=== PATIENT | male | born 1955 | race Caucasian/White ===

== ENCOUNTER 2017-01-12 15:26 | Emergency (ER) | payer OTHER ==
[2017-01-12 16:03] VITALS: BP 122/66
[2017-01-12] MEDS ORDERED: Lidocaine 1% MPF* 2 ML VIAL INJ ONE (16:32)
--- NOTE | 2017-01-12 17:09 | UC ---
Laceration HPI - HPI Summary HPI Summary: WAS CLEANING OVEN TODAY AROUND 2:30PM. LACERATED LEFT HAND JUST PROXIMAL TO 5TH FINGER ON A SHARP PART OF THE DOOR. THINKS HIS LAST TETANUS WAS 5-7 YEARS AGO. - History Of Current Complaint Chief Complaint: UCLaceration Stated Complaint: LFT HAND LAC Time Seen by Provider: 01/12/17 16:16 Hx Obtained From: Patient, Family/Windows Infrastructure Engineer - Laceration Location: Hand - LEFT Mechanism Of Injury: Sharp Trauma Onset/Duration: Sudden Onset, Lasting Hours, Still Present Severity: Moderate Pain Intensity: 4 Pain Scale Used: 0-10 Numeric Related History: Dominant Hand Right - Allergies/Home Medications Allergies/Adverse Reactions: Allergies Allergy/AdvReac Type Severity Reaction Status Date / Time No Known Allergies Allergy Verified 01/12/17 15:55 PMH/Surg Hx/FS Hx/Imm Hx Cardiovascular History: Hypertension Respiratory History: COPD - Surgical History Surgical History: Yes Surgery Procedure, Year, and Place: Right Rotator Cuff, 2015, [place]; Right Shoulder, 2006, [place] - Family History Known Family History: Positive: Hypertension - Social History Alcohol Use: Daily Substance Use Type: None Smoking Status (MU): Former Smoker Type: Cigarettes Amount Used/How Often: ~1-2 PPD Length of Time of Smoking/Using Tobacco: 43 Years Have You Smoked in the Last Year: No - Immunization History Most Recent Influenza Vaccination: Not the Season Review of Systems Constitutional: Negative Skin: Other - LACERATION Respiratory: Negative Cardiovascular: Negative Gastrointestinal: Negative All Other Systems Reviewed And Are Negative: Yes Physical Exam Triage Information Reviewed: Yes Appearance: Well-Appearing, No Pain Distress, Well-Nourished Vital Signs: Initial Vital Signs Temp 98.5 F 01/12/17 15:56 Pulse 73 01/12/17 15:56 Resp 16 01/12/17 15:56 BP 122/66 01/12/17 15:56 Pulse Ox 96 01/12/17 15:56 Vital Signs Reviewed: Yes Eyes: Positive: Conjunctiva Clear ENT: Positive: Hearing grossly normal Neck: Positive: Supple Respiratory: Positive: No respiratory distress, No accessory muscle use Cardiovascular: Positive: Pulses Normal Abdomen Description: Positive: Soft Neurological: Positive: Alert Psychological: Positive: Age Appropriate Behavior Skin: Positive: Other - 3CM LINEAR LACERATION LEFT HAND JUST PROXIMAL TO 5TH FINGER Laceration Repair - Laceration Repair 1 Description: Linear Laceration Size After Repair: Length (cm) - 3CM, Width (mm) - 0MM, Depth (mm) - 2MM Modified For Repair: No Anesthesia Used: 1.0% Lido Irrigation With Pressure Irrigation Device: Yes Closure Material: Sutures - 8 SIMPLE INTERRUPTED Closure Method: Single Layer Suture Of: Skin Suture Type: Other - 5-0 SURGIPRO Laceration Course/Dx - Course/Dx Course Of Treatment: ADVISED TDAP BOOSTER. PT DECLINED. WILL FOLLOW-UP WITH PCP. - Differential Dx - Laceration/Wound Provider Diagnoses: LACERATION REPAIR LEFT HAND Discharge - Discharge Plan Condition: Stable Disposition: HOME Patient Education Materials: Laceration (ED) Referrals: Cielo Hodge MD [Primary Care Provider] - If Needed Additional Instructions: APPLY THIN LAYER ANTIBIOTIC OINTMENT UNDER BANDAGE FOR FIRST 3-4 DAYS ONLY. CHANGE BANDAGE DAILY AND NEEDED IF IT BECOMES SOILED OR WET. SEEK FOLLOW-UP IF YOU DEVELOP SPREADING REDNESS OF THE SKIN, PURULENT DRAINAGE, FEVER, INCREASED PAIN OR ANY OTHER CONCERNING SYMPTOMS. RETURN FOR SUTURE REMOVAL IN 10 DAYS
== END 2017-01-12 17:30 | disposition home or self-care (01) ==
LOC: UCCORT 15:26
DX: S61.412A Laceration without foreign body of left hand, initial encounter (principal); W26.8XXA Contact with other sharp object(s), not elsewhere classified, initial encounter; Y93.G9 Activity, other involving cooking and grilling
CPT/HCPCS: 12002; 99211; G0463

== ENCOUNTER 2018-08-01 07:38 | Emergency (ER) | payer BC, OTHER ==
[2018-08-01 07:57] VITALS: BP 146/70
--- NOTE | 2018-08-01 09:09 | UC ---
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 Onset/Duration: Sudden Onset, Lasting Days - 1, Still Present Timing: Constant Onset Severity: Moderate Current Severity: Moderate Pain Intensity: 0 Pain Scale Used: 0-10 Numeric Location: Discrete - right hand Character: Pain, Painful Aggravating Factor(s): Nothing Alleviating Factor(s): Nothing Associated Signs & Symptoms: Negative: Nausea, Vomiting, Numbness, Weakness, Fever, Tenderness Related History: Other: - stuck by old / used needle - Allergy/Home Medications Allergies/Adverse Reactions: Allergies Allergy/AdvReac Type Severity Reaction Status Date / Time No Known Allergies Allergy Verified 08/01/18 07:48 PMH/Surg Hx/FS Hx/Imm Hx Cardiovascular History: Hypertension Respiratory History: COPD - Surgical History Surgical History: Yes Surgery Procedure, Year, and Place: Right Rotator Cuff, 2015, [place]; Right Shoulder, 2006, [place] - Family History Known Family History: Positive: Hypertension - Social History Alcohol Use: Daily Alcohol Amount: 3 BEERS A RICHAR Substance Use Type: None Smoking Status (MU): Former Smoker Type: Cigarettes Amount Used/How Often: ~1-2 PPD Length of Time of Smoking/Using Tobacco: 43 Years Have You Smoked in the Last Year: No - Immunization History Most Recent Influenza Vaccination: Not the Season Review of Systems All Other Systems Reviewed And Are Negative: Yes Constitutional: Positive: Negative Skin: Positive: Negative Eyes: Positive: Negative ENT: Positive: Negative Respiratory: Positive: Negative Is Patient Immunocompromised?: No Physical Exam Triage Information Reviewed: Yes Appearance: Well-Appearing, No Pain Distress, Well-Nourished Vital Signs: Initial Vital Signs Temp 98.6 F 08/01/18 07:49 Pulse 75 08/01/18 07:49 Resp 16 08/01/18 07:49 BP 146/70 08/01/18 07:49 Pulse Ox 98 08/01/18 07:49 Vital Signs Reviewed: Yes Eye Exam: Normal Eyes: Positive: Conjunctiva Clear ENT: Positive: Normal ENT inspection, Hearing grossly normal, Pharynx normal Neck: Positive: Supple, Nontender, No Lymphadenopathy Respiratory: Positive: Chest non-tender, Lungs clear, Normal breath sounds Cardiovascular: Positive: RRR, No Murmur, Pulses Normal Abdominal Exam: Normal Skin Exam: Normal Course/Dx - Diagnoses Provider Diagnosis: Needle exposure Discharge - Sign-Out/Discharge Documenting (check all that apply): Patient Departure All imaging exams completed and their final reports reviewed: No Studies - Discharge Plan Condition: Stable Disposition: HOME Prescriptions: Raltegravir* [Isentress*] 400 mg PO BID #60 tab Patient Education Materials: Needle Stick Injuries (ED) Referrals: Cielo Hodge MD [Primary Care Provider] - 7 Days Additional Instructions: will check for Hep B and Hep C and HIV will start Post exposure prophylaxis medication for HIV for 30 days please follow up with your pcp in one week - Billing Disposition and Condition Condition: STABLE Disposition: Home
[2018-08-01 13:36] LABS: ABS Basophils 0.1 10^3/ul (0-0.2); ABS Eosinophils 0.2 10^3/ul (0-0.6); ABS Lymphocytes 1.6 10^3/ul (1.0-4.8); ABS Monocytes 0.6 10^3/ul (0-0.8); ABS Neutrophils 4.8 10^3/ul (1.5-7.7); ABS Nucleated RBC 0 10^3/ul; Eosinophil % 2.6 %; Hematocrit 40 % (42-52); Hemoglobin 13.4 g/dl (14.0-18.0); Lymphocyte % 21.5 %; Mean Corpuscular HGB Conc 33 g/dl (31-36); Mean Corpuscular Hemoglobin 30 pg (27-31); Mean Corpuscular Volume 89 fL (80-94); Mean Platelet Volume 8.3 fL (7.4-10.4); Nucleated Red Blood Cells % 0.1; Platelet Count 363 10^3/ul (150-450); Red Blood Count 4.53 10^6/ul (4.00-5.40); Red Cell Distribution Width 13 % (10.5-15); White Blood Count 7.3 10^3/ul (3.5-10.8)
[2018-08-01 13:52] LABS: Albumin 3.8 g/dL (3.2-5.2); Albumin/Globulin Ratio 1.1 (1-3); BUN/Creatinine Ratio 20.9 (8-20); Calcium 9.5 mg/dL (8.6-10.3); EGFR Non-African American 89.5 (>60); Globulin 3.5 g/dL (2-4); Potassium 4.4 mmol/L (3.5-5.0); Total Bilirubin 0.5 mg/dL (0.2-1.0); Total Protein 7.3 g/dL (6.4-8.9)
[2018-08-01 14:13] LABS: Hepatitis B Surface Antigen Nonreactive (Nonreactive)
[2018-08-01 14:39] LABS: Hepatitis C Antibody Nonreactive (Nonreactive)
[2018-08-01 15:04] LABS: Hepatitis B Surface AB Not Immune (Immune)
--- NOTE | 2018-08-02 07:16 | UC ---
- Progress Note Progress Note: cbc,. cmp wnl HIV, Hep C, Hep B neg refer to Dr. Soler please 08/02/18 Course/Dx - Diagnoses Provider Diagnoses: Needle exposure Discharge - Sign-Out/Discharge Documenting (check all that apply): Post-Discharge Follow Up All imaging exams completed and their final reports reviewed: No Studies - Discharge Plan Condition: Stable Disposition: HOME Prescriptions: Raltegravir* [Isentress*] 400 mg PO BID #60 tab Patient Education Materials: Needle Stick Injuries (ED) Referrals: Cielo Hodge MD [Primary Care Provider] - 7 Days Additional Instructions: will check for Hep B and Hep C and HIV will start Post exposure prophylaxis medication for HIV for 30 days please follow up with your pcp in one week - Billing Disposition and Condition Condition: STABLE Disposition: Home
== END 2018-08-01 08:46 | disposition home or self-care (01) ==
LOC: UCCORT 07:38
DX: Z77.21 Contact with and (suspected) exposure to potentially hazardous body fluids (principal); X58.XXXA Exposure to other specified factors, initial encounter; Y93.89 Activity, other specified; Y92.9 Unspecified place or not applicable
CPT/HCPCS: 36415; 80053; 85025; 86703; 86706; 86803; 87340; 99212; G0463

== ENCOUNTER 2018-10-21 14:41 | Inpatient (IN) | payer BC, MEDICARE ==
--- OUTSIDE RECORDS SUMMARY | 2018-10-21 17:43 | XMS REPORT | Continuity of Care Document ---
:1955 External Reference #:[id number] Author Name Anisha Da Silva PA Address [address] [facility] [place] [address] Care Team Providers Name Role Phone Cielo Hodge MD Care Team Information Director Of Rehabilitation And Wellness Unavailable Cielo Hodge MD Primary Care Physician Unavailable Payers Date Identification Numbers Payment Provider Subscriber Effective: 2017 Policy Number: [id number] [employer] Darci Randolph PayID: [id number] [address] [address] [place] [address] Expires: 2017 Policy Number: [id number] [employer] Darci A Randolph PayID: [id number] [address] [place] [address] Expires: 2016 Policy Number: [id number] Medicaid Darci A Randolph PayID: [id number] [address] [place] [address] Advance Directives Description No Information Available Problems Date Description Provider Status Onset: 05/20/2015 Benign essential hypertension Active Onset: 05/20/2015 Chronic obstructive lung disease Cielo Hodge MD Active Onset: 05/20/2015 Essential hypertension Cielo Hodge MD Active Onset: 05/20/2015 Gastroesophageal reflux disease Cielo Hodge MD Active Onset: 05/20/2015 Shoulder joint pain Cielo Hodge MD Active Onset: 05/20/2015 Hyperlipidemia screening Cielo Hodge MD Active Onset: 05/20/2015 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 Active the shoulder region Onset: 08/19/2015 Umbilical hernia Cielo Hodge MD Active Onset: 08/19/2015 Epidermoid cyst Cielo Hodge MD Active Onset: 08/19/2015 Tinea pedis Cielo Hodge MD Active Onset: 08/19/2015 Onychomycosis Cielo Hodge MD Active Onset: 12/24/2015 Prosthetic arthroplasty of shoulder Suraj Moe M.D. 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,FACS Active soft tissues Onset: 10/15/2017 Encounter for other preprocedural Anisha Da Silva PA Active examination Onset: 10/15/2017 Chronic obstructive pulmonary Anisha Da Silva PA Active disease with (acute) exacerbation Onset: 10/15/2017 Chest pain Anisha Da Silva PA Active Family History Date Family Member(s) Observation Comments General Non Contributory Father Unknown Mother 82 Mother Unknown Children 6 Siblings 1 First Brother due to Unknown Causes () Social History Type Date Description Comments Sex Unknown Marital Status Lives With Diet Patient follows no dietary restrictions Occupation 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, didn't pass breathing test Hand Dominance Right-handed ADL's/IADL's Independent with all ADL's Tobacco Use Start: Unknown End: Quit Unknown Cigarette Use Pack Years - 49 Smoking Status Reviewed: 10/02/18 Quit ETOH Use Currently consumes alcohol 2+ drinks 4d/week C+A+G+E- 5-17-16: 6 pk/week & 1 bottle of wine/week Tobacco Use Start: Unknown End: Patient is a former smoker 1 1/2 ppd x 45 yrs, Unknown quit at age 56 Tobacco Use Start: Unknown quit 3 years ago CHANTIX Allergies, Adverse Reactions, Alerts Description No Known Drug Allergies Medications Medication Date Status Form Strength Qnty SIG Indications Ordering Provider Azithromycin 10/03/19 Active Tablets 250mg 6tabs 2 tab by J18.9 Naveen , 19 mouth day MD Cielo 1 1 tab by mouth day 2-5 Methylprednisolo 10/03/19 Active TBPK 4mg 21uni take J18.9 Naveen ne 19 ts tablets MD Cielo as directed- dose pack Nebulizer Air 06/24/20 Active Misc 1unit diagnosis Kheti, Tube/Plugs 18 s : copd MD Dilan Spiriva Respimat 11/09/19 Active Aerosol 2.5mcg/Ac 4unit Inhale 2 Kheti, 17 t s Puffs By MD Dilan Mouth Once Daily Nebulizer 05/20/20 Active Kit Nebulizer J44.9 Naveen Kit/Tubing/Mouth 15 machine; MD Cielo piece use as directed with albuterol q4h prn wheezing, cough or sob dx: j44.9 Albuterol 05/20/20 Active Nebulizer (2.5mg/3M 75ml use one J44.9 Naveen, Sulfate 15 L) 0.083% vial in MD Cielo nebulizer every 4 hours as needed Ventolin HFA Active Aerosol 108(90Bas 24gm 2 puffs , 00 e) every 4 MD Cielo mcg/Act hours as needed for sob, wheezing or persistan t cough Ibuprofen Active Tablets 800mg 180ta Take One Naveen 00 bs Tablet By MD Cielo Mouth Twice Daily With Food Or Snack as Needed For Pain. Max/Daily -2 Tablets Lisinopril Active Tablets 10mg 90tab take one Naveen 00 s tablet by MD Cielo mouth once daily Omeprazole Active Capsules 40mg [address] mouth every day Tramadol HCL 07/26/19 Hx Tablets 50mg 42tab 1-2 tab M54.41 Naveen 18 - s by mouth MD Cielo 08/22/19 every 4 19 hrs if needed for severe painRefer ence #: [id number] Incruse Ellipta 10/06/19 Hx Aerosol 62.5mcg/I 1mont take 1 Jeanmarieeti, 17 - nh h puff once MD Dilan 11/09/19 daily. 17 Omeprazole 05/29/20 Hx Capsules 40mg 60cap take 1 Sudhir Fernandez - DR s capsule MD Edgardo 08/22/19 by mouth 19 twice daily Guaifenesin ac 04/24/20 Hx Syrup 100-10mg/ 473ml 1-2 tsp Naveen, 16 - 5ML by mouth MD Cielo 07/26/19 every 4 18 hours as needed Reference #: [id number] Testosterone 03/31/20 Hx Solution 100mg/ml 6ml 1 Naveen, Cypionate 16 - millilite MD Cielo 03/31/20 rs 16 intramusc ular every 4 weeks code f reference #: [id number] Testosterone 03/31/20 Hx Solution 200mg/ml 3ml inject Naveen, Cypionate 16 - 1/2 MD Cielo 07/29/19 millilite 17 rs intramusc ular every 4 weeks code f Reference #: [id number] Azithromycin 03/28/20 Hx Tablets 250mg 6tabs take 2 J44.1 Art 16 - tablets MD Dilan 04/24/20 on day 1 16 then 1 tablet daily for 4 days. Prednisone 03/28/20 Hx Tablets 10mg 20tab take 40 J44.1 Art 16 - s mg once MD Dilan 04/24/20 daily for 16 5 days. Oxycodone HCL 11/30/19 Hx Tablets 10mg 60tab 1 by Abhi, 16 - s mouth Suraj, 01/03/20 every 4-6 M.D. 16 hour as needed postop pain Advair Diskus 11/22/19 Hx Aerosol 100-50mcg QS inhale Art, 16 - /Dose one puff MD Dilan 03/29/20 by mouth 16 twice a day Testosterone 10/20/19 Hx Gel 10mg/Act 4 pumps Sudhir Hodge - (2%) topically MD Cielo 10/20/19 every 16 morning Testosterone 10/13/19 Hx Solution 200mg/ml 10ml inject 1 Naveen Cypalma 16 - millilite MD Cielo 03/31/20 rs 16 intramusc ular every 4 weeks code f reference #: [id number] Spiriva Respimat 10/11/19 Hx Aerosol 2.5mcg/Ac 4gm Inhale Art 16 - t Two MD Dilan 10/06/19 Topanga(S) 17 By Mouth Once Daily Stiolto Respimat 09/24/19 Hx Aerosol 2.5-2.5mc 1unit take 2 J43.2 Kheti , 16 - g/Act s puffs MD Dilan 10/11/19 once 16 daily. Omeprazole 06/14/20 Hx Capsules 40mg 60cap 1 by Rei Fernandez - DR jamie Reynoso MD Unknown twice daily Advair Diskus 05/20/20 Hx Aerosol 250-50mcg 60uni 2npuff J44.9 Naveen 15 - /Dose ts twice a MD Cielo 11/22/19 day 16 Viagra 05/20/20 Hx Tablets 100mg 10tab take 1 F52.21 Naveen 15 - s tablet by MD Cielo 04/24/20 mouth at 16 least 1 hour before intercour se samples x 4, [id number] expir 07/03 Omeprazole Hx Capsules 20mg 90cap 1 po qd Naveen 00 - DR jamie Buck MD 06/14/20 15 Advair Diskus Hx Aerosol 250-50mcg use 1 Unknown 00 - /Dose breath 05/20/20 twice a 15 day Omeprazole Hx Tablets DR 20mg 1 by Unknown 00 - mouth 07/12/20 every day 15 Ibuprofen Hx Tablets 200mg 1 by Unknown 00 - mouth as 07/12/20 needed 15 for pain Cephalexin Hx Capsules 500mg 1 tab po Unknown 00 - bid x10 07/26/19 days 18 Guaifenesin-Code Hx Solution 100-10mg/ as needed Unknown ine 00 - 5ML for cough 04/24/20 16 Immunizations CPT Code Status Date Vaccine Lot # [id number] Given 07/26/2017 Pneumovax Injection [id number] Given 08/19/2015 Pneumococcal Conjugate Vaccine 13 Valent For [id number] Intramuscular Use [id number] Refused 03/31/2016 Influenza Vaccine (Fluzone) Age 3 And Older Vital Signs Date Vital Result Comment 10/02/2018 4:13pm BP Systolic 126 mmHg BP Diastolic 72 mmHg Body Temperature 99.8 F Heart Rate 92 /min Respiratory Rate 18 /min Height 66 inches 5'6" Weight 181.00 lb BMI (Body Mass Index) 29.2 kg/m2 BSA (Body Surface Area) 1.92 m2 [place] body weight in kilograms 64 kg O2 % BldC Oximetry 93 % Ra 08/22/2018 8:53am BP Systolic 113 mmHg BP Diastolic 75 mmHg Body Temperature 98.2 F Heart Rate 89 /min Height 66 inches 5'6" Weight 181.00 lb BMI (Body Mass Index) 29.2 kg/m2 BSA (Body Surface Area) 1.92 m2 [place] body weight in kilograms 64 kg O2 % BldC Oximetry 96 % room air Pain Level 3 04/29/2018 1:13pm BP Systolic Sitting Left Arm 126 mmHg BP Diastolic Sitting Left Arm 58 mmHg Heart Rate 82 /min Respiratory Rate 16 /min Height 66.6 inches 5'6.60" Weight 183.00 lb BMI (Body Mass Index) 29.0 kg/m2 BSA (Body Surface Area) 1.94 m2 [place] body weight in kilograms 66 kg O2 % BldC Oximetry 94 % 10/31/2017 9:56am BP Systolic 153 mmHg BP Diastolic 81 mmHg Heart Rate 80 /min Height 66.6 inches 5'6.60" Weight 185.00 lb BMI (Body Mass Index) 29.3 kg/m2 BSA (Body Surface Area) 1.95 m2 [place] body weight in kilograms 66 kg 10/15/2017 1:25pm BP Systolic Sitting Left Arm 128 mmHg BP Diastolic Sitting Left Arm 78 mmHg Body Temperature 97.9 F Heart Rate 88 /min Height 66.6 inches 5'6.60" Weight 183.00 lb BMI (Body Mass Index) 29.0 kg/m2 BSA (Body Surface Area) 1.94 m2 [place] body weight in kilograms 66 kg O2 % BldC Oximetry 98 % 10/02/2017 8:58am BP Systolic 122 mmHg BP Diastolic 88 mmHg Height 66.6 inches 5'6.60" Weight 182.00 lb BMI (Body Mass Index) 28.8 kg/m2 BSA (Body Surface Area) 1.93 m2 [place] body weight in kilograms 66 kg 09/11/2017 9:11am BP Systolic 128 mmHg BP Diastolic 78 mmHg Height 66.6 inches 5'6.60" Weight 181.00 lb BMI (Body Mass Index) 28.7 kg/m2 BSA (Body Surface Area) 1.93 m2 [place] body weight in kilograms 66 kg 07/26/2017 8:37am BP Systolic Sitting Left Arm 122 mmHg BP Diastolic Sitting Left Arm 72 mmHg Heart Rate 84 /min Respiratory Rate 18 /min Height 66.6 inches 5'6.60" Weight 185.00 lb BMI (Body Mass Index) 29.3 kg/m2 BSA (Body Surface Area) 1.95 m2 [place] body weight in kilograms 66 kg 05/12/2016 3:00pm BP Systolic Sitting Right Arm 102 mmHg BP Diastolic Sitting Right Arm 58 mmHg 04/24/2016 5:37pm BP Systolic Sitting Left Arm 128 mmHg BP Diastolic Sitting Left Arm 70 mmHg Height 68 inches 5'8" Weight 182.00 lb BMI (Body Mass Index) 27.7 kg/m2 BSA (Body Surface Area) 1.96 m2 [place] body weight in kilograms 70 kg 04/20/2016 3:47pm BP Systolic Sitting Left Arm 137 mmHg BP Diastolic Sitting Left Arm 69 mmHg Body Temperature 97.8 F Heart Rate 70 /min Respiratory Rate 20 /min Height 66.5 inches 5'6.50" Weight 178.00 lb BMI (Body Mass Index) 28.3 kg/m2 BSA (Body Surface Area) 1.91 m2 04/07/2016 8:54am BP Systolic Sitting Right Arm 110 mmHg BP Diastolic Sitting Right Arm 68 mmHg Body Temperature 97.9 F Heart Rate 72 /min Respiratory Rate 18 /min Height 66.5 inches 5'6.50" Weight 178.50 lb BMI (Body Mass Index) 28.4 kg/m2 BSA (Body Surface Area) 1.92 m2 03/31/2016 11:41am BP Systolic Sitting Left Arm 117 mmHg BP Diastolic Sitting Left Arm 75 mmHg Body Temperature 97.7 F Heart Rate 76 /min Respiratory Rate 20 /min Height 66.5 inches 5'6.50" Weight 180.12 lb BMI (Body Mass Index) 28.6 kg/m2 BSA (Body Surface Area) 1.92 m2 03/28/2016 4:10pm BP Systolic Sitting Right Arm 130 mmHg BP Diastolic Sitting Right Arm 69 mmHg Heart Rate 68 /min Height 66.5 inches 5'6.50" Weight 180.00 lb BMI (Body Mass Index) 28.6 kg/m2 BSA (Body Surface Area) 1.92 m2 O2 % BldC Oximetry 97 % 02/28/2016 3:11pm BP Systolic 124 mmHg BP Diastolic 68 mmHg Height 66.5 inches 5'6.50" Weight 185.00 lb BMI (Body Mass Index) 29.4 kg/m2 BSA (Body Surface Area) 1.95 m2 11/30/2015 1:41pm BP Systolic Sitting Left Arm 118 mmHg BP Diastolic Sitting Left Arm 70 mmHg Height 66.5 inches 5'6.50" Weight 185.00 lb BMI (Body Mass Index) 29.4 kg/m2 BSA (Body Surface Area) 1.95 m2 09/24/2015 4:10pm BP Systolic Sitting Left Arm 134 mmHg BP Diastolic Sitting Left Arm 68 mmHg Heart Rate 64 /min Height 68 inches 5'8" Weight 186.00 lb BMI (Body Mass Index) 28.3 kg/m2 BSA (Body Surface Area) 1.98 m2 O2 % BldC Oximetry 97 % 08/19/2015 3:17pm BP Systolic 125 mmHg BP Diastolic 78 mmHg Body Temperature 96.2 F Heart Rate 62 /min Respiratory Rate 18 /min Height 67.75 inches 5'7.75" Weight 183.12 lb BMI (Body Mass Index) 28.0 kg/m2 BSA (Body Surface Area) 1.96 m2 07/12/2015 3:22pm BP Systolic Sitting Left Arm 125 mmHg BP Diastolic Sitting Left Arm 81 mmHg Heart Rate 81 /min Height 66.5 inches 5'6.50" Weight 176.00 lb BMI (Body Mass Index) 28.0 kg/m2 BSA (Body Surface Area) 1.90 m2 06/15/2015 3:52pm BP Systolic Sitting Left Arm 98 mmHg BP Diastolic Sitting Left Arm 54 mmHg Heart Rate 43 /min Respiratory Rate 18 /min Height 68 inches 5'8" Weight 184.00 lb BMI (Body Mass Index) 28.0 kg/m2 BSA (Body Surface Area) 1.97 m2 O2 % BldC Oximetry 94 % 06/14/2015 3:03pm BP Systolic Sitting Right Arm 130 mmHg BP Diastolic Sitting Right Arm 88 mmHg Heart Rate 69 /min Respiratory Rate 16 /min Height 67.5 inches 5'7.50" Weight 182.00 lb BMI (Body Mass Index) 28.1 kg/m2 BSA (Body Surface Area) 1.95 m2 05/20/2015 1:07pm BP Systolic 134 mmHg BP Diastolic 70 mmHg Body Temperature 98.7 F Heart Rate 75 /min Respiratory Rate 19 /min Height 67.5 inches 5'7.50" Weight 183.25 lb BMI (Body Mass Index) 28.3 kg/m2 BSA (Body Surface Area) 1.96 m2 Results Test Date Facility Test Result H/L Range Note CBC Auto Diff 08/01/2018 [facility] White Blood 7.3 10^3/uL N 3.5-10.8 5 [phone] Count Red Blood Count 4.53 10^6/uL N 4.00-5.40 Hemoglobin 13.4 g/dL Low 14.0-18.0 Hematocrit 40 % Low 42-52 Mean Corpuscular Volume 89 fL N 80-94 Mean Corpuscular Hemoglobin 30 pg N 27-31 Mean Corpuscular HGB Conc 33 g/dL N 31-36 Red Cell Distribution Width 13 % N 10.5-15 Platelet Count 363 10^3/uL N 150-450 Mean Platelet Volume 8.3 fL N 7.4-10.4 Abs Neutrophils 4.8 10^3/uL N 1.5-7.7 Abs Lymphocytes 1.6 10^3/uL N 1.0-4.8 Abs Monocytes 0.6 10^3/uL N 0-0.8 Abs Eosinophils 0.2 10^3/uL N 0-0.6 Abs Basophils 0.1 10^3/uL N 0-0.2 Abs Nucleated RBC 0 10^3/uL Granulocyte % 66.4 % Lymphocyte % 21.5 % Monocyte % 8.8 % Eosinophil % 2.6 % Basophil % 0.7 % Nucleated Red Blood Cells % 0.1 Comp Metabolic Panel 08/01/2018 [facility] Sodium 137 mmol/L N 135-145 [phone] Potassium 4.4 mmol/L N 3.5-5.0 Chloride 104 mmol/L N 101-111 Co2 Carbon Dioxide 25 mmol/L N 22-32 Anion Gap 8 mmol/L N 2-11 Glucose 108 mg/dL High 70-100 Blood Urea Nitrogen 18 mg/dL N 6-24 Creatinine 0.86 mg/dL N 0.67-1.17 BUN/Creatinine Ratio 20.9 High 8-20 Calcium 9.5 mg/dL N 8.6-10.3 Total Protein 7.3 g/dL N 6.4-8.9 Albumin 3.8 g/dL N 3.2-5.2 Globulin 3.5 g/dL N 2-4 Albumin/Globulin Ratio 1.1 N 1-3 Total Bilirubin 0.50 mg/dL N 0.2-1.0 Alkaline Phosphatase 86 U/L N 34-104 Alt 17 U/L N 7-52 Ast 17 U/L N 13-39 Egfr Non- 89.5 >60 Egfr 108.3 >60 2 Laboratory 08/01/2018 [facility] Hepatitis B Nonreactive Nonreactive 3 test finding [phone] Surface Antigen Hepatitis B 08/01/2018 [facility] Hepatitis B Not Immune Abnormal Immune Maximo AB Titer [phone] Surface AB Hep B Surf AB Level < 3.10 mIU/mL >12 Hepatitis C Antibody 08/01/2018 [facility] HCV Index 0.0 Index [phone] Hepatitis C Antibody Nonreactive Nonreactive HIV 1/2 AB 08/01/2018 [facility] HIV 1 2 Nonreactive Nonreactive 4 Evaluation [phone] Antibody Differential-WB 04/29/2018 [facility] Total Cells 100 #CELLS [address] Count[address] [place], [place] [id number] [phone] Band% 1 % N 0-8 Neutrophils% 59 % N 33-73 Lymph% 31 % N 20-42 Monocyte% 8 % N 0-10 Basophil% 1 % N 0-2 Platelet Estimate NORMAL RBC Morphology NORMAL CBC W/Automated Diff 04/29/2018 [facility] White Blood 7.4 K/uL N 3.4-10.[address] Count [place], [place] [id number] [phone] Red Blood Count 4.56 M/uL N 4.20-5.80 Hemoglobin 14.0 gm/dL N 12.8-17.0 Hematocrit 40.7 % N 38.0-48.0 Mean Cell Volume 89.3 fl N 80.0-96.0 Mean Corpuscular HGB 30.7 pg N 27.0-33.0 Mean Corpuscular HGB Conc 34.4 g/dL N 31.7-36.0 Platelet Count 276 K/uL N 155-360 Red Cell Distri Width SD 41.1 fl N 36-51 Red Cell Distri Width %CV 12.9 % N 11.6-15.8 Mean Platelet Volume 10.2 fL N 6.6-10.6 Neut% 62.4 % N 33.0-73.0 Lymph % 25.6 % N 20.0-42.0 [place] % 9.0 % N 0.0-10.0 Eo% 2.6 % N 0.0-6.6 Bas% 0.4 % N 0.0-1.1 Neut# 4.60 K/uL N 1.8-7.0 Lymph # 1.89 K/uL N 1.0-4.0 [place] # 0.66 K/uL N 0.0-0.8 Eos # 0.19 K/uL N 0.0-0.5 Baso # 0.03 K/uL N 0.0-0.1 Comprehensive Metabolic 04/29/2018 [facility] Glucose 106 mg/dL N 74-106 Panel [address] [place] [address] [phone] BUN 15 mg/dL N 7-18 Creatinine 0.8 mg/dL N 0.6-1.3 Glom Filtration Rate, Estimate >60 mL/min >60 If >60 mL/min >60 6 BUN/Creat 18.7 ratio Sodium 139 mmol/L N 136-145 Potassium 4.0 mmol/L N 3.5-5.1 Chloride 105 mmol/L N 98-107 Carbon Dioxide 26 mmol/L N 21-32 Anion Gap 8 mEq/L N 8-16 Calcium 8.7 mg/dL N 8.5-10.1 Total Protein 8.0 g/dL N 6.4-8.2 Albumin 3.8 g/dL N 3.4-5.0 Globulin 4.2 g/dL N 1.9-4.3 Alb/Glob 0.9 ratio Bilirubin,Total 0.4 mg/dL N 0.2-1.0 Sgot/Ast 18 U/L N 15-37 SGPT/Alt 28 U/L N 12-78 Alkaline Phosphatase 86 U/L N 45-117 LDL Cholesterol 04/29/2018 [facility] Cholesterol 210 mg/dL High <200 7 Profile [address] [place] [address] [phone] Triglycerides 191 mg/dL High <150 8 HDL Cholesterol 51 mg/dL >40 9 LDL-Cholesterol 121 mg/dL < 100 10 Laboratory test 04/29/2018 [facility] Magnesium 1.9 mg/dL N 1.8-2.4 finding [address] [place] [address] [phone] Laboratory test 04/29/2018 [facility] Slide Review DIFF finding [address] [place] [address] [phone] Glycohemoglobin 04/29/2018 [facility] Glycohemoglobin 5.7 % N 4.2-6.[address] (A1c) [place] [address] [phone] eAG 117 mg/dL Neutrophils # Bld 04/06/2018 N2N/CCD Import Neutrophils # Bld 3.55 1.8- 7.0 Auto Auto Neutrophils/leuk NFr 04/06/2018 N2N/CCD Import Neutrophils/leuk NFr 55.7 33.0-73.0 Bld Auto Bld Auto Potassium SerPl-sCnc 04/06/2018 N2N/CCD Import Potassium SerPl-sCnc 4.0 3.5-5.1 RDW RBC Auto 04/06/2018 N2N/CCD Import RDW RBC Auto 42.3 36-51 RDW RBC Auto-Rto 04/06/2018 N2N/CCD Import RDW RBC Auto-Rto 13.1 11.6- 15.8 Serum carbon dioxide 04/06/2018 N2N/CCD Import Serum carbon dioxide 26 21-32 measurement measurement Serum or plasma 04/06/2018 N2N/CCD Import Serum or plasma 3.9 3.4-5.0 albumin measurement albumin measurement (mass/volume) (mass/volume) Serum or plasma 04/06/2018 N2N/CCD Import Serum or plasma 87 45-117 alkaline phosphatase alkaline phosphatase measurement ( measurement (enzymatic activity/volume) Serum or plasma 04/06/2018 N2N/CCD Import Serum or plasma 17 15-37 aspartate aspartate aminotransferase aminotransferase measure measurement (enzymatic activity/volume) Serum or plasma 04/06/2018 N2N/CCD Import Serum or plasma 8.6 8.5-10.1 calcium measurement calcium measurement (mass/volume) (mass/volume) Serum or plasma 04/06/2018 N2N/CCD Import Serum or plasma 0.9 0.6-1.3 creatinine creatinine measurement measurement (mass/volum (mass/volume) Serum or plasma 04/06/2018 N2N/CCD Import Serum or plasma 99 74-106 glucose measurement glucose measurement (mass/volume) (mass/volume) Serum or plasma 04/06/2018 N2N/CCD Import Serum or plasma 8.1 6.4-8.2 protein measurement protein measurement (mass/volume) (mass/volume) Serum or plasma 04/06/2018 N2N/CCD Import Serum or plasma 0.5 0.2-1.0 total bilirubin total bilirubin measurement (mass/ measurement (mass/volume) Serum or plasma urea 04/06/2018 N2N/CCD Import Serum or plasma urea 18 7 -18 nitrogen measurement nitrogen measurement (mass/vo (mass/volume) Serum or plasma urea 04/06/2018 N2N/CCD Import Serum or plasma urea 20.0 nitrogen/creatinine nitrogen/creatinine mass rati mass ratio Serum sodium 04/06/2018 N2N/CCD Import Serum sodium 138 136-145 measurement measurement CBC W/Automated Diff 04/06/2018 [facility] White Blood Count 6.4 K/uL N 3.4- 10.5 12 [address] [place] [address] [phone] Red Blood Count 4.48 M/uL N 4.20-5.80 Hemoglobin 14.0 gm/dL N 12.8-17.0 Hematocrit 40.7 % N 38.0-48.0 Mean Cell Volume 90.8 fl N 80.0-96.0 Mean Corpuscular HGB 31.3 pg N 27.0-33.0 Mean Corpuscular HGB Conc 34.4 g/dL N 31.7-36.0 Platelet Count 253 K/uL N 155-360 Red Cell Distri Width SD 42.3 fl N 36-51 Red Cell Distri Width %CV 13.1 % N 11.6-15.8 Mean Platelet Volume 9.9 fL N 6.6-10.6 Neut% 55.7 % N 33.0-73.0 Lymph % 30.1 % N 20.0-42.0 [place] % 9.4 % N 0.0-10.0 Eo% 4.2 % N 0.0-6.6 Bas% 0.6 % N 0.0-1.1 Neut# 3.55 K/uL N 1.8-7.0 Lymph # 1.92 K/uL N 1.0-4.0 [place] # 0.60 K/uL N 0.0-0.8 Eos # 0.27 K/uL N 0.0-0.5 Baso # 0.04 K/uL N 0.0-0.1 Laboratory test 04/06/2018 [facility] Troponin-I < 0.015 13, [address] ng/mL [place], [place] [id number] [phone] Comprehensive 04/06/2018 [facility] Glucose 99 mg/dL N 74-10 15 Metabolic Panel [address] [place], [place] [id number] [phone] BUN 18 mg/dL N 7-18 Creatinine 0.9 mg/dL N 0.6-1.3 Glom Filtration Rate, Estimate >60 mL/min >60 If >60 mL/min >60 16 BUN/Creat 20.0 ratio Sodium 138 mmol/L N 136-145 Potassium 4.0 mmol/L N 3.5-5.1 Chloride 103 mmol/L N 98-107 Carbon Dioxide 26 mmol/L N 21-32 Anion Gap 9 mEq/L N 8-16 Calcium 8.6 mg/dL N 8.5-10.1 Total Protein 8.1 g/dL N 6.4-8.2 Albumin 3.9 g/dL N 3.4-5.0 Globulin 4.2 g/dL N 1.9-4.3 Alb/Glob 0.9 ratio Bilirubin,Total 0.5 mg/dL N 0.2-1.0 Sgot/Ast 17 U/L N 15-37 SGPT/Alt 25 U/L N 12-78 Alkaline Phosphatase 87 U/L N 45-117 Laboratory test 04/06/2018 [facility] Troponin-I < 0.015 [address] ng/mL [place], [place] [id number] [phone] Alt SerPl-cCnc 04/06/2018 N2N/CCD Import Alt SerPl-cCnc 25 12-78 Albumin/Glob 04/06/2018 N2N/CCD Import Albumin/Glob SerPl 0.9 SerPl Anion Gap 04/06/2018 N2N/CCD Import Anion Gap 9 8-16 SerPl-sCnc SerPl-sCnc Automated blood 04/06/2018 N2N/CCD Import Automated blood 0.04 0.0-0 basophil count basophil count .1 (count/volume) (count/volume) Automated blood 04/06/2018 N2N/CCD Import Automated blood 0.27 0.0-0 eosinophil count eosinophil count .5 Automated blood 04/06/2018 N2N/CCD Import Automated blood 40.7 38.0- hematocrit hematocrit (volume 48.0 (volume fraction) fraction) Automated blood 04/06/2018 N2N/CCD Import Automated blood 1.92 1.0-4 lymphocyte count lymphocyte count .0 (number/volume) (number/volume) Automated blood 04/06/2018 N2N/CCD Import Automated blood 253 155-3 platelet count platelet count 60 Automated blood 04/06/2018 N2N/CCD Import Automated blood 9.9 6.6-1 platelet mean platelet mean 0.6 volume volume measurement measurement Automated 04/06/2018 N2N/CCD Import Automated 31.3 27.0- erythrocyte mean erythrocyte mean 33.0 corpuscular corpuscular hemoglobin hemoglobin (mass per erythrocyte) Monocytes/leuk 04/06/2018 N2N/CCD Import Monocytes/leuk NFr 9.4 0.0-1 NFr Bld Auto Bld Auto 0.0 Lymphocytes/leuk 04/06/2018 N2N/CCD Import Lymphocytes/leuk 30.1 20.0- NFr Bld Auto NFr Bld Auto 42.0 Globulin Ser 04/06/2018 N2N/CCD Import Globulin Ser 4.2 1.9-4 Calc-mCnc Calc-mCnc .3 Eosinophil/leuk 04/06/2018 N2N/CCD Import Eosinophil/leuk 4.2 0.0-6 NFr Bld Auto NFr Bld Auto .6 Chloride 04/06/2018 N2N/CCD Import Chloride 103 98-10 SerPl-sCnc SerPl-sCnc 7 Blood monocytes 04/06/2018 N2N/CCD Import Blood monocytes 0.60 0.0-0 automated count automated count .8 (number/volume) (number/volume) Automated 04/06/2018 N2N/CCD Import Automated 34.4 31.7- erythrocyte mean erythrocyte mean 36.0 corpuscular corpuscular hemoglobin hemoglobin concentration measurement (mass/volume) Automated 04/06/2018 N2N/CCD Import Automated 90.8 80.0- erythrocyte mean erythrocyte mean 96.0 corpuscular corpuscular volume volume Basophils/leuk 04/06/2018 N2N/CCD Import Basophils/leuk NFr 0.6 0.0-1 NFr Bld Auto Bld Auto .1 Blood 04/06/2018 N2N/CCD Import Blood erythrocytes 4.48 4.20- erythrocytes automated count 5.80 automated count (number/volume) (number/volume) Blood hemoglobin 04/06/2018 N2N/CCD Import Blood hemoglobin 14.0 12.8- measurement measurement 17.0 (mass/volume) (mass/volume) Blood leukocytes 04/06/2018 N2N/CCD Import Blood leukocytes 6.4 3.4-1 automated count automated count 0.5 (number/volume) (number/volume) CBC 10/18/2017 [facility] White Blood Count 6.2 K/uL N 3.4-[address] [place] [address] [phone] Red Blood Count 4.57 M/uL N 4.20-5.80 Hemoglobin 14.4 gm/dL N 12.8-17.0 Hematocrit 40.5 % N 38.0-48.0 Mean Cell Volume 88.6 fl N 80.0-96.0 Mean Corpuscular HGB 31.5 pg N 27.0-33.0 Mean Corpuscular HGB Conc 35.6 g/dL N 31.7-36.0 Platelet Count 243 K/uL N 155-360 Red Cell Distri Width %CV 12.8 % N 11.6-15.8 Mean Platelet Volume 10.5 fL N 6.6-10.6 Basic Metabolic Panel 10/18/2017 [facility] Glucose 113 mg/dL High 74-[address] [place] [address] [phone] BUN 26 mg/dL High 7-18 Creatinine 0.7 mg/dL N 0.6-1.3 Glom Filtration Rate, Estimate >60 mL/min >60 If >60 mL/min >60 19 BUN/Creat 37.1 ratio Sodium 142 mmol/L N 136-145 Potassium 4.3 mmol/L N 3.5-5.1 Chloride 110 mmol/L High 98-107 Carbon Dioxide 22 mmol/L N 21-32 Anion Gap 10 mEq/L N 8-16 Calcium 8.8 mg/dL N 8.5-10.1 Laboratory test 07/19/2016 [facility] Troponin-I < 0.015 N 20, [address] ng/[place] [address] [phone] CBS W/Automated 07/19/2016 [facility] White Blood 5.6 K/uL N 3.4-[address] Count 0.5 [place] [address] [phone] Red Blood Count 4.72 M/uL N 4.20-5.80 Hemoglobin 14.5 gm/dL N 12.8-17.0 Hematocrit 41.6 % N 38.0-48.0 Mean Cell Volume 88.1 fl N 80.0-96.0 Mean Corpuscular HGB 30.7 pg N 27.0-33.0 Mean Corpuscular HGB Conc 34.9 g/dL N 31.7-36.0 Platelet Count 222 K/uL N 150-400 Red Cell Distri Width SD 39.4 fl N 36-51 Red Cell Distri Width %CV 12.6 % N 11.6-15.8 Mean Platelet Volume 10.3 fL N 6.6-10.6 Neut% 49.7 % N 33.0-73.0 Lymph % 33.3 % N 17.0-56.0 [place] % 9.9 % N 0.0-10.0 Eo% 6.6 % High 0.0-5.0 Bas% 0.5 % N 0.1-1.0 Neut# 2.80 K/uL N 1.8-7.0 Lymph # 1.88 K/uL N 1.8-7.0 [place] # 0.56 K/uL N 0.0-0.8 Eos # 0.37 K/uL N 0.0-0.5 Baso # 0.03 K/uL Low 0.1-0.2 Laboratory test 07/19/2016 [facility] D-Dimer, < 0.22 N [address] Quantitative ug/[place] [address] [phone] Comprehensive 07/19/2016 [facility] Glucose 98 mg/dL N 74-10 Metabolic Panel [address] [place] [address] [phone] BUN 16 mg/dL N 7-18 Creatinine 0.9 mg/dL N 0.6-1.3 Glom Filtration Rate, Estimate >60 mL/min N >60 If >60 mL/min N >60 23 BUN/Creat 17.7 ratio N Sodium 141 mmol/L N 136-145 Potassium 4.2 mmol/L N 3.5-5.1 Chloride 109 mmol/L High 98-107 Carbon Dioxide 25 mmol/L N 21-32 Anion Gap 7 mEq/L Low 8-16 Calcium 8.2 mg/dL Low 8.5-10.1 Total Protein 7.2 g/dL N 6.4-8.2 Albumin 3.6 g/dL N 3.4-5.0 Globulin 3.6 g/dL N 1.9-4.3 Alb/Glob 1.0 ratio N Bilirubin,Total 0.4 mg/dL N 0.2-1.0 Sgot/Ast 23 U/L N 15-37 SGPT/Alt 30 U/L N 12-78 Alkaline Phosphatase 72 U/L N 45-117 Laboratory test finding 07/19/2016 [facility] Lipase 181 U/L N 73-393 [address] [place] [address] [phone] CK 96 U/L N 39-308 Troponin-I < 0.015 ng/mL N 24 Laboratory test 07/19/2016 N2N/CCD Import Alanine Aminotransferase 30 12 -78 finding (Alt/SGPT) Albumin/Globulin Ratio 1.0 BUN/Creatinine Ratio 17.7 Basophils # (Auto) 0.03 Low 0.1-0.2 Basophils (%) (Auto) 0.5 0.1-1.0 Blood Urea Nitrogen 16 7-18 Calcium Level 8.2 Low 8.5-10.1 Carbon Dioxide Level 25 21-32 Chloride Level 109 High 98-107 Eosinophils # (Auto) 0.37 0.0-0.5 Eosinophils (%) (Auto) 6.6 High 0.0-5.0 Glucose Screen 98 74-106 Lymphocytes (%) (Auto) 33.3 17.0-56.0 Mean Corpuscular Hemoglobin 30.7 27.0-33.0 Mean Corpuscular Hemoglobin Concent 34.9 31.7-36.0 Mean Corpuscular Volume 88.1 80.0-96.0 Monocytes # (Auto) 0.56 0.0-0.8 Monocytes (%) (Auto) 9.9 0.0-10.0 Neutrophils (%) (Auto) 49.7 33.0-73.0 Potassium Level 4.2 3.5-5.1 RDW Coefficient of Variation 12.6 11.6-15.8 Red Cell Distribution Width 39.4 36-51 Sodium Level 141 136-145 Total Bilirubin 0.4 0.2-1.0 Aspartate Amino 07/19/2016 N2N/CCD Import Aspartate Amino 23 15-37 Transf (Ast/Sgot) Transf (Ast/Sgot) Lymphocytes # 07/19/2016 N2N/CCD Import Lymphocytes # 1.88 1.8-7.0 (Auto) (Auto) Neutrophils # 07/19/2016 N2N/CCD Import Neutrophils # 2.80 1.8-7.0 (Auto) (Auto) Order 06/01/2016 [facility] - Respiratory Therapy PFT With <pendin [address] Bronchodilator g> [place], [place] [id number] [phone] Comprehensive 03/28/2016 [facility] Glucose 90 N 74-106 25 Metabolic Panel [address] mg/[place] [address] [phone] BUN 14 mg/dL N 7-18 Creatinine 0.9 mg/dL N 0.6-1.3 Glom Filtration Rate, Estimate >60 mL/min N >60 If >60 mL/min N >60 26 BUN/Creat 15.5 ratio N Sodium 138 mmol/L N 136-145 Potassium 3.8 mmol/L N 3.5-5.1 Chloride 103 mmol/L N 98-107 Carbon Dioxide 27 mmol/L N 21-32 Anion Gap 8 mEq/L N 8-16 Calcium 8.8 mg/dL N 8.5-10.1 Total Protein 8.1 g/dL N 6.4-8.2 Albumin 4.2 g/dL N 3.4-5.0 Globulin 3.9 g/dL N 1.9-4.3 Alb/Glob 1.1 ratio N Bilirubin,Total 0.4 mg/dL N 0.2-1.0 Sgot/Ast 19 U/L N 15-37 SGPT/Alt 26 U/L N 12-78 Alkaline Phosphatase 97 U/L N 45-117 @[facility] Pat Id: [id number] @EMR Req #: [id number] Reflex add FT3? Y Reflex add FT4? Y Is Patient Fasting? Unknown CBS W/Automated Diff 03/28/2016 [facility] White Blood 7.4 K/uL N 3.4-10.[address] Count [place], [place] [id number] [phone] Red Blood Count 4.83 M/uL N 4.20-5.80 Hemoglobin 14.5 gm/dL N 12.8-17.0 Hematocrit 41.7 % N 38.0-48.0 Mean Cell Volume 86.3 fl N 80.0-96.0 Mean Corpuscular HGB 30.0 pg N 27.0-33.0 Mean Corpuscular HGB Conc 34.8 g/dL N 31.7-36.0 Platelet Count 236 K/uL N 150-400 Red Cell Distri Width SD 40.2 fl N 36-51 Red Cell Distri Width %CV 13.1 % N 11.6-15.8 Mean Platelet Volume 10.1 fL N 6.6-10.6 Neut% 60.0 % N 33.0-73.0 Lymph % 26.8 % N 17.0-56.0 Defiance % 9.0 % N 0.0-10.0 Eo% 3.7 % N 0.0-5.0 Bas% 0.5 % N 0.1-1.0 Neut# 4.42 K/uL N 1.8-7.0 Lymph # 1.97 K/uL N 1.8-7.0 [place] # 0.66 K/uL N 0.0-0.8 Eos # 0.27 K/uL N 0.0-0.5 Baso # 0.04 K/uL Low 0.1-0.2 @[facility] Pat Id: [id number] @EMR Req #: [id number] TSH Reflex FT4 03/28/2016 [facility] Thyroid Stim 2.86 uIU/mL N 0.30-4.20 And/Or FT3 [address] Hormone [place], [place] [address] [phone] @[facility] Pat Id: [id number] @[facility] Req #: [id number] Reflex add FT3? Y Reflex add FT4? Y Is Patient Fasting? Unknown Laboratory test 03/28/2016 N2N/CCD Import Thyroid 2.86 0.30-4.20 finding Stimulating Hormone (TSH) Laboratory test 12/14/2015 [facility] Bone See Note 27 finding [address] [place] [address] [phone] Basic Metabolic 12/08/2015 [facility] Glucose 104 mg/dL 74-106 Panel [address] [place] [address] [phone] BUN 18 mg/dL 7-18 Creatinine 0.8 mg/dL 0.6-1.3 Glom Filtration Rate, Estimate >60 mL/min >60 If >60 mL/min >60 28 BUN/Creat 22.5 ratio Sodium 138 mmol/L 136-145 Potassium 4.1 mmol/L 3.5-5.1 Chloride 106 mmol/L 98-107 Carbon Dioxide 26 mmol/L 21-32 Anion Gap 6 mEq/L Low 8-16 Calcium 8.7 mg/dL 8.5-10.1 CBC 12/08/2015 [facility] White Blood Count 5.4 K/uL 3.4-10.5 [address] [place], [place] [address] [phone] Red Blood Count 4.50 M/uL 4.20-5.80 Hemoglobin 14.0 gm/dL 12.8-17.0 Hematocrit 40.3 % 38.0-48.0 Mean Cell Volume 89.6 fl 80.0-96.0 Mean Corpuscular HGB 31.1 pg 27.0-33.0 Mean Corpuscular HGB Conc 34.7 g/dL 31.7-36.0 Platelet Count 248 K/uL 150-400 Red Cell Distri Width %CV 13.1 % 11.6-15.8 Mean Platelet Volume 10.3 fL 6.6-10.6 Laboratory test 09/20/2015 [facility] Prostate 1.06 ng/mL 29 finding [address] [place] [address] Antigen [phone] CBC W/Automated 09/20/2015 [facility] White Blood 6.3 K/uL 3.4-10. Diff [address] [place], [place] [id number] [phone] Red Blood Count 4.53 M/uL 4.20-5.80 Hemoglobin 13.9 gm/dL 12.8-17.0 Hematocrit 40.6 % 38.0-48.0 Mean Cell Volume 89.6 fl 80.0-96.0 Mean Corpuscular HGB 30.7 pg 27.0-33.0 Mean Corpuscular HGB Conc 34.2 g/dL 31.7-36.0 Platelet Count 260 K/uL 150-400 Red Cell Distri Width SD 42.0 fl 36-51 Red Cell Distri Width %CV 13.2 % 11.6-15.8 Mean Platelet Volume 11.1 fL High 6.6-10.6 Neut% 54.3 % 33.0-73.0 Lymph % 31.6 % 17.0-56.0 Defiance % 8.5 % 0.0-10.0 Eo% 5.0 % 0.0-5.0 Bas% 0.6 % 0.1-1.0 Neut# 3.40 K/uL 1.8-7.0 Lymph # 1.98 K/uL 1.8-7.0 [place] # 0.53 K/uL 0.0-0.8 Eos # 0.31 K/uL 0.0-0.5 Baso # 0.04 K/uL Low 0.1-0.2 Comprehensive Metabolic 09/20/2015 [facility] Glucose 117 mg/dL High 74-106 Panel [address] [place] [address] [phone] BUN 19 mg/dL High 7-18 Creatinine 0.8 mg/dL 0.6-1.3 Glom Filtration Rate, Estimate >60 mL/min >60 If >60 mL/min >60 30 BUN/Creat 23.7 ratio Sodium 138 mmol/L 136-145 Potassium 4.1 mmol/L 3.5-5.1 Chloride 107 mmol/L 98-107 Carbon Dioxide 24 mmol/L 21-32 Anion Gap 7 mEq/L Low 8-16 Calcium 7.7 mg/dL Low 8.5-10.1 Total Protein 7.0 g/dL 6.4-8.2 Albumin 3.6 g/dL 3.4-5.0 Globulin 3.4 g/dL 1.9-4.3 Alb/Glob 1.1 ratio Bilirubin,Total 0.2 mg/dL 0.2-1.0 Sgot/Ast 17 U/L 15-37 SGPT/Alt 32 U/L 12-78 Alkaline Phosphatase 73 U/L 45-117 Testosterone 08/20/2015 [facility] Testosterone,Serum 252 Low 348-[address] ng/dL [place], [place] [address] [phone] Comment See Note 31 Testosterone,%Free/Weakly BND 22.9 % 9.0-46.0 Testosterone,Free+Weakly Bound 57.7 ng/dL 40.0-250.0 32 LDL Cholesterol Profile 08/20/2015 [facility] Cholesterol 157 mg/dL <[address] [place] [address] [phone] Triglycerides 126 mg/dL <150 34 HDL Cholesterol 49 mg/dL >40 35 LDL-Cholesterol 83 mg/dL < 100 36 Ua RFX Micro + Culture 06/14/2015 [facility] Urine Color YELLOW Yellow II [address] [place] [address] [phone] Urine Clarity CLEAR Clear Urine Glucose - Dipstick NEGATIVE mg/dL Negative Urine Bilirubin - Dipstick NEGATIVE Negative Urine Ketone NEGATIVE mg/dL Negative Urine Specific [place] 1.020 1.010-1.030 Urine Blood NEGATIVE Negative Urine PH 5.5 Low 6.5-7.5 Urine Protein - Dipstick NEGATIVE mg/dL Negative Urine Urobilinogen - Dipstick 0.2 E.U./dL 0.2-1.0 Urine Nitrite - Dipstick NEGATIVE Negative Urine Leuk Esterase NEGATIVE Negative 1 [id number] 2 Because ethnic data is not always readily available, this report includes an eGFR for both -Americans and non- Americans. The National Kidney Disease Education Program (NKDEP) does not endorse the use of the MDRD equation for patients that are not between the ages of 18 and 70, are , have extremes of body size, muscle mass, or nutritional status, or are non- or non-. According to the National Kidney Foundation, irrespective of diagnosis, the stage of the disease is based on the level of kidney function: Stage Description GFR(mL/min/1.73 m(2)) 1 Kidney damage with normal or decreased GFR 90 2 Kidney damage with mild decrease in GFR 60-89 3 Moderate decrease in GFR 30-59 4 Severe decrease in GFR 15-29 5 Kidney failure <15 (or dialysis) 3 [id number] 4 It is recognized that currently available assays for the detection of antibodies to HIV-1 and/or HIV-2 may not detect all infected individuals. HIV antibodies may be undetectable in some stages of the infection and in some clinical conditions. The performance of this assay has not been established for populations of infants or children. Assayed by Chemiluminescence Microparticle Immunoassay on the Siemens Advia Centaur CP. Values obtained with different methods or kits cannot be used interchangeably.The diagnostic specificity of the ADVIA Centaur 1/O/2 Enhanced assay in the low risk population was 99.90% (6052/6058) with a 95% confidence interval of 99.78 to 99.96%. 5 R07.9 6 Note: Persistent reduction for 3 months or more in an eGFR <60 mL/min/1.73 m2 defines CKD. Patients with eGFR values >/=60 mL/min/1.73 m2 may also have CKD if evidence of persistent proteinuria is present. The original MDRD equation for estimated GFR is not valid for patients less than 18 years of age. Additional information may be found at www.kdoqi.org. 7 Reference Guidelines*: Desirable: ........... < 200 mg/dL Borderline High: ..... 200-239 mg/dL High: ................ >=240 mg/dL * The National Cholesterol Education Program (NCEP) 8 Reference Guidelines*: Normal: ............. < 150 mg/dL Borderline High: .... 150-199 mg/dL High: ............... 200-499 mg/dL Very High: .......... > 500 mg/dL * Source: National Cholesterol Education Program (NCEP) 9 Reference Guidelines*: Low HDL: ..... < 40 mg/dL Normal: ..... 40-60 mg/dL Desirable: ... > 60 mg/dL *The National Cholesterol Education Program(NCEP) 10 Reference Guidelines*: Optimal:........... <100 mg/dL Near Optimal....... 100-129 mg/dL Borderline High.... 130-159 mg/dL High............... 160-189 mg/dL Very High.......... >=190 mg/dL * Source: National Cholesterol Education Program (NCEP) 11 Elevated levels of HbA1c suggest the need for more aggressive treatment of glycemia. The [place] [employer] recommends that a primary goal of therapy should be a HbA1c of <7% and that physicians should re-evaluate the treatment regimen in patients with HbA1c values consistently >8%. 12 CHEST PAIN 13 CP 14 0.0 - 0.045 ng/mL: Normal 0.046 - 0.5 ng/mL: Suggestive 0.6 - 1.5 ng/mL: Consistent 15 CHEST PAIN 16 Note: Persistent reduction for 3 months or more in an eGFR <60 mL/min/1.73 m2 defines CKD. Patients with eGFR values >/=60 mL/min/1.73 m2 may also have CKD if evidence of persistent proteinuria is present. The original MDRD equation for estimated GFR is not valid for patients less than 18 years of age. Additional information may be found at www.kdoqi.org. 17 0.0 - 0.045 ng/mL: Normal 0.046 - 0.5 ng/mL: Suggestive 0.6 - 1.5 ng/mL: Consistent 18 CONSULT 10/16/17 11:30 33981 19 Note: Persistent reduction for 3 months or more in an eGFR <60 mL/min/1.73 m2 defines CKD. Patients with eGFR values >/=60 mL/min/1.73 m2 may also have CKD if evidence of persistent proteinuria is present. The original MDRD equation for estimated GFR is not valid for patients less than 18 years of age. Additional information may be found at www.kdoqi.org. 20 CHEST PAIN 21 0.0 - 0.045 ng/mL: Normal 0.046 - 0.5 ng/mL: Suggestive 0.6 - 1.5 ng/mL: Consistent 22 <=0.49 ug/mL - Low likelihood of DIC, DVT or Pulmonary Embolism >0.49 ug/mL - Additional testing should be done to rule out DIC, DVT, or Pulmonary embolism as clinically indicated. ([facility] has established a 97.89% negative predictive value for thrombotic disease when a cutoff value of 0.5 ug/mL is used.) 23 Note: Persistent reduction for 3 months or more in an eGFR <60 mL/min/1.73 m2 defines CKD. Patients with eGFR values >/=60 mL/min/1.73 m2 may also have CKD if evidence of persistent proteinuria is present. The original MDRD equation for estimated GFR is not valid for patients less than 18 years of age. Additional information may be found at www.kdoqi.org. 24 0.0 - 0.045 ng/mL: Normal 0.046 - 0.5 ng/mL: Suggestive 0.6 - 1.5 ng/mL: Consistent 25 R53.1 26 Note: Persistent reduction for 3 months or more in an eGFR <60 mL/min/1.73 m2 defines CKD. Patients with eGFR values >/=60 mL/min/1.73 m2 may also have CKD if evidence of persistent proteinuria is present. The original MDRD equation for estimated GFR is not valid for patients less than 18 years of age. Additional information may be found at www.kdoqi.org. 27 OPERATION/PROCEDURE Right (DJD), total shoulder. DIAGNOSIS: "RIGHT FEMORAL HEAD, EXCISION": - BENIGN BONE AND CARTILAGE WITH REACTIVE CHANGE. /clf 1105 GROSS Received in formalin in a properly labeled container with the patient's name and accession number designated, "RIGHT SHOULDER HUMERAL HEAD". The specimen consists of a single piece of sharp-white bony tissue measuring 5.3 x 5.3 x 1.4 cm. The specimen is unremarkable, submitted in one cassette following decalcification. CC/clf PRE OPERATIVE DIAGNOSIS Osteoarthritis right shoulder REVIEW CODE CODE: I Signed Electronically signed Chet EASLEY MD [id number] 28 Note: Persistent reduction for 3 months or more in an eGFR <60 mL/min/1.73 m2 defines CKD. Patients with eGFR values >/=60 mL/min/1.73 m2 may also have CKD if evidence of persistent proteinuria is present. The original MDRD equation for estimated GFR is not valid for patients less than 18 years of age. Additional information may be found at www.kdoqi.org. 29 THIS ASSAY IS NOT INTENDED A CANCER SCREENING TEST The concentration of PSA in a given specimen, determined with assays from different manufacturers, can vary due to differences in assay methods and reagent specificity. Values obtained from different assay methods cannot be used interchangeably. 30 Note: Persistent reduction for 3 months or more in an eGFR <60 mL/min/1.73 m2 defines CKD. Patients with eGFR values >/=60 mL/min/1.73 m2 may also have CKD if evidence of persistent proteinuria is present. The original MDRD equation for estimated GFR is not valid for patients less than 18 years of age. Additional information may be found at www.kdoqi.org. 31 Adult male reference interval is based on a population of lean males up to 40 years old. 32 Performed at: - [facility] [id number] Community Educator: Maria C Farooq MD, Phone: [phone] Performed at: - [facility] [id number] Community Educator: Leo Molina MD, Phone: [phone] 33 Reference Guidelines*: Desirable: ........... < 200 mg/dL Borderline High: ..... 200-239 mg/dL High: ................ >=240 mg/dL * The National Cholesterol Education Program (NCEP) 34 Reference Guidelines*: Normal: ............. < 150 mg/dL Borderline High: .... 150-199 mg/dL High: ............... 200-499 mg/dL Very High: .......... > 500 mg/dL * Source: National Cholesterol Education Program (NCEP) 35 Reference Guidelines*: Low HDL: ..... < 40 mg/dL Normal: ..... 40-60 mg/dL Desirable: ... > 60 mg/dL *The National Cholesterol Education Program(NCEP) 36 Reference Guidelines*: Optimal:........... <100 mg/dL Near Optimal....... 100-129 mg/dL Borderline High.... 130-159 mg/dL High............... 160-189 mg/dL Very High.......... >=190 mg/dL * Source: National Cholesterol Education Program (NCEP) Procedures Date Code Description Status 08/22/2018 12447 Radiology, Shoulder: Two Views (Sso) Completed 04/29/2018 69928 EKG-Tracing And Report Completed 10/18/2017 69176 Excision Tumor Soft Tissue Shoulder Area, Subcutaneous, 3 Completed CM Or > 10/15/2017 02116 EKG Interpretation And Report Only Completed 06/01/2016 10408 Bronchospasm Provocation Evaluation Multi Spirometric Completed Determinati 06/01/2016 43899 Bronchospasm Provocation Evaluation Multi Spirometric Completed Determinati 06/01/2016 57326 Spirometry Completed 06/01/2016 30984 Spirometry Completed 04/24/2016 69247 Excision Cyst Completed 04/07/2016 30387 Excision Cyst Completed 01/13/2016 96450 Eye Exam New Patient Comprehensive Completed 01/03/2016 44538 Radiology, Shoulder: Two Views (Sso) Completed 12/24/2015 31222 Radiology, Shoulder: Two Views (Sso) Completed 12/14/2015 17660 Arthroplasty Shoulder Total Completed 12/14/2015 24255 Arthroplasty Shoulder Total Completed 12/14/2015 22056 Arthroplasty Shoulder Total Completed 06/24/2015 44740 Bronchospasm Provocation Evaluation Multi Spirometric Completed Determinati 06/24/2015 11678 Spirometry Completed 06/14/2015 69641 EKG-Tracing And Report Completed 05/13/2015 54726 Stress Test Interpre And Report Only Completed 05/13/2015 66074 Stress Test Physician Super Only Completed 05/13/2015 50123 Stress Test Physician Super Only Completed 05/13/2015 26591 Myocardial Imaging Tomographic Multiple Study AT Rest Or Completed Stress 05/06/2015 35462 Echocardiogram Complete Completed Encounters Type Date Location Provider Dx Diagnosis Office Visit 08/22/2018 Orthopaedic Office Kelly Gasca, M25.511 Pain in right 8:45a PA shoulder Z96.611 Presence of right artificial shoulder joint Office Visit 04/29/2018 1:10p Cardiology Office Kallie R07.9 Chest pain, Get Pérez PA unspecified R06.02 Shortness of breath I10 Essential (primary) hypertension Office Visit 10/15/2017 1:30p Family Medicine Avinash, Z01.818 Encounter for other BOBBY [address] RD preprocedural examination 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 shoulder joint Office Visit 03/31/2016 11:30a Family Medicine Naveen D17.0 Bebo lipomatous Gomez Buck MD neoplm of skin, subcu of head, face and neck L72.3 Sebaceous cyst Office Visit 03/29/2016 8:30a Orthopaedic Abhi, Z96.611 Presence of Office Sandra Ruelas right artificial shoulder joint M19.011 Primary osteoarthritis, right shoulder Office Visit 03/28/2016 4:00p Pulmonology Dilan Cordova, J44.1 Chronic obstructive MD pulmonary disease w (acute) exacerbation R53.1 Weakness F17.211 Nicotine dependence, cigarettes, in remission Office Visit 10/25/2015 Orthopaedic Abhi M19.011 Primary 3:30p Office Sandra Ruelas osteoarthritis, right shoulder Office Visit 09/24/2015 Pulmonology Dilan Cordova, J43.2 Centrilobular 4:00p MD emphysema F17.211 Nicotine dependence, cigarettes, in remission K21.9 Gastro-esophageal reflux disease without esophagitis Office Visit 08/19/2015 3:00p Family Medicine Cielo Hodge, Z00.01 Encounter for Gomez MORALEZ MD general adult medical exam w abnormal findings I10 Essential (primary) hypertension J44.9 Chronic obstructive pulmonary disease, unspecified M19.011 Primary osteoarthritis, right shoulder K21.9 Gastro-esophageal reflux disease without esophagitis Z13.220 Encounter for screening for lipoid disorders K42.9 Umbilical hernia without obstruction or gangrene L72.3 Sebaceous cyst B35.1 Tinea unguium N52.9 Male erectile dysfunction, unspecified Z23 Encounter for immunization Office Visit 07/30/2015 11:00a Orthopaedic Office Suraj Moe M25.511 Pain in right M.D. shoulder M19.011 Primary osteoarthritis, right shoulder Office Visit 07/12/2015 Orthopaedic Abhi M25.511 Pain in right 3:00p Office Sandra Ruelas shoulder Office Visit 06/15/2015 Pulmonology Dilan Cordova, J44.9 Chronic 3:30p MD obstructive pulmonary disease, unspecified F17.211 Nicotine dependence, cigarettes, in remission F06.31 Mood disorder due to known physiol cond w depressv features Office Visit 06/14/2015 2:50p Cardiology Office Edgardo Fernandez, R07.2 Precordial pain K21.9 Gastro-esophageal reflux disease without esophagitis I10 Essential (primary) hypertension M54.5 Low back pain Office Visit 05/20/2015 1:00p Family Medicine Cielo Hodge J44.9 Chronic Gomez MORALEZ MD obstructive pulmonary disease, unspecified I10 Essential (primary) hypertension K21.9 Gastro-esophageal reflux disease without esophagitis M25.511 Pain in right shoulder Z13.220 Encounter for screening for lipoid disorders F52.21 Male erectile disorder Office Visit 05/07/2015 9:00a Cardiology Office Edgardo Fernandez, R07.9 Chest pain, unspecified Plan of Treatment Future Appointment(s):10/23/2018 4:15 pm - Anisha Da Silva PA at [facility]
--- OUTSIDE RECORDS SUMMARY | 2018-10-21 17:43 | XMS REPORT | Continuity of Care Document ---
:1955 External Reference #:[id number] Author Name Anisha Da Silva PA Address [address] [facility] [place] [address] Care Team Providers Name Role Phone Cielo Hodge MD Care Team Information Health Care Law Specialist Unavailable Cielo Hodge MD Primary Care Physician Unavailable Payers Date Identification Numbers Payment Provider Subscriber Effective: 2017 Policy Number: [id number] [employer] Darci Randolph PayID: [id number] [address] [address] [place] [address] Expires: 2017 Policy Number: [id number] [employer] Darci A Randolph PayID: [id number] [address] [place] [address] Expires: 2016 Policy Number: [id number] Medicaid Darci A Randolph PayID: [id number] [address] [place] [address] Advance Directives Description No Information Available Problems [...] dietary restrictions Occupation 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, didn't pass breathing test Hand Dominance Right-handed ADL's/IADL's Independent with all ADL's Tobacco Use Start: Unknown End: Quit Unknown Cigarette Use Pack Years - 50 Smoking Status Reviewed: 10/16/18 Quit ETOH Use Currently consumes alcohol 2+ [...] Form Strength Qnty SIG Indications Ordering Provider Doxycycline 10/17/19 Active Tablets 100mg 20tab take 1 J44.1 Naveen, Hyclate 19 s tablet by MD Cielo mouth every 12 hours for 10 days for infection Flovent HFA 10/17/19 Active Aerosol 110mcg/Ac 36gm 1 puffs John.Jenifer Hodge 19 t twice a MD Cielo day Benzonatate 10/17/19 Active Capsules 200mg 30cap 1 tab by Sacha Hodge 19 s mouth MD Cielo three times a day Nebulizer Air 06/24/20 Active Misc 1unit diagnosis Kheti, Tube/Plugs 18 s : copd MD Dilan Spiriva Respimat 11/09/19 Active Aerosol 2.5mcg/Ac 4unit Inhale 2 Kheti, 17 t s Puffs By MD Dilan Mouth Once Daily Nebulizer 05/20/20 Active Kit Nebulizer Butch Villatoro/Tubing/Mouth 15 machine; MD Cielo piece use as directed with albuterol q4h prn wheezing, cough or sob dx: kai Albuterol 05/20/20 Active Nebulizer (2.5mg/3M 75ml use one Kai Hodge Sulfate 15 L) 0.083% vial in MD Cielo nebulizer every 4 hours as needed Ventolin HFA Active Aerosol 108(90Bas 24gm 2 puffs Naveen 00 e) every 4 MD Cielo mcg/Act [...] by Unknown 00 DR mouth every day Azithromycin 10/03/19 Hx Tablets 250mg 6tabs 2 tab by Saul Hodge 19 - mouth day MD Cielo 10/08/19 1 1 tab 19 by mouth day 2-5 Methylprednisolo 10/03/19 Hx TBPK 4mg 21uni take Saul Hodge ne 19 - ts tablets MD Cielo 10/08/19 as 19 directed- dose pack Tramadol HCL 07/26/19 Hx Tablets 50mg 42tab 1-2 tab M54.41 Naveen 18 - s by mouth MD Cielo 08/22/19 every 4 19 hrs if needed for severe painRefer ence #: [id number] Incruse Ellipta 10/06/19 Hx Aerosol 62.5mcg/I 1mont take 1 Art 17 - nh h puff once MD Dilan 11/09/19 daily. 17 Omeprazole 05/29/20 Hx Capsules 40mg 60cap take 1 Sudhir Fernandez - DR s capsule MD Edgardo 08/22/19 by mouth 19 twice daily Guaifenesin ac 04/24/20 Hx Syrup 100-10mg/ 473ml 1-2 tsp Naveen 16 - 5ML by mouth MD Cielo 07/26/19 every 4 18 hours as needed Reference #: [id number] Testosterone 03/31/20 Hx Solution 100mg/ml 6ml 1 Naveen Cypionate 16 - millilite MD Cielo 03/31/20 rs 16 intramusc ular every 4 weeks code f reference #: [id number] Testosterone 03/31/20 Hx Solution 200mg/ml 3ml inject Naveen Cypionate 16 - 1/2 MD Cielo 07/29/19 millilite 17 rs intramusc ular every 4 weeks code f Reference #: [id number] Azithromycin 03/28/20 Hx Tablets 250mg 6tabs take [...] Diskus 11/22/19 Hx Aerosol 100-50mcg QS inhale Art 16 - /Dose one puff MD Dilan 03/29/20 by mouth 16 twice a day Testosterone 10/20/19 Hx Gel 10mg/Act 4 pumps Sudhir Hodge - (2%) topically MD Cielo 10/20/19 every 16 morning Testosterone 10/13/19 Hx Solution 200mg/ml 10ml inject 1 Naveen Cypionate 16 - millilite MD Cielo 03/31/20 rs 16 intramusc ular every 4 weeks code f reference #: [id number] Spiriva Respimat 10/11/19 Hx Aerosol 2.5mcg/Ac 4gm Inhale Art 16 - t Two MD Dilan 10/06/19 [place](S) 17 By Mouth Once Daily Stiolto Respimat 09/24/19 Hx Aerosol 2.5-2.5mc 1unit take 2 J43.2 Art , 16 - g/Act s puffs MD Dilan 10/11/19 once 16 daily. Omeprazole 06/14/20 Hx Capsules 40mg 60cap 1 by Rei Fernandez - DR jamie Reynoso MD Unknown twice daily Advair Diskus 05/20/20 Hx Aerosol 250-50mcg 60uni 2npuff J44.9 Rei Hodge - /Dose ts twice a MD Cielo 11/22/19 day 16 Viagra 05/20/20 Hx Tablets 100mg 10tab take 1 F52.21 Naveen 15 - s tablet by MD Cielo 04/24/20 mouth at 16 least 1 hour before intercour se samples x 4, [id number] expir 07/03 Omeprazole Hx Capsules 20mg 90cap 1 po qd Hannah Hodge - DR jamie Buck MD 06/14/20 15 [...] CPT Code Status Date Vaccine Lot # [id number] Given 07/26/2017 Pneumovax Injection [id number] Given 08/19/2015 Pneumococcal Conjugate Vaccine 13 Valent For [id number] Intramuscular Use [id number] Refused 03/31/2016 Influenza Vaccine (Fluzone) Age 3 And Older Vital Signs Date Vital Result Comment 10/16/2018 3:28pm BP Systolic Sitting Left Arm 126 mmHg BP Diastolic Sitting Left Arm 72 mmHg Body Temperature 98.7 F Heart Rate 84 /min Respiratory Rate 20 /min Height 66 inches 5'6" Weight 179.00 lb BMI (Body Mass Index) 28.9 kg/m2 BSA (Body Surface Area) 1.91 m2 Rough And Ready body weight in kilograms 64 kg O2 % BldC Oximetry 94 % 10/02/2018 4:13pm BP Systolic 126 mmHg BP Diastolic 72 mmHg Body Temperature 99.8 F Heart Rate 92 /min Respiratory Rate 18 /min Height 66 inches 5'6" Weight 181.00 lb BMI (Body Mass Index) 29.2 kg/m2 BSA (Body Surface Area) 1.92 m2 Rough And Ready body weight in kilograms 64 kg O2 % BldC Oximetry 93 % Ra 08/22/2018 8:53am BP Systolic 113 mmHg BP Diastolic 75 mmHg Body Temperature 98.2 F Heart Rate 89 /min Height 66 inches 5'6" Weight 181.00 lb BMI (Body Mass Index) 29.2 kg/m2 BSA (Body Surface Area) 1.92 m2 Rough And Ready body weight in kilograms 64 kg O2 % BldC Oximetry 96 % room air Pain Level 3 04/29/2018 1:13pm BP Systolic Sitting Left Arm 126 mmHg BP Diastolic Sitting Left Arm 58 mmHg Heart Rate 82 /min Respiratory Rate 16 /min Height 66.6 inches 5'6.60" Weight 183.00 lb BMI (Body Mass Index) 29.0 kg/m2 BSA (Body Surface Area) 1.94 m2 Rough And Ready body weight in kilograms 66 kg O2 % BldC Oximetry 94 % 10/31/2017 9:56am BP Systolic 153 mmHg BP Diastolic 81 mmHg Heart Rate 80 /min Height 66.6 inches 5'6.60" Weight 185.00 lb BMI (Body Mass Index) 29.3 kg/m2 BSA (Body Surface Area) 1.95 m2 Rough And Ready body weight in kilograms 66 kg 10/15/2017 1:25pm BP Systolic Sitting Left Arm 128 mmHg BP Diastolic Sitting Left Arm 78 mmHg Body Temperature 97.9 F Heart Rate 88 /min Height 66.6 inches 5'6.60" Weight 183.00 lb BMI (Body Mass Index) 29.0 kg/m2 BSA (Body Surface Area) 1.94 m2 Rough And Ready body weight in kilograms 66 kg O2 % BldC Oximetry 98 % 10/02/2017 8:58am BP Systolic 122 mmHg BP Diastolic 88 mmHg Height 66.6 inches 5'6.60" Weight 182.00 lb BMI (Body Mass Index) 28.8 kg/m2 BSA (Body Surface Area) 1.93 m2 Rough And Ready body weight in kilograms 66 kg 09/11/2017 9:11am BP Systolic 128 mmHg BP Diastolic 78 mmHg Height 66.6 inches 5'6.60" Weight 181.00 lb BMI (Body Mass Index) 28.7 kg/m2 BSA (Body Surface Area) 1.93 m2 Rough And Ready body weight in kilograms 66 kg 07/26/2017 8:37am BP Systolic Sitting Left Arm 122 mmHg BP Diastolic Sitting Left Arm 72 mmHg Heart Rate 84 /min Respiratory Rate 18 /min Height 66.6 inches 5'6.60" Weight 185.00 lb BMI (Body Mass Index) 29.3 kg/m2 BSA (Body Surface Area) 1.95 m2 Rough And Ready body weight in kilograms 66 kg 05/12/2016 3:00pm BP Systolic Sitting Right Arm 102 mmHg BP Diastolic Sitting Right Arm 58 mmHg 04/24/2016 5:37pm BP Systolic Sitting Left Arm 128 mmHg BP Diastolic Sitting Left Arm 70 mmHg Height 68 inches 5'8" Weight 182.00 lb BMI (Body Mass Index) 27.7 kg/m2 BSA (Body Surface Area) 1.96 m2 Rough And Ready body weight in kilograms 70 kg 04/20/2016 [...] H/L Range Note CBC Auto Diff 08/01/2018 [facility] White Blood 7.3 10^3/uL N 3.5-10.8 0 [phone] Count Red Blood Count 4.53 10^6/uL N [...] Cells % 0.1 Comp Metabolic Panel 08/01/2018 [facility] Sodium 137 mmol/L N 135-145 [phone] Potassium 4.4 mmol/L N 3.5-5.0 Chloride 104 [...] >60 Egfr 108.3 >60 2 Laboratory 08/01/2018 [facility] Hepatitis B Nonreactive Nonreactive 3 test finding [phone] Surface Antigen Hepatitis B 08/01/2018 [facility] Hepatitis B Not Immune Abnormal Immune Maximo AB Titer [phone] Surface AB Hep B Surf AB Level < 3.10 mIU/mL >12 Hepatitis C Antibody 08/01/2018 [facility] HCV Index 0.0 Index [phone] Hepatitis C Antibody Nonreactive Nonreactive HIV 1/2 AB 08/01/2018 [facility] HIV 1 2 Nonreactive Nonreactive 4 Evaluation [phone] Antibody Differential-WB 04/29/2018 [facility] Total Cells 100 #CELLS [address] Counted [place], [place] [id number] [phone] Band% 1 % N 0-8 Neutrophils% 59 % N 33-73 Lymph% 31 % N 20-42 Monocyte% 8 % N 0-10 Basophil% 1 % N 0-2 Platelet Estimate NORMAL RBC Morphology NORMAL CBC W/Automated Diff 04/29/2018 [facility] White Blood 7.4 K/uL N 3.4-10.[address] [place] [address] [phone] Red Blood Count 4.56 M/uL N 4.20-5.80 [...] 33.0-73.0 Lymph % 25.6 % N 20.0-42.0 Towns % 9.0 % N 0.0-10.0 Eo% 2.6 % N 0.0-6.6 Bas% 0.4 % N 0.0-1.1 Neut# 4.60 K/uL N 1.8-7.0 Lymph # 1.89 K/uL N 1.0-4.0 Towns # 0.66 K/uL N 0.0-0.8 Eos # 0.19 K/uL N 0.0-0.5 Baso # 0.03 K/uL N 0.0-0.1 Comprehensive Metabolic 04/29/2018 [facility] Glucose 106 mg/dL N 74-[address] [place] [address] [phone] BUN 15 mg/dL N 7-18 Creatinine 0.8 [...] 86 U/L N 45-117 LDL Cholesterol 04/29/2018 [facility] Cholesterol 210 mg/dL High <200 [address] [place], [place] [id number] [phone] Triglycerides 191 mg/dL High <150 8 HDL Cholesterol 51 mg/dL >40 9 LDL-Cholesterol 121 mg/dL < 100 10 Laboratory test 04/29/2018 [facility] Magnesium 1.9 N 1.8-2.[address] mg/[place] [address] [phone] Glycohemoglobin 04/29/2018 [facility] Glycohemoglobin 5.7 % N 4.2-6.[address] (A1c) [place], [place] [id number] [phone] eAG 117 mg/dL Laboratory test 04/29/2018 [facility] Slide Review DIFF finding [address] [place], [place] [id number] [phone] Neutrophils/leuk 04/06/2018 N2N/CCD Import Neutrophils/leuk 55.7 33. NFr Bld Auto NFr Bld Auto 0-7 3.0 Potassium 04/06/2018 N2N/CCD Import Potassium 4.0 3.5 SerPl-sCnc SerPl-sCnc -5. 1 RDW RBC Auto 04/06/2018 N2N/CCD Import RDW RBC Auto 42.3 36- 51 RDW RBC Auto-Rto 04/06/2018 N2N/CCD Import RDW RBC Auto-Rto 13.1 11. 6-1 5.8 Serum carbon 04/06/2018 N2N/CCD Import Serum carbon 26 21- dioxide measurement dioxide measurement 32 Serum or plasma 04/06/2018 N2N/CCD Import Serum or plasma 3.9 3.4 albumin measurement albumin measurement -5. (mass/volume) (mass/volume) 0 Serum or plasma 04/06/2018 N2N/CCD Import Serum or plasma 87 45- alkaline alkaline 117 phosphatase phosphatase measurement ( measurement (enzymatic activity/volume) Serum or plasma 04/06/2018 N2N/CCD Import Serum or plasma 17 15- aspartate aspartate 37 aminotransferase aminotransferase measure measurement (enzymatic activity/volume) Serum or plasma 04/06/2018 N2N/CCD Import Serum or plasma 8.6 8.5 calcium measurement calcium measurement -10 (mass/volume) (mass/volume) .1 Serum or plasma 04/06/2018 N2N/CCD Import Serum or plasma 0.9 0.6 creatinine creatinine -1. measurement measurement 3 (mass/volum (mass/volume) Serum or plasma 04/06/2018 N2N/CCD Import Serum or plasma 99 74- glucose measurement glucose measurement 106 (mass/volume) (mass/volume) Serum or plasma 04/06/2018 N2N/CCD Import Serum or plasma 8.1 6.4 protein measurement protein measurement -8. (mass/volume) (mass/volume) 2 Serum or plasma 04/06/2018 N2N/CCD Import Serum or plasma 0.5 0.2 total bilirubin total bilirubin -1. measurement (mass/ measurement 0 (mass/volume) Serum or plasma 04/06/2018 N2N/CCD Import Serum or plasma 18 7-1 urea nitrogen urea nitrogen 8 measurement measurement (mass/vo (mass/volume) Serum or plasma 04/06/2018 N2N/CCD Import Serum or plasma 20.0 urea urea nitrogen/creatinine nitrogen/creatinine mass rati mass ratio Serum sodium 04/06/2018 N2N/CCD Import Serum sodium 138 136 measurement measurement -14 5 Laboratory test 04/06/2018 [facility] Troponin-I < 0.015 12, finding [address] ng/mL 13 [place] [address] [phone] Comprehensive 04/06/2018 [facility] Glucose 99 mg/dL N 74- Metabolic Panel [address] [place] [address] [phone] BUN 18 mg/dL N 7-18 Creatinine 0.9 mg/dL N 0.6-1.3 Glom Filtration Rate, Estimate >60 mL/min >60 If >60 mL/min >60 14 BUN/Creat 20.0 ratio Sodium 138 mmol/L N [...] 12-78 Alkaline Phosphatase 87 U/L N 45-117 CBC W/Automated Diff 04/06/2018 [facility] White Blood 6.4 K/uL N 3.4-10.[address] Count [place], [place] [address] [phone] Red Blood Count 4.48 M/uL N 4.20-5.80 [...] 33.0-73.0 Lymph % 30.1 % N 20.0-42.0 Towns % 9.4 % N 0.0-10.0 Eo% 4.2 % N 0.0-6.6 Bas% 0.6 % N 0.0-1.1 Neut# 3.55 K/uL N 1.8-7.0 Lymph # 1.92 K/uL N 1.0-4.0 Towns # 0.60 K/uL N 0.0-0.8 Eos # 0.27 K/uL N 0.0-0.5 Baso # 0.04 K/uL N 0.0-0.1 Laboratory test 04/06/2018 [facility] Troponin-I < 0.015 15, [address] ng/[place] [address] [phone] Alt SerPl-cCnc 04/06/2018 N2N/CCD Import Alt SerPl-cCnc 25 12-7 8 Albumin/Glob 04/06/2018 N2N/CCD Import Albumin/Glob 0.9 SerPl SerPl Anion Gap 04/06/2018 N2N/CCD Import Anion Gap 9 8-16 SerPl-sCnc SerPl-sCnc Automated blood 04/06/2018 N2N/CCD Import Automated blood 0.04 0.0- basophil count basophil count 0.1 (count/volume) (count/volume) Automated blood 04/06/2018 N2N/CCD Import Automated blood 0.27 0.0- eosinophil count eosinophil count 0.5 Automated blood 04/06/2018 N2N/CCD Import Automated blood 40.7 38.0 hematocrit hematocrit -48. (volume fraction) (volume fraction) 0 Automated blood 04/06/2018 N2N/CCD Import Automated blood 1.92 1.0- lymphocyte count lymphocyte count 4.0 (number/volume) (number/volume) Automated blood 04/06/2018 N2N/CCD Import Automated blood 253 155- platelet count platelet count 360 Automated blood 04/06/2018 N2N/CCD Import Automated blood 9.9 6.6- platelet mean platelet mean 10.6 volume volume measurement measurement Automated 04/06/2018 N2N/CCD Import Automated 31.3 27.0 erythrocyte mean erythrocyte mean -33. corpuscular corpuscular 0 hemoglobin hemoglobin (mass per erythrocyte) Automated 04/06/2018 N2N/CCD Import Automated 34.4 31.7 erythrocyte mean erythrocyte mean -36. corpuscular corpuscular 0 hemoglobin hemoglobin concentration measurement (mass/volume) Neutrophils # Bld 04/06/2018 N2N/CCD Import Neutrophils # Bld 3.55 1.8- Auto Auto 7.0 Monocytes/leuk 04/06/2018 N2N/CCD Import Monocytes/leuk 9.4 0.0- NFr Bld Auto NFr Bld Auto 10.0 Lymphocytes/leuk 04/06/2018 N2N/CCD Import Lymphocytes/leuk 30.1 20.0 NFr Bld Auto NFr Bld Auto -42. 0 Globulin Ser 04/06/2018 N2N/CCD Import Globulin Ser 4.2 1.9- Calc-mCnc Calc-mCnc 4.3 Eosinophil/leuk 04/06/2018 N2N/CCD Import Eosinophil/leuk 4.2 0.0- NFr Bld Auto NFr Bld Auto 6.6 Chloride 04/06/2018 N2N/CCD Import Chloride 103 98-1 SerPl-sCnc SerPl-sCnc 07 Blood monocytes 04/06/2018 N2N/CCD Import Blood monocytes 0.60 0.0- automated count automated count 0.8 (number/volume) (number/volume) Automated 04/06/2018 N2N/CCD Import Automated 90.8 80.0 erythrocyte mean erythrocyte mean -96. corpuscular corpuscular 0 volume volume Basophils/leuk 04/06/2018 N2N/CCD Import Basophils/leuk 0.6 0.0- NFr Bld Auto NFr Bld Auto 1.1 Blood 04/06/2018 N2N/CCD Import Blood 4.48 4.20 erythrocytes erythrocytes -5.8 automated count automated count 0 (number/volume) (number/volume) Blood hemoglobin 04/06/2018 N2N/CCD Import Blood hemoglobin 14.0 12.8 measurement measurement -17. (mass/volume) (mass/volume) 0 Blood leukocytes 04/06/2018 N2N/CCD Import Blood leukocytes 6.4 3.4- automated count automated count 10.5 (number/volume) (number/volume) CBC 10/18/2017 [facility] White Blood Count 6.2 K/uL N 3.4- [address] [place] [address] [phone] Red Blood Count 4.57 M/uL N 4.20-5.80 [...] fL N 6.6-10.6 Basic Metabolic Panel 10/18/2017 [facility] Glucose 113 mg/dL High 74-[address] [place] [address] [phone] BUN 26 mg/dL High 7-18 Creatinine 0.7 mg/dL N 0.6-1.3 Glom Filtration Rate, Estimate >60 mL/min >60 If >60 mL/min >60 18 BUN/Creat 37.1 ratio Sodium 142 mmol/L N 136-145 Potassium 4.3 mmol/L N 3.5-5.1 Chloride 110 mmol/L High 98-107 Carbon Dioxide 22 mmol/L N 21-32 Anion Gap 10 mEq/L N 8-16 Calcium 8.8 mg/dL N 8.5-10.1 Laboratory test 07/19/2016 [facility] Troponin-I < 0.015 N 19, [address] ng/[place] [address] [phone] CBS W/Automated 07/19/2016 [facility] White Blood 5.6 K/uL N 3.4-[address] Count 0.5 [place] [address] [phone] Red Blood Count 4.72 M/uL N 4.20-5.80 [...] 33.0-73.0 Lymph % 33.3 % N 17.0-56.0 Towns % 9.9 % N 0.0-10.0 Eo% 6.6 % High 0.0-5.0 Bas% 0.5 % N 0.1-1.0 Neut# 2.80 K/uL N 1.8-7.0 Lymph # 1.88 K/uL N 1.8-7.0 Towns # 0.56 K/uL N 0.0-0.8 Eos # 0.37 K/uL N 0.0-0.5 Baso # 0.03 K/uL Low 0.1-0.2 Laboratory test 07/19/2016 [facility] D-Dimer, < 0.22 N [address] Quantitative ug/[place] [address] [phone] Comprehensive 07/19/2016 [facility] Glucose 98 mg/dL N 74-10 Metabolic Panel [address] [place] [address] [phone] BUN 16 mg/dL N 7-18 Creatinine 0.9 mg/dL N 0.6-1.3 Glom Filtration Rate, Estimate >60 mL/min N >60 If >60 mL/min N >60 22 BUN/Creat 17.7 ratio N Sodium 141 mmol/L [...] U/L N 45-117 Laboratory test finding 07/19/2016 [facility] Lipase 181 U/L N 73-[address] [place] [address] [phone] CK 96 U/L N 39-308 Troponin-I < 0.015 ng/mL N 23 Laboratory test 07/19/2016 N2N/CCD Import Alanine Aminotransferase [...] # 2.80 1.8-7.0 (Auto) (Auto) Order 06/01/2016 [facility] - Respiratory Therapy PFT With <pendin [address] Bronchodilator g> [place] [address] [phone] CBS W/Automated 03/28/2016 [facility] White Blood Count 7.4 N 3.4-10.5 [address] K/[place] [address] [phone] Red Blood Count 4.83 M/uL N 4.20-5.80 [...] 33.0-73.0 Lymph % 26.8 % N 17.0-56.0 Towns % 9.0 % N 0.0-10.0 Eo% 3.7 % N 0.0-5.0 Bas% 0.5 % N 0.1-1.0 Neut# 4.42 K/uL N 1.8-7.0 Lymph # 1.97 K/uL N 1.8-7.0 Towns # 0.66 K/uL N 0.0-0.8 Eos # 0.27 K/uL N 0.0-0.5 Baso # 0.04 K/uL Low 0.1-0.2 @[facility] Pat Id: [id number] @[facility] Req #: [id number] Comprehensive Metabolic 03/28/2016 [facility] Glucose 90 mg/dL N 74-106 Panel [address] [place] [address] [phone] BUN 14 mg/dL N 7-18 Creatinine 0.9 mg/dL N 0.6-1.3 Glom Filtration Rate, Estimate >60 mL/min N >60 If >60 mL/min N >60 25 BUN/Creat 15.5 ratio N Sodium 138 mmol/L [...] 12-78 Alkaline Phosphatase 97 U/L N 45-117 @[facility] Pat Id: [id number] @[facility] Req #: [id number] Reflex add FT3? Y Reflex add FT4? Y Is Patient Fasting? Unknown TSH Reflex FT4 03/28/2016 [facility] Thyroid Stim 2.86 uIU/mL N 0.30-4.20 And/Or FT3 [address] [place] [address] [phone] @[facility] Pat Id: [id number] @[facility] Req #: [id number] Reflex add FT3? Y Reflex add FT4? Y Is Patient Fasting? Unknown Laboratory test 03/28/2016 N2N/CCD Import Thyroid 2.86 0.30-4.20 finding Stimulating Hormone (TSH) Laboratory test 12/14/2015 [facility] Bone See Note 26 finding [address] [place] [place] [address] [phone] CBC 12/08/2015 [facility] White Blood Count 5.4 K/uL 3.4-10.5 [address] [place] [address] [phone] Red Blood Count 4.50 M/uL 4.20-5.80 Hemoglobin 14.0 gm/dL 12.8-17.0 Hematocrit 40.3 % 38.0-48.0 Mean Cell Volume 89.6 fl 80.0-96.0 Mean Corpuscular HGB 31.1 pg 27.0-33.0 Mean Corpuscular HGB Conc 34.7 g/dL 31.7-36.0 Platelet Count 248 K/uL 150-400 Red Cell Distri Width %CV 13.1 % 11.6-15.8 Mean Platelet Volume 10.3 fL 6.6-10.6 Basic Metabolic Panel 12/08/2015 [facility] Glucose 104 mg/dL 74-106 [address] [place] [address] [phone] BUN 18 mg/dL 7-18 Creatinine 0.8 mg/dL 0.6-1.3 Glom Filtration Rate, Estimate >60 mL/min >60 If >60 mL/min >60 27 BUN/Creat 22.5 ratio Sodium 138 mmol/L 136-145 Potassium 4.1 mmol/L 3.5-5.1 Chloride 106 mmol/L 98-107 Carbon Dioxide 26 mmol/L 21-32 Anion Gap 6 mEq/L Low 8-16 Calcium 8.7 mg/dL 8.5-10.1 Comprehensive Metabolic 09/20/2015 [facility] Glucose 117 mg/dL High 74-[address] [place], [place] [address] [phone] BUN 19 mg/dL High 7-18 Creatinine 0.8 mg/dL 0.6-1.3 Glom Filtration Rate, Estimate >60 mL/min >60 If >60 mL/min >60 28 BUN/Creat 23.7 ratio Sodium 138 mmol/L 136-145 [...] U/L 12-78 Alkaline Phosphatase 73 U/L 45-117 Laboratory test 09/20/2015 [facility] Prostate 1.06 ng/mL [address] [place] [address] Antigen [phone] CBC W/Automated 09/20/2015 [facility] White Blood 6.3 K/uL 3.4-10. Diff [address] Count [address] [place], [place] [address] [phone] Red Blood Count 4.53 M/uL 4.20-5.80 Hemoglobin [...] % 33.0-73.0 Lymph % 31.6 % 17.0-56.0 Towns % 8.5 % 0.0-10.0 Eo% 5.0 % 0.0-5.0 Bas% 0.6 % 0.1-1.0 Neut# 3.40 K/uL 1.8-7.0 Lymph # 1.98 K/uL 1.8-7.0 Towns # 0.53 K/uL 0.0-0.8 Eos # 0.31 K/uL 0.0-0.5 Baso # 0.04 K/uL Low 0.1-0.2 Testosterone 08/20/2015 [facility] Testosterone,Serum 252 Low [phone] Free [address] [facility] ng/[place] [address] [phone] Comment See Note 30 Testosterone,%Free/Weakly BND 22.9 % 9.0-46.0 Testosterone,Free+Weakly Bound 57.7 ng/dL 40.0-250.0 31 LDL Cholesterol Profile 08/20/2015 [facility] Cholesterol 157 mg/dL <200 32 [address] [place] [address] [phone] Triglycerides 126 mg/dL <150 33 HDL Cholesterol 49 mg/dL >40 34 LDL-Cholesterol 83 mg/dL < 100 35 Ua RFX Micro + Culture 06/14/2015 [facility] Urine Color YELLOW Yellow II [address] [place] [address] [phone] Urine Clarity CLEAR Clear Urine Glucose - Dipstick NEGATIVE mg/dL Negative Urine Bilirubin - Dipstick NEGATIVE Negative Urine Ketone NEGATIVE mg/dL Negative Urine Specific [place] 1.020 1.010-1.030 Urine Blood NEGATIVE Negative Urine PH 5.5 Low 6.5-7.5 Urine Protein - Dipstick NEGATIVE mg/dL Negative Urine Urobilinogen - Dipstick 0.2 E.U./dL 0.2-1.0 Urine Nitrite - Dipstick NEGATIVE Negative Urine Leuk Esterase NEGATIVE Negative 1 [id number] Because ethnic data is not always [...] 5 Kidney failure <15 (or dialysis) 3 [id number] It is recognized that currently available [...] for more aggressive treatment of glycemia. The [place] [employer] recommends that a primary goal of therapy should be a HbA1c of <7% and that physicians should re-evaluate the treatment regimen in patients with HbA1c values consistently >8%. 12 CHEST PAIN 13 0.0 - 0.045 ng/mL: Normal 0.046 - 0.5 ng/mL: Suggestive 0.6 - 1.5 ng/mL: Consistent 14 Note: Persistent reduction for 3 months or more in an eGFR <60 mL/min/1.73 m2 defines CKD. Patients with eGFR values >/=60 mL/min/1.73 m2 may also have CKD if evidence of persistent proteinuria is present. The original MDRD equation for estimated GFR is not valid for patients less than 18 years of age. Additional information may be found at [email or web address]. 15 CP 16 0.0 - 0.045 ng/mL: Normal 0.046 - 0.5 ng/mL: Suggestive 0.6 - 1.5 ng/mL: Consistent 17 CONSULT 10/16/17 11:30 [id number] 18 Note: Persistent reduction for 3 months or more in an eGFR <60 mL/min/1.73 m2 defines CKD. Patients with eGFR values >/=60 mL/min/1.73 m2 may also have CKD if evidence of persistent proteinuria is present. The original MDRD equation for estimated GFR is not valid for patients less than 18 years of age. Additional information may be found at [email or web address]. 19 CHEST PAIN 20 0.0 - 0.045 ng/mL: Normal 0.046 - 0.5 ng/mL: Suggestive 0.6 - 1.5 ng/mL: Consistent 21 <=0.49 ug/mL - Low likelihood of DIC, DVT or Pulmonary Embolism >0.49 ug/mL - Additional testing should be done to rule out DIC, DVT, or Pulmonary embolism as clinically indicated. ([facility] has established a 97.89% negative predictive value for thrombotic disease when a cutoff value of 0.5 ug/mL is used.) 22 Note: Persistent reduction for 3 months or more in an eGFR <60 mL/min/1.73 m2 defines CKD. Patients with eGFR values >/=60 mL/min/1.73 m2 may also have CKD if evidence of persistent proteinuria is present. The original MDRD equation for estimated GFR is not valid for patients less than 18 years of age. Additional information may be found at www.[email or web address]. 23 0.0 - 0.045 ng/mL: Normal 0.046 - 0.5 ng/mL: Suggestive 0.6 - 1.5 ng/mL: Consistent 24 R53.1 25 Note: Persistent reduction for 3 months or more in an eGFR <60 mL/min/1.73 m2 defines CKD. Patients with eGFR values >/=60 mL/min/1.73 m2 may also have CKD if evidence of persistent proteinuria is present. The original MDRD equation for estimated GFR is not valid for patients less than 18 years of age. Additional information may be found at www.kdoqi.org. 26 OPERATION/PROCEDURE Right (DJD), total shoulder. DIAGNOSIS: "RIGHT FEMORAL HEAD, EXCISION": - BENIGN BONE AND CARTILAGE WITH REACTIVE CHANGE. EP/clf 1105 GROSS Received in formalin in a properly labeled container with the patient's name and accession number designated, "RIGHT SHOULDER HUMERAL HEAD". The specimen consists of a single piece of sharp-white bony tissue measuring 5.3 x 5.3 x 1.4 cm. The specimen is unremarkable, submitted in one cassette following decalcification. /clf PRE OPERATIVE DIAGNOSIS Osteoarthritis right shoulder REVIEW CODE CODE: I Signed Electronically signed Chet EASLEY MD [id number] 27 Note: Persistent reduction for 3 months or more in an eGFR <60 mL/min/1.73 m2 defines CKD. Patients with eGFR values >/=60 mL/min/1.73 m2 may also have CKD if evidence of persistent proteinuria is present. The original MDRD equation for estimated GFR is not valid for patients less than 18 years of age. Additional information may be found at www.kdoqi.org. 28 Note: Persistent reduction for 3 months [...] assay methods cannot be used interchangeably. 30 Adult male reference interval is based on a population of lean males up to 40 years old. 31 Performed at: - [facility] [id number] Case Worker: Maria C Farooq MD, Phone: [phone] Performed at: - [facility] [id number] Case Worker: Leo Molina MD, Phone: [phone] 32 Reference Guidelines*: Desirable: ........... < 200 mg/dL Borderline High: ..... 200-239 mg/dL High: ................ >=240 mg/dL * The National Cholesterol Education Program (NCEP) 33 Reference Guidelines*: Normal: ............. < 150 mg/dL Borderline High: .... 150-199 mg/dL High: ............... 200-499 mg/dL Very High: .......... > 500 mg/dL * Source: National Cholesterol Education Program (NCEP) 34 Reference Guidelines*: Low HDL: ..... < 40 mg/dL Normal: ..... 40-60 mg/dL Desirable: ... > 60 mg/dL *The National Cholesterol Education Program(NCEP) 35 Reference Guidelines*: Optimal:........... <100 mg/dL Near Optimal....... 100-129 mg/dL Borderline High.... 130-159 mg/dL High............... 160-189 mg/dL Very High.......... >=190 mg/dL * Source: National Cholesterol Education Program (NCEP) Procedures Date Code Description Status 08/22/2018 99413 Radiology, Shoulder: Two Views (Sso) Completed 04/29/2018 35200 EKG-Tracing And Report Completed 10/18/2017 32610 Excision Tumor Soft Tissue Shoulder Area, Subcutaneous, 3 Completed CM Or > 10/15/2017 65136 EKG Interpretation And Report Only Completed 06/01/2016 76633 Bronchospasm Provocation Evaluation Multi Spirometric Completed Determinati 06/01/2016 33848 Bronchospasm Provocation Evaluation Multi Spirometric Completed Determinati 06/01/2016 72134 Spirometry Completed 06/01/2016 90507 Spirometry Completed 04/24/2016 94713 Excision Cyst Completed 04/07/2016 97107 Excision Cyst Completed 01/13/2016 98101 Eye Exam New Patient Comprehensive Completed 01/03/2016 28975 Radiology, Shoulder: Two Views (Sso) Completed 12/24/2015 87265 Radiology, Shoulder: Two Views (Sso) Completed 12/14/2015 19961 Arthroplasty Shoulder Total Completed 12/14/2015 74540 Arthroplasty Shoulder Total Completed 12/14/2015 87771 Arthroplasty Shoulder Total Completed 06/24/2015 61084 Bronchospasm Provocation Evaluation Multi Spirometric Completed Determinati 06/24/2015 73624 Spirometry Completed 06/14/2015 71692 EKG-Tracing And Report Completed 05/13/2015 42131 Stress Test Interpre And Report Only Completed 05/13/2015 30842 Stress Test Physician Super Only Completed 05/13/2015 89643 Stress Test Physician Super Only Completed 05/13/2015 62087 Myocardial Imaging Tomographic Multiple Study AT Rest Or Completed Stress 05/06/2015 64672 Echocardiogram Complete Completed Encounters Type Date Location Provider Dx Diagnosis Office Visit 10/02/2018 Family Medicine Anisha Da Silva PA J18.9 Pneumonia, 4:00p [place] unspecified organism R06.2 Wheezing Office Visit 08/22/2018 8:45a Orthopaedic Office Kelly Gasca, M25.511 Pain in right PA shoulder Z96.611 Presence of right artificial shoulder joint Office Visit 04/29/2018 1:10p Cardiology Office Vishnu Arreguin7.9 Chest pain, BOBBY sOhea unspecified R06.02 Shortness of breath I10 Essential (primary) hypertension Office Visit 10/15/2017 1:30p Family Marie Da Silva Z01.818 Encounter for other [place] preprocedural examination 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, subcu of head, face and neck J44.1 Chronic obstructive pulmonary disease w (acute) exacerbation I10 Essential (primary) hypertension R07.9 Chest pain, unspecified Office Visit 10/02/2017 8:45a Surgical Office Ricky Maya, D17.0 Bebo lipomatous ,FACS neoplm of skin, subcu of head, face and neck Office Visit 09/11/2017 9:00a Surgical Office Ricky Maya, D48.1 Neoplasm of MAN SOTO uncertain behavior of connctv/soft tiss K42.9 Umbilical hernia without obstruction or gangrene Office Visit 07/26/2017 8:30a [facility] Medicine Cielo Hodge, M54.41 Lumbago with Gomez MORALEZ MD sciatica, right side M25.551 Pain in right hip J44.9 Chronic obstructive pulmonary disease, unspecified Office Visit 07/19/2016 3:40p Cardiology Office Edgardo Fernandez, R07.9 Chest pain, unspecified Office Visit 06/28/2016 8:30a Orthopaedic Office Abhi, Z96.611 Presence of right cornell Ruelas M.D. shoulder joint Office Visit 03/31/2016 11:30a [facility] Marie Hodge D17.0 Bebo lipomatous Gomez Buck MD neoplm [...] Office Visit 07/30/2015 11:00a Orthopaedic Office Suraj Moe, M25.511 Pain in right M.D. 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 Office Visit 06/14/2015 2:50p Cardiology Office Edgardo Fernandez, R07.2 Precordial pain K21.9 Gastro-esophageal reflux disease without esophagitis I10 Essential (primary) hypertension M54.5 Low back pain Office Visit 05/20/2015 1:00p [facility] Cielo Hodge J44.9 Chronic [facility] obstructive pulmonary disease, unspecified I10 Essential (primary) hypertension K21.9 Gastro-esophageal reflux disease without esophagitis M25.511 Pain in right shoulder Z13.220 Encounter for screening for lipoid disorders F52.21 Male erectile disorder Office Visit 05/07/2015 9:00a Cardiology Office Edgardo Fernandez, R07.9 Chest pain, unspecified Plan of Treatment Future Appointment(s):10/28/2018 8:45 am - Anisha Da Silva PA at [facility] RD10/16/2018 - Anisha Da Silva PAJ44.1 Chronic obstructive pulmonary disease with (acute) exacerbatNew Medication:Doxycycline Hyclate 100 mg - take 1 tablet by mouth every 12 hours for 10 days for infectionFlovent HFA 110 mcg/Act - 1 puffs twice a dayBenzonatate 200 mg - 1 tab by mouth three times a dayNew Xrays:Chest, 2 Views, Ordered: 10/16/18Comments:Fluids, rest. Complete medications as prescribed.Provide plenty of clear fluids. Alternate Tylenol and Motrin as needed. Call office as needed if symptoms worsen or persist longer than expected.Follow up:7-10 days
[2018-10-21] MEDS ORDERED: Albuterol 2.5 MG/3 ML NEB.SOL* (0.083%) INH PRN (19:09)
[2018-10-21] MEDS ORDERED: oxyCODONE/Acetamin 5/325 MG* TAB PO PRN (19:16)
[2018-10-21] MEDS ORDERED: Acetaminophen TAB* 325 MG PO PRN (19:16)
[2018-10-21] MEDS ORDERED: Ondansetron INJ* 2 MG/ML VIAL IV PRN (19:16)
[2018-10-21] MEDS ORDERED: Zosyn per Pharmacy* NOTE FOLLOW UP SCH (20:00)
[2018-10-21] MEDS ORDERED: Piperacillin/Tazobac ADVAN(*) 3.375 GM in NS 0.9% 100 ML* 100 ML IVPB ONE (20:00)
[2018-10-21] MEDS: Pantoprazole TAB * 40 MG TAB PO SCH (20:45)
[2018-10-21] MEDS: Enoxaparin(*) 40 MG/0.4 ML SYR SUBCUT SCH (20:45)
[2018-10-21] MEDS: Zolpidem TAB* 5 MG PO SCH (20:45)
[2018-10-21] MEDS: Benzonatate CAP* 100 MG PO SCH (20:45)
[2018-10-21] MEDS: [UNRECOGNIZED DRUG - OTHER] INH SCH (20:52)
[2018-10-21] MEDS ORDERED: Fluticasone HFA 110 mcg(NF) MDI INH SCH (21:00)
--- NOTE | 2018-10-21 21:29 | HP ---
CC: Dr. Hodge * HISTORY AND PHYSICAL: DATE OF ADMISSION: 10/21/18 REASON FOR ADMISSION: Pneumonia and lung mass. HISTORY OF PRESENT ILLNESS: Three weeks ago, he started to develop cough, chills, and shortness of breath. It will keep him up at night, cough is occasionally productive. Shortness of breath was with any walking or exertion. For his sweats, he gets his hair wet, soaks his body and his shirt. He saw Dr. Hodge who initially gave him a course of azithromycin. It had no effect. He was seen again and started on doxycycline as well as an albuterol inhaler and a Flonase inhaler. Symptoms continued without effect. Today, he was day 5 of a 10-day course of doxycycline. This morning, he started spitting up blood. He talked to Dr. Hodge, who requested he go to the emergency room. He presented to the [facility] Emergency Room this morning at 9:30. He had a CT done and that showed a right perihilar mass, 6.8 x 5.6 cm with right hilar lymphadenopathy, no overt mediastinal lymphadenopathy, no other pulmonary lesions. It is a central mass essentially confluent with the right hilum, adjacent to at least 2 to 3 matted lymph nodes. There seems to be obstruction of the right lower bronchus. There is postobstructive consolidation of part of the right lower lobe. No clear bony lesions, upper cuts of the liver are negative and the adrenal glands are unremarkable. There is a renal cyst. There was no oncologist or corporate travel consultant at [place], so he was transferred to [place]. Up until 3 weeks ago, he had been feeling fine. He has lost a little bit of weight over the last 3 weeks and says his appetite has been down. He denies any other focal aches or pains, he has had a few headaches that he associates with sinus pain, but no other focal neurological symptoms. No swollen glands or lymph nodes. No skin lesions. PAST MEDICAL HISTORY: 1. COPD, over 90-pack year smoking history. 2. Hypertension. 3. GERD. 4. History of chest pain, cardiac evaluation negative. PAST SURGICAL HISTORY: Shoulder surgery on the right side. MEDICATIONS: 1. Lisinopril 10 mg daily. 2. Ventolin 2 puffs q.4 to 6 hours p.r.n. 3. Omeprazole 40 mg a day. 4. Spiriva 5 mcg daily. 5. Ibuprofen 800 p.r.n. pain. 6. Doxycycline 100 mg daily, day 5 of planned 10. 7. Benzonatate 200 mg t.i.d. orally. 8. Flovent HFA 110 mcg 1 puff b.i.d. 9. cough drops. FAMILY HISTORY: Without malignancy. SOCIAL HISTORY: He is on SSDI for shoulder pain and COPD. He is , 6 children, 14 grandchildren. along with his granddaughter is with him in clinic. He on normal circumstances drinks 5 beers per day, range 2 to 6, but has not been drinking much in the last 3 weeks. He smoked for 45 years, over 2 packs a day. He quit 6 years ago using Chantix. REVIEW OF SYSTEMS: General: Night sweats, fatigue as noted above. Several pounds weight loss. HEENT: Missing most of his dentition. History of sinus infections and headaches. Respiratory: Short of breath, cough, hemoptysis. GI : No nausea, vomiting. No abdominal pain. He is moving his bowels. : No difficulty with urination. Neurologic: Other than the headaches as mentioned above, negative. Eyes negative. Musculoskeletal: Chronic shoulder pain on the right status post surgery. Other joints are fine. Skin: No rashes or lesions. Psychiatric: No psychosis or anxiety. No significant history of depression. PHYSICAL EXAMINATION VITAL SIGNS: This morning were blood pressure 117/79, pulse 87, respirations 15 , O2 sat 93% on room air. HEENT: Oral mucosa moist, he has got only few teeth in the bottom and the top. No cervical or supraclavicular lymphadenopathy. LUNGS: Bilateral wheezing, right greater than left. Breathing seems tight. Some crackles on the right lower lobe. No E to A changes. CARDIAC: Regular rate and rhythm. S1, S2. No murmurs, rubs, or gallops. ABDOMEN: Mildly obese, nontender, nondistended. No hepatosplenomegaly. NODES: No peripheral lymphadenopathy. EXTREMITIES: Warm to the touch. No edema. +1 clubbing. Good circulation. NEUROLOGIC: Alert and oriented x3. Grossly nonfocal. Otherwise, deferred. SKIN: No rashes. DIAGNOSTIC STUDIES/LAB DATA: In my institution are pending. He had normal renal function and was not anemic in [place]. CT as reviewed above. ASSESSMENT AND PLAN: A 63-year-old male, +90 pack year smoker, presents with a central right- sided lung mass as well as 3 weeks of progressive shortness of breath and now hemoptysis. Highly suspicious for a lung cancer. Differential diagnosis is small cell lung cancer, squamous cell lung cancer, adenocarcinoma is possible. I am specifically worried about small cell, given the appearance of CT and the rate of progression of his symptoms. 1. Possible lung cancer. He had a CTA today. We will wait intill tomorrow and do a CT scan of the abdomen and pelvis with p.o. and IV contrast. We will then need RAISER HELPER imaging as well. 2. Consultation to Dr. Galan for bronchoscopy and biopsy assuming CT w/o additional disease. 3. Chronic obstructive pulmonary disease. We will continue his inhalers including Flovent, albuterol, and Spiriva. Start prednisone 40 mg p.o. daily given wheezing on exam. We will continue antibiotics with Zosyn 3.375 IV x1, then per pharmacy. 4. Continue lisinopril, follow blood pressure. 5. DVT prophylaxis with Lovenox. 6. Full code at this time. 7. He will be managed on the oncology service since we are the accepting physicians for the transfer. [id number]/[facility] #: [id number] MARINA
[2018-10-22] MEDS: ZOSYN 3.375 GM Q8H per EXTENDED INFUSION IVPB SCH ×6 (00:55→18:03)
[2018-10-22] MEDS ORDERED: Iohexol 300* (CONTRAST) 10 ML SDV IV ONE (06:34)
[2018-10-22] MEDS: Benzonatate CAP* 100 MG PO SCH ×3 (08:50→19:27)
[2018-10-22] MEDS: predniSONE TAB* 20 MG PO SCH (08:50)
[2018-10-22] MEDS: Pantoprazole TAB * 40 MG TAB PO SCH ×2 (08:50→19:28)
[2018-10-22] MEDS: Lisinopril TAB* 10 MG PO SCH (08:50)
--- NOTE | 2018-10-22 11:18 | PN ---
Progress Note - Progress Note Date of Service: 10/22/18 SOAP: Subjective: [Patient reports he is feeling fine this am. Cough improving. No further hemoptysis since admission. No dyspnea at rest or with minimal activity.] Objective: [ Vital Signs: Temp Pulse Resp BP Pulse Ox 98.1 F 80 18 127/62 93 10/22/18 07:34 10/22/18 07:34 10/22/18 07:34 10/22/18 07:34 10/22/18 07:34 Acetaminophen (Tylenol Tab*) 650 mg PO Q4H PRN PRN Reason: FEVER/PAIN Albuterol (Ventolin 2.5 Mg/3 Ml Neb.Lottie*) 2.5 mg INH Q3H PRN PRN Reason: SHORTNESS OF BREATH Benzonatate (Tessalon Cap*) 200 mg PO TID [facility] Last Admin: 10/22/18 08:50 Dose: 200 mg Enoxaparin Sodium (Lovenox(*)) 40 mg SUBCUT Q24H [facility] Last Admin: 10/21/18 20:45 Dose: 40 mg Piperacillin Sod/Tazobactam (Sod 3.375 gm/ Sodium Chloride) 100 mls @ 25 mls/ hr IVPB Q8H [facility] Last Admin: 10/22/18 08:50 Dose: 25 mls/hr Lisinopril (Prinivil Tab*) 10 mg PO DAILY [facility] Last Admin: 10/22/18 08:50 Dose: 10 mg Mometasone Furoate (Asmanex 220 Mcg Mdi *) 2 puff INH QPM [facility] Nfm:(Tiotropium [place] [Spiriva Respimat] 2 Puff) 2 puff INH DAILY [facility] Last Admin: 10/21/18 20:52 Dose: Not Given Ondansetron HCl (Zofran Inj*) 4 mg IV Q4H PRN PRN Reason: NAUSEA/VOMITING Oxycodone/Acetaminophen (Percocet 5/325 Tab*) 1 tab PO Q4H PRN PRN Reason: Pain Pantoprazole Sodium (Protonix Tab*) 40 mg PO BID [facility] Last Admin: 10/22/18 08:50 Dose: 40 mg Pharmacy Consult (Zosyn Per Pharmacy*) 1 note FOLLOW UP .ZOSYN PER PHARMACY [facility] Prednisone (Deltasone Tab*) 40 mg PO DAILY [facility] Last Admin: 10/22/18 08:50 Dose: 40 mg Zolpidem Tartrate (Ambien Tab*) 5 mg PO BEDTIME [facility] Last Admin: 10/21/18 20:45 Dose: 5 mg Exam: (limited, as patient excused himself to the restroom) Gen: Well appearing, no acute distress and accompanied by his HEENT: MMM, missing a few teeth Ext: no edema Skin: no rashes appreciated] CT A/P: Multiple small liver lesions which are too small to characterize on CT. Lucent lesion on L4 that may represent a cyst. Assessment: [63 yo male with COPD and HTN transferred from [facility] 10/21/18 with concerns over a possible new malignancy. There was a large R hilar mass noted on CT with c/o hemoptysis and some evidence of postobstructive PNA.] Plan: [1. Lung mass - CT A/P demonstrated possible metastatic disease to the liver with multiple small lesions that are too small to characterize on CT - will evaluate liver further with US - if US is benign then next step will include bronchoscopy with biopsy, if liver US is suggestive of metastatic disease will biospy the liver - MRI brain to complete staging - MRI Lspine to further evaluate L4 lesion, but likely benign 2. PNA - appears post obstructive in nature - cont Zosyn - remained afebrile overnight 3. COPD - mild exacerbation - started oral prednisone, cont inhaled medications - minimal symptoms today Dispo: liver US pending which will determine whether we pursue liver bx or bronchoscopy. Plan for dc home following biopsy.]
[2018-10-22] MEDS: [UNRECOGNIZED DRUG - OTHER] INH SCH (11:42)
[2018-10-22] MEDS ORDERED: Spiriva Inhaler DEVICE* 1 EACH DEVICE INH SCH (12:00)
[2018-10-22] MEDS: Tiotropium CAP.INH* CAP.INH/18 MCG (USE ORDER SET !) INH SCH (15:27)
[2018-10-22] MEDS ORDERED: Gadoteridol* (CONTRAST) 279.3 MG/ML 10 ML IV ONE (17:30)
[2018-10-22] MEDS: Zolpidem TAB* 5 MG PO SCH (19:27)
[2018-10-22] MEDS: Enoxaparin(*) 40 MG/0.4 ML SYR SUBCUT SCH (19:28)
[2018-10-22] MEDS: Mometasone 220 MCG MDI INH SCH (19:59)
[2018-10-23] MEDS: ZOSYN 3.375 GM Q8H per EXTENDED INFUSION IVPB SCH ×6 (00:57→17:20)
[2018-10-23 07:17] LABS: Albumin 3.6 g/dL (3.2-5.2); Albumin/Globulin Ratio 0.9 (1-3); BUN/Creatinine Ratio 16.7 (8-20); Calcium 9.9 mg/dL (8.6-10.3); EGFR African American 111.3 (>60); Globulin 3.8 g/dL (2-4); Total Bilirubin 0.3 mg/dL (0.2-1.0); Total Protein 7.4 g/dL (6.4-8.9)
[2018-10-23 07:25] LABS: ABS Basophils 0.1 10^3/ul (0-0.2); ABS Eosinophils 0.1 10^3/ul (0-0.6); ABS Lymphocytes 2.5 10^3/ul (1.0-4.8); ABS Monocytes 0.7 10^3/ul (0-0.8); ABS Neutrophils 9.9 10^3/ul (1.5-7.7); ABS Nucleated RBC 0 10^3/ul; Eosinophil % 0.9 %; Hematocrit 36 % (36-46); Lymphocyte % 18.6 %; Mean Corpuscular HGB Conc 33 g/dL (31-36); Mean Corpuscular Hemoglobin 28 pg (27-31); Mean Corpuscular Volume 84 fL (80-94); Mean Platelet Volume 8.3 fL (7.4-10.4); Nucleated Red Blood Cells % 0; Platelet Count 458 10^3/uL (150-450); Red Blood Count 4.31 10^6 /uL (4.18-5.48); Red Cell Distribution Width 14 % (10.5-15); White Blood Count 13.3 10^3/uL (3.5-10.8)
[2018-10-23] MEDS: Tiotropium CAP.INH* CAP.INH/18 MCG (USE ORDER SET !) INH SCH (08:34)
[2018-10-23] MEDS: Lisinopril TAB* 10 MG PO SCH (09:25)
[2018-10-23] MEDS: Pantoprazole TAB * 40 MG TAB PO SCH ×2 (09:25→20:03)
[2018-10-23] MEDS: predniSONE TAB* 20 MG PO SCH (09:25)
[2018-10-23] MEDS: Benzonatate CAP* 100 MG PO SCH ×3 (09:25→20:02)
--- NOTE | 2018-10-23 10:48 | CONS ---
PULMONARY CONSULTATION REPORT: DATE OF CONSULT: 10/23/17 CONSULTATION REQUESTED BY: Dr. Barger* REASON FOR CONSULTATION: Evaluation of abnormal CT chest. HISTORY OF PRESENT ILLNESS: The patient is a 63-year-old male, former smoker, quit 6 years ago, using Chantix with history of COPD, a total of [id number] smoking history; hypertension; GERD. The patient presented for evaluation of possible pneumonia and lung mass on CT. The patient was having shortness of breath, cough, night sweats, fevers, and chills at home. He was seen by Dr. Hodge and was given azithromycin with no improvement in symptoms. He was seen again, was started on doxycycline, albuterol, and Flonase. The patient continued to have worsening symptoms. The patient had an episode of hemoptysis prior to presentation to the emergency room in [place]. CT scan done at that time was personally reviewed by me. The patient with evidence of right perihilar mass with evidence of prominence in the right hilum and associated right hilar lymph nodes. There is confluence of the mass and the lymph nodes. There is evidence of endobronchial narrowing of the right intermediate bronchus with evidence of possible endobronchial extension of the mass. There is evidence of collapse of the right lower lobe medial segment. No mediastinal adenopathy that is significant was noted. The patient was subsequently transferred and admitted here to [facility]. The patient reports another episode of streaks of blood. Denies significant shortness of breath. The patient with no evidence of fevers, otherwise, here. The presents also with a few headaches and sinus pain. Denies body aches. Reports weight loss in the past 3 weeks and decreased appetite. No swollen lymph nodes or glands. Denies any skin lesions. PAST MEDICAL HISTORY: 1. COPD, [id number] smoking history. 2. Hypertension. 3. GERD. 4. History of chest pain in the past, cardiac evaluation negative. PAST SURGICAL HISTORY: Shoulder surgery on the right side. MEDICATIONS: 1. Lisinopril. 2. Ventolin. 3. Omeprazole. 4. Spiriva. 5. Ibuprofen. 6. Doxycycline. 7. Benzonatate. 8. Flovent. 9. Cough drops. FAMILY HISTORY: No history of malignancy in the family. SOCIAL HISTORY: Lives at home with . Drinks 5 beers per day, has not been drinking much prior to presentation. Smoked for 45 years, over 2 packs per day , quit 6 years ago. REVIEW OF SYSTEMS: All 14 systems reviewed as per HPI. PHYSICAL EXAM: The patient in bed, in no apparent distress. Vital Signs: Temperature 97.8, pulse 74 beats per minute, respiratory rate 18 per minute, O2 sat 93% on room air, blood pressure 117/61. HEENT: Pupils equal and reactive to light. Mucous membranes moist. Lymphatic System: No palpable cervical or supraclavicular adenopathy. Lungs: Slight wheezing present bilaterally, right greater than left, and crackles at right base. Cardiovascular: S1, S2 present , regular. Abdomen: Soft, nontender, nondistended. Bowel sounds present. Extremities: Normal range of motion. Neurological: Alert, oriented x3. No focal deficits. Skin: No rash. DIAGNOSTIC STUDIES/LABORATORY DATA: WBC count 13.3, hemoglobin 12, hematocrit 36, platelet count 458. Sodium 138, potassium 4, chloride 107, bicarb 21, BUN 14, creatinine 0.84, alk phos slightly elevated at 111. Hepatitis B negative. CTA of the chest as described above in the HPI. Brain MRI suggestive of 1.6 cm enhancing mass in the right parietal lobe and punctuate focus of enhancement of the left insula with vasogenic edema, suggestive of possible metastatic disease to the brain. There is no midline shift. IMPRESSION AND RECOMMENDATIONS: 63-year-old male with significant smoking history with recent cough, shortness of breath, fevers, night sweats, weight loss, found to have right-sided hilar mass with associated matted lymph nodes and possible metastatic [employer] SUPER[employer]OR lesion. Symptoms highly concerning for malignancy with likelihood of small cell or squamous. Will schedule the patient for bronchoscopy with endobronchial ultrasound-guided fine needle aspiration of lung mass and nodes. Procedure was discussed in detail with the patient. Associated risks and benefits were thoroughly explained. The patient agreeable to undergoing the procedure. Planning on scheduling it for 10/25/18. Further recommendations pending biopsy results. Discussed with Dr. Barger. [id number]/[facility] #: [id number] MARINA
--- NOTE | 2018-10-23 11:22 | PN ---
Progress Note - Progress Note Date of Service: 10/23/18 SOAP: Subjective: [Feels good this am. Some cough, blood tinged sputum. Little to no dyspnea. No fevers] Objective: [ Vital Signs: Temp Pulse Resp BP Pulse Ox 98.2 F 81 16 119/62 93 10/23/18 07:16 10/23/18 07:16 10/23/18 07:16 10/23/18 07:16 10/23/18 07:16 Laboratory Results - last 24 hr 10/23/18 10/23/18 06:38 06:38 WBC 13.3 H RBC 4.31 Hgb 12.0 L Hct 36 MCV 84 MCH 28 MCHC 33 RDW 14 Plt Count 458 H MPV 8.3 Neut % (Auto) 74.2 Lymph % (Auto) 18.6 [place] % (Auto) 5.4 Eos % (Auto) 0.9 Baso % (Auto) 0.9 Absolute Neuts (auto) 9.9 H Absolute Lymphs (auto) 2.5 Absolute Monos (auto) 0.7 Absolute Eos (auto) 0.1 Absolute Basos (auto) 0.1 Absolute Nucleated RBC 0 Nucleated RBC % 0 Sodium 138 Potassium 4.0 Chloride 107 Carbon Dioxide 21 L Anion Gap 10 BUN 14 Creatinine 0.84 Est GFR ( Amer) 111.3 Est GFR (Non-Af Amer) 92.0 BUN/Creatinine Ratio 16.7 Glucose 121 H Calcium 9.9 Total Bilirubin 0.30 AST 15 ALT 33 Alkaline Phosphatase 111 H Total Protein 7.4 Albumin 3.6 Globulin 3.8 Albumin/Globulin Ratio 0.9 L Acetaminophen (Tylenol Tab*) 650 mg PO Q4H PRN PRN Reason: FEVER/PAIN Albuterol (Ventolin 2.5 Mg/3 Ml Neb.Lottie*) 2.5 mg INH Q3H PRN PRN Reason: SHORTNESS OF BREATH Benzonatate (Tessalon Cap*) 200 mg PO TID [facility] Last Admin: 10/23/18 09:25 Dose: 200 mg Device (Tiotropium Inhaler Device*) 1 each INH .USE w/ SPIRIVA CAPS [facility] Enoxaparin Sodium (Lovenox(*)) 40 mg SUBCUT Q24H [facility] Last Admin: 10/22/18 19:28 Dose: 40 mg Piperacillin Sod/Tazobactam (Sod 3.375 gm/ Sodium Chloride) 100 mls @ 25 mls/ hr IVPB Q8H [facility] Last Admin: 10/23/18 09:26 Dose: 25 mls/hr Lisinopril (Prinivil Tab*) 10 mg PO DAILY [facility] Last Admin: 10/23/18 09:25 Dose: 10 mg Mometasone Furoate (Asmanex 220 Mcg Mdi *) 2 puff INH QPM [facility] Last Admin: 10/22/18 19:59 Dose: 2 puff Ondansetron HCl (Zofran Inj*) 4 mg IV Q4H PRN PRN Reason: NAUSEA/VOMITING Oxycodone/Acetaminophen (Percocet 5/325 Tab*) 1 tab PO Q4H PRN PRN Reason: Pain Pantoprazole Sodium (Protonix Tab*) 40 mg PO BID [facility] Last Admin: 10/23/18 09:25 Dose: 40 mg Pharmacy Consult (Zosyn Per Pharmacy*) 1 note FOLLOW UP .ZOSYN PER PHARMACY [facility] Prednisone (Deltasone Tab*) 40 mg PO DAILY [facility] Last Admin: 10/23/18 09:25 Dose: 40 mg Tiotropium [place] (Spiriva Cap.Inh*) 1 cap INH DAILY [facility] Last Admin: 10/23/18 08:34 Dose: 1 cap Zolpidem Tartrate (Ambien Tab*) 5 mg PO BEDTIME [facility] Last Admin: 10/22/18 19:27 Dose: 5 mg Exam: Gen: Relatively well appearing 63 yo male in NAD and accompanied by his HEENT: MMM, missing teeth CV: RRR, no m/r/g Resp: few wheezes in posterior lung hagen, overall diminished Abd: soft nonTTP Ext: no edema Imaging: CT A/P: Multiple small liver lesions which are too small to characterize on CT. Lucent lesion on L4 that may represent a cyst. US liver: no evidence for metastatic disease MRI Lspine: benign MRI brain: 1.6 cm enhancing mass in the R parietal lobe with mild associated vasogenic edema c/w metastatic disease Assessment: [63 yo male with COPD and HTN transferred from [facility] 10/21/18 with concerns over a possible new malignancy. There was a large R hilar mass noted on CT with c/o hemoptysis and some evidence of postobstructive PNA. Plan: [1. Lung mass - initial concern for possible metastatic disease to the liver based on CT finding, US liver was benign - MRI Lspine benign - MRI brain unfortunately demonstrates a 1.6 cm tumor c/w metastatic disease - he is asx from this - will request radiation consultation for [place], but pathology still required to move forward with treatment - Dr Galan evaluated the patient this am with bronchoscopy which is now scheduled for Sunday 2. PNA - appears post obstructive in nature - cont Zosyn - remained afebrile overnight 3. COPD with mild exacerbation, improving - mild exacerbation - started oral prednisone, cont inhaled medications - minimal symptoms today Dispo: pending bronchoscopy
[2018-10-23] MEDS: Mometasone 220 MCG MDI INH SCH (19:45)
[2018-10-23] MEDS: Enoxaparin(*) 40 MG/0.4 ML SYR SUBCUT SCH (20:03)
[2018-10-23] MEDS: Zolpidem TAB* 5 MG PO SCH (20:11)
[2018-10-24] MEDS: ZOSYN 3.375 GM Q8H per EXTENDED INFUSION IVPB SCH ×6 (01:28→17:13)
[2018-10-24 06:45] LABS: ABS Basophils 0.1 10^3/ul (0-0.2); ABS Eosinophils 0.1 10^3/ul (0-0.6); ABS Lymphocytes 2.2 10^3/ul (1.0-4.8); ABS Monocytes 0.8 10^3/ul (0-0.8); ABS Neutrophils 7.8 10^3/ul (1.5-7.7); ABS Nucleated RBC 0 10^3/ul; Hematocrit 33 % (36-46); Lymphocyte % 20.3 %; Mean Corpuscular HGB Conc 33 g/dL (31-36); Mean Corpuscular Hemoglobin 28 pg (27-31); Mean Corpuscular Volume 85 fL (80-94); Mean Platelet Volume 8.1 fL (7.4-10.4); Nucleated Red Blood Cells % 0; Platelet Count 393 10^3/uL (150-450); Red Blood Count 3.89 10^6 /uL (4.18-5.48); Red Cell Distribution Width 14 % (10.5-15); White Blood Count 10.9 10^3/uL (3.5-10.8)
[2018-10-24 07:00] LABS: Albumin 3.3 g/dL (3.2-5.2); Albumin/Globulin Ratio 0.9 (1-3); BUN/Creatinine Ratio 19.4 (8-20); Calcium 9.2 mg/dL (8.6-10.3); EGFR Non-African American 109.9 (>60); Globulin 3.5 g/dL (2-4); Potassium 3.8 mmol/L (3.5-5.0); Total Bilirubin 0.2 mg/dL (0.2-1.0); Total Protein 6.8 g/dL (6.4-8.9)
[2018-10-24] MEDS: Lisinopril TAB* 10 MG PO SCH (08:51)
[2018-10-24] MEDS: predniSONE TAB* 20 MG PO SCH (08:51)
[2018-10-24] MEDS: Pantoprazole TAB * 40 MG TAB PO SCH ×2 (08:51→21:10)
[2018-10-24] MEDS: Benzonatate CAP* 100 MG PO SCH ×3 (08:51→21:10)
[2018-10-24] MEDS: Tiotropium CAP.INH* CAP.INH/18 MCG (USE ORDER SET !) INH SCH (08:56)
--- NOTE | 2018-10-24 09:01 | PN ---
Progress Note - Progress Note Date of Service: 10/24/18 SOAP: Subjective: feels good today. still coughing but better. steroids increasing appetite. Objective: Vital Signs Temp Pulse Resp BP Pulse Ox 98.2 F 82 18 117/62 95 10/24/18 04:15 10/24/18 04:15 10/24/18 04:15 10/24/18 04:15 10/24/18 04:15 sitting up in nad perr eomi op-poor dentition bronchial breath sounds on right s1 s2 nl soft nt +bs no le edema A+O x 3, nonfocal neurological exam Laboratory Results - last 24 hr 10/24/18 10/24/18 06:09 06:11 WBC 10.9 H RBC 3.89 L Hgb 11.0 L Hct 33 L MCV 85 MCH 28 MCHC 33 RDW 14 Plt Count 393 MPV 8.1 Neut % (Auto) 71.2 Lymph % (Auto) 20.3 [place] % (Auto) 7.0 Eos % (Auto) 1.0 Baso % (Auto) 0.5 Absolute Neuts (auto) 7.8 H Absolute Lymphs (auto) 2.2 Absolute Monos (auto) 0.8 Absolute Eos (auto) 0.1 Absolute Basos (auto) 0.1 Absolute Nucleated RBC 0 Nucleated RBC % 0 Sodium 139 Potassium 3.8 Chloride 107 Carbon Dioxide 22 Anion Gap 10 BUN 14 Creatinine 0.72 Est GFR ( Amer) 133.0 Est GFR (Non-Af Amer) 109.9 BUN/Creatinine Ratio 19.4 Glucose 89 Calcium 9.2 Total Bilirubin 0.20 AST 22 ALT 39 Alkaline Phosphatase 93 Total Protein 6.8 Albumin 3.3 Globulin 3.5 Albumin/Globulin Ratio 0.9 L Acetaminophen (Tylenol Tab*) 650 mg PO Q4H PRN PRN Reason: FEVER/PAIN Albuterol (Ventolin 2.5 Mg/3 Ml Neb.Lottie*) 2.5 mg INH Q3H PRN PRN Reason: SHORTNESS OF BREATH Benzonatate (Tessalon Cap*) 200 mg PO TID [facility] Last Admin: 10/24/18 08:51 Dose: 200 mg Device (Tiotropium Inhaler Device*) 1 each INH .USE w/ SPIRIVA CAPS [facility] Enoxaparin Sodium (Lovenox(*)) 40 mg SUBCUT Q24H [facility] Last Admin: 10/23/18 20:03 Dose: 40 mg Piperacillin Sod/Tazobactam (Sod 3.375 gm/ Sodium Chloride) 100 mls @ 25 mls/ hr IVPB Q8H [facility] Last Admin: 10/24/18 08:52 Dose: 25 mls/hr Lisinopril (Prinivil Tab*) 10 mg PO DAILY [facility] Last Admin: 10/24/18 08:51 Dose: 10 mg Mometasone Furoate (Asmanex 220 Mcg Mdi *) 2 puff INH QPM [facility] Last Admin: 10/23/18 19:45 Dose: 2 puff Ondansetron HCl (Zofran Inj*) 4 mg IV Q4H PRN PRN Reason: NAUSEA/VOMITING Oxycodone/Acetaminophen (Percocet 5/325 Tab*) 1 tab PO Q4H PRN PRN Reason: Pain Pantoprazole Sodium (Protonix Tab*) 40 mg PO BID [facility] Last Admin: 10/24/18 08:51 Dose: 40 mg Pharmacy Consult (Zosyn Per Pharmacy*) 1 note FOLLOW UP .ZOSYN PER PHARMACY [facility] Prednisone (Deltasone Tab*) 40 mg PO DAILY [facility] Last Admin: 10/24/18 08:51 Dose: 40 mg Tiotropium [place] (Spiriva Cap.Inh*) 1 cap INH DAILY [facility] Last Admin: 10/23/18 08:34 Dose: 1 cap Zolpidem Tartrate (Ambien Tab*) 5 mg PO BEDTIME [facility] Last Admin: 10/23/18 20:11 Dose: 5 mg Assessment: 63 yo M w prior heavy tobacco use presenting with hemoptysis and found to have a perihilar mass on right, postobstructive PNA and metastatic brain lesion. I spent 30 minutes with Darci and his discussing his diagnosis and explaining that prognosis and treatment depend on pathology. He will continue this conversation with Dr. Barger next week. Plan: -cont IV zosyn -bronch with biopsy tomorrow, if stable after can DC on oral antibiotics -switch to PO dex BID for brain met -hold lovenox tonight for bronch tomorrow
--- NOTE | 2018-10-24 18:38 | PN ---
Progress Note - Progress Note Date of Service: 10/24/18 - Pulm f/u note Note: Pt seen and examined at bedside. Reported feeling better. No hemoptysis, cough is imrpoved. Active Medications Generic Name Dose Route Start Last Admin Trade Name Freq PRN Reason Stop Dose Admin Acetaminophen 650 mg 10/21/18 19:16 Tylenol Tab* PO Q4H PRN FEVER/PAIN Albuterol 2.5 mg 10/21/18 19:09 Ventolin 2.5 Mg/3 Ml Neb.Lottie* INH Q3H PRN SHORTNESS OF BREATH Benzonatate 200 mg 10/21/18 21:00 10/24/18 14:14 Tessalon Cap* PO 200 mg TID [facility] Administration Device 1 each 10/22/18 12:00 Tiotropium Inhaler Device* INH .USE w/ SPIRIVA CAPS [facility] Piperacillin Sod/Tazobactam 100 mls @ 25 mls/hr 10/22/18 01:00 10/24/18 17:13 Sod 3.375 gm/ Sodium Chloride IVPB 25 mls/hr Q8H [facility] Administration Lisinopril 10 mg 10/22/18 09:00 10/24/18 08:51 Prinivil Tab* PO 10 mg DAILY [facility] Administration Mometasone Furoate 2 puff 10/22/18 18:00 10/23/18 19:45 Asmanex 220 Mcg Mdi * INH 2 puff QPM [facility] Administration Ondansetron HCl 4 mg 10/21/18 19:16 Zofran Inj* IV Q4H PRN NAUSEA/VOMITING Oxycodone/Acetaminophen 1 tab 10/21/18 19:16 Percocet 5/325 Tab* PO Q4H PRN Pain Pantoprazole Sodium 40 mg 10/21/18 21:00 10/24/18 08:51 Protonix Tab* PO 40 mg BID [facility] Administration Pharmacy Consult 1 note 10/21/18 20:00 Zosyn Per Pharmacy* FOLLOW UP .ZOSYN PER PHARMACY [facility] Prednisone 40 mg 10/22/18 09:00 10/24/18 08:51 Deltasone Tab* PO 40 mg DAILY [facility] Administration Tiotropium [place] 1 cap 10/22/18 12:00 10/24/18 08:56 Spiriva Cap.Inh* INH 1 cap DAILY [facility] Administration Zolpidem Tartrate 5 mg 10/21/18 21:00 10/23/18 20:11 Ambien Tab* PO 5 mg BEDTIME [facility] Administration Vital Signs Temp Pulse Resp BP Pulse Ox 97.7 F 88 18 145/69 96 10/24/18 14:59 10/24/18 14:59 10/24/18 14:59 10/24/18 14:59 10/24/18 14:59 O/E: Pt in nad heent: perrla Lungs: Diminished air entry CVS: S1, S2+ Abd: Soft, BS+ Ext: Normal ROM Skin: NO rash Neuro: no focal deficits labs: Laboratory Results - last 24 hr 10/24/18 10/24/18 06:09 06:11 WBC 10.9 H RBC 3.89 L Hgb 11.0 L Hct 33 L MCV 85 MCH 28 MCHC 33 RDW 14 Plt Count 393 MPV 8.1 Neut % (Auto) 71.2 Lymph % (Auto) 20.3 [place] % (Auto) 7.0 Eos % (Auto) 1.0 Baso % (Auto) 0.5 Absolute Neuts (auto) 7.8 H Absolute Lymphs (auto) 2.2 Absolute Monos (auto) 0.8 Absolute Eos (auto) 0.1 Absolute Basos (auto) 0.1 Absolute Nucleated RBC 0 Nucleated RBC % 0 Sodium 139 Potassium 3.8 Chloride 107 Carbon Dioxide 22 Anion Gap 10 BUN 14 Creatinine 0.72 Est GFR ( Amer) 133.0 Est GFR (Non-Af Amer) 109.9 BUN/Creatinine Ratio 19.4 Glucose 89 Calcium 9.2 Total Bilirubin 0.20 AST 22 ALT 39 Alkaline Phosphatase 93 Total Protein 6.8 Albumin 3.3 Globulin 3.5 Albumin/Globulin Ratio 0.9 L I/R: 63 yo M with heavy tobacco use presented with SOB, cough, hemoptysis, found to have perihilar mass on right, possible postobstructive PNA and metastatic brain lesion. Findings concerning for malignancy Pt scheduled fo bronchoscopy/EBUS at 12 on 10/25 Procedure was discussed in detail Associated risks were discussed Pt agreeable to procedure He is otherwise stable for procedure -cont IV zosyn -steroids for brain met -hold lovenox tonight for bronch tomorrow -NPO after midnight
[2018-10-24] MEDS: Mometasone 220 MCG MDI INH SCH (20:01)
[2018-10-24] MEDS: Zolpidem TAB* 5 MG PO SCH (21:11)
[2018-10-25] MEDS: ZOSYN 3.375 GM Q8H per EXTENDED INFUSION IVPB SCH ×4 (01:04→09:23)
[2018-10-25] MEDS: Tiotropium CAP.INH* CAP.INH/18 MCG (USE ORDER SET !) INH SCH (07:15)
[2018-10-25] MEDS: Benzonatate CAP* 100 MG PO SCH (09:22)
[2018-10-25] MEDS: Lisinopril TAB* 10 MG PO SCH (09:22)
[2018-10-25] MEDS: predniSONE TAB* 20 MG PO SCH (09:22)
[2018-10-25] MEDS: Pantoprazole TAB * 40 MG TAB PO SCH (09:23)
[2018-10-25] MEDS ORDERED: Naloxone* 0.4 MG/ML 1 ML VIAL IV PRN (12:10)
[2018-10-25] MEDS ORDERED: Acetaminophen IV 1GM/100ML * 1,000 MG/100 ML VIAL IVPB ONE (12:10)
[2018-10-25] MEDS ORDERED: DiMENhydriNATE IV* 50 MG/ML VIAL IV PUSH PRN (12:10)
[2018-10-25] MEDS ORDERED: Levalbuterol 0.63MG/3ML NEB* UNIT OF USE INH PRN (12:10)
[2018-10-25] MEDS ORDERED: HYDROmorphone INJ1* 1 MG/ML SYRINGE IV PRN (12:10)
[2018-10-25] MEDS ORDERED: fentaNYL* 50 MCG/ML 2 ML VIAL (100 MCG VIAL) ONE (12:34)
[2018-10-25] MEDS ORDERED: Propofol* 10 MG/ML 20 ML BTL ONE (12:44)
[2018-10-25] MEDS ORDERED: Dexamethasone IV* 4 MG/ML 1 ML (4 MG) ONE (12:44)
[2018-10-25] MEDS ORDERED: Lidocaine 2% PF * 5 ML VIAL ONE (12:44)
[2018-10-25] MEDS ORDERED: Ondansetron INJ* 2 MG/ML VIAL ONE (12:44)
[2018-10-25] MEDS ORDERED: Succinylcholine* 20 MG/ML 10 ML VIAL ONE (12:45)
[2018-10-25] MEDS ORDERED: Lidocaine 1% INJ* 10 MG/ML 30 ML SDV ONE (13:14)
[2018-10-25] MEDS ORDERED: Levalbuterol 0.63MG/3ML NEB* UNIT OF USE INH ONE (13:52)
[2018-10-25 14:57] VITALS: BP 117/61
--- NOTE | 2018-10-25 15:14 | PN ---
Progress Note - Progress Note Date of Service: 10/25/18 - Pulm f/u Note: Pt seen and examined at bedside. Pt reports feeling better. No hemoptysis. Active Medications Generic Name Dose Route Start Last Admin Trade Name Freq PRN Reason Stop Dose Admin Acetaminophen 650 mg 10/21/18 19:16 Tylenol Tab* PO Q4H PRN FEVER/PAIN Albuterol 2.5 mg 10/21/18 19:09 Ventolin 2.5 Mg/3 Ml Neb.Lottie* INH Q3H PRN SHORTNESS OF BREATH Benzonatate 200 mg 10/21/18 21:00 10/25/18 09:22 Tessalon Cap* PO 200 mg TID [facility] Administration Device 1 each 10/22/18 12:00 Tiotropium Inhaler Device* INH .USE w/ SPIRIVA CAPS [facility] Dimenhydrinate 12.5 mg 10/25/18 12:10 Dramamine Iv* IV PUSH ONCE PRN NAUSEA/VOMITING Hydromorphone HCl 0.2 mg 10/25/18 12:10 Dilaudid Inj1s* IV Q5M PRN PAIN - SEVERE Piperacillin Sod/Tazobactam 100 mls @ 25 mls/hr 10/22/18 01:00 10/25/18 09:23 Sod 3.375 gm/ Sodium Chloride IVPB 25 mls/hr Q8H [facility] Administration Acetaminophen 1,000 mg in 100 mls @ 400 mls/hr 10/25/18 12:10 Ofirmev* IVPB 10/25/18 12:24 ONCE ONE Levalbuterol HCl 0.63 mg 10/25/18 12:10 10/25/18 13:55 Xopenex 0.63mg/3ml Neb* INH 0.63 mg ONCE PRN Administration SOB/WHEEZING Lisinopril 10 mg 10/22/18 09:00 10/25/18 09:22 Prinivil Tab* PO 10 mg DAILY [facility] Administration Mometasone Furoate 2 puff 10/22/18 18:00 10/24/18 20:01 Asmanex 220 Mcg Mdi * INH 2 puff QPM [facility] Administration Naloxone HCl 0.08 mg 10/25/18 12:10 Narcan* IV Q2M PRN severe induced resp depression Ondansetron HCl 4 mg 10/21/18 19:16 Zofran Inj* IV Q4H PRN NAUSEA/VOMITING Oxycodone/Acetaminophen 1 tab 10/21/18 19:16 Percocet 5/325 Tab* PO Q4H PRN Pain Pantoprazole Sodium 40 mg 10/21/18 21:00 10/25/18 09:23 Protonix Tab* PO 40 mg BID [facility] Administration Pharmacy Consult 1 note 10/21/18 20:00 Zosyn Per Pharmacy* FOLLOW UP .ZOSYN PER PHARMACY [facility] Prednisone 40 mg 10/22/18 09:00 10/25/18 09:22 Deltasone Tab* PO 40 mg DAILY [facility] Administration Tiotropium [place] 1 cap 10/22/18 12:00 10/25/18 07:15 Spiriva Cap.Inh* INH 1 cap DAILY [facility] Administration Zolpidem Tartrate 5 mg 10/21/18 21:00 10/24/18 21:11 Ambien Tab* PO 5 mg BEDTIME [facility] Administration Vital Signs Temp Pulse Resp BP Pulse Ox 97.6 F 87 20 117/61 93 10/25/18 14:54 10/25/18 14:54 10/25/18 14:54 10/25/18 14:54 10/25/18 14:54 O/E: Pt in NAD, sitting up in chair HEENT: PERRLA, no JVD Lungs: Diminished air entry b/l CVS: S1, S2+, regular Abd: Soft, BS+, NT Ext: Normal ROM Skin: NO rash Neuro: no focal deficits Labs: No new labs I/R: 63 yo M with heavy tobacco use presented with SOB, cough, hemoptysis, found to have perihilar mass on right, possible postobstructive PNA and metastatic brain lesion. Findings concerning for malignancy Pt underwent bronchoscopy/EBUS under [place] Tolerated procedure well Associated risks were discussed Pt with endobronchial lesion arising from lateral wall of rt intermedius bronchus with blood clot covering it Lesion is less than 2 cm from ramses Pt had FNA of L4 and station 7 nodes Station 7 was positive for NSCLC Pt doing well, discussed possibility of hemoptysis sec to biopsy For possible d/c today D/w Dr Barger
--- NOTE | 2018-10-26 00:29 | DS ---
CC: Dr. Cielo Hodge; Dr. Galan; Dr. Barger * DISCHARGE SUMMARY: DATE OF ADMISSION: 10/21/18 DATE OF DISCHARGE: 10/25/18 PRIMARY CARE PROVIDER: Dr. Cielo Hodge. CONSULTING SHOT BLASTER: Dr. Galan. PRIMARY ONCOLOGIST AND ATTENDING PHYSICIAN: Dr. Awais Barger.* (DICTATED BY BOBBY WILKERSON) DISCHARGING PROVIDER: BOBBY Wilkerson. PRIMARY DISCHARGE DIAGNOSES: 1. New lung mass, suspicious for malignancy. 2. New brain mass, suspicious for malignancy. 3. Postobstructive pneumonia. 4. Chronic obstructive pulmonary disease exacerbation. DISCHARGE MEDICATIONS: 1. Albuterol nebs, 1 neb inhaled q.4 hours p.r.n. shortness of breath. 2. Benzonatate 200 mg p.o. 3 times daily. 3. Fluticasone 2 puffs inhaled twice daily. 4. Ibuprofen 800 mg p.o. twice daily. 5. Lisinopril 10 mg p.o. daily. 6. Omeprazole 40 mg p.o. twice daily. 7. Spiriva 2 puffs inhaled daily. 8. Augmentin 875/125 one tablet p.o. twice daily x7 days. 9. Dexamethasone 4 mg p.o. twice daily. HOSPITAL IMAGIN. CT from [facility] demonstrated a right perihilar mass measuring 6.8 x 5.6 cm with associated right hilar lymphadenopathy, no overt mediastinal adenopathy or other pulmonary lesions. It is a central mass essentially confluent with the right hilum adjacent to at least 2 to 3 matted lymph nodes. There appears to be obstruction of the right lower bronchus with postobstructive consolidation of the right lower lobe. 2. CT abdomen and pelvis, right basilar infiltrates, there are several small hepatic lesions which are too small to characterize by CT, consider MRI imaging ; 1 cm lucent lesion at L4 favoring subchondral cyst and less likely to be a metastatic lesion, would recommend MRI imaging. 3. Abdomen ultrasound shows hepatomegaly with hepatic steatosis and a solitary 9- mm simple cyst visualized in the right hepatic lobe, no additional focal liver lesions evident. 4. MRI brain with a 1.6 cm enhancing mass of the right parietal lobe with a punctate focus of enhancement of the left insula associated with vasogenic edema , most consistent with metastatic disease to the brain. There is no associated shift. There is also moderate sinus mucosal inflammatory disease with an air fluid level in the right maxillary sinus and a right mastoid effusion. 5. MRI of the lumbar spine shows degenerative disk disease and osteoarthritis. There is neural foraminal narrowing most pronounced at L4-5 and L5-S1, no significant central canal stenosis. Lucency is noted on CT, most consistent with Schmorl node and hemangioma. When compared to the current MRI exam, there is no finding suggestive of metastatic disease. HOSPITAL COURSE: This is a 63-year-old gentleman with a [id number] smoking history, who presented to [facility] with complaints of hemoptysis. He had a productive cough with associated chills and increasing shortness of breath over the last couple of weeks. He reported drenching sweats. He was initially treated with oral antibiotics, but when he subsequently developed hemoptysis, he was referred to the emergency department for further evaluation. A CT done at the [place] [facility] demonstrated a right perihilar mass with concerns for a postobstructive pneumonia. Oncology and pulmonology support was not available at [facility] and transfer request was made to [facility] and Dr. Barger accepted the patient to transfer. The patient was subsequently treated with Zosyn and prednisone for postobstructive pneumonia and associated COPD exacerbation. Further staging for what is suspected to be a new lung malignancy included a CT of the abdomen and pelvis. CT of the abdomen and pelvis initially demonstrated multiple hepatic lesions, which were too small to characterize by CT and subsequent ultrasound was completed, which showed no concerning lesions for metastatic disease. Brain MRI unfortunately demonstrated a 1.6 right parietal mass with associated with vasogenic edema, but no associated shift. Upon further questioning, the patient did report some occasional headaches over the last couple of weeks but generally mild and no ongoing symptoms. The patient underwent bronchoscopy with biopsy of the right hilar mass and associated abnormal appearing lymph nodes and pathology is pending at the time of discharge. DISPOSITION AND FOLLOWUP PLAN: The patient is being discharged to home where he lives with his . Pathology is pending at the time of discharge. Continue an additional week of Augmentin for treatment of his pneumonia. He will be continued on dexamethasone for subsequent treatment of vasogenic edema associated with newly found brain lesion and will also benefit his COPD. Will continue his usual inhaled medications and will follow up in the oncology office on 10/30/18, to review pathology and further treatment planning. BOBBY WILKERSON [id number]/[facility] #: [id number] MTDGurvinder
--- NOTE | 2018-10-28 03:49 | PRO ---
BRONCHOSCOPY REPORT: DATE OF PROCEDURE: 10/25/18 - ROOM #416 PROCEDURE PERFORMED: Bronchoscopy with endobronchial ultrasound-guided fine needle aspiration from mediastinal nodes. PRE-PROCEDURAL DIAGNOSES: Lung mass and possible brain metastasis. POST-PROCEDURAL DIAGNOSES: [id number] lung cancer ANESTHESIA: General anesthesia. ANESTHESIOLOGIST: Dr. Mallory. DESCRIPTION OF PROCEDURE: Informed consent was obtained from the patient prior to the procedure after all the risks and benefits of the procedure including risks of pneumothorax and mediastinitis were thoroughly explained. The patient was intubated with size 8.5 endotracheal tube. A flexible Olympus bronchoscope was inserted through ET tube for airway inspection. ET tube positioning was confirmed to be 2 cm above the level of ramses. Bronchoscope was then advanced into left bronchial tree which was inspected. Evidence of tracheobronchomalacia was noted. No endobronchial lesions were noted. Bronchoscope was then withdrawn and was advanced into the right bronchial tree. The patient with evidence of endobronchial lesion emanating from the lateral wall of right intermediate bronchus below the takeoff of right upper lobe bronchus was seen. There was evidence of blood clot covering this endobronchial lesion. There was also evidence of bleeding at the site. Bronchoscope could be advanced beyond the endobronchial lesion and airways appeared to be patent there. Old blood was noted and blood clots were noted which were suctioned out. Pictures were taken off the mass lesion. Bronchoscope was then withdrawn and EBUS bronchoscope was inserted. Left-sided lymph nodes were mildly enlarged and 4L was sampled with 1 pass. No malignant cells were seen. Station 7 was significantly enlarged and was sampled with 5 passes total. Rapid onsite evaluation revealed malignant cells. Rest of the specimen was placed in formalin, also obtained air-dry slides. Bronchoscope was then withdrawn. No significant bleeding was noted. The patient tolerated the procedure well, was extubated and seen in recovery in optimal condition. [id number]/[facility] #: [id number] [facility]
== END 2018-10-25 17:00 | disposition home or self-care (01) | DRG 180 ==
LOC: MED 17:38
PROVIDERS: ADMIT Internal Medicine Hematology & Oncology; ATTEND Internal Medicine Hematology & Oncology
PROC: 07D78ZX Extraction of Thorax Lymphatic, Via Natural or Artificial Opening Endoscopic, Diagnostic (ICD-10-PCS; principal; 2018-10-25 12:00)
DX: C34.31 Malignant neoplasm of lower lobe, right bronchus or lung (principal); J18.1 Lobar pneumonia, unspecified organism; G93.6 Cerebral edema; C79.31 Secondary malignant neoplasm of brain; J44.1 Chronic obstructive pulmonary disease with (acute) exacerbation; J44.0 Chronic obstructive pulmonary disease with (acute) lower respiratory infection; R59.0 Localized enlarged lymph nodes; M47.816 Spondylosis without myelopathy or radiculopathy, lumbar region; I10 Essential (primary) hypertension; K21.9 Gastro-esophageal reflux disease without esophagitis; Z87.891 Personal history of nicotine dependence
CPT/HCPCS: 36415; 70030; 70553; 72158; 74177; 76705; 80053; 81445; 85025; 88172; 88173; 88305; 88341; 88342; 88360; 94640; 99223; 99232; 99239; A9270-GY; A9579; J0330; J1100; J1650; J2405; J2543; J2704; J3010; J7512; Q9967

== ENCOUNTER 2018-11-14 07:07 | Observation (INO) | payer MEDICARE, MEDICAID ==
--- NOTE | 2018-11-14 07:34 | ED ---
Shortness of Breath - HPI Summary HPI Summary: A 63 y/o M with PMHx: Lung CA mets brain presents to ED with c/o SOB onset upon waking this AM. Associated sx: CP described as pressure, cough, GUILLAUME, chills, diaphoresis nightly. Denies: fever, abd pain, n/v. He had chemo for the first time three days ago. He sees Dr. Barger, oncology. Former smoker. Additional PMHx : COPD. He uses home O2. Pt had the same sx when he was admitted to [facility] on 03/03. - History of Current Complaint Chief Complaint: EDShortnessOfBreath Time Seen by Provider: 11/14/18 07:16 Hx Obtained From: Patient, Family/Crystal Inspector - , Medical Records Onset/Duration: Still Present Timing: Constant Current Severity: Moderate Dyspnea At: Rest Associated Signs & Symptoms: Cough (Nonproductive), Chest Pain Unrelated to Cough, Chills, Diaphoresis - Allergy/Home Medications Allergies/Adverse Reactions: Allergies Allergy/AdvReac Type Severity Reaction Status Date / Time No Known Allergies Allergy Verified 11/14/18 11:01 Home Medications: Home Medications Albuterol 2.5MG/3ML (0.083%)* [Ventolin 2.5 MG/3 ML NEB.TERRELL*] 2.5 mg INH Q6H 09/03 [History Confirmed 11/14/18] Albuterol HFA INHALER* [Ventolin HFA Inhaler*] 1 puff INH Q6H PRN 11/14/18 [ History Confirmed 11/14/18] Benzonatate CAP* [Tessalon 100 MG CAP*] 200 mg PO TID PRN 11/14/18 [History Confirmed 11/14/18] Dexamethasone TAB* [Decadron TAB*] 4 mg PO BID 11/14/18 [History Confirmed 11/14] Ibuprofen TAB* [Motrin TAB* 800 MG] 800 mg PO Q6H PRN 11/14/18 [History Confirmed 11/14/18] Tiotropium CAP.INH* [Spiriva CAP.INH*] 2 cap.inh INH DAILY 11/14/18 [History Confirmed 11/14/18] PMH/Surg Hx/FS Hx/Imm Hx Previously Healthy: No Endocrine/Hematology History: Denies: Hx Diabetes Cardiovascular History: Reports: Hx Hypertension Denies: Hx Pacemaker/ICD Respiratory History: Reports: Hx Chronic Obstructive Pulmonary Disease (COPD) History: Denies: Hx Renal Disease Sensory History: Reports: Hx Contacts or Glasses Denies: Hx Hearing Aid Opthamlomology History: Reports: Hx Contacts or Glasses Psychiatric History: Denies: Hx Panic Disorder - Surgical History Surgery Procedure, Year, and Place: Right Rotator Cuff, 2016, [place]; Right Shoulder, 2006, [place] Infectious Disease History: No Infectious Disease History: Denies: Traveled Outside the US in Last 30 Days - Family History Known Family History: Positive: Hypertension - Social History Occupation: Retired Lives: With Family Alcohol Use: none recently, but pt reports heavy use up until 3 weeks ago Alcohol Amount: 3 BEERS A RICHAR Hx Substance Use: No Substance Use Type: Reports: None Hx Tobacco Use: Yes Smoking Status (MU): Former Smoker Type: Cigarettes Amount Used/How Often: ~1-2 PPD Length of Time of Smoking/Using Tobacco: 43 Years Have You Smoked in the Last Year: No Review of Systems Positive: Chills, Skin Diaphoresis. Negative: Fever Positive: Chest Pain Positive: Shortness Of Breath, Cough Negative: Abdominal Pain, Vomiting, Nausea Positive: Headache All Other Systems Reviewed And Are Negative: Yes Physical Exam - Summary Physical Exam Summary: VITAL SIGNS: Reviewed. GENERAL: Patient is a well-developed and nourished MALE who is lying comfortable in the stretcher. Patient is not in any acute respiratory distress. HEAD AND FACE: No signs of trauma. No ecchymosis, hematomas or skull depressions. No sinus tenderness. EYES: PERRLA, EOMI x 2, No injected conjunctiva, no nystagmus. EARS: Hearing grossly intact. Ear canals and tympanic membranes are within normal limits. MOUTH: Oropharynx within normal limits. NECK: Supple, trachea is midline, no adenopathy, no JVD, no carotid bruit, no c- spine tenderness, neck with full ROM. CHEST: Symmetric, no tenderness at palpation LUNGS: Diffuse wheezing, decreased breath sounds bilaterally. CVS: Regular rate and rhythm, S1 and S2 present, no murmurs or gallops appreciated. ABDOMEN: Soft, non-tender. No signs of distention. No rebound, no guarding, and no masses palpated. Bowel sounds are normal. EXTREMITIES: FROM in all major joints, no edema, no cyanosis or clubbing. NEURO: Alert and oriented x 3. No acute neurological deficits. Speech is normal and follows commands. SKIN: Dry and warm Triage Information Reviewed: Yes Vital Signs On Initial Exam: Initial Vitals Temp Pulse Resp BP Pulse Ox 99.0 F 100 20 143/74 92 11/14/18 07:10 11/14/18 07:10 11/14/18 07:10 11/14/18 07:10 11/14/18 07:10 Vital Signs Reviewed: Yes Diagnostics - Vital Signs Vital Signs Temp Pulse Resp BP Pulse Ox 11/14/18 07:26 90 14 140/69 95 11/14/18 07:10 99.0 F 100 20 143/74 92 - Laboratory Result Diagrams: 11/15/18 05:33 11/15/18 05:33 Lab Statement: Any lab studies that have been ordered have been reviewed, and results considered in the medical decision making process. - Radiology CXR Radiology Interpretation Completed By: Radiologist Summary of Radiographic Findings: IMPRESSION: Emphysema. No active cardiopulmonary dz. ED provider has reviewed this report. - EKG 0724 Cardiac Rate: NL - 86 bpm EKG Rhythm: Sinus Rhythm Summary of EKG Findings: nml axis, no ST elevation Course/Dx - Course Assessment/Plan: This patient is a 63-year-old male who presents to the emergency department with chief complaint of shortness of breath and chest pain. Patient has history of lung cancer with metastasis to brain, COPD, hypertension, GERD and history of chest pain with cardiac evaluation negative. CXR IMPRESSION: EMPHYSEMA. NO ACTIVE CARDIOPULMONARY DISEASE. Blood work shows WBCs of 21.5 which have decreased since 11/11/18 which was 34.5. Hemoglobin is 12.9, hematocrit 39, sodium is 131, BUN is 26, magnesium 1.6 for which the patient was given magnesium by mouth. Troponin 0.01. EKG shows a normal sinus rhythm without ST elevation. I discussed the case with Dr. Barger from oncology who was, and consult for this patient. Ivon Vivar, nurse practitioner for Dr. Barger came in and assessed the patient, and she admitted the patient to the hospital for further workup and management. - Diagnoses Differential Diagnosis/HQI/PQRI: Positive: Bronchitis, CHF, Chest Wall Pain, COPD Exacerbation, Pneumonia Provider Diagnoses: SOB (shortness of breath) - Physician Notifications Discussed Care of Patient With: Awaischicho Barger - oncology Time Discussed With Above Provider: 10:04 Instructed by Provider To: MD Will See In ED - Consulted again at 1140: Will admit patient. Discharge - Sign-Out/Discharge Documenting (check all that apply): Patient Departure - ADMIT Patient Received Moderate/Deep Sedation with Procedure: No - Discharge Plan Condition: Stable Disposition: ADMITTED TO [facility] - Billing Disposition and Condition Condition: STABLE Disposition: Admitted to [facility] - Attestation Statements Document Initiated by Scribe: Yes Documenting Scribe: King Ramirez Provider For Whom Scribe is Documenting (Include Credential): Dr. Garrick Joshi MD Scribe Attestation: King Mao scribed for Dr. Garrick Joshi MD on 11/15/18 at 0715. Scribe Documentation Reviewed: Yes Provider Attestation: The documentation as recorded by the King ji accurately reflects the service I personally performed and the decisions made by , Dr. Garrick Joshi MD Status of Scribe Document: Viewed
[2018-11-14] MEDS ORDERED: Albuterol/Ipratropium NEB.SOL* Albuterol 2.5 MG/Ipratropium 0.5 MG 3 ML INH ONE (07:45)
[2018-11-14 08:07] LABS: Activated Partial Thrombo Time 25.4 seconds (26.0-36.3); INR 1.02 (0.82-1.09)
[2018-11-14 08:15] LABS: Hematocrit 39 % (42-52); Hemoglobin 12.9 g/dL (14.0-18.0); Mean Corpuscular HGB Conc 33 g/dL (31-36); Mean Corpuscular Hemoglobin 28 pg (27-31); Mean Corpuscular Volume 84 fL (80-94); Mean Platelet Volume 7.7 fL (7.4-10.4); Platelet Count 207 10^3/uL (150-450); Red Blood Count 4.64 10^6 /uL (4.18-5.48); Red Cell Distribution Width 15 % (10.5-15); White Blood Count 21.5 10^3/uL (3.5-10.8)
[2018-11-14 08:24] LABS: Albumin 3.3 g/dL (3.2-5.2); BUN/Creatinine Ratio 35.1 (8-20); Calcium 9.1 mg/dL (8.6-10.3); EGFR African American 128.8 (>60); EGFR Non-African American 106.5 (>60); Globulin 3.2 g/dL (2-4); Magnesium 1.6 mg/dL (1.9-2.7); Potassium 4.5 mmol/L (3.5-5.0); Total Bilirubin 0.4 mg/dL (0.2-1.0); Total Protein 6.5 g/dL (6.4-8.9)
[2018-11-14 08:25] LABS: Troponin I 0.01 ng/mL (<0.04)
[2018-11-14 08:27] LABS: CKMB ng/mL 1.6 ng/mL (0.6-6.3)
[2018-11-14] MEDS: NS 0.9% 1000 ML** 1,000 ML IV SCH ×2 (08:33→13:04)
[2018-11-14 08:52] LABS: TSH (Thyroid Stimulating Horm) 2.41 mcIU/mL (0.34-5.60)
[2018-11-14 09:28] LABS: ABS Basophils 0 10^3/ul (0-0.2); ABS Eosinophils 0 10^3/ul (0-0.6); ABS Lymphocytes 1.2 10^3/ul (1.0-4.8); ABS Monocytes 0.8 10^3/ul (0-0.8); ABS Neutrophils 19.6 10^3/ul (1.5-7.7); ABS Nucleated RBC 0 10^3/ul; Eosinophil % 0.1 %; Lymphocyte % 5.4 %; Nucleated Red Blood Cells % 0
[2018-11-14] MEDS ORDERED: Magnesium Oxide TAB* 400 MG PO ONE (09:31)
[2018-11-14] MEDS ORDERED: Acetaminophen TAB* 325 MG PO ONE (09:54)
[2018-11-14 10:22] LABS: Urine Appearance Clear; Urine Bilirubin Negative (Negative); Urine Blood Negative (Negative); Urine Color Yellow; Urine Glucose Negative (Negative); Urine Ketones Negative (Negative); Urine Nitrite Negative (Negative); Urine Protein Negative (Negative); Urine Specific Gravity 1.017 (1.010-1.030); Urine Urobilinogen Negative (Negative)
[2018-11-14] MEDS ORDERED: Ibuprofen TAB* 400 MG PO PRN (11:10)
[2018-11-14] MEDS ORDERED: Ibuprofen TAB* 400 MG PO ONE (11:10)
[2018-11-14] MEDS ORDERED: Enoxaparin(*) 40 MG/0.4 ML SYR SUBCUT SCH (12:00)
[2018-11-14] MEDS ORDERED: Benzonatate CAP* 100 MG PO PRN (12:34)
[2018-11-14] MEDS: DOXYcycline CAP(*) 100 MG PO SCH ×2 (13:46→21:52)
[2018-11-14] MEDS: Famotidine IV* 10 MG/ML 2 ML (20 mg) IV SLOW PU SCH (13:47)
[2018-11-14] MEDS ORDERED: Albuterol/Ipratropium NEB.SOL* Albuterol 2.5 MG/Ipratropium 0.5 MG 3 ML INH SCH (15:00)
[2018-11-14] MEDS ORDERED: Iohexol 350* (CONTRAST) 500 ML MDV IV ONE (15:12)
[2018-11-14] MEDS ORDERED: Albuterol/Ipratropium NEB.SOL* Albuterol 2.5 MG/Ipratropium 0.5 MG 3 ML INH PRN (15:35)
[2018-11-14] MEDS: Dexamethasone TAB* 4 MG PO SCH (21:52)
[2018-11-15] MEDS: NS 0.9% 1000 ML** 1,000 ML IV SCH (05:53)
[2018-11-15 06:39] LABS: Hematocrit 39 % (42-52); Hemoglobin 12.4 g/dL (14.0-18.0); Mean Corpuscular HGB Conc 32 g/dL (31-36); Mean Corpuscular Hemoglobin 28 pg (27-31); Mean Corpuscular Volume 86 fL (80-94); Mean Platelet Volume 8.2 fL (7.4-10.4); Platelet Count 131 10^3/uL (150-450); Red Blood Count 4.52 10^6 /uL (4.18-5.48); Red Cell Distribution Width 15 % (10.5-15); White Blood Count 13.3 10^3/uL (3.5-10.8)
[2018-11-15 07:02] LABS: BUN/Creatinine Ratio 30.2 (8-20); Calcium 8.8 mg/dL (8.6-10.3); EGFR African American 155.1 (>60); EGFR Non-African American 128.2 (>60); Magnesium 1.8 mg/dL (1.9-2.7); Total Bilirubin 0.4 mg/dL (0.2-1.0)
[2018-11-15] MEDS: DOXYcycline CAP(*) 100 MG PO SCH (08:04)
[2018-11-15] MEDS: Famotidine IV* 10 MG/ML 2 ML (20 mg) IV SLOW PU SCH (08:05)
[2018-11-15] MEDS: Dexamethasone TAB* 4 MG PO SCH (08:05)
[2018-11-15] MEDS ORDERED: Pantoprazole TAB * 40 MG TAB PO SCH (09:00)
[2018-11-15] MEDS ORDERED: Spiriva Inhaler DEVICE* 1 EACH DEVICE INH ONE (09:00)
[2018-11-15] MEDS ORDERED: Lisinopril TAB* 10 MG PO SCH (09:00)
[2018-11-15] MEDS ORDERED: Tiotropium CAP.INH* CAP.INH/18 MCG (USE ORDER SET !) INH SCH (09:00)
[2018-11-15 12:02] VITALS: BP 131/73
--- NOTE | 2018-11-15 14:00 | DS ---
DISCHARGE SUMMARY: DATE OF ADMISSION: 11/14/18 DATE OF DISCHARGE: 11/15/18 HOSPITAL COURSE: He presented with fevers up to 101.9 as well as shortness of breath and chest pain yesterday. He also had diffuse viral type symptoms with earaches, headache, diffuse muscle aches. Ricardo sierra was quite short of breath and noted to have a decreased oxygen saturation in the emergency room. Ricardo sierra was placed on oxygen. He had a CT angiogram, which did not show acute findings, stable disease, no PE, no clear pneumonia. He was given antibiotics and defervesced overnight. Today, he feels much be tter. All of his yesterday's symptoms are gone and he feels approximately 93% to 94% of normal. Eufemia athing, he is doing good. He still has some pain on his chest bilaterally and he feels it more with a deep breath. He had radiation this morning and tolerated that well. He also reports increased appetite, eating a lot of junk food since being on the steroids. He is hop ing to go home today. He is scheduled for [facility] next Sunday at [facility]. MEDICATIONS FOR DISCHARGE: 1. Albuterol inhaler p.r.n. 2. Tessalon Perles 200 mg t.i.d. 3. Dexamethasone, we will continue at 4 mg b.i.d. 4. Doxycycline 100 mg b.i.d. for 10 days. 5. Lisinopril 10 mg daily. 6. Protonix 40 mg p.o. daily. 7. Spiriva 1 inhaler today. 8. Motrin 400 mg p.r.n. for pain. PHYSICAL EXAMINATION: Today, temperature is 97.7, BP 149/75, pulse 74, respirations 18, O2 saturatio n 99% on room air. HEENT: Oral mucosa is moist. No thrush. No lesions. Lungs are clear to auscul tation bilaterally. No wheezes or crackles. Heart: Regular rate and rhythm. S1 and S2. No murmur or gallops. Abdomen: Obese, nontender, nondistended. Good bowel sounds. Extremities: No clubbing , no cyanosis, no edema. Good pulses x4. Neurologic: Alert and oriented x4. Nonfocal exam. LABORATORY DATA: Laboratory tests today showed stable blood counts with a white count of 13.3. He h ad a sodium slightly low at 132 with creatinine of 0.63, albumin 3.0. PLAN: Plan will be to discharge home today. Plan on followup at [facility] on Sunday and follow up at our medical center on Sunday. He will continue on doxycycline for fever as noted above. CONDITION: Stable on discharge. [id number]/[facility] #: [id number]
== END 2018-11-15 12:50 | disposition home or self-care (01) ==
LOC: ED 07:07 → MED 11:16
PROVIDERS: ADMIT Internal Medicine; ATTEND Internal Medicine Hematology & Oncology
DX: R50.9 Fever, unspecified (principal); R07.9 Chest pain, unspecified; R06.02 Shortness of breath; R09.02 Hypoxemia; Z87.891 Personal history of nicotine dependence; K21.9 Gastro-esophageal reflux disease without esophagitis; I10 Essential (primary) hypertension; R91.8 Other nonspecific abnormal finding of lung field
CPT/HCPCS: 36415; 71045; 71275; 80053; 81003; 82550; 82553; 83605; 83735; 83880; 84443; 84484; 85025; 85027; 85610; 85730; 87040; 93005; 94640; 96372; 96374; 99284; A9270-GY; G0378; J1650; J8540; Q9967

== ENCOUNTER 2018-12-04 07:43 | Inpatient (IN) | payer MEDICARE, MEDICAID ==
[2018-12-04] MEDS ORDERED: Albuterol/Ipratropium NEB.SOL* Albuterol 2.5 MG/Ipratropium 0.5 MG 3 ML INH ONE (08:03)
--- NOTE | 2018-12-04 08:10 | ED ---
HPI Febrile Illness - HPI Summary HPI Summary: 63-year-old male with lung Cancer presents with chemotherapy since this morning. He states he's been having increasing shortness of breath. He does admits chest pain states feels like a tightness. He denies abdominal pain. No nausea and no vomiting. He has been having increased sputum production. has radiation every day. was suppose to have chemo today. dr orozco is his oncologist. has been having blood in stool for past couple days. no urinary symptoms. no rash. admits to occasional headache. no neck stiffness. is on oxygen at home. does have occasional abdominal pain. states has normal bowel movement this morning. - History of Current Complaint Chief Complaint: EDFever Time Seen by Provider: 12/04/18 07:56 Pain Intensity: 4 - Additional Pertinent History Primary Care Physician: - Allergy/Home Medications Allergies/Adverse Reactions: Allergies Allergy/AdvReac Type Severity Reaction Status Date / Time No Known Allergies Allergy Verified 12/04/18 07:50 Home Medications: Home Medications Dexamethasone TAB* [Decadron TAB*] 2 mg PO QAM 12/04/18 [History Confirmed 12/04] Omeprazole (Nf) [Prilosec (NF)] 40 mg PO DAILY 12/04/18 [History Confirmed 12/04] Sucralfate SUSP (NF) [Carafate SUSP (NF)] 10 ml PO ACHS 12/04/18 [History Confirmed 12/04/18] PMH/Surg Hx/FS Hx/Imm Hx Endocrine/Hematology History: Denies: Hx Diabetes Cardiovascular History: Reports: Hx Hypertension Denies: Hx Pacemaker/ICD Respiratory History: Reports: Hx Chronic Obstructive Pulmonary Disease (COPD), Other Respiratory Problems/Disorders - LUNG CANCER History: Denies: Hx Renal Disease Sensory History: Reports: Hx Contacts or Glasses Denies: Hx Hearing Aid Opthamlomology History: Reports: Hx Contacts or Glasses Psychiatric History: Denies: Hx Panic Disorder - Surgical History Surgery Procedure, Year, and Place: Right Rotator Cuff, 2015, [place]; Right Shoulder, 2006, [place] Infectious Disease History: No Infectious Disease History: Denies: Traveled Outside the US in Last 30 Days - Family History Known Family History: Positive: Hypertension - Social History Alcohol Use: none recently, but pt reports heavy use up until 3 weeks ago Alcohol Amount: 3 BEERS A RICHAR Hx Substance Use: No Substance Use Type: Reports: None Hx Tobacco Use: Yes Smoking Status (MU): Former Smoker Type: Cigarettes Amount Used/How Often: ~1-2 PPD Length of Time of Smoking/Using Tobacco: 43 Years Have You Smoked in the Last Year: No Review of Systems Positive: Fever Positive: Chest Pain Positive: Shortness Of Breath, Cough All Other Systems Reviewed And Are Negative: Yes Physical Exam Triage Information Reviewed: Yes Vital Signs On Initial Exam: Initial Vitals Temp Pulse Resp BP Pulse Ox 100.5 F 129 18 117/63 91 12/04/18 07:47 12/04/18 07:47 12/04/18 07:47 12/04/18 07:47 12/04/18 07:47 Vital Signs Reviewed: Yes Appearance: Positive: Ill-Appearing Skin: Positive: Warm, Dry Head/Face: Positive: Normal Head/Face Inspection Eyes: Positive: Normal, EOMI, JUSTIN, Conjunctiva Clear ENT: Positive: Pharynx normal Neck: Positive: Supple, Nontender, No Lymphadenopathy. Negative: Nuchal Rigidity Respiratory/Lung Sounds: Positive: Breath Sounds Present, Decreased Breath Sounds Cardiovascular: Positive: Normal, RRR Abdomen Description: Positive: Nontender, Soft Bowel Sounds: Positive: Present Musculoskeletal: Positive: Normal Neurological: Positive: Normal Psychiatric: Positive: Normal Diagnostics - Vital Signs Vital Signs Temp Pulse Resp BP Pulse Ox 12/04/18 07:47 100.5 F 129 18 117/63 91 - Laboratory Result Diagrams: 12/04/18 08:12 12/04/18 08:12 Lab Statement: Any lab studies that have been ordered have been reviewed, and results considered in the medical decision making process. - EKG No standard instances Cardiac Rate: Tachycardia EKG Rhythm: Sinus Tachycardia Summary of EKG Findings: sinus tachycardia Re-Evaluation - Re-Evaluation First Eval Re-Evaluation Time: 08:40 Comment: blood pressure 88/64 so pushed fluids Second Eval Re-Evaluation Time: 09:05 Comment: discussed patient did have blood in stool today but has been having it for past week, refused rectal exam. bp now 118/64. Third Eval Re-Evaluation Time: 09:43 Comment: complaining of chest pain and feeling dizzy, dizziness is new, manual bp is 96/52. Course/Dx - Course Course Of Treatment: 63 year old male presents with worsening cough and fever today. admit to occassionaly chest pain with cough. has had increased sputum production. on exam lungs CTA. appears ill. wbc normal. crp elevated. chest xray no pneumonia. patient became hypotensive in ED so gave fluids under pressure bag and blood pressure cameup. gave rocephin and azithromycin as likely respiratory source for infection. wbc normal. lactic normal. patient blood pressure improved and then decreased to 90/46. talked to dr capps who agrees to admit. continued to add more and more fluid on as patient is normotensive and then hypotensive as soon as fluids stop. patient has been given [address] hernandez says to hold on levaphed. will get CT abd since having abd pain. - Febrile Illness Differential Diagnoses: Fever of Unknown Origin, Pneumonia, Viremia - Diagnoses Provider Diagnoses: Sepsis, Hypotension, Fever - Critical Care Time Critical Care Time: 30-74 min - 70 mins Discharge - Sign-Out/Discharge Documenting (check all that apply): Patient Departure - Discharge Plan Condition: Guarded Disposition: ADMITTED TO [facility] - Billing Disposition and Condition Condition: GUARDED Disposition: Admitted to [facility] - Attestation Statements Provider Attestation: I was available for consult. This patient was seen by the PHILL. The patient was not presented to, seen by, or examined by me. -Maru
[2018-12-04] MEDS: NS 0.9% 1000 ML** 1,000 ML IV.FLUID IV ONE ×2 (08:20→09:11)
[2018-12-04 08:28] LABS: Hematocrit 35 % (42-52); Hemoglobin 11.7 g/dL (14.0-18.0); Mean Corpuscular HGB Conc 34 g/dL (31-36); Mean Corpuscular Hemoglobin 28 pg (27-31); Mean Corpuscular Volume 82 fL (80-94); Platelet Count 201 10^3/uL (150-450); Red Blood Count 4.24 10^6 /uL (4.18-5.48); Red Cell Distribution Width 16 % (10.5-15); White Blood Count 7.3 10^3/uL (3.5-10.8)
[2018-12-04] MEDS ORDERED: Acetaminophen TAB* 325 MG PO ONE (08:39)
[2018-12-04 08:41] LABS: Activated Partial Thrombo Time 25.9 seconds (26.0-36.3); INR 1.25 (0.82-1.09)
[2018-12-04 08:47] LABS: Albumin 3.1 g/dL (3.2-5.2); Albumin/Globulin Ratio 0.9 (1-3); BUN/Creatinine Ratio 27.9 (8-20); C Reactive Protein 221.85 mg/L (<8.01); EGFR African American 108.3 (>60); EGFR Non-African American 89.5 (>60); Globulin 3.5 g/dL (2-4); Potassium 4.3 mmol/L (3.5-5.0); Total Bilirubin 0.5 mg/dL (0.2-1.0); Total Protein 6.6 g/dL (6.4-8.9)
[2018-12-04 08:49] LABS: Troponin I 0.03 ng/mL (<0.04)
[2018-12-04] MEDS ORDERED: Azithromycin 500 mg/250 ml NS 500 MG/250 ML BAG IVPB ONE (08:56)
[2018-12-04] MEDS ORDERED: cefTRIAXone(*) 1 GM in NS 0.9% 50 ML* 50 ML IVPB ONE (08:56)
[2018-12-04 08:59] LABS: ABS Neutrophils 6.1 10^3/ul (1.5-7.7); ABS Neutrophils 6.3 10^3/ul (1.5-7.7)
[2018-12-04] MEDS ORDERED: Iohexol 350* (CONTRAST) 500 ML MDV IV ONE (09:34)
[2018-12-04] MEDS ORDERED: NS 0.9% 1000 ML** 1,000 ML IV ONE (09:45)
[2018-12-04] MEDS ORDERED: Ondansetron ODT TAB* 4 MG SL PRN (10:59)
[2018-12-04] MEDS ORDERED: Piperacillin/Tazobac ADVAN(*) 3.375 GM in NS 0.9% 100 ML* 100 ML IVPB ONE (10:59)
[2018-12-04] MEDS ORDERED: Zosyn per Pharmacy* NOTE FOLLOW UP SCH (11:00)
[2018-12-04] MEDS ORDERED: Norepinephrine 16MCG/ML IVPRE* 4,000 MCG/250 ML BAG IV SCH (11:00)
[2018-12-04] MEDS ORDERED: NS 0.9% 1000 ML** 1,000 ML IV SCH (11:15)
[2018-12-04] MEDS ORDERED: Benzonatate CAP* 100 MG PO PRN (12:53)
[2018-12-04] MEDS ORDERED: Albuterol 2.5 MG/3 ML NEB.SOL* (0.083%) INH PRN (12:53)
[2018-12-04] MEDS ORDERED: Iohexol 300* (CONTRAST) 10 ML SDV IV ONE (13:22)
[2018-12-04] MEDS: Morphine 4 MG/ML VIAL (1 ml) 4 MG/ML VIAL IV PRN ×2 (13:50→20:11)
[2018-12-04 14:07] LABS: Urine Appearance Clear; Urine Bilirubin Negative (Negative); Urine Blood Negative (Negative); Urine Color Straw; Urine Glucose Negative (Negative); Urine Ketones Negative (Negative); Urine Nitrite Negative (Negative); Urine Protein Negative (Negative); Urine Urobilinogen Negative (Negative)
[2018-12-04] MEDS: Heparin VIAL(*) 5000 UNITS/ML VIAL (FIVE THOUSAND) SUBCUT SCH ×2 (14:31→21:45)
[2018-12-04] MEDS: Acetaminophen TAB* 325 MG PO PRN (14:56)
[2018-12-04] MEDS: ZOSYN 3.375 GM Q8H per EXTENDED INFUSION IVPB SCH ×2 (16:18)
[2018-12-04] MEDS: Hydrocortisone INJ* 100 MG VIAL IV SCH (16:18)
--- NOTE | 2018-12-04 16:19 | CONS ---
CONSULTATION NOTE: DATE OF CONSULT: 12/04/18 HISTORY OF PRESENT ILLNESS: This patient is a 63-year-old white male with a history of lung cancer, who has been receiving chemotherapy and radiation therapy, and now presents to the emergency department with a recent history of nonproductive cough, shortness of breath, and "pain all over". Temp on arrival to the ED was 100.5. Chest x-ray in the ED did not reveal an infiltrate, although there was atelectasis of the right lower lobe -CTA did not reveal pulmonary embolism. The patient was subsequently admitted with the diagnosis of sepsis, possible pneumonia, and brought to the intensive care unit because of a borderline BP (responded to fluids and that did not adversely effect the patient's mental status or urine output). The patient has been receiving Decadron 2 mg daily. PHYSICAL EXAM: On admission to the intensive care unit, the patient appeared to be comfortable and was alert and oriented. Temp was 98.9, heart rate was 106 and regular, respirations were 18 and nonlabored, arterial O2 sat was 95% on 3 L of oxygen by nasal cannula, blood pressure was 90/60. HEENT: There was no facial asymmetry and pupils were reactive bilaterally. Neck was supple and no bruits were appreciated. Chest: There were coarse inspiratory and expiratory rhonchi bilaterally with some mild end-expiratory wheezing. No crackles were appreciated. Cardiac Exam: Regular rhythm. No murmurs or rubs. Abdomen was nontender. Extremities were cool, but there was no cyanosis or edema. DIAGNOSTIC STUDIES/LAB DATA: Admission laboratory data was significant for a normal white count (7.3), hyponatremia (sodium of 129), elevated C-reactive protein (221), and a low albumin (3.1). Chest x-ray was as reported. CT of the thorax did show an area of necrosis in the region of the azygos vein. IMPRESSION: It is possible that this patient is developing a respiratory infection, although there is no evidence for this at the present time. The necrotic area in the region of the azygos could explain the fever, and the cough could be related to the radiotherapy. However, this could also represent an early pneumonia and should be aggressively managed considering the patient's immune status. The hypotension that responds to fluids could be evidence of relative adrenal insufficiency. MANAGEMENT PLAN: Empiric antibiotic coverage pending cultures, and will also add stress-dose steroid coverage. There is no need for vasopressor therapy at this time. CRITICAL CARE TIME: 60 minutes. [id number]/[facility] #: [id number] MARINA
[2018-12-04] MEDS: Sucralfate SUSP 1 GM/10 ml 10 ML UDC PO SCH ×2 (17:04→21:45)
[2018-12-04] MEDS: NS 0.9% 1000 ML** 1,000 ML IV SCH (22:27)
[2018-12-05] MEDS: ZOSYN 3.375 GM Q8H per EXTENDED INFUSION IVPB SCH ×4 (00:37→09:37)
[2018-12-05] MEDS: Hydrocortisone INJ* 100 MG VIAL IV SCH ×3 (04:04→21:59)
[2018-12-05 04:24] LABS: Hematocrit 28 % (42-52); Hemoglobin 9.1 g/dL (14.0-18.0); Mean Corpuscular HGB Conc 33 g/dL (31-36); Mean Corpuscular Hemoglobin 27 pg (27-31); Mean Corpuscular Volume 83 fL (80-94); Mean Platelet Volume 7.2 fL (7.4-10.4); Platelet Count 157 10^3/uL (150-450); Red Blood Count 3.33 10^6 /uL (4.18-5.48); Red Cell Distribution Width 16 % (10.5-15); White Blood Count 4.8 10^3/uL (3.5-10.8)
[2018-12-05 04:34] LABS: Albumin 2.3 g/dL (3.2-5.2); CO2 Carbon Dioxide 25 mmol/L (22-32); Calcium 8.1 mg/dL (8.6-10.3); Chloride 103 mmol/L (101-111); Sodium 133 mmol/L (135-145)
[2018-12-05 04:38] LABS: Anion Gap 5 mmol/L (2-11)
[2018-12-05 04:40] LABS: ALT 60 U/L (7-52); Albumin/Globulin Ratio 0.8 (1-3); Alkaline Phosphatase 100 U/L (34-104); BUN/Creatinine Ratio 19.4 (8-20); Blood Urea Nitrogen 12 mg/dL (6-24); EGFR Non-African American 130.6 (>60); Globulin 2.8 g/dL (2-4); Glucose 93 mg/dL (70-100); Total Protein 5.1 g/dL (6.4-8.9)
[2018-12-05 05:35] LABS: ABS Lymphocytes 0.6 10^3/ul (1.0-4.8); ABS Monocytes 0.3 10^3/ul (0-0.8); ABS Neutrophils 3.9 10^3/ul (1.5-7.7); Eosinophil % 0.1 %; Lymphocyte % 12.2 %; Nucleated Red Blood Cells % 0.2
[2018-12-05] MEDS: Heparin VIAL(*) 5000 UNITS/ML VIAL (FIVE THOUSAND) SUBCUT SCH ×3 (05:52→22:00)
[2018-12-05] MEDS: Sucralfate SUSP 1 GM/10 ml 10 ML UDC PO SCH ×4 (05:52→22:01)
[2018-12-05 06:15] LABS: Potassium Redraw 3.7 mmol/L (3.5-5.0)
[2018-12-05] MEDS ORDERED: NS 0.9% 100 ML* 100 ML ONE (08:17)
[2018-12-05] MEDS: Lisinopril TAB* 10 MG PO SCH (08:26)
[2018-12-05] MEDS: Tiotropium CAP.INH* CAP.INH/18 MCG (USE ORDER SET !) INH SCH (08:35)
[2018-12-05] MEDS ORDERED: Dexamethasone TAB* 4 MG PO SCH (09:00)
[2018-12-05] MEDS ORDERED: Spiriva Inhaler DEVICE* 1 EACH DEVICE INH ONE (09:00)
--- NOTE | 2018-12-05 11:05 | PN ---
Progress Note - Progress Note Date of Service: 12/05/18 SOAP: Subjective: [Feeling much better this morning. Cough is mild. Some abdominal bloating, no pain. Patient and his reports that he was feeling well the day prior to admission and the evening before admission was his first evening without dexamethasone as a part of a standard taper.] Objective: [ Laboratory Results - last 24 hr 12/04/18 12/04/18 12/04/18 08:12 11:39 13:58 WBC RBC Hgb Hct MCV MCH MCHC RDW Plt Count MPV Neut % (Auto) Lymph % (Auto) Oliver % (Auto) Eos % (Auto) Baso % (Auto) Absolute Neuts (auto) Absolute Lymphs (auto) Absolute Monos (auto) Absolute Eos (auto) Absolute Basos (auto) Absolute Nucleated RBC Nucleated RBC % Sodium 129 L Potassium 4.3 Chloride 95 L Carbon Dioxide 24 Anion Gap 10 BUN 24 Creatinine 0.86 Est GFR ( Amer) 108.3 Est GFR (Non-Af Amer) 89.5 BUN/Creatinine Ratio 27.9 H Glucose 116 H Lactic Acid 1.5 Calcium 9.0 Total Bilirubin 0.50 AST 15 ALT 38 Alkaline Phosphatase 105 H Total Creatine Kinase 16 Troponin I 0.03 C-Reactive Protein 221.85 H Total Protein 6.6 Albumin 3.1 L Globulin 3.5 Albumin/Globulin Ratio 0.9 L Urine Color Straw Urine Appearance Clear Urine pH 6.0 Ur Specific [place] 1.020 Urine Protein Negative Urine Ketones Negative Urine Blood Negative Urine Nitrate Negative Urine Bilirubin Negative Urine Urobilinogen Negative Ur Leukocyte Esterase Negative Urine Glucose Negative 12/05/18 12/05/18 12/05/18 04:08 04:08 05:40 WBC 4.8 RBC 3.33 L Hgb 9.1 L Hct 28 L MCV 83 MCH 27 MCHC 33 RDW 16 H Plt Count 157 MPV 7.2 L Neut % (Auto) 81.2 Lymph % (Auto) 12.2 Oliver % (Auto) 5.7 Eos % (Auto) 0.1 Baso % (Auto) 0.8 Absolute Neuts (auto) 3.9 Absolute Lymphs (auto) 0.6 L Absolute Monos (auto) 0.3 Absolute Eos (auto) 0.0 Absolute Basos (auto) 0.0 Absolute Nucleated RBC 0.0 Nucleated RBC % 0.2 Sodium 133 L Potassium TNP 3.7 Chloride 103 Carbon Dioxide 25 Anion Gap 5 BUN 12 Creatinine 0.62 L Est GFR ( Amer) 158.0 Est GFR (Non-Af Amer) 130.6 BUN/Creatinine Ratio 19.4 Glucose 93 Lactic Acid Calcium 8.1 L Total Bilirubin 0.30 AST TNP 26 ALT 60 H Alkaline Phosphatase 100 Total Creatine Kinase Troponin I C-Reactive Protein Total Protein 5.1 L Albumin 2.3 L Globulin 2.8 Albumin/Globulin Ratio 0.8 L Urine Color Urine Appearance Urine pH Ur Specific [place] Urine Protein Urine Ketones Urine Blood Urine Nitrate Urine Bilirubin Urine Urobilinogen Ur Leukocyte Esterase Urine Glucose Acetaminophen (Tylenol Tab*) 650 mg PO Q4H PRN PRN Reason: FEVER/PAIN Last Admin: 12/04/18 14:56 Dose: 650 mg Albuterol (Ventolin 2.5 Mg/3 Ml Neb.Lottie*) 2.5 mg INH Q6H PRN PRN Reason: SOB/WHEEZING Benzonatate (Tessalon Cap*) 200 mg PO TID PRN PRN Reason: COUGH Dexamethasone (Decadron Tab*) 2 mg PO QAM [facility] Last Admin: 12/05/18 08:26 Dose: 2 mg Heparin Sodium (Porcine) (Heparin Vial(*)) 5,000 units SUBCUT Q8HR [facility] Last Admin: 12/05/18 05:52 Dose: 5,000 units Hydrocortisone Sodium Succinate (Solu-Cortef*) 50 mg IV Q12H [facility] Sodium Chloride (Ns 0.9% 1000 Ml) 1,000 mls @ 100 mls/hr IV PER RATE [facility] Last Admin: 12/04/18 22:27 Dose: 100 mls/hr Lisinopril (Prinivil Tab*) 10 mg PO DAILY [facility] Last Admin: 12/05/18 08:26 Dose: 10 mg Morphine Sulfate (Morphine 4 Mg/Ml Vial (1 Ml)) 2 mg IV Q4H PRN PRN Reason: PAIN Last Admin: 12/04/18 20:11 Dose: 2 mg Ondansetron HCl (Zofran Odt Tab*) 4 mg SL Q6H PRN PRN Reason: NAUSEA/VOMITING Sucralfate (Sucralfate Susp) 1 gm PO 0630,1100,1600,2100 [facility] Last Admin: 12/05/18 05:52 Dose: 1 gm Tiotropium Rives (Spiriva Cap.Inh*) 1 cap INH DAILY TIANNA Last Admin: 12/05/18 08:35 Dose: Not Given Vital Signs: Temp Pulse Resp BP Pulse Ox 98.6 F 101 19 145/82 95 12/05/18 10:00 12/05/18 10:00 12/05/18 10:00 12/05/18 08:15 12/05/18 10:00 Exam: Gen: Chronically ill appearing 63 yo male in NAD, accompanied by his HEENT: MMM CV: RRR, no m/r/g Resp: occasional wheeze Abd: mildly distended, but soft with active BS and nonTTP Ext: no edema Skin: no rash] Assessment: [63 yo male with metastatic NSCLC currently receiving concurrent chemotherapy and radiation who presented with c/o weakness, fever, tachycardia and hypotension. No clear source of infection, but was treated empirically for sepsis and transferred to ICU for refractory hypotension responsive to stress dose steroids. Cultures and imaging are negative for infectious etiology. It seems most likely this was an adrenal crisis secondary to tapering his dexamethasone, now improved. Plan: [1. SIRS - no source of infection - likely a result of adrenal crisis - stop abx and continue to monitor 2. Metastatic NSCLC - currently day 22 of concurrent XRT with weekly carbo/taxol - chemotherapy held yesterday, likely resume next week 3. Adrenal insufficiency - taper hydrocortisone, dc with dexamethasone 2 mg bid and taper to 2mg q am and 1mg qpm if asx next week 4. COPD - no acute exacerbation Dispo: transfer to , likely dc home tomorrow]
[2018-12-05] MEDS: NS 0.9% 1000 ML** 1,000 ML IV SCH (22:14)
[2018-12-06] MEDS: Heparin VIAL(*) 5000 UNITS/ML VIAL (FIVE THOUSAND) SUBCUT SCH ×3 (06:10→21:08)
[2018-12-06] MEDS: Sucralfate SUSP 1 GM/10 ml 10 ML UDC PO SCH ×4 (06:10→23:50)
[2018-12-06 06:47] LABS: Hematocrit 28 % (42-52); Hemoglobin 9.3 g/dL (14.0-18.0); Mean Corpuscular HGB Conc 34 g/dL (31-36); Mean Corpuscular Hemoglobin 28 pg (27-31); Mean Corpuscular Volume 82 fL (80-94); Mean Platelet Volume 6.6 fL (7.4-10.4); Platelet Count 157 10^3/uL (150-450); Red Blood Count 3.36 10^6 /uL (4.18-5.48); Red Cell Distribution Width 15 % (10.5-15)
[2018-12-06 07:00] LABS: Albumin 2.6 g/dL (3.2-5.2); Albumin/Globulin Ratio 0.9 (1-3); BUN/Creatinine Ratio 23.1 (8-20); Calcium 8.5 mg/dL (8.6-10.3); EGFR African American 193.6 (>60); Globulin 2.9 g/dL (2-4); Total Bilirubin 0.3 mg/dL (0.2-1.0); Total Protein 5.5 g/dL (6.4-8.9)
[2018-12-06 08:19] LABS: ABS Lymphocytes 0.5 10^3/ul (1.0-4.8); ABS Monocytes 0.2 10^3/ul (0-0.8); ABS Neutrophils 3.3 10^3/ul (1.5-7.7); Eosinophil % 0.1 %; Lymphocyte % 13.1 %
[2018-12-06] MEDS: Lisinopril TAB* 10 MG PO SCH (10:27)
[2018-12-06] MEDS: Tiotropium CAP.INH* CAP.INH/18 MCG (USE ORDER SET !) INH SCH (10:34)
--- NOTE | 2018-12-06 11:13 | PN ---
Progress Note - Progress Note Date of Service: 12/06/18 SOAP: Subjective: []Had been doing well until this am when developed SOB and felt chest and abdominal pain. Found to have increased BP and HR. Placed on oxygen and better. Still feels off, thinks steroids are to high. Also with fever to 100.5 this am and reports diarrhea all night and into this am, abdominal bloating. Eating ok and no nausea, no difficulty swallowing. Acetaminophen (Tylenol Tab*) 650 mg PO Q4H PRN PRN Reason: FEVER/PAIN Last Admin: 12/04/18 14:56 Dose: 650 mg Albuterol (Ventolin 2.5 Mg/3 Ml Neb.Lottie*) 2.5 mg INH Q6H PRN PRN Reason: SOB/WHEEZING Benzonatate (Tessalon Cap*) 200 mg PO TID PRN PRN Reason: COUGH Heparin Sodium (Porcine) (Heparin Vial(*)) 5,000 units SUBCUT Q8HR [facility] Last Admin: 12/06/18 06:10 Dose: 5,000 units Hydrocortisone Sodium Succinate (Solu-Cortef*) 50 mg IV Q12H [facility] Last Admin: 12/05/18 21:59 Dose: 50 mg Sodium Chloride (Ns 0.9% 1000 Ml) 1,000 mls @ 100 mls/hr IV PER RATE [facility] Last Admin: 12/05/18 22:14 Dose: 100 mls/hr Lisinopril (Prinivil Tab*) 10 mg PO DAILY [facility] Last Admin: 12/06/18 10:27 Dose: 10 mg Morphine Sulfate (Morphine 4 Mg/Ml Vial (1 Ml)) 2 mg IV Q4H PRN PRN Reason: PAIN Last Admin: 12/04/18 20:11 Dose: 2 mg Ondansetron HCl (Zofran Odt Tab*) 4 mg SL Q6H PRN PRN Reason: NAUSEA/VOMITING Sucralfate (Sucralfate Susp) 1 gm PO 0630,1100,1600,2100 [facility] Last Admin: 12/06/18 06:10 Dose: 1 gm Tiotropium [place]uther[place] (Spiriva Cap.Inh*) 1 cap INH DAILY [facility] Last Admin: 12/06/18 10:34 Dose: 1 cap Objective: [] Vital Signs Temp Pulse Resp BP Pulse Ox 97.2 F 127 16 172/65 95 12/06/18 02:38 12/06/18 10:42 12/06/18 10:42 12/06/18 10:27 12/06/18 10:42 HEENT - OM moist, no lesions, no LAD and no JVD No wheezing and CTA Tachy, RRR S1S2 +distended abd, non tender, +BS Ext w/o edema CTA and CT A/P reviewed. The change in his cancer is consistent with treatment effect, progressive disease unlikely, no evidence of metastatic disease, no new sites of cancer. Assessment: []63 year old oligometastatic lung cancer who is undergoing CMT with chemotherapy and radiation. Admission with low grade fever and hypertension. No source of infection and thought to be from adrenal suppression. Improved on stress steroids but with several complaints today including chest pain and diarrhea. Plan: []1. Chest pain. With hypertension and tachycardia. Suspect steroid effect, differential includes esophageal spasm, inflammation from radiation, could be cardiac. - Will check EKG and Troponin x 2 2. Adrenal insufficiency. - Go to Prednisone 10 mg in am and 5 mg 2 pm - Follow BP and HR 3. Low K, replete and check Mg 4. Diarrhea. Want to rule out C. Diff given recent antibiotics and his fever - Check C. diff and follow 5. Delay discharge until tomorrow, patient and both agree.
[2018-12-06] MEDS: Hydrocortisone INJ* 100 MG VIAL IV SCH (11:15)
[2018-12-06] MEDS: Acetaminophen TAB* 325 MG PO PRN ×2 (11:54→18:04)
[2018-12-06] MEDS: Potassium Chlor TAB* 20 MEQ TAB.ER PO SCH ×2 (11:54→21:08)
[2018-12-06 12:07] LABS: Magnesium 1.3 mg/dL (1.9-2.7)
[2018-12-06 12:08] LABS: Troponin I 0.01 ng/mL (<0.04)
[2018-12-06] MEDS ORDERED: predniSONE TAB* 5 MG PO ONE (14:00)
[2018-12-06] MEDS ORDERED: LORazepam TAB(*) 1 MG PO PRN (17:43)
[2018-12-06] MEDS: Morphine 4 MG/ML VIAL (1 ml) 4 MG/ML VIAL IV PRN (21:10)
[2018-12-07] MEDS: Acetaminophen TAB* 325 MG PO PRN ×2 (03:26→09:32)
[2018-12-07] MEDS: Sucralfate SUSP 1 GM/10 ml 10 ML UDC PO SCH ×2 (05:48→11:17)
[2018-12-07] MEDS: Heparin VIAL(*) 5000 UNITS/ML VIAL (FIVE THOUSAND) SUBCUT SCH ×2 (05:48→13:54)
[2018-12-07 06:09] VITALS: BP 122/59
[2018-12-07 06:27] LABS: Hematocrit 27 % (42-52); Mean Corpuscular HGB Conc 34 g/dL (31-36); Mean Corpuscular Hemoglobin 28 pg (27-31); Mean Corpuscular Volume 81 fL (80-94); Mean Platelet Volume 6.6 fL (7.4-10.4); Platelet Count 150 10^3/uL (150-450); Red Blood Count 3.27 10^6 /uL (4.18-5.48); Red Cell Distribution Width 16 % (10.5-15); White Blood Count 4.3 10^3/uL (3.5-10.8)
[2018-12-07 06:42] LABS: Albumin 2.6 g/dL (3.2-5.2); Albumin/Globulin Ratio 0.9 (1-3); BUN/Creatinine Ratio 18.6 (8-20); Calcium 8.2 mg/dL (8.6-10.3); EGFR African American 167.3 (>60); EGFR Non-African American 138.3 (>60); Globulin 2.9 g/dL (2-4); Magnesium 1.3 mg/dL (1.9-2.7); Potassium 3.3 mmol/L (3.5-5.0); Total Bilirubin 0.4 mg/dL (0.2-1.0); Total Protein 5.5 g/dL (6.4-8.9)
[2018-12-07 06:43] LABS: ABS Lymphocytes 0.4 10^3/ul (1.0-4.8); ABS Monocytes 0.1 10^3/ul (0-0.8); ABS Neutrophils 3.7 10^3/ul (1.5-7.7); Eosinophil % 0.1 %
[2018-12-07] MEDS ORDERED: predniSONE TAB* 10 MG PO SCH (09:00)
[2018-12-07] MEDS: Lisinopril TAB* 10 MG PO SCH (09:32)
[2018-12-07] MEDS: Potassium Chlor TAB* 20 MEQ TAB.ER PO SCH (09:34)
[2018-12-07] MEDS ORDERED: predniSONE TAB* 10 MG PO ONE (09:40)
[2018-12-07] MEDS ORDERED: Levalbuterol 1.25MG/0.5ML NEB INH PRN (09:40)
[2018-12-07] MEDS ORDERED: Levalbuterol 1.25MG/0.5ML NEB ONE (09:41)
--- NOTE | 2018-12-07 09:47 | PN ---
Progress Note - Progress Note Date of Service: 12/07/18 SOAP: Subjective: []Feels better today, no more episodes of SOB, does continue to have fevers. Today he has a high HR. Temp was 101.1 overnight. Wants to go home today. Acetaminophen (Tylenol Tab*) 650 mg PO Q4H PRN PRN Reason: FEVER/PAIN Last Admin: 12/07/18 09:32 Dose: 650 mg Albuterol (Ventolin 2.5 Mg/3 Ml Neb.Lottie*) 2.5 mg INH Q6H PRN PRN Reason: SOB/WHEEZING Benzonatate (Tessalon Cap*) 200 mg PO TID PRN PRN Reason: COUGH Last Admin: 12/07/18 09:32 Dose: 200 mg Heparin Sodium (Porcine) (Heparin Vial(*)) 5,000 units SUBCUT Q8HR [facility] Last Admin: 12/07/18 05:48 Dose: 5,000 units Magnesium Sulfate (Magnesium Sulf 4 Gm/100 Ml Iv*) 4,000 mg in 100 mls @ 33.333 mls/hr IVPB ONCE ONE Stop: 12/07/18 12:40 Levalbuterol HCl (Xopenex 1.25 Mg/0.5 Ml Neb.Lottie*) 1.25 mg INH Q2H PRN PRN Reason: WHEEZING Lisinopril (Prinivil Tab*) 10 mg PO DAILY [facility] Last Admin: 12/07/18 09:32 Dose: 10 mg Lorazepam (Ativan Tab(*)) 1 mg PO Q4H PRN PRN Reason: ANXIETY Last Admin: 12/06/18 18:04 Dose: 1 mg Morphine Sulfate (Morphine 4 Mg/Ml Vial (1 Ml)) 2 mg IV Q4H PRN PRN Reason: PAIN Last Admin: 12/06/18 21:10 Dose: 2 mg Ondansetron HCl (Zofran Odt Tab*) 4 mg SL Q6H PRN PRN Reason: NAUSEA/VOMITING Last Admin: 12/06/18 21:09 Dose: 4 mg Potassium Chloride (Klor Con Er Tab*) 20 meq PO BID [facility] Last Admin: 12/07/18 09:34 Dose: 20 meq Prednisone (Deltasone Tab*) 10 mg PO DAILY [facility] Last Admin: 12/07/18 09:32 Dose: 10 mg Prednisone (Deltasone Tab*) 30 mg PO ONCE ONE Stop: 12/07/18 09:41 Sucralfate (Sucralfate Susp) 1 gm PO 0630,1100,1600,2100 [facility] Last Admin: 12/07/18 05:48 Dose: 1 gm Tiotropium Fertile (Spiriva Cap.Inh*) 1 cap INH DAILY [facility] Last Admin: 12/06/18 10:34 Dose: 1 cap Objective: [] Vital Signs Temp Pulse Resp BP Pulse Ox 98.9 F 106 20 122/59 97 12/07/18 05:52 12/07/18 05:52 12/07/18 05:52 12/07/18 05:52 12/07/18 05:52 HEENT - OM moist, no lesions, no LAD and no JVD Exp wheezing today Tachy, RRR S1S2 +distended abd, non tender, +BS Ext w/o edema CTA and CT A/P reviewed. The change in his cancer is consistent with treatment effect, progressive disease unlikely, no evidence of metastatic disease, no new sites of cancer. Assessment: []63 year old oligometastatic lung cancer who is undergoing CMT with chemotherapy and radiation. Admission with low grade fever and hypertension. No source of infection and thought to be from adrenal suppression. Improved on stress steroids but with continued low grade fevers. Has had increased HR and today on exam has wheezing. I suspect tumor is causing fevers and wheezing is COPD, could be some fluid overload during stay in hospital. I think it is reasonable to have him go home today with close follow up in office. Plan: []1. Fever. Follow and take Tyelenol. 2. Adrenal insufficiency. Will be treating with increased Prednisone for COPD next 4 days. 3. Low K, replete and Mg - Mg 4 G IV now - K-dur 20 meq po now and daily on discharge 4. Chest pain. Resolved, one time event. No PE and cardiac work up negative. 5. Lung cancer, full therapy next week 6. Follow up Sunday in office.
[2018-12-07] MEDS: Tiotropium CAP.INH* CAP.INH/18 MCG (USE ORDER SET !) INH SCH (09:48)
[2018-12-07] MEDS ORDERED: Furosemide IV* 10 MG/ML 2 ML VIAL (20 MG) IV ONE (09:51)
[2018-12-07] MEDS ORDERED: Magnesium Sulf 4 GM/100 ML IV* 4,000 MG/100 ML BAG IVPB ONE (10:00)
--- NOTE | 2018-12-07 11:10 | DS ---
DISCHARGE SUMMARY: DATE OF ADMISSION: 12/04/18 DATE OF DISCHARGE: 12/07/18 DISCHARGE DIAGNOSES: 1. Non-small cell lung cancer. 2. Fevers. 3. Hypotension likely secondary to adrenal insufficiency. 4. Chronic obstructive pulmonary disease. HOSPITAL COURSE: Patient was admitted on 12/04/18 with a low-grade fever of 100.5 and decreased bloo d pressure, between 80 and 90/50s in the clinic. He also did complain of cough, production of white sputum. He was placed on IV fluids, given IV antibiotics with moderate response. The hypotension darnell d begun just after tapering down his dexamethasone and low blood pressures found to be from adrenal i nsufficiency and he was given stress-dose steroids. This improved his blood pressure dramatically. We do not have pre-steroid a.m. cortisole. He has continued to have low-grade fevers to the admissio n up to 101.1, most between 99 and 100.5. He took Tylenol. He had a CTA that did not show a PE, gay wed his known lung cancer, and a CT of the abdomen and pelvis did not show ay new metastatic disease or acute processes. He had blood cultures that have been negative and he had a negative urine on adm ission. We were going to send him home yesterday on steroids, but yesterday morning he developed an episode of shortness of breath and chest pain that lasted several minutes. We sent a cardiac evaluat ion with EKG and troponins that were both negative. The symptoms self-resolved. This morning, he f eels better though on exam he has wheezing, which is new from yesterday. I suspect the wheezing is from COPD, fluid overload from the IV fluids during the admission is also p ossible. I think he is safe to go home today, but before he goes, we are going to give him Xopenex, and I am going to bring his prednisone to 40 mg p.o. daily for 4 days. This will treat COPD and adre nal insufficiency. He is going to continue his Ventolin and Spiriva at home. He is slightly tachyca rdic during the admission. This could be from anemia, fever, stress. His blood pressure is 106 toda y. On discharge, he will continue his lisinopril. His hemoglobin is running 9.0 today down from 9.3 yesterday, 9.1 the day before and his baseline is closer to 11.7, likely secondary to chemotherapy. We will hold transfusion at this time and follow closely. He has a low sodium 131 today, which is c onsistent with his baseline since diagnosis and is likely secondary to lung disease and lung cancer. DISCHARGE MEDICATIONS: He will continue home medications of, 1. Albuterol nebulizer q.6 hours p.r.n. 2. Spiriva 2 puffs daily. 3. Benzonatate capsule 200 mg t.i.d. p.r.n. 4. Lisinopril 10 mg p.o. daily. 5. Multivitamin. 6. Prilosec 40 mg a day. 7. Ondansetron 4 mg.q.4 p.r.n. 8. Compazine 10 mg q.6 p.r.n. We will discontinue his ibuprofen for pain because he will be taking steroids as antiinflammatory and we will discontinue the dexamethasone because he will be on the prednisone. New medications will be: 1. K-Dur 20 mg p.o. daily. 2. Prednisone 40 mg p.o. daily for 4 days. No antibiotics on discharge. He will come, see me Sunday morning at 8 a.m. to reassess breathing. PLAN: Treatment for his cancer next week. [id number]/[facility] #: [id number]
--- NOTE | 2018-12-24 16:00 | DS ---
- Discharge Summary Addendum: Stable on discharge
== END 2018-12-07 15:00 | disposition home or self-care (01) | DRG 644 ==
LOC: ED 07:43 → ICU 10:59 → MED 12-05 10:53
PROVIDERS: ADMIT Internal Medicine Hematology & Oncology; ATTEND Internal Medicine Hematology & Oncology
DX: E27.40 Unspecified adrenocortical insufficiency (principal); C34.91 Malignant neoplasm of unspecified part of right bronchus or lung; C79.31 Secondary malignant neoplasm of brain; J98.11 Atelectasis; E87.1 Hypo-osmolality and hyponatremia; R65.10 Systemic inflammatory response syndrome (SIRS) of non-infectious origin without acute organ dysfunction; I10 Essential (primary) hypertension; J44.9 Chronic obstructive pulmonary disease, unspecified; K76.89 Other specified diseases of liver; D64.9 Anemia, unspecified; R50.9 Fever, unspecified; E86.0 Dehydration; K21.9 Gastro-esophageal reflux disease without esophagitis; R07.9 Chest pain, unspecified; R13.10 Dysphagia, unspecified; E87.6 Hypokalemia; Z82.49 Family history of ischemic heart disease and other diseases of the circulatory system; Z87.891 Personal history of nicotine dependence
CPT/HCPCS: 36415; 71045; 71275; 74177; 80053; 81003; 82272; 82550; 83605; 83735; 83880; 84145; 84484; 85025; 85379; 85610; 85730; 86140; 86850; 86900; 86901; 87040; 87070; 87205; 87493; 87641; 87899; 93005; 94640; 99223; 99232; 99239; 99285; A9270-GY; J0456; J0696; J1644; J1720; J1940; J2270; J2543; J3475; J7512; J8540; Q9967

== ENCOUNTER 2018-12-28 10:18 | Inpatient (IN) | payer MEDICARE, MEDICAID ==
--- NOTE | 2018-12-28 10:55 | ED ---
HPI Febrile Illness - HPI Summary HPI Summary: The patient is a 63 y/o M presenting to [facility] accompanied by with a chief complaint of fever of 102F starting at 0530 but decreasing since onset after taking two Hydrocodone. The patient recently finished chemotherapy two weeks ago and radiation two days ago for lung cancer, and he has since been experiencing generalized weakness, lightheadedness, and myalgia all over. The aching pain is currently rated 8/10 in severity. He additionally c/o nausea ( chronic) and a cough that is occasionally productive. He denies vomiting and burning with urination. He is currently taking Levaquin, as prescribed by Dr. Barger. Hx of COPD. Former smoker, no EtOH, no substance use. - History of Current Complaint Chief Complaint: EDShortnessOfBreath Time Seen by Provider: 12/28/18 10:41 Hx Obtained From: Patient Onset/Duration: Started Hours Ago, Still Present - but decreasing Time of Onset: 05:30 Timing: Lasting Hours Temperature: 102 F Initial Severity: Severe Current Severity: Moderate Pain Intensity: 8 Pain Scale Used: 0-10 Numeric Aggravating Factors: Nothing Alleviating Factors: Other: - prescribed Hydrocodone Associated Signs and Symptoms: Myalgia - all over, Weakness, Other: - POSITIVE: lightheadedness; NEGATIVE: vomiting, burning with urination - Additional Pertinent History Primary Care Physician: - Allergy/Home Medications Allergies/Adverse Reactions: Allergies Allergy/AdvReac Type Severity Reaction Status Date / Time No Known Allergies Allergy Verified 12/28/18 10:34 Home Medications: Home Medications Hydrocodone/Acetaminophen [Hydrocodone-Acetamin 5-325 mg] 1 - 2 tab PO QID 12/28 [History Confirmed 12/28/18] Hydrocortisone TAB* [Cortef TAB*] 10 mg PO BID 12/28/18 [History Confirmed 12/28] Magnesium Oxide TAB* [MagOx 400 TAB*] 400 mg PO BID 12/28/18 [History Confirmed 12/28/18] Metoprolol Tartrate TAB* [Lopressor TAB*] 12.5 mg PO BID 12/28/18 [History Confirmed 12/28/18] Prochlorperazine TAB* [Compazine Tab*] 10 mg PO BID 12/28/18 [History Confirmed 12/28/18] Ranitidine TAB (NF) [Zantac TAB (NF)] 150 mg PO BID 12/28/18 [History Confirmed 12/28/18] levoFLOXacin [Levofloxacin] 750 mg PO DAILY 12/28/18 [History Confirmed 12/28/18 ] PMH/Surg Hx/FS Hx/Imm Hx Endocrine/Hematology History: Denies: Hx Diabetes Cardiovascular History: Reports: Hx Hypertension Denies: Hx Pacemaker/ICD Respiratory History: Reports: Hx Chronic Obstructive Pulmonary Disease (COPD), Hx Lung Cancer, Other Respiratory Problems/Disorders - LUNG CANCER GI History: Reports: Hx Gastroesophageal Reflux Disease History: Denies: Hx Renal Disease Sensory History: Reports: Hx Contacts or Glasses Denies: Hx Hearing Aid Opthamlomology History: Reports: Hx Contacts or Glasses Neurological History: Reports: Other Neuro Impairments/Disorders - brain mets Psychiatric History: Denies: Hx Panic Disorder - Cancer History Cancer Type, Location and Year: LUNG with mets to BRAIN - Surgical History Surgery Procedure, Year, and Place: Right Rotator Cuff, 2015, [place]; Right Shoulder, 2006, [place] Infectious Disease History: No Infectious Disease History: Denies: Traveled Outside the [place] in Last 30 Days - Family History Known Family History: Positive: Hypertension - Social History Alcohol Use: None Hx Substance Use: No Substance Use Type: Reports: None Hx Tobacco Use: Yes Smoking Status (MU): Former Smoker Type: Cigarettes Amount Used/How Often: ~1-2 PPD Length of Time of Smoking/Using Tobacco: 43 Years Have You Smoked in the Last Year: No Review of Systems Positive: Fever - 102F that has since decreased Positive: Cough - occasionally productive Positive: Nausea - chronic. Negative: Vomiting Negative: burning Positive: Myalgia - all over body Neurological: Other - lightheadedness Positive: Weakness - generalized All Other Systems Reviewed And Are Negative: Yes Physical Exam - Summary Physical Exam Summary: VITAL SIGNS: Reviewed. GENERAL: Patient is an elderly but well-developed and nourished male who is lying comfortable in the stretcher. Patient is not in any acute respiratory distress. HEAD AND FACE: No signs of trauma. No ecchymosis, hematomas or skull depressions. No sinus tenderness. EYES: PERRLA, EOMI x 2, No injected conjunctiva, no nystagmus. EARS: Hearing grossly intact. Ear canals and tympanic membranes are within normal limits. MOUTH: Oropharynx within normal limits. NECK: Supple, trachea is midline, no adenopathy, no JVD, no carotid bruit, no c- spine tenderness, neck with full ROM. CHEST: Symmetric, no tenderness at palpation LUNGS: Rhonchi in bilateral lungs. No wheezing or crackles. CVS: Regular rate and rhythm, S1 and S2 present, no murmurs or gallops appreciated. ABDOMEN: Soft, non-tender. No signs of distention. No rebound no guarding, and no masses palpated. Bowel sounds are normal. EXTREMITIES: FROM in all major joints, no edema, no cyanosis or clubbing. NEURO: Alert and oriented x 3. No acute neurological deficits. Speech is normal and follows commands. SKIN: Dry and warm. Triage Information Reviewed: Yes Vital Signs On Initial Exam: Initial Vitals Temp Pulse Resp BP Pulse Ox 99.0 F 92 18 112/59 95 12/28/18 10:29 12/28/18 10:29 12/28/18 10:29 12/28/18 10:29 12/28/18 10:29 Vital Signs Reviewed: Yes Diagnostics - Vital Signs Vital Signs Temp Pulse Resp BP Pulse Ox 12/28/18 10:29 99.0 F 92 18 112/59 95 - Laboratory Result Diagrams: 12/28/18 11:49 12/28/18 11:49 Lab Statement: Any lab studies that have been ordered have been reviewed, and results considered in the medical decision making process. - Radiology CXR Radiology Interpretation Completed By: Radiologist Summary of Radiographic Findings: Small right pleural effusion with right basilar atelectasis versus consolidation. ED physician has reviewed this radiology report. Re-Evaluation - Re-Evaluation First Eval Re-Evaluation Time: 12:40 Comment: I discussed results and admission to the hospital with the patient. Course/Dx - Course Assessment/Plan: The patient is a 63 y/o M presenting to [facility] accompanied by with a chief complaint of fever of 102F starting at 0530 but decreasing since onset after taking two Hydrocodone. The patient recently finished chemotherapy two weeks ago and radiation two days ago for lung cancer, and he has since been experiencing generalized weakness, lightheadedness, and myalgia all over. The aching pain is currently rated 8/10 in severity. He additionally c /o nausea (chronic) and a cough that is occasionally productive. He denies vomiting and burning with urination. He is currently taking Levaquin, as prescribed by Dr. Barger. Hx of COPD. Former smoker, no EtOH, no substance use. With a hemoglobin 8.1 and hematocrit 24, sodium 129, chloride 97, glucose 145, calcium 8.5, AST is 101 AST is 143, alkaline phosphatase 226, CRP is 14, BNP 118. Troponin 0.05. Chest x-ray impression: Small right pleural effusion with right basilar atelectasis versus consolidation. Since the patient had a fever, it may be consolidation may be an early pneumonia therefore the patient was given Rocephin. I also gave the patient has been since troponin is elevated. At this time I discussed my physical exam and findings with Dr. Bear from the hospitalist services who accepted the patient for admission. - Diagnoses Provider Diagnoses: Elevated troponin, Pneumonia - Provider Notifications Discussed Care Of Patient With: Sade Bear - hospitalist Time Discussed With Above Provider: 12:33 Instructed by Provider To: Other - I discussed the patient's case wtih Dr. Bear, and she accepts the patient for admission at this time. Discharge - Sign-Out/Discharge Documenting (check all that apply): Patient Departure - Patient is accepted for admission by Dr. Bear. Patient Received Moderate/Deep Sedation with Procedure: No - Discharge Plan Condition: Stable Disposition: ADMITTED TO [facility] Referrals: Cielo Hodge MD [Primary Care Provider] - - Billing Disposition and Condition Condition: STABLE Disposition: Admitted to [facility] - Attestation Statements Document Initiated by Denis: Yes Documenting Scribe: Brittaney Ruiz Provider For Whom Denis is Documenting (Include Credential): Dr. Garrick Joshi MD Scribe Attestation: Brtitaney Mao scribed for Dr. Garrick Joshi MD on 12/28/18 at 1247. Scribe Documentation Reviewed: Yes Provider Attestation: The documentation as recorded by the Brittaney ji accurately reflects the service I personally performed and the decisions made by me, Dr. Garrick Joshi MD Status of Scribe Document: Ready
[2018-12-28 12:03] LABS: Hematocrit 24 % (42-52); Hemoglobin 8.1 g/dL (14.0-18.0); Mean Corpuscular HGB Conc 34 g/dL (31-36); Mean Corpuscular Hemoglobin 28 pg (27-31); Mean Corpuscular Volume 81 fL (80-94); Mean Platelet Volume 6.6 fL (7.4-10.4); Platelet Count 214 10^3/uL (150-450); Red Blood Count 2.92 10^6 /uL (4.18-5.48); Red Cell Distribution Width 17 % (10-15); White Blood Count 8.2 10^3/uL (3.5-10.8)
[2018-12-28 12:05] LABS: ABS Lymphocytes 0.4 10^3/ul (1.0-4.8); ABS Monocytes 0.4 10^3/ul (0-0.8); ABS Neutrophils 7.3 10^3/ul (1.5-7.7); Lymphocyte % 5.1 %
[2018-12-28 12:14] LABS: Activated Partial Thrombo Time 37.5 seconds (26.0-38.0); INR 1.41 (0.82-1.09)
[2018-12-28 12:15] LABS: Albumin 2.7 g/dL (3.2-5.2); Albumin/Globulin Ratio 0.8 (1-3); BUN/Creatinine Ratio 17.3 (8-20); C Reactive Protein 410.9 mg/L (<8.01); Calcium 8.5 mg/dL (8.6-10.3); EGFR African American 126.9 (>60); EGFR Non-African American 104.8 (>60); Globulin 3.6 g/dL (2-4); Potassium 3.8 mmol/L (3.5-5.0); Total Bilirubin 0.6 mg/dL (0.2-1.0); Total Protein 6.3 g/dL (6.4-8.9)
[2018-12-28 12:21] LABS: Troponin I 0.05 ng/mL (<0.04)
[2018-12-28 12:23] LABS: Fibrinogen 629.9 mg/dL (110.8-404.3)
[2018-12-28] MEDS ORDERED: cefTRIAXone(*) 1 GM in NS 0.9% 50 ML* 50 ML IVPB ONE (12:23)
[2018-12-28] MEDS ORDERED: Aspirin 81 mg CHEW TAB* 81 MG TAB.CHEW PO ONE (12:36)
[2018-12-28 13:35] LABS: Urine Appearance Clear; Urine Bilirubin Negative (Negative); Urine Blood Negative (Negative); Urine Color Yellow; Urine Glucose Negative (Negative); Urine Ketones Negative (Negative); Urine Nitrite Negative (Negative); Urine Protein Negative (Negative); Urine Specific Gravity 1.011 (1.010-1.030); Urine Urobilinogen Negative (Negative)
[2018-12-28] MEDS ORDERED: Albuterol HFA INHALER* 8 gm MDI INH PRN (13:40)
[2018-12-28] MEDS ORDERED: Azithromycin 500 mg/250 ml NS 500 MG/250 ML BAG IVPB ONE (13:49)
[2018-12-28] MEDS ORDERED: Lactated Ringers 1000 ML Bag* 1,000 ML IV ONE (13:50)
[2018-12-28] MEDS ORDERED: Albuterol 2.5 MG/3 ML NEB.SOL* (0.083%) INH SCH (14:00)
[2018-12-28 14:04] LABS: Erythrocyte Sed Rate > 120 mm/Hr (0-19)
[2018-12-28] MEDS: Hydrocortisone INJ* 100 MG VIAL IV SCH ×2 (15:11→21:21)
[2018-12-28] MEDS: Sucralfate SUSP 1 GM/10 ml 10 ML UDC PO SCH (17:35)
[2018-12-28] MEDS: Albuterol 2.5 MG/3 ML NEB.SOL* (0.083%) INH SCH (20:19)
--- NOTE | 2018-12-28 20:40 | HP ---
CC: Dr. Cielo Hodge; Dr. Barger; Dr. Cortez * HISTORY AND PHYSICAL: DATE OF ADMISSION: 12/28/18 TIME OF EVALUATION: 1:30 p.m. PRIMARY CARE PROVIDER: Dr. Cielo Hodge. ONCOLOGIST: Dr. Barger. CONSULTING ONCOLOGIST: Dr. Cortez. CHIEF COMPLAINT: Fever and shortness of breath. HISTORY OF PRESENT ILLNESS: Mr. Randolph is a 63-year-old male with a past medical history of metastatic non-small cell lung carcinoma status post chemo and radiation, adrenal insufficiency, COPD, tobacco abuse, GERD, hypertension who presented to the emergency room with complaints of fever, weakness and shortness of breath. The patient states he feels very weak and most of the information obtained from the records and from his at bedside. She states that he completed his chemotherapy a couple of weeks ago and he is on radiation therapy a couple of days ago. He was admitted in November with complaints of "not feeling well", pain all over, and on that admission he was diagnosed with hypotension secondary to adrenal insufficiency, but the source of his fever was not really clear. He was treated with antibiotics for possible pneumonia and was recently on Levaquin as outpatient. His states that he improved a little with the treatment as outpatient, but overall has not felt well for "a while." They contacted the oncology office on 12/27/18 and was told to come to the emergency room if he had no improvement. The patient does not really contribute to the interview, but as per , he has been more short of breath with cough, but she got concerned because this morning he had a fever of 102. So, she decided to bring him to the emergency room for further evaluation. He denies chest pain, palpitations, vomiting, diarrhea, or urinary complaints. He does have some nausea, but this has been a chronic issue during his whole chemotherapy course. PAST MEDICAL HISTORY: 1. Stage IV non-small cell lung carcinoma with a right hilar mass and a right parietal mass status post chemo and radiation therapy with carbo/Taxol. The patient is also status post gamma knife in November 2018. 2. COPD. 3. Adrenal insufficiency. 4. Tobacco abuse. 5. GERD. 6. Hypertension. PAST SURGICAL HISTORY: Status post right shoulder surgery. MEDICATION LIST: 1. Albuterol 2.5 mg nebulizer q.6 hours. 2. Albuterol HFA 1 puff inhaled q.6 hours p.r.n. 3. Benzonatate 200 mg p.o. b.i.d. 4. Hydrocodone/acetaminophen 5/325 one to two tablets p.o. q.i.d. 5. Hydrocortisone 10 mg p.o. b.i.d. 6. Levofloxacin 750 mg p.o. daily. 7. Magnesium oxide 400 mg p.o. b.i.d. 8. Metoprolol tartrate 12.5 mg p.o. b.i.d. 9. Omeprazole 40 mg p.o. daily. 10. Potassium chloride 20 mEq p.o. daily. 11. Prochlorperazine 10 mg p.o. b.i.d. 12. Ranitidine 150 mg p.o. b.i.d. 13. Sucralfate mg p.o. before meals. 14. Spiriva 2 capsules inhaled daily. ALLERGIES: No known drug allergies. FAMILY HISTORY: Negative for malignancy. SOCIAL HISTORY: There is a history of drinking beer up to 5 beers a day in the past. He smoked for 45 years over 2 packs a day, he quit 6 years ago. Surrogate decision maker is his , Rosa Isela Randolph, phone number is . REVIEW OF SYSTEMS: A 10-point review of system was performed and all the pertinent negative and positive findings are in the HPI. PHYSICAL EXAMINATION GENERAL: The patient is an elderly gentleman that appears older than stated age , lying in the ED stretcher, in no acute distress. VITAL SIGNS: Temperature 97.4, heart rate is 86, respiratory rate is 18, oxygen saturation is 93% on room air, blood pressure is 109/62. HEENT: Pupils are equal, dry mucous membranes. CVS: Normal S1, S2. Regular rate and rhythm. CHEST: Breath sounds present bilaterally with no added sounds. ABDOMEN: Soft. Bowel sounds are present. EXTREMITIES: No edema. NEURO: The patient is alert, awake and oriented x3. Face is symmetric. He is able to move all 4 extremities. DIAGNOSTIC STUDIES/LAB DATA: The patient had a CBC that showed a WBC of 8.2, hemoglobin of 8.1, hematocrit of 24, platelets of 214 with 89% neutrophils. ESR was greater than 120. INR is 1.4. Chemistry showed sodium of 129, potassium of 3.8, chloride of 97, bicarb of 23, BUN of 13, creatinine of 0.75, glucose of 145, lactic acid is 0.9, calcium is 8.5. LFTs are elevated with an AST of 101, ALT of 143, alk phos of 226. CRP is 410. First troponin is 0.05. BNP is 118. Urinalysis is negative. Chest x-ray: I reviewed the image and I am in agreement with the reading that the patient has a small right pleural effusion with right basilar atelectasis versus consolidation and this is not much different from his prior chest x-ray. EKG done on 12/28/18 at 1:54 p.m. shows sinus rhythm at 86 beats per minute with PVCs. No acute ischemic changes. No significant changes from his prior EKG, but he has PVCs on the EKG done today. ASSESSMENT AND PLAN: Mr. Randolph is a 63-year-old male with a past medical history of metastatic non-small cell lung cancer, chronic obstructive pulmonary disease, hypertension, gastroesophageal reflux disease, who presented to the emergency room with complaints of weakness, fever and shortness of breath after completing his chemo and radiation treatment. 1. Fever. Source is unclear at this time. He does not appear to be septic and his WBC is at his baseline. He was admitted in November and at that point, his cultures were negative and he has been on Levaquin as outpatient. He is at risk for pneumonia, but his chest x-ray does not look that different to me. I am concerned with his CRP elevation, but this may be secondary to his lung cancer. So, the fever, inflammatory markers and symptoms may be related to his primary lung cancer. He will be admitted under observation for further evaluation and management. For the possibility of pneumonia, he will be started on ceftriaxone and Zithromax. I will check Legionella and pneumococcal antigen. Blood cultures were re-sent in the emergency room. He received gentle IV hydration and we will provide symptomatic treatment. 2. Troponin elevation. The patient has no complaints of chest pain and no acute ischemic changes on EKG. This may be secondary to demand ischemia in the setting of metastatic lung cancer and possible pneumonia. He will be monitored on telemetry and we will check serial troponins. 3. Adrenal insufficiency. The patient will be continued on hydrocortisone, but I will change it to IV. 4. Transaminitis. The patient has had elevation of transaminases in the past, but they are higher at this point. We will check right upper quadrant ultrasound. 5. DVT prophylaxis. The patient has a score of 4 on the DVT Prophylaxis Risk Assessment Guide. He will have SCDs. We will avoid pharmacological prophylaxis in the setting of known brain metastasis. 6. Code status is full. TIME SPENT: Approximately 60 minutes was spent with the patient and interview, medical records review, physical examination to complete the admission, more than half of this time was spent [id number] with the patient and coordination of care. Dr. Cortez was notified about this patient's admission. [id number]/[facility] #: [id number] MARINA
[2018-12-28] MEDS: Benzonatate CAP* 100 MG PO SCH (21:23)
[2018-12-28] MEDS: Prochlorperazine TAB* 10 MG PO SCH (21:24)
[2018-12-28] MEDS: Metoprolol Tartrate TAB* 25 MG PO SCH (21:24)
[2018-12-28] MEDS: Famotidine TAB* 20 MG PO SCH (21:24)
[2018-12-28] MEDS: Magnesium Oxide TAB* 400 MG PO SCH (21:24)
[2018-12-29] MEDS: Albuterol 2.5 MG/3 ML NEB.SOL* (0.083%) INH SCH ×4 (01:38→19:18)
[2018-12-29] MEDS: Hydrocortisone INJ* 100 MG VIAL IV SCH ×3 (05:24→22:30)
[2018-12-29 06:15] LABS: ABS Lymphocytes 0.4 10^3/ul (1.0-4.8); ABS Monocytes 0.3 10^3/ul (0-0.8); ABS Neutrophils 6.6 10^3/ul (1.5-7.7); Hematocrit 24 % (42-52); Lymphocyte % 5.9 %; Mean Corpuscular HGB Conc 34 g/dL (31-36); Mean Corpuscular Hemoglobin 28 pg (27-31); Mean Corpuscular Volume 82 fL (80-94); Mean Platelet Volume 6.6 fL (7.4-10.4); Platelet Count 198 10^3/uL (150-450); Red Blood Count 2.89 10^6 /uL (4.18-5.48); Red Cell Distribution Width 17 % (10-15); White Blood Count 7.3 10^3/uL (3.5-10.8)
[2018-12-29 06:26] LABS: BUN/Creatinine Ratio 22.6 (8-20); C Reactive Protein 367.65 mg/L (<8.01); Calcium 8.8 mg/dL (8.6-10.3); EGFR African American 189.4 (>60); EGFR Non-African American 156.5 (>60); Potassium 3.7 mmol/L (3.5-5.0)
[2018-12-29] MEDS: Tiotropium CAP.INH* CAP.INH/18 MCG (USE ORDER SET !) INH SCH (07:38)
[2018-12-29] MEDS ORDERED: NS 0.9% 1000 ML** 1,000 ML IV ONE (08:26)
[2018-12-29] MEDS: Sucralfate SUSP 1 GM/10 ml 10 ML UDC PO SCH ×3 (08:33→20:15)
--- NOTE | 2018-12-29 08:45 | PN ---
Progress Note - Progress Note Date of Service: 12/29/18 SOAP: Subjective: tried to question patient, but as per his behavior in our office, he got agitated and refused to answer questions. I was able to ascertain that he has had 3 episodes of diarrhea since midnight and has abdominal pain. After this he got agitated with me, upset that I made him NPO and started using profane language and so interview was stopped. Objective: Vital Signs Temp Pulse Resp BP Pulse Ox 97.9 F 101 18 117/71 98 12/29/18 03:37 12/29/18 07:42 12/29/18 07:42 12/29/18 03:37 12/29/18 07:42 130s HR sitting up in nad did not examen Laboratory Results - last 24 hr 12/28/18 12/28/18 12/28/18 11:49 11:49 11:49 WBC 8.2 RBC 2.92 L Hgb 8.1 L Hct 24 L MCV 81 MCH 28 MCHC 34 RDW 17 H Plt Count 214 MPV 6.6 L Neut % (Auto) 89.8 Lymph % (Auto) 5.1 [place] % (Auto) 4.9 Eos % (Auto) 0.0 Baso % (Auto) 0.2 Absolute Neuts (auto) 7.3 Absolute Lymphs (auto) 0.4 L Absolute Monos (auto) 0.4 Absolute Eos (auto) 0.0 Absolute Basos (auto) 0.0 Absolute Nucleated RBC 0.0 Nucleated RBC % 0.0 ESR > 120 H INR (Anticoag Therapy) 1.41 H APTT 37.5 Fibrinogen 629.9 H Sodium 129 L Potassium 3.8 Chloride 97 L Carbon Dioxide 23 Anion Gap 9 BUN 13 Creatinine 0.75 Est GFR ( Amer) 126.9 Est GFR (Non-Af Amer) 104.8 BUN/Creatinine Ratio 17.3 Glucose 145 H Lactic Acid Calcium 8.5 L Total Bilirubin 0.60 AST 101 H ALT 143 H Alkaline Phosphatase 226 H Troponin I 0.05 H* C-Reactive Protein 410.90 H B-Natriuretic Peptide Total Protein 6.3 L Albumin 2.7 L Globulin 3.6 Albumin/Globulin Ratio 0.8 L Urine Color Urine Appearance Urine pH Ur Specific [place] Urine Protein Urine Ketones Urine Blood Urine Nitrate Urine Bilirubin Urine Urobilinogen Ur Leukocyte Esterase Urine Glucose 12/28/18 12/28/18 12/28/18 11:49 11:49 13:22 WBC RBC Hgb Hct MCV MCH MCHC RDW Plt Count MPV Neut % (Auto) Lymph % (Auto) [place] % (Auto) Eos % (Auto) Baso % (Auto) Absolute Neuts (auto) Absolute Lymphs (auto) Absolute Monos (auto) Absolute Eos (auto) Absolute Basos (auto) Absolute Nucleated RBC Nucleated RBC % ESR INR (Anticoag Therapy) APTT Fibrinogen Sodium Potassium Chloride Carbon Dioxide Anion Gap BUN Creatinine Est GFR ( Amer) Est GFR (Non-Af Amer) BUN/Creatinine Ratio Glucose Lactic Acid 0.9 Calcium Total Bilirubin AST ALT Alkaline Phosphatase Troponin I C-Reactive Protein B-Natriuretic Peptide 118 H Total Protein Albumin Globulin Albumin/Globulin Ratio Urine Color Yellow Urine Appearance Clear Urine pH 6.0 Ur Specific [place] 1.011 Urine Protein Negative Urine Ketones Negative Urine Blood Negative Urine Nitrate Negative Urine Bilirubin Negative Urine Urobilinogen Negative Ur Leukocyte Esterase Negative Urine Glucose Negative 12/28/18 12/28/18 12/28/18 14:54 14:54 19:25 WBC RBC Hgb Hct MCV MCH MCHC RDW Plt Count MPV Neut % (Auto) Lymph % (Auto) [place] % (Auto) Eos % (Auto) Baso % (Auto) Absolute Neuts (auto) Absolute Lymphs (auto) Absolute Monos (auto) Absolute Eos (auto) Absolute Basos (auto) Absolute Nucleated RBC Nucleated RBC % ESR INR (Anticoag Therapy) APTT Fibrinogen Sodium Potassium Chloride Carbon Dioxide Anion Gap BUN Creatinine Est GFR ( Amer) Est GFR (Non-Af Amer) BUN/Creatinine Ratio Glucose Lactic Acid 1.5 Calcium Total Bilirubin AST ALT Alkaline Phosphatase Troponin I 0.01 0.02 C-Reactive Protein B-Natriuretic Peptide Total Protein Albumin Globulin Albumin/Globulin Ratio Urine Color Urine Appearance Urine pH Ur Specific [place] Urine Protein Urine Ketones Urine Blood Urine Nitrate Urine Bilirubin Urine Urobilinogen Ur Leukocyte Esterase Urine Glucose 12/29/18 12/29/18 06:02 06:02 WBC 7.3 RBC 2.89 L Hgb 8.0 L Hct 24 L MCV 82 MCH 28 MCHC 34 RDW 17 H Plt Count 198 MPV 6.6 L Neut % (Auto) 90.4 Lymph % (Auto) 5.9 [place] % (Auto) 3.6 Eos % (Auto) 0.0 Baso % (Auto) 0.1 Absolute Neuts (auto) 6.6 Absolute Lymphs (auto) 0.4 L Absolute Monos (auto) 0.3 Absolute Eos (auto) 0.0 Absolute Basos (auto) 0.0 Absolute Nucleated RBC 0.0 Nucleated RBC % 0.0 ESR INR (Anticoag Therapy) APTT Fibrinogen Sodium 136 Potassium 3.7 Chloride 102 Carbon Dioxide 23 Anion Gap 11 BUN 12 Creatinine 0.53 L Est GFR ( Amer) 189.4 Est GFR (Non-Af Amer) 156.5 BUN/Creatinine Ratio 22.6 H Glucose 175 H Lactic Acid Calcium 8.8 Total Bilirubin AST ALT Alkaline Phosphatase Troponin I C-Reactive Protein 367.65 H B-Natriuretic Peptide Total Protein Albumin Globulin Albumin/Globulin Ratio Urine Color Urine Appearance Urine pH Ur Specific [place] Urine Protein Urine Ketones Urine Blood Urine Nitrate Urine Bilirubin Urine Urobilinogen Ur Leukocyte Esterase Urine Glucose Acetaminophen (Tylenol Tab*) 650 mg PO Q6H PRN PRN Reason: pain/fever Hydrocodone Bitart/Acetaminophen ([place] 5-325 Tab*) 1 tab PO QID PRN PRN Reason: PAIN Albuterol (Ventolin Hfa Inhaler*) 1 puff INH Q6H PRN PRN Reason: SHORTNESS OF BREATH Albuterol (Ventolin 2.5 Mg/3 Ml Neb.Lottie*) 2.5 mg INH Q6H [facility]END[facility] S[facility] TO [facility] Last Admin: 12/29/18 07:42 Dose: 2.5 mg Benzonatate (Tessalon Cap*) 200 mg PO BID [facility] TO [facility] Last Admin: 12/28/18 21:23 Dose: 200 mg Device (Tiotropium Inhaler Device*) 1 each INH 0900 ONE Stop: 12/29/18 09:01 Last Admin: 12/29/18 07:38 Dose: Not Given Famotidine (Pepcid Tab*) 20 mg PO BID [facility]END[facility] TO [facility]; Protocol Last Admin: 12/28/18 21:24 Dose: 20 mg Hydrocortisone Sodium Succinate (Solu-Cortef*) 50 mg IV Q8H [facility] Last Admin: 12/29/18 05:24 Dose: 50 mg Azithromycin (Zithromax 500 Mg/250 Ml) 500 mg in 250 mls @ 250 mls/hr IVPB Q24H [facility] Ceftriaxone Sodium 1 gm/ (Sodium Chloride) 50 mls @ 200 mls/hr IVPB Q24H TIANNA Sodium Chloride (Ns 0.9% 1000 Ml) 1,000 mls @ 0 mls/hr IV .BOLUS ONE Stop: 12/29/18 08:27 Sodium Chloride (Ns 0.9% 1000 Ml) 1,000 mls @ 150 mls/hr IV PER RATE TIANNA Magnesium Oxide (Magox 400 Tab*) 400 mg PO BID TIANNA Last Admin: 12/28/18 21:24 Dose: 400 mg Metoprolol Tartrate (Lopressor Tab*) 12.5 mg PO BID TIANNA Last Admin: 12/28/18 21:24 Dose: 12.5 mg Pantoprazole Sodium (Protonix Tab*) 40 mg PO DAILY TIANNA Potassium Chloride (Klor Con Er Tab*) 20 meq PO DAILY [facility] Prochlorperazine (Compazine Tab*) 10 mg PO BID [facility] Last Admin: 12/28/18 21:24 Dose: 10 mg Sucralfate (Sucralfate Susp) 1 gm PO AC [facility] Last Admin: 12/29/18 08:33 Dose: 1 gm Tiotropium [place] (Spiriva Cap.Inh*) 1 cap INH DAILY [facility] Last Admin: 12/29/18 07:38 Dose: Not Given Assessment: 63 yo M w oligometastatic NSCLC sp gamma knife and recently completed carbo/ taxol/RT who has had recurrent episodes of fevers, hypotension and general unwellness of unclear etiology, though partially explained by adrenal insufficiency. Unfortunately he would not participate in a review of systems or physical exam today. I am concerned about the markedly elevated ESR/CRP and tachycardia, as well as progressive transaminitis that we are missing an occult infection. I would like to get a CT C/A/P to start. Plan: -1L NS bolus then 150 cc/hr -cont hydrocortisone bid IV -cont bblocker (has been tachycardic of unclear etiology but suspect reaction to whatever systemic inflammatory process is occurring) -cont ceftriaxone/azithro for now -add lovenox for DVT prohylaxis full code
[2018-12-29 08:50] LABS: Magnesium 1.7 mg/dL (1.9-2.7)
[2018-12-29] MEDS ORDERED: Spiriva Inhaler DEVICE* 1 EACH DEVICE INH ONE (09:00)
[2018-12-29] MEDS ORDERED: Magnesium Sulf 4 GM/100 ML IV* 4,000 MG/100 ML BAG IVPB ONE (09:30)
[2018-12-29] MEDS: Metoprolol Tartrate TAB* 25 MG PO SCH ×2 (09:43→22:29)
[2018-12-29] MEDS: Magnesium Oxide TAB* 400 MG PO SCH ×2 (09:45→22:29)
[2018-12-29] MEDS: Benzonatate CAP* 100 MG PO SCH ×2 (09:45→22:28)
[2018-12-29] MEDS: Potassium Chlor TAB* 20 MEQ TAB.ER PO SCH (09:46)
[2018-12-29] MEDS: Prochlorperazine TAB* 10 MG PO SCH ×2 (09:46→22:28)
[2018-12-29] MEDS: Pantoprazole TAB * 40 MG TAB PO SCH (09:46)
[2018-12-29] MEDS: Famotidine TAB* 20 MG PO SCH ×2 (09:46→22:28)
[2018-12-29] MEDS: Enoxaparin(*) 40 MG/0.4 ML SYR SUBCUT SCH (10:31)
[2018-12-29] MEDS: HYDROcodone/ACETAMIN 5-325 MG* 1 TAB PO PRN ×3 (10:33→22:28)
[2018-12-29] MEDS ORDERED: Iohexol 300* (CONTRAST) 10 ML SDV IV ONE (13:52)
[2018-12-29] MEDS ORDERED: Azithromycin 500 mg/250 ml NS 500 MG/250 ML BAG IVPB SCH (14:00)
[2018-12-29] MEDS: cefTRIAXone(*) 1 GM in NS 0.9% 50 ML* 50 ML IVPB SCH (15:00)
[2018-12-29] MEDS: Azithromycin 500 mg/250 ml NS 500 MG/250 ML BAG IVPB SCH (20:17)
[2018-12-29] MEDS: NS 0.9% 1000 ML** 1,000 ML IV SCH (23:46)
[2018-12-30] MEDS: Albuterol 2.5 MG/3 ML NEB.SOL* (0.083%) INH SCH ×4 (01:44→19:04)
[2018-12-30] MEDS ORDERED: Simethicone TAB* 80 MG TAB.CHEW PO PRN (03:50)
[2018-12-30 05:52] LABS: Hematocrit 24 % (42-52); Mean Corpuscular HGB Conc 34 g/dL (31-36); Mean Corpuscular Hemoglobin 28 pg (27-31); Mean Corpuscular Volume 83 fL (80-94); Mean Platelet Volume 6.6 fL (7.4-10.4); Platelet Count 231 10^3/uL (150-450); Red Blood Count 2.86 10^6 /uL (4.18-5.48); Red Cell Distribution Width 18 % (10-15); White Blood Count 9.3 10^3/uL (3.5-10.8)
[2018-12-30 06:04] LABS: INR 1.27 (0.82-1.09)
[2018-12-30 06:17] LABS: ALT 122 U/L (7-52); AST 66 U/L (13-39); Albumin 2.6 g/dL (3.2-5.2); Albumin/Globulin Ratio 0.8 (1-3); Alkaline Phosphatase 196 U/L (34-104); Anion Gap 11 mmol/L (2-11); BUN/Creatinine Ratio 16.1 (8-20); Blood Urea Nitrogen 9 mg/dL (6-24); C Reactive Protein 258.73 mg/L (<8.01); CO2 Carbon Dioxide 23 mmol/L (22-32); Calcium 8.4 mg/dL (8.6-10.3); Chloride 101 mmol/L (101-111); EGFR African American 177.7 (>60); EGFR Non-African American 146.9 (>60); Globulin 3.4 g/dL (2-4); Glucose 177 mg/dL (70-100); Magnesium 1.8 mg/dL (1.9-2.7); Potassium 3.4 mmol/L (3.5-5.0); Sodium 135 mmol/L (135-145)
[2018-12-30 07:19] LABS: ABS Lymphocytes 0.5 10^3/ul (1.0-4.8); ABS Monocytes 0.3 10^3/ul (0-0.8); ABS Neutrophils 8.4 10^3/ul (1.5-7.7); Lymphocyte % 5.6 %; Nucleated Red Blood Cells % 0.1
[2018-12-30] MEDS: Tiotropium CAP.INH* CAP.INH/18 MCG (USE ORDER SET !) INH SCH (07:23)
[2018-12-30] MEDS: Hydrocortisone INJ* 100 MG VIAL IV SCH ×3 (07:28→23:03)
[2018-12-30] MEDS: Sucralfate SUSP 1 GM/10 ml 10 ML UDC PO SCH ×3 (07:28→17:57)
[2018-12-30] MEDS: HYDROcodone/ACETAMIN 5-325 MG* 1 TAB PO PRN ×2 (08:21→18:17)
[2018-12-30] MEDS: NS 0.9% 1000 ML** 1,000 ML IV SCH ×2 (08:22→17:57)
--- NOTE | 2018-12-30 09:25 | PN ---
Progress Note - Progress Note Date of Service: 12/30/18 SOAP: Subjective: []Completed chemotherapy and radiation on Became ill on 12/25/18 with chemotherapy held the last two weeks of therapy. Course complicated by recurrent episodes of low grade fever (100-101) with episodes of hypertension. Several courses of antibiotics but no clear source, has been diagnosed and treated for steriod related adrenal insufficiency but symptoms have occured on replacement and stress dose steroids. Seen in clinic early last week and had been feeling well at that time. Justin night fever to 102. Had diffuse aches all over body, abdominal pain nausea and diarrhea. Has had SOB through course and esophogitis from XRT. On exam today abdominal symptoms are most pronounced. Reports 7 BM,diarrhea since admission. Acetaminophen (Tylenol Tab*) 650 mg PO Q6H PRN PRN Reason: pain/fever Hydrocodone Bitart/Acetaminophen ([place] 5-325 Tab*) 1 tab PO QID PRN PRN Reason: PAIN Last Admin: 12/30/18 08:21 Dose: 1 tab Albuterol (Ventolin Hfa Inhaler*) 1 puff INH Q6H PRN PRN Reason: SHORTNESS OF BREATH Albuterol (Ventolin 2.5 Mg/3 Ml Neb.Lottie*) 2.5 mg INH Q6H [facility] Last Admin: 12/30/18 07:23 Dose: 2.5 mg Benzonatate (Tessalon Cap*) 200 mg PO BID [facility] Last Admin: 12/29/18 22:28 Dose: 200 mg Enoxaparin Sodium (Lovenox(*)) 40 mg SUBCUT Q24H [facility] Last Admin: 12/29/18 10:31 Dose: 40 mg Famotidine (Pepcid Tab*) 20 mg PO BID [facility]; Protocol Last Admin: 12/29/18 22:28 Dose: 20 mg Hydrocortisone Sodium Succinate (Solu-Cortef*) 50 mg IV Q8H [facility] Last Admin: 12/30/18 07:28 Dose: 50 mg Ceftriaxone Sodium 1 gm/ (Sodium Chloride) 50 mls @ 200 mls/hr IVPB Q24H [facility] Last Admin: 12/29/18 15:00 Dose: 200 mls/hr Sodium Chloride (Ns 0.9% 1000 Ml) 1,000 mls @ 150 mls/hr IV PER RATE [facility] Last Admin: 12/30/18 08:22 Dose: 150 mls/hr Azithromycin (Zithromax 500 Mg/250 Ml) 500 mg in 250 mls @ 250 mls/hr IVPB Q24HR@2000 [facility] Last Admin: 12/29/18 20:17 Dose: 250 mls/hr Magnesium Oxide (Magox 400 Tab*) 400 mg PO BID [facility] Last Admin: 12/29/18 22:29 Dose: 400 mg Metoprolol Tartrate (Lopressor Tab*) 12.5 mg PO BID [facility] Last Admin: 12/29/18 22:29 Dose: 12.5 mg Pantoprazole Sodium (Protonix Tab*) 40 mg PO DAILY [facility] Last Admin: 12/29/18 09:46 Dose: 40 mg Potassium Chloride (Klor Con Er Tab*) 20 meq PO DAILY [facility] Last Admin: 12/29/18 09:46 Dose: 20 meq Prochlorperazine (Compazine Tab*) 10 mg PO BID [facility] Last Admin: 12/29/18 22:28 Dose: 10 mg Simethicone (Mylicon Tab*) 80 mg PO Q6H PRN PRN Reason: GAS Last Admin: 12/30/18 04:26 Dose: 80 mg Sucralfate (Sucralfate Susp) 1 gm PO AC [facility] Last Admin: 12/30/18 07:28 Dose: 1 gm Tiotropium [place] (Spiriva Cap.Inh*) 1 cap INH DAILY [facility] Last Admin: 12/30/18 07:23 Dose: 1 cap Objective: []Vital Signs Temp Pulse Resp BP Pulse Ox 97.3 F 106 26 132/73 95 12/30/18 03:43 12/30/18 07:25 12/30/18 08:21 12/30/18 03:43 12/30/18 07:25 HEENT: Om moist, no thrush or lesions some crackles at base, no wheezing RRR S1S2, tachy +BS, distended and diffuse tenderness, no rebound EXT warm, good pulses CT scan: The mediastinal mass is decreased s/p therapy. There are some ground glass changes in bases, but small % of lung volume. liver lesions are new and questionable for recurrent cancer. Bowls are fine, no inflammation. Labs: ESR > 220, increased CRP, Alb 2.6, Cr stable, mild elevation LFTs anemia, normal WBC and plts Assessment: 63 yo M w oligometastatic NSCLC sp gamma knife and recently completed carbo/ taxol/RT who has had recurrent episodes of fevers, hypotension and general unwellness of unclear etiology, partially explained by adrenal insufficiency. CT scan with possible progression of disease. Ddx: occult infection including PCP 2nd to fpc steroids, C-dif, para-neoplastic syndrome with progressive disease. Plan: 1. Will send stool for C. Diff and leukocytes, check LDH. Consultation to ID and case discussed with Dr. Soler. 2. Continue antibiotics at this time but have not helped in past. 3. CT discussed with radiology, will check abd US and if visible, Bx of liver lesion. 4 Cont IVF and supportive medication
[2018-12-30] MEDS ORDERED: Magnesium Sulfate IV* 3 GM in NS 0.9% 100 ML* 100 ML IVPB ONE (09:30)
[2018-12-30] MEDS: Benzonatate CAP* 100 MG PO SCH ×2 (09:58→19:59)
[2018-12-30] MEDS: Potassium Chlor TAB* 20 MEQ TAB.ER PO SCH (09:59)
[2018-12-30] MEDS: Metoprolol Tartrate TAB* 25 MG PO SCH ×2 (09:59→19:59)
[2018-12-30] MEDS: Magnesium Oxide TAB* 400 MG PO SCH ×2 (10:00→19:59)
[2018-12-30] MEDS: Pantoprazole TAB * 40 MG TAB PO SCH (10:00)
[2018-12-30] MEDS: Prochlorperazine TAB* 10 MG PO SCH ×2 (10:00→19:59)
[2018-12-30] MEDS: Famotidine TAB* 20 MG PO SCH ×2 (10:00→19:59)
[2018-12-30] MEDS: Enoxaparin(*) 40 MG/0.4 ML SYR SUBCUT SCH (10:01)
[2018-12-30] MEDS: cefTRIAXone(*) 1 GM in NS 0.9% 50 ML* 50 ML IVPB SCH (12:42)
--- NOTE | 2018-12-30 13:44 | CONS ---
CONSULTATION REPORT: DATE OF CONSULT: 12/30/18 REQUESTING PHYSICIAN: Dr. Barger. CONSULTING SERVICE: Infectious Disease. REASON FOR CONSULT: Fever. IMPRESSION: 1. Fever, myalgia, diarrhea with ground-glass opacities in the bilateral lungs , improving on treatment for community-acquired pneumonia, I think that is most likely what he has, in that case, it could be bacterial or viral, he does have a complaint of dysphagia while eating, so he could have recurrent aspiration contributing to this process and to fever. He apparently has had a longstanding low-grade fever as well despite courses of antibiotics, possible diagnosis of adrenal insufficiency. He does have a transaminitis and multiple small liver lesions with possibility of infectious etiology there as well. 2. Non-small cell lung cancer with right hilar mass, metastatic disease in the right parietal lobe of the brain, treated with chemotherapy and radiation and gamma knife surgery in 2019. 3. Chronic obstructive pulmonary disease. 4. Adrenal insufficiency. 5. Right shoulder arthroplasty, which is asymptomatic. RECOMMENDATIONS: Continue ceftriaxone, azithromycin, will follow him here and has started to improve. He is going to have ultrasound of his liver to further evaluate those lesions. He should have a swallow evaluation as well. HISTORY OF PRESENT ILLNESS: This is a 63-year-old male with lung cancer, treated with chemotherapy and radiation, and a brain metastasis for which he had corticosteroids and gamma knife. He has had fevers off and on for a couple of weeks, was in the hospital in mid November with fever, treated with antibiotics and had been on Levaquin since he left and then had a fever of a 103, so came back into the hospital. His blood cultures are negative. His Legionella and Pneumococcal antigens are negative. He had no leukocytosis. Urinalysis was negative. CT of the chest, abdomen and pelvis was significant for ground-glass opacity of both lungs and the right hilar mass. Today, he notes that he has had a few days of achiness everywhere, some diarrhea, started a little bit before he got here. The CT also showed low attenuation hepatic parenchymal lesions, too small to characterize, increasing in number since November 2018. He is having diffuse abdominal pain with loose stools. He ate breakfast and that seemed to go okay. He has no joint pain or back pain. PAST MEDICAL HISTORY: 1. Stage IV non-small cell lung cancer, treated with chemotherapy and radiation. 2. Brain metastasis in the right parietal lobe, treated with gamma knife and corticosteroids. 3. COPD. 4. Adrenal insufficiency. 5. Tobacco abuse. 6. Gastroesophageal reflux disease. 7. Hypertension. 8. Status post right shoulder arthroplasty. MEDICATIONS: 1. Tylenol. 2. Albuterol inhaler. 3. Azithromycin 500 mg daily. 4. Enoxaparin. 5. Famotidine. 6. Hydrocortisone 50 mg IV every 8 hours. 7. Magnesium oxide. 8. Metoprolol. 9. Pantoprazole. 10. Ceftriaxone 1 g a day. 11. Simethicone. 12. Spiriva. ALLERGIES: No known drug allergies. FAMILY HISTORY: No cancer. SOCIAL HISTORY: He lives in [facility] with his . He is a past smoker. They have a pet cat at home. No kittens. REVIEW OF SYSTEMS: All negative except as noted above in the history of present illness to a 12-point review. PHYSICAL EXAM: Vital Signs: Temperature is 37.2, heart rate 74, respiratory rate 18, blood pressure 144/61, oxygen saturation 95% on room air. In general, he is awake, not in distress or diaphoretic. Neurologic: He answers questions appropriately, though a little bit delayed and follows commands. HEENT: There is no conjunctival hemorrhage. Oropharynx: There is no lesion. Tongue is diffusely slightly erythematous. Neck: Supple without mass. Lungs: There are scattered tubular breath sounds without wheeze or rale. Abdomen: Soft, nontender, nondistended. There are bowel sounds present. Skin: There is no rash or splinter hemorrhage. Musculoskeletal: No spine tenderness to palpation or joint synovitis. DIAGNOSTIC STUDIES/LAB DATA: White blood cell count 9.3, hemoglobin 8, platelets 231, creatinine 0.5. ALT 122, was 143 on admission. Bilirubin is 0.3. CRP was 410 on admission, was down to 258 today. Please see impression and recommendations outlined above. Thank you for asking me to see Mr. Randolph in consultation. [id number] #: [id number] MARINA
[2018-12-30] MEDS: Azithromycin 500 mg/250 ml NS 500 MG/250 ML BAG IVPB SCH (19:52)
[2018-12-31] MEDS: Albuterol 2.5 MG/3 ML NEB.SOL* (0.083%) INH SCH ×3 (00:32→13:49)
[2018-12-31] MEDS: NS 0.9% 1000 ML** 1,000 ML IV SCH ×2 (04:12→10:52)
[2018-12-31] MEDS: Hydrocortisone INJ* 100 MG VIAL IV SCH (06:15)
[2018-12-31 07:03] LABS: ABS Lymphocytes 0.5 10^3/ul (1.0-4.8); ABS Monocytes 0.3 10^3/ul (0-0.8); ABS Neutrophils 7.7 10^3/ul (1.5-7.7); Hematocrit 21 % (42-52); Hemoglobin 7.3 g/dL (14.0-18.0); Lymphocyte % 5.9 %; Mean Corpuscular HGB Conc 34 g/dL (31-36); Mean Corpuscular Hemoglobin 28 pg (27-31); Mean Corpuscular Volume 83 fL (80-94); Mean Platelet Volume 6.9 fL (7.4-10.4); Platelet Count 202 10^3/uL (150-450); Red Blood Count 2.56 10^6 /uL (4.18-5.48); Red Cell Distribution Width 17 % (10-15); White Blood Count 8.5 10^3/uL (3.5-10.8)
[2018-12-31 07:22] LABS: Albumin 2.4 g/dL (3.2-5.2); Albumin/Globulin Ratio 0.8 (1-3); BUN/Creatinine Ratio 13.3 (8-20); Calcium 8.1 mg/dL (8.6-10.3); EGFR African American 228.8 (>60); EGFR Non-African American 189.1 (>60); Total Bilirubin 0.3 mg/dL (0.2-1.0); Total Protein 5.4 g/dL (6.4-8.9)
[2018-12-31] MEDS: Tiotropium CAP.INH* CAP.INH/18 MCG (USE ORDER SET !) INH SCH (07:31)
[2018-12-31] MEDS: Enoxaparin(*) 40 MG/0.4 ML SYR SUBCUT SCH (09:06)
[2018-12-31] MEDS: Pantoprazole TAB * 40 MG TAB PO SCH (09:16)
[2018-12-31] MEDS: Magnesium Oxide TAB* 400 MG PO SCH ×2 (09:16→21:06)
[2018-12-31] MEDS: Prochlorperazine TAB* 10 MG PO SCH ×2 (09:16→21:07)
[2018-12-31] MEDS: Famotidine TAB* 20 MG PO SCH ×2 (09:16→21:06)
[2018-12-31] MEDS: Sucralfate SUSP 1 GM/10 ml 10 ML UDC PO SCH ×3 (09:16→17:35)
[2018-12-31] MEDS: Metoprolol Tartrate TAB* 25 MG PO SCH ×2 (09:16→21:07)
[2018-12-31] MEDS: Potassium Chlor TAB* 20 MEQ TAB.ER PO SCH (09:16)
[2018-12-31] MEDS: Benzonatate CAP* 100 MG PO SCH ×2 (09:16→21:06)
[2018-12-31] MEDS: KCL 10 MEQ/50 ML IVPREMIX* 10 MEQ/50 ML BAG IV SCH ×3 (10:52→13:19)
[2018-12-31 11:03] LABS: Magnesium 1.7 mg/dL (1.9-2.7)
--- NOTE | 2018-12-31 11:24 | PN ---
Progress Note - Progress Note Date of Service: 12/31/18 SOAP: Subjective: [Darci is frustrated and wants to be discharged. Reports that he continues to have RLQ abdominal pain. Stool is now formed. Stool studies negative. No n/v. No dizziness. No further fevers since admission. Liver biopsy pending for this afternoon given finding of new liver lesions.] Objective: [ Laboratory Results - last 24 hr 12/31/18 12/31/18 06:22 06:22 WBC 8.5 RBC 2.56 L Hgb 7.3 L Hct 21 L MCV 83 MCH 28 MCHC 34 RDW 17 H Plt Count 202 MPV 6.9 L Neut % (Auto) 90.7 Lymph % (Auto) 5.9 [place] % (Auto) 3.3 Eos % (Auto) 0.0 Baso % (Auto) 0.1 Absolute Neuts (auto) 7.7 Absolute Lymphs (auto) 0.5 L Absolute Monos (auto) 0.3 Absolute Eos (auto) 0.0 Absolute Basos (auto) 0.0 Absolute Nucleated RBC 0.0 Nucleated RBC % 0.0 Sodium 137 Potassium 3.0 L Chloride 104 Carbon Dioxide 24 Anion Gap 9 BUN 6 Creatinine 0.45 L Est GFR ( Amer) 228.8 Est GFR (Non-Af Amer) 189.1 BUN/Creatinine Ratio 13.3 Glucose 126 H Calcium 8.1 L Magnesium 1.7 L Total Bilirubin 0.30 AST 46 H ALT 94 H Alkaline Phosphatase 194 H Total Protein 5.4 L Albumin 2.4 L Globulin 3.0 Albumin/Globulin Ratio 0.8 L Acetaminophen (Tylenol Tab*) 650 mg PO Q6H PRN PRN Reason: pain/fever Hydrocodone Bitart/Acetaminophen (Drake 5-325 Tab*) 2 tab PO QID PRN PRN Reason: PAIN Last Admin: 12/30/18 18:17 Dose: 2 tab Albuterol (Ventolin Hfa Inhaler*) 1 puff INH Q6H PRN PRN Reason: SHORTNESS OF BREATH Albuterol (Ventolin 2.5 Mg/3 Ml Neb.Lottie*) 2.5 mg INH Q6H TIANNA Last Admin: 12/31/18 07:29 Dose: 2.5 mg Benzonatate (Tessalon Cap*) 200 mg PO BID TIANNA Last Admin: 12/31/18 09:16 Dose: 200 mg Enoxaparin Sodium (Lovenox(*)) 40 mg SUBCUT Q24H [facility] Last Admin: 12/31/18 09:06 Dose: Not Given Famotidine (Pepcid Tab*) 20 mg PO BID [facility]; Protocol Last Admin: 12/31/18 09:16 Dose: 20 mg Heparin Sodium (Porcine) (Heparin Flush Port (Ivad)) 5 ml FLUSH DAILY [facility]; Protocol Last Admin: 12/31/18 10:16 Dose: Not Given Hydrocortisone (Cortef Tab*) 10 mg PO BID [facility] Ceftriaxone Sodium 1 gm/ (Sodium Chloride) 50 mls @ 200 mls/hr IVPB Q24H [facility] Last Admin: 12/30/18 12:42 Dose: 200 mls/hr Azithromycin (Zithromax 500 Mg/250 Ml) 500 mg in 250 mls @ 250 mls/hr IVPB Q24HR@2000 [facility] Last Admin: 12/30/18 19:52 Dose: 250 mls/hr Potassium Chloride (Potassium Chloride 10 Meq/50 Ml Ivpremix*) 10 meq in 50 mls @ 50 mls/hr IV Q1H [facility] Stop: 12/31/18 13:59 Last Admin: 12/31/18 10:52 Dose: 50 mls/hr Magnesium Oxide (Magox 400 Tab*) 400 mg PO BID [facility] Last Admin: 12/31/18 09:16 Dose: 400 mg Metoprolol Tartrate (Lopressor Tab*) 12.5 mg PO BID [facility] Last Admin: 12/31/18 09:16 Dose: 12.5 mg Pantoprazole Sodium (Protonix Tab*) 40 mg PO DAILY [facility] Last Admin: 12/31/18 09:16 Dose: 40 mg Potassium Chloride (Klor Con Er Tab*) 20 meq PO DAILY [facility] Last Admin: 12/31/18 09:16 Dose: 20 meq Prochlorperazine (Compazine Tab*) 10 mg PO BID [facility] Last Admin: 12/31/18 09:16 Dose: 10 mg Simethicone (Mylicon Tab*) 80 mg PO Q6H PRN PRN Reason: GAS Last Admin: 12/30/18 04:26 Dose: 80 mg Sucralfate (Sucralfate Susp) 1 gm PO [facility] Last Admin: 06/18/19 10:53 Dose: Not Given Tiotropium Elmer (Spiriva Cap.Inh*) 1 cap INH DAILY TIANNA Last Admin: 12/31/18 07:31 Dose: 1 cap Vital Signs: Temp Pulse Resp BP Pulse Ox 98.8 F 118 20 160/75 93 12/31/18 07:56 12/31/18 07:56 12/31/18 08:00 12/31/18 07:56 12/31/18 07:56 Exam: Gen: relatively well appearing, but frustrated 63 yo male in NAD HEENT: MMM CV: RRR, no m/r/g Resp: diffuse wheezes in posterior lung hagen Abd: soft, RLQ TTP, active BS Ext: no edema] Assessment: [63 yo male with oligometastatic NSCLC treated with gammaknife to brain lesions and chemo/XRT to lung lesion which was c/b multiple episodes of fever/ hypotension and he did not receive 2 of 5 weeks of chemotherapy. Admitted with recurrent fever and weakness likely due to CAP.] Plan: [1. CAP - ground glass opacities noted on CT and afebrile since admission - ID consult appreciated, plan to cont ceftriaxone/azithromycin 2. NSCLC - new liver lesions - ddx. progressive malignancy v. 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 Adrenal insufficiency - taper stress doses, now mildly hypertensive - resume home dose of 10mg bid hydrocortisone 4. Anemia - no obvious bleeding, likely due to chemotherapy and some dilutional - transfuse 1U PRBCs 5. Electrolyte abnl - replete K/Mg 6. Transaminitis - likely due to new lesions seen on imaging - no evidence of synthetic disfunction or obstructive pattern Dispo: pending liver biopsy, pt is anxious to get home. If bx is negative for obvious infection that would require further drainage then he may be appropriate for dc home later this afternoon]
[2018-12-31] MEDS: Acetaminophen TAB* 325 MG PO PRN ×2 (11:51→21:07)
[2018-12-31] MEDS: cefTRIAXone(*) 1 GM in NS 0.9% 50 ML* 50 ML IVPB SCH (11:57)
[2018-12-31] MEDS ORDERED: Magnesium Sulfate IV* 3 GM in NS 0.9% 100 ML* 100 ML IVPB ONE (12:00)
[2018-12-31] MEDS ORDERED: Albuterol 2.5 MG/3 ML NEB.SOL* (0.083%) INH PRN (14:35)
[2018-12-31] MEDS ORDERED: fentaNYL* 50 MCG/ML 2 ML VIAL (100 MCG VIAL) ONE (15:03)
[2018-12-31] MEDS: Hydrocortisone TAB* 10 MG PO SCH (21:06)
[2018-12-31] MEDS: Azithromycin 500 mg/250 ml NS 500 MG/250 ML BAG IVPB SCH (22:11)
[2019-01-01] MEDS: HYDROcodone/ACETAMIN 5-325 MG* 1 TAB PO PRN ×2 (05:43→12:07)
[2019-01-01] MEDS: Sucralfate SUSP 1 GM/10 ml 10 ML UDC PO SCH ×2 (07:12→11:05)
[2019-01-01] MEDS: Tiotropium CAP.INH* CAP.INH/18 MCG (USE ORDER SET !) INH SCH (07:39)
[2019-01-01] MEDS: Benzonatate CAP* 100 MG PO SCH (08:29)
[2019-01-01] MEDS: Pantoprazole TAB * 40 MG TAB PO SCH (08:29)
[2019-01-01] MEDS: Metoprolol Tartrate TAB* 25 MG PO SCH (08:29)
[2019-01-01] MEDS: Famotidine TAB* 20 MG PO SCH (08:29)
[2019-01-01] MEDS: Potassium Chlor TAB* 20 MEQ TAB.ER PO SCH (08:30)
[2019-01-01] MEDS: Magnesium Oxide TAB* 400 MG PO SCH (08:31)
[2019-01-01] MEDS: Prochlorperazine TAB* 10 MG PO SCH (08:31)
[2019-01-01] MEDS: Hydrocortisone TAB* 10 MG PO SCH (08:31)
[2019-01-01] MEDS: Enoxaparin(*) 40 MG/0.4 ML SYR SUBCUT SCH (08:31)
--- NOTE | 2019-01-01 10:27 | PN ---
Progress Note - Progress Note Date of Service: 01/01/19 SOAP: Subjective: [] Objective: [] Assessment: [] Plan: []
[2019-01-01] MEDS: cefTRIAXone(*) 1 GM in NS 0.9% 50 ML* 50 ML IVPB SCH (11:08)
--- NOTE | 2019-01-01 12:02 | DS ---
CC: Dr. Cielo Hodge; Dr. Awais Barger * DISCHARGE SUMMARY: DATE OF ADMISSION: 12/28/18 DATE OF DISCHARGE: 01/01/19 PRIMARY CARE PROVIDER: Dr. Cielo Hodge. PRIMARY ONCOLOGIST: Dr. Awais Barger. CONSULTING INFECTIOUS DISEASE SPECIALIST: Dr. Tyrone Soler. ATTENDING PHYSICIAN: Dr. Jocy Cortez.* (DICTATED BY BOBBY WILKERSON) DISCHARGING PROVIDER: BOBBY Wilkerson. PRIMARY DISCHARGE DIAGNOSES: 1. Pneumonia - plan on additional 1 week of outpatient oral antibiotics. 2. Metastatic non-small cell lung cancer with new liver lesions, status post biopsy this admission with pathology pending at the time of discharge. 3. Adrenal insufficiency with pending endocrinology consultation as an outpatient. 4. Anemia - likely secondary to chemotherapy and/or chronic disease, received 1 unit of packed red blood cells this hospitalization. 5. Hypokalemia and hypomagnesemia secondary to diarrhea, which has since resolved and repleted this admission. 6. 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 7. Chronic obstructive pulmonary disease without acute exacerbation. DISCHARGE MEDICATIONS: 1. Nebulized albuterol inhaled q.6 hours as needed for shortness of breath. 2. Tessalon Perles 100 mg p.o. twice daily. 3. Hydrocodone/acetaminophen 5/325, 1 to 2 tablets p.o. 4 times daily as needed for pain. 4. Hydrocortisone 10 mg p.o. twice daily. 5. Magnesium oxide 400 mg p.o. twice daily. 6. Metoprolol tartrate 12.5 mg p.o. twice daily. 7. Omeprazole 40 mg p.o. daily. 8. Compazine 10 mg p.o. twice daily. 9. Ranitidine 150 mg p.o. twice daily. 10. Carafate 10 mL p.o. with mealtime. 11. Spiriva 1 capsule inhaled daily. 12. Azithromycin 250 mg p.o. daily x2 additional days. 13. Cefdinir 300 mg p.o. twice daily x7 days. 14. Potassium chloride 20 mEq p.o. daily. HOSPITAL IMAGIN. Chest x-ray, 12/28/18, shows a small right pleural effusion with right basilar atelectasis versus consolidation. 2. Chest, abdomen and pelvis CT, right lower lobe mass with associated hilar and mediastinal lymphadenopathy and right lower lung consolidation with mild improvement as compared to 12/04/18. Multiple low attenuation hepatic parenchymal lesions, which are too small to definitively characterize but have increased in number compared to 12/04/18 and concerning for progression of metastatic disease. There has been interval development of patchy ground glass opacification of the lungs bilaterally suggestive of an acute infectious or inflammatory airspace process. 3. Ultrasound of the liver, 12/30/[address] findings, multiple hypoechoic hepatic lesions. Two lesions appear amenable to ultrasound - guided fine needle aspiration. HOSPITAL COURSE: This is a 63-year-old gentleman with a relatively recent diagnosis of oligometastatic non-small cell lung cancer with brain metastases, who underwent gamma knife and concurrent chemotherapy and radiation. The radiation therapy concluded last week and patient received his last chemotherapy approximately 1 week prior to admission, and unfortunately was unable to receive 2 of the 5 weeks of chemotherapy due to recurrent fevers and hypotension of unclear etiology. The patient's chemotherapy course has been complicated as noted above by recurrent fevers and hypotension and he has had hospital admissions related to this. Cultures have been negative and he has had some intermittent and mild improvement with steroid supplementation likely hvac sales representative of adrenal insufficiency but despite what appears to be adequate supplementation, continued to have recurrent symptoms. The patient presented to the emergency department with complaints of fever and increased cough. His fever at home had been up to 102 degrees Fahrenheit with worsening cough. His initial labs showed no leukocytosis. He had moderate anemia, which was stable and electrolytes showed mild hyponatremia and transaminitis but without elevation in total bilirubin. His initial troponin was also elevated to 0.05 but quickly normalized on repeat evaluation. Urinalysis was unremarkable. Blood cultures were gathered, which were negative. The patient had also complained of diarrhea and stool testing was completed, which was negative for any obvious pathogens. He did undergo CT chest, abdomen and pelvis, which showed bilateral ground glass opacities and the patient was treated for community-acquired pneumonia with ceftriaxone and azithromycin with clinical improvement. He received stress doses of hydrocortisone during his hospitalization as well. Of note, on the CT chest, abdomen and pelvis, the patient had new liver lesions noted. Differential was progressive metastatic malignancy versus infectious etiology. The patient underwent biopsy of the liver, which did not yield any purulent material and pathology is pending at the time of discharge. DISPOSITION AND FOLLOWUP PLAN: The patient is being discharged to home where he lives with his in stable condition. We will continue an additional week of oral antibiotics for treatment of community-acquired pneumonia. He will be discharged on his usual home dose of hydrocortisone and has a pending outpatient endocrinology consultation with Dr. Motta for later today, which he is encouraged to keep. Pathology for the liver lesion is pending at the time of discharge and followup has been made with Dr. Barger for next Sunday, for review of this pathology and discussion regarding next steps of treatment based on these results. BOBBY WILKERSON [id number]/[facility] #: [id number] MTDD
[2019-01-01 12:42] LABS: ABS Basophils 0.1 10^3/ul (0-0.2); ABS Monocytes 0.3 10^3/ul (0-0.8); ABS Neutrophils 8.8 10^3/ul (1.5-7.7); Hematocrit 27 % (42-52); Hemoglobin 9.1 g/dL (14.0-18.0); Lymphocyte % 9.6 %; Mean Corpuscular HGB Conc 34 g/dL (31-36); Mean Corpuscular Hemoglobin 28 pg (27-31); Mean Corpuscular Volume 84 fL (80-94); Platelet Count 220 10^3/uL (150-450); Red Blood Count 3.23 10^6 /uL (4.18-5.48); Red Cell Distribution Width 18 % (10-15); White Blood Count 10.2 10^3/uL (3.5-10.8)
[2019-01-01 12:53] VITALS: BP 130/63
[2019-01-01 12:59] LABS: Albumin 2.7 g/dL (3.2-5.2); Albumin/Globulin Ratio 0.7 (1-3); Calcium 8.8 mg/dL (8.6-10.3); EGFR African American 189.4 (>60); EGFR Non-African American 156.5 (>60); Globulin 3.7 g/dL (2-4); Magnesium 1.5 mg/dL (1.9-2.7); Total Bilirubin 0.6 mg/dL (0.2-1.0); Total Protein 6.4 g/dL (6.4-8.9)
== END 2019-01-01 13:45 | disposition home or self-care (01) | DRG 194 ==
LOC: ED 10:18 → MEDTELE 13:36 → OBSVTOIN 12-29 08:25
PROVIDERS: ADMIT Internal Medicine; ATTEND Internal Medicine Hematology & Oncology
PROC: 30233N1 Transfusion of Nonautologous Red Blood Cells into Peripheral Vein, Percutaneous Approach (ICD-10-PCS; principal; 2018-12-31)
PROC: 0FB03ZX Excision of Liver, Percutaneous Approach, Diagnostic (ICD-10-PCS; 2018-12-31)
DX: J18.9 Pneumonia, unspecified organism (principal); E27.40 Unspecified adrenocortical insufficiency; J44.0 Chronic obstructive pulmonary disease with (acute) lower respiratory infection; C34.91 Malignant neoplasm of unspecified part of right bronchus or lung; C79.31 Secondary malignant neoplasm of brain; C78.7 Secondary malignant neoplasm of liver and intrahepatic bile duct; E87.1 Hypo-osmolality and hyponatremia; K21.9 Gastro-esophageal reflux disease without esophagitis; I10 Essential (primary) hypertension; R74.8 Abnormal levels of other serum enzymes; R74.0 Nonspecific elevation of levels of transaminase and lactic acid dehydrogenase [LDH]; I95.9 Hypotension, unspecified; R13.10 Dysphagia, unspecified; Z96.611 Presence of right artificial shoulder joint; D64.81 Anemia due to antineoplastic chemotherapy; T45.1X5A Adverse effect of antineoplastic and immunosuppressive drugs, initial encounter; E87.6 Hypokalemia; E83.42 Hypomagnesemia; R19.7 Diarrhea, unspecified; Z92.21 Personal history of antineoplastic chemotherapy; Z92.3 Personal history of irradiation; Z87.891 Personal history of nicotine dependence; Z82.49 Family history of ischemic heart disease and other diseases of the circulatory system; Y92.9 Unspecified place or not applicable; Z79.52 Long term (current) use of systemic steroids
CPT/HCPCS: 36415; 71046; 71260; 74177; 76705; 76942; 80048; 80053; 81003; 82248; 83605; 83615; 83630; 83735; 83880; 84484; 85025; 85384; 85610; 85652; 85730; 86140; 86850; 86900; 86901; 86922; 87040; 87493; 87899; 88172; 88173; 88305; 88341; 88342; 88360; 93005; 94640; 99232; 99233; 99239; 99284; A9270-GY; G0378; J0456; J0696; J1642; J1650; J1720; J3010; J3475; J3480; P9040; Q0164; Q9967

== ENCOUNTER 2019-01-05 15:09 | Inpatient (IN) | payer MEDICARE, MEDICAID ==
--- NOTE | 2019-01-05 16:09 | ED ---
Shortness of Breath - HPI Summary HPI Summary: A 63 y/o male presents to [facility] with a chief complaint of SOB today. The patient notes that his feet and hands were swollen for the past three days and worsened today. He denies any CP. He rates his pain as a 7/10 in severity. He is not on a water pill. The patient was diagnosed with lung cancer metastasizing to the brain when diagnosed on 10/31/18 and possibly metastasizing to the liver. Dr. Jefferson is the patients oncologist. - History of Current Complaint Chief Complaint: EDShortnessOfBreath Time Seen by Provider: 01/05/19 15:42 Hx Obtained From: Patient Onset/Duration: Sudden Onset, Lasting Days, Still Present Timing: Constant Current Severity: Moderate Dyspnea At: Rest Aggravating Factors: Nothing Alleviating Factors: Nothing Associated Signs & Symptoms: Chest Pain Unrelated to Cough, Edema - feet and hands - Allergy/Home Medications Allergies/Adverse Reactions: Allergies Allergy/AdvReac Type Severity Reaction Status Date / Time No Known Allergies Allergy Verified 01/05/19 15:26 PMH/Surg Hx/FS Hx/Imm Hx Endocrine/Hematology History: Denies: Hx Diabetes Cardiovascular History: Reports: Hx Hypertension Denies: Hx Pacemaker/ICD Respiratory History: Reports: Hx Chronic Obstructive Pulmonary Disease (COPD), Hx Lung Cancer, Other Respiratory Problems/Disorders - LUNG CANCER Denies: Hx Asthma GI History: Reports: Hx Gastroesophageal Reflux Disease History: Denies: Hx Renal Disease Sensory History: Reports: Hx Contacts or Glasses Denies: Hx Hearing Aid Opthamlomology History: Reports: Hx Contacts or Glasses Neurological History: Reports: Other Neuro Impairments/Disorders - brain mets Psychiatric History: Denies: Hx Panic Disorder - Cancer History Cancer Type, Location and Year: LUNG with mets to BRAIN - Surgical History Surgery Procedure, Year, and Place: Right Rotator Cuff, 2015, [place]; Right Shoulder, 2006, [place] Infectious Disease History: No Infectious Disease History: Denies: Traveled Outside the [place] in Last 30 Days - Family History Known Family History: Positive: Hypertension - Social History Alcohol Use: None Alcohol Amount: 3 BEERS A RICHAR Hx Substance Use: No Substance Use Type: Reports: None Hx Tobacco Use: Yes Smoking Status (MU): Former Smoker Type: Cigarettes Amount Used/How Often: ~1-2 PPD Length of Time of Smoking/Using Tobacco: 43 Years Have You Smoked in the Last Year: No Review of Systems Negative: Fever Positive: Chest Pain Positive: Shortness Of Breath Positive: Edema All Other Systems Reviewed And Are Negative: Yes Physical Exam - Summary Physical Exam Summary: GENERAL: Patient is a well-developed and nourished Mwho is lying comfortable in the stretcher. Patient is not in any acute respiratory distress. HEAD AND FACE: Normocephalic EYES: PERRLA, EOMI x 2. EARS: Hearing grossly intact. MOUTH: Oropharynx within normal limits. NECK: Supple, trachea is midline, no adenopathy, no JVD, no carotid bruit. CHEST: Symmetric, no tenderness at palpation LUNGS: Clear to auscultation bilaterally. No wheezing or crackles. CVS: Regular rate and rhythm, S1 and S2 present, no murmurs or gallops appreciated. ABDOMEN: Soft, non-tender. Bowel sounds are normal. No abnormal abdominal pulsations. EXTREMITIES: Full ROM in all major joints,2+ pitting edema lower and upper, no erythema, no TTP. NEURO: Alert and oriented x 3. No acute neurological deficits. Speech is normal and follows commands. SKIN: Dry and warm Triage Information Reviewed: Yes Vital Signs On Initial Exam: Initial Vitals Temp Pulse Resp BP Pulse Ox 96.5 F 97 18 125/78 90 01/05/19 15:17 01/05/19 15:17 01/05/19 15:17 01/05/19 15:17 01/05/19 15:17 Vital Signs Reviewed: Yes Diagnostics - Vital Signs Vital Signs Temp Pulse Resp BP Pulse Ox 01/05/19 15:40 93 123/68 95 01/05/19 15:39 92 95 01/05/19 15:17 96.5 F 97 18 125/78 90 - Laboratory Result Diagrams: 01/05/19 16:08 01/05/19 16:08 Lab Statement: Any lab studies that have been ordered have been reviewed, and results considered in the medical decision making process. - Radiology CXR Radiology Interpretation Completed By: Radiologist Summary of Radiographic Findings: Probable interstitial edema. No significant change in small subpulmonic RIGHT pleural. effusion. ED physician has reviewed this imaging report. - EKG 15:49 Cardiac Rate: NL - 87bpm EKG Rhythm: Sinus Rhythm Summary of EKG Findings: NSR at 87 bpm, nml axis Course/Dx - Course Course Of Treatment: A 63 y/o male presents to [facility] with a chief complaint of SOB today. The patient notes that his feet and hands were swollen for the past three days and worsened today. The physical exam revealed 2+ pitting edema lower and upper, no erythema, no TTP. EKG at 15:49 showed NSR at 87 bpm, nml axis. CXR impression: Probable interstitial edema. No significant change in small subpulmonic RIGHT pleural. effusion. In the ED course the patient was given Lasix IV. Blood work and chemistries obtained. B-Natriuretic peptide 125 at 16:08. Discussed case with Dr. Dodson, who recommended admission and then see the patient tomorrow. The patient will be admitted. Discussed case with Dr. Quiñonez, hospitalist, who accepted the patient for admission. I discussed results with patient. The patient agrees with this plan. - Diagnoses Provider Diagnoses: CHF (congestive heart failure) - Physician Notifications Discussed Care of Patient With: Diaz Dodson Time Discussed With Above Provider: 17:55 Instructed by Provider To: Other - recommended to admit the patient - Critical Care Time Critical Care Time: 30-74 min Discharge - Sign-Out/Discharge Documenting (check all that apply): Patient Departure - admit Patient Received Moderate/Deep Sedation with Procedure: No - Discharge Plan Condition: Fair Disposition: ADMITTED TO [facility] Referrals: Cielo Hodge MD [Primary Care Provider] - - Billing Disposition and Condition Condition: FAIR Disposition: Admitted to [facility] - Attestation Statements Document Initiated by Scribe: Yes Documenting Scribe: Jhonny De La Garza Provider For Whom Denis is Documenting (Include Credential): Johnny Watt MD Scribe Attestation: Jhonny Mao, scribed for Johnny Watt MD on 01/05/19 at 1819. Scribe Documentation Reviewed: Yes Provider Attestation: The documentation as recorded by the Jhonny ji accurately reflects the service I personally performed and the decisions made by me, Michell Watt MD Status of Scribe Document: Viewed Consult Consult: Discussed case with Dr. Quiñonez, hospitalist, who accepted the patient for admission.
[2019-01-05 16:16] LABS: Hematocrit 23 % (42-52); Hemoglobin 7.7 g/dL (14.0-18.0); Mean Corpuscular HGB Conc 34 g/dL (31-36); Mean Corpuscular Hemoglobin 28 pg (27-31); Mean Corpuscular Volume 84 fL (80-94); Platelet Count 250 10^3/uL (150-450); Red Cell Distribution Width 18 % (10-15); White Blood Count 7.9 10^3/uL (3.5-10.8)
[2019-01-05 16:24] LABS: Activated Partial Thrombo Time 39.3 seconds (26.0-38.0); INR 1.49 (0.82-1.09)
[2019-01-05 16:33] LABS: Albumin 2.5 g/dL (3.2-5.2); Albumin/Globulin Ratio 0.7 (1-3); BUN/Creatinine Ratio 21.4 (8-20); Calcium 8.4 mg/dL (8.6-10.3); EGFR African American 177.7 (>60); EGFR Non-African American 146.9 (>60); Globulin 3.4 g/dL (2-4); Potassium 3.8 mmol/L (3.5-5.0); Total Bilirubin 0.6 mg/dL (0.2-1.0); Total Protein 5.9 g/dL (6.4-8.9)
[2019-01-05 16:35] LABS: Troponin I 0.01 ng/mL (<0.04)
[2019-01-05 16:38] LABS: Microcytosis 1+
[2019-01-05 16:39] LABS: ABS Lymphocytes 0.9 10^3/ul (1.0-4.8); ABS Monocytes 0.2 10^3/ul (0-0.8); ABS Neutrophils 6.7 10^3/ul (1.5-7.7); Eosinophil % 0.2 %; Lymphocyte % 11.6 %; Nucleated Red Blood Cells % 0.1
--- OUTSIDE RECORDS SUMMARY | 2019-01-05 16:42 | XMS REPORT | Continuity of Care Document ---
:1955 External Reference #:[id number] Author Name Beth Mercado Care Team Providers Name Role Phone Cielo Hodge MD Primary Care Physician Unavailable Payers Date Identification Numbers Payment Provider Subscriber Expires: 2018 Policy Number: [id number] Medicare Blue o Darci Randolph PayID: [id number] [address] [address] [place] [address] Policy Number: [id number] Medicare Darci Randolph PayID: [id number] [address] [place] [address] Policy Number: [id number] Medicaid Darci Randolph Group Name: 1 1 [address] PayID: [id number] [place] [address] Family History Date Family Member(s) Observation Comments Mother Chronic Obstructive Pulmonary Disease (COPD) Siblings 1 1 brother Social History Type Date Description Comments Sex Unknown Marital Status Lives With Occupation Retired ETOH Use Denies alcohol use Tobacco Use Start: Unknown End: Patient is a former quit in 2011 Smoked Unknown smoker age [age], 2 packs a day. 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 Exercise Type/Frequency Does not exercise Allergies, Adverse Reactions, Alerts Description No Known Drug Allergies Medications Active Medications SIG Qnty Indications Ordering Date Provider Albuterol Sulfate 1 unit dose via Unknown (2.5mg/3ML) nebulizer every 4 0.083% Nebulizer hours as needed Benzonatate one by mouth three Unknown 200mg Capsules times daily as needed for cough Hydrocodone 1 by mouth 4 times Unknown Bitartrate/Acetaminophen a day as needed 5-325mg Tablets Hydrocortisone 1 by mouth twice Unknown 10mg Tablets daily Potassium Chloride Nita 1 by mouth every Unknown ER day 20Meq Tablets ER Lisinopril 1 by mouth every Unknown 10mg Tablets day Magnesium Oxide 1 by mouth every Unknown 400mg Tablets day Metoprolol Tartrate 1/2 by mouth Unknown 25mg twice a day Tablets Omeprazole 1 by mouth every Unknown 40mg Capsules DR day Ondansetron dissolve one Unknown 4mg Tablets tablet orally Dispers every 8 hours as needed for nausea. Prochlorperazine Maleate 1 tablet every 6 Unknown 10mg hours as needed Tablets Ranitidine HCL take one tablet by Unknown 150mg Tablets mouth twice a day Spiriva Respimat 2 puffs every in Unknown 2.5mcg/Act the morning Aerosol Ventolin HFA 1 to 2 inhalations Unknown 108(90Base) every 4 hours as mcg/Act Aerosol needed Azithromycin two tabs day one, Unknown 250mg Tablets one daily till gone Cefdinir 1 caps by mouth Unknown 300mg Capsules every day twice daily for 7 days. Vital Signs Date Vital Result Comment 01/01/2019 2:25pm Height 67 inches 5'7" Weight 172.00 lb Heart Rate 113 /min BP Systolic Sitting 145 mmHg BP Diastolic Sitting 86 mmHg BMI (Body Mass Index) 26.9 kg/m2 Procedures Date Code Description Status 10/25/2018 12673 With Endobronchial Ultrasound Guided Completed Encounters Type Date Location Provider Dx Diagnosis Office Visit 10/25/2018 Pulmonology Teri Galan, C34.81 Malignant 3:[facility]p [facility] neoplasm of ovr [employer] sites of right bronchus and lung Z87.891 Personal history of nicotine dependence Office Visit 10/24/2018 3:14p Pulmonology Michael Ring J98.4 Other disorders [facility] [place] of lung [employer] R59.0 Localized enlarged lymph nodes R04.2 Hemoptysis R94.02 Abnormal brain scan Z87.891 Personal history of nicotine dependence Office Visit 10/23/2018 3:14p Pulmonology Michael Ring J98.4 Other disorders [facility] [place] of lung [employer] R59.0 Localized enlarged lymph nodes R50.9 Fever, unspecified R61 Generalized hyperhidrosis R63.4 Abnormal weight loss Z87.891 Personal history of nicotine dependence Plan of Treatment 01/01/2019 - Andrew Motta MDE27.40 Unspecified adrenocortical insufficiencyInstructions:1. Continue hydrocortisone 10mg in the morning and 5mg in the afternoon. 2. If you are hospitalized or running a fever, I recommend increasing the hydrocortisone dose to 20mg in the morning and 10mg inthe afternoon until you recover. 3. Return in 6 weeks for re-evaluation.
[2019-01-05] MEDS ORDERED: Furosemide IV* 10 MG/ML VIAL (40 MG) IV ONE (18:00)
[2019-01-05] MEDS ORDERED: Iohexol 350* (CONTRAST) 500 ML MDV IV ONE (18:45)
[2019-01-05] MEDS ORDERED: Ondansetron INJ* 2 MG/ML VIAL IV PRN (19:10)
[2019-01-05] MEDS ORDERED: HYDROcodone/ACETAMIN 5-325 MG* 1 TAB PO PRN (19:33)
[2019-01-05] MEDS ORDERED: Morphine 4 MG/ML VIAL (1 ml) 4 MG/ML VIAL IV ONE (19:52)
[2019-01-05] MEDS: Pantoprazole TAB * 40 MG TAB PO SCH (19:57)
[2019-01-05] MEDS ORDERED: Piperacillin/Tazobac ADVAN(*) 3.375 GM in NS 0.9% 100 ML* 100 ML IVPB ONE (20:15)
[2019-01-05] MEDS ORDERED: Vancomycin(*) 1,000 MG in NS 0.9% 250 ML* 250 ML IVPB ONE (20:15)
[2019-01-05] MEDS ORDERED: Vancomycin(*) 1,250 MG in NS 0.9% 250 ML* 250 ML IVPB ONE (20:24)
[2019-01-05] MEDS ORDERED: Metoprolol Tartrate IV* 1 MG/ML 5 ML VIAL IV PRN (20:30)
[2019-01-05] MEDS ORDERED: Zosyn per Pharmacy* NOTE FOLLOW UP SCH (21:00)
[2019-01-05] MEDS: Metoprolol Tartrate TAB* 25 MG PO SCH (21:23)
[2019-01-05] MEDS: Potassium Chlor TAB* 20 MEQ TAB.ER PO SCH (21:24)
[2019-01-05] MEDS: HYDROcodone/ACETAMIN 5-325 MG* 1 TAB PO PRN (21:25)
[2019-01-05] MEDS: Famotidine TAB* 20 MG PO SCH (21:25)
[2019-01-05] MEDS: Magnesium Oxide TAB* 400 MG PO SCH (21:26)
[2019-01-05] MEDS: Benzonatate CAP* 100 MG PO SCH (21:26)
[2019-01-05] MEDS: Prochlorperazine TAB* 10 MG PO SCH (21:26)
[2019-01-05] MEDS: Hydrocortisone TAB* 10 MG PO SCH (21:41)
[2019-01-05] MEDS: Heparin VIAL(*) 5000 UNITS/ML VIAL (FIVE THOUSAND) SUBCUT SCH (21:42)
--- NOTE | 2019-01-05 21:56 | HP ---
CC: Cielo Hodge MD; Dr. Awais Barger * HISTORY AND PHYSICAL: DATE OF ADMISSION: 01/05/19 PRIMARY CARE: Cielo Hodge MD CHIEF COMPLAINT: Shortness of breath and lower leg edema. SUBJECTIVE: This is a 63-year-old male, who comes in to the emergency room 3 days after he was discharged from the hospital for community-acquired pneumonia , currently on antibiotic therapy with cefdinir and recently finished azithromycin. He was discharged on 01/01/19. The brought him today stating that she has been noticing increased lower extremity edema for the past week starting when he was in the hospital. When he got home, his legs continued to be more swollen, more puffed, associated with shortness of breath and she took his oxygen, it was 82% on room air this morning. So, she brought him to the emergency room. In the emergency room, initial workup revealed white count of 7.9, hemoglobin 7.7, hematocrit 23, platelets 250. Coag 1.4 and his chemistry fairly unchanged with a low sodium of 134, BUN 12, creatinine 0.5 , lactic acid 0.9. Chest x-ray was done in the emergency room and the official report reveals congestive changes, interstitial edema. Medicine service was called to admit the patient. The patient was seen, evaluated by me in the emergency room. I obtained the history as mentioned above. Given the patient' s history of lung cancer, stage IV, the patient's hospitalization, increased lower extremity edema, I did recommend from the emergency room to obtain CT angiogram of the chest to rule out PE. The study is pending at the time of this dictation. Also, the reported nocturnal fever, T-max 103.8 on and yesterday, it was 102 Fahrenheit. He is afebrile in the emergency room; however, he is on chronic hydrocodone with Tylenol and ibuprofen. PAST MEDICAL HISTORY: 1. 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 2. Adrenal insufficiency, on chronic hydrocortisone. 3. Anemia. 4. Transaminitis with recent liver lesion, suspicious for malignancy, biopsy reveals adenocarcinoma. Family and the patient are unaware. I will defer the diagnosis to his primary team in a.m. 5. COPD. 6. Recent pneumonia. MEDICATIONS: 1. Cefdinir 300 mg b.i.d. 2. DuoNeb. 3. Albuterol. 4. Hydrocodone 1 to 2 tabs 4 times a day p.r.n. 5. Ibuprofen 800 q.8 hours. 6. Tessalon 100 b.i.d. 7. Hydrocortisone 10 in the morning, 5 at night. 8. Magnesium oxide 400 b.i.d. 9. Metoprolol 12.5 b.i.d. 10. Omeprazole 40 daily. 11. Potassium 20 mEq b.i.d. 12. Compazine 10 b.i.d. 13. Ranitidine 150 b.i.d. 14. Carafate. 15. Spiriva 18 mcg. ALLERGIES: No known drug allergy. FAMILY HISTORY: Reviewed and noncontributory. Negative for malignancy. SOCIAL HISTORY: History of alcohol; he used to drink beers in the past. He smoked for 45 years, 2 packs a day; quit 6 years ago. His is his surrogate and his healthcare proxy, Jayden Randolph. REVIEW OF SYSTEMS: As per HPI, remaining otherwise negative. PHYSICAL EXAMINATION GENERAL: He is dyspneic, awake. He is sitting, head of bed elevated. He has about 800 cc of urine output from his Lasix given in the ER. No lip pursing. He is able to provide short sentences before he gets dyspneic. VITAL SIGNS: He has hypoxia, 80% on room air, currently on 8 L to maintain saturation of 93%. Respiratory rate fluctuates between 15 and 22 with exertion. Blood pressure is 162/93 and pulse is 108. LUNGS: Coarse, scattered rhonchi, crackles throughout the lung field with diminished breath sounds at the bases. CARDIOVASCULAR: S1, S2. Tachycardic. I could not appreciate any murmur. He does have a loud S2. ABDOMEN: Positive bowel sounds. Soft, nontender, nondistended. EXTREMITIES: No tenderness. He does have +2 pedal edema. Slight peripheral cyanosis with nail bed. CRAFT WORKER: Awake, alert. Follows commands. DIAGNOSTIC STUDIES: EKG shows sinus rhythm, rate 87, MI 150, QTc 472, QRS 91. Chest x-ray: Congestive changes with cephalization. IMPRESSION AND PLAN: This is a 63-year-old male with history of stage IV lung cancer with metastasis to the brain and liver, comes in with acute hypoxia and tachypnea, admitted for ICU stay as he is requiring high oxygen currently at 8 L , pending respiratory failure, he may need Vapotherm. 1. Acute respiratory failure. The differential is broad, could be #1, acute congestive heart failure with volume overload versus decompensation, failed outpatient oral therapy for his pneumonia versus acute pulmonary embolism. Other differential less likely, cannot rule out demand-mediated ischemia or IN. Therefore, the patient will be admitted to Intensive Care as he may require Vapotherm. CT angiogram of the chest ordered at the time of this dictation, results pending. If positive, I did leave a message with Dr. Dodson for further guidance with therapy given his brain metastasis, the risk of bleed, and further discussion with the family. If CTA negative for PE, I would recommend escalating his antibiotics to vanco and Zosyn pending blood culture and urine culture. 2. Regarding his dyspnea, he probably has acute pulmonary edema or congestive heart failure. Echocardiogram is warranted in the morning. I will defer further Lasix for now until a.m. as he is diuresing extensively from 1 dose of 40 mg given in the ED. We will obtain troponin, cardiac enzyme to rule out any cardiac ischemia. 3. Anemia with hemoglobin 7.5 and 23. With his acute decompensated respiratory failure, will benefit from 1 unit of packed RBC. Especially if he does require heparin, I am going to type and cross him and obtain 1 unit of packed RBC. 4. For his adrenal insufficiency, continue his hydrocortisone, I am going to make it 10 b.i.d. for now versus 10 and 5. 5. For his chronic obstructive pulmonary disease, continue his DuoNeb. The patient will be admitted to ICU. We will sign out to the push button switch assembler and in the morning, the patient to be sent out to the primary team. [id number]/CPS #: [id number] MARINA
[2019-01-06] MEDS: ZOSYN 3.375 GM Q8H per EXTENDED INFUSION IVPB SCH ×6 (01:26→18:33)
[2019-01-06 01:49] LABS: ABS Basophils 0.1 10^3/ul (0-0.2); ABS Lymphocytes 0.7 10^3/ul (1.0-4.8); ABS Monocytes 0.3 10^3/ul (0-0.8); ABS Neutrophils 6.3 10^3/ul (1.5-7.7); Eosinophil % 0.1 %; Hematocrit 23 % (42-52); Hemoglobin 7.8 g/dL (14.0-18.0); Lymphocyte % 9.4 %; Mean Corpuscular HGB Conc 34 g/dL (31-36); Mean Corpuscular Hemoglobin 29 pg (27-31); Mean Corpuscular Volume 84 fL (80-94); Mean Platelet Volume 7.9 fL (7.4-10.4); Platelet Count 249 10^3/uL (150-450); Red Blood Count 2.71 10^6 /uL (4.18-5.48); Red Cell Distribution Width 17 % (10-15); White Blood Count 7.4 10^3/uL (3.5-10.8)
[2019-01-06 01:59] LABS: Activated Partial Thrombo Time 36.3 seconds (26.0-38.0); INR 1.48 (0.82-1.09)
[2019-01-06 02:05] LABS: EGFR African American 144.5 (>60); EGFR Non-African American 119.4 (>60)
[2019-01-06 02:08] LABS: Troponin I 0.03 ng/mL (<0.04)
[2019-01-06] MEDS ORDERED: Vancomycin per Pharmacy* NOTE FOLLOW UP PRN (04:07)
[2019-01-06] MEDS: HYDROcodone/ACETAMIN 5-325 MG* 1 TAB PO PRN ×2 (04:18→10:28)
[2019-01-06] MEDS: Heparin VIAL(*) 5000 UNITS/ML VIAL (FIVE THOUSAND) SUBCUT SCH ×3 (05:40→21:10)
[2019-01-06] MEDS ORDERED: Sucralfate SUSP 1 GM/10 ml 10 ML UDC PO SCH (07:30)
[2019-01-06] MEDS ORDERED: Vancomycin(*) 1,000 MG in NS 0.9% 250 ML* 250 ML IVPB SCH (08:00)
[2019-01-06] MEDS ORDERED: Perflutren Lipid Microsphere* 3 ML VIAL ONE (08:49)
[2019-01-06] MEDS ORDERED: Spiriva Inhaler DEVICE* 1 EACH DEVICE INH ONE (09:00)
--- NOTE | 2019-01-06 09:49 | ECHO ---
*[facility]* [place] [address] Fax #: [phone] Transthoracic Echocardiogram Patient: Tomasa, Height: 67 in / Darci Correa 170.2 cm : 1955 Weight: 168.6 lb / Study Date: 01/06/2019 76.7 kg Age: 63 BP: 128 / 73 Gender: M BMI/BSA: 26.5 kg/m^2 HR: 74 bpm / 1.88 m^2 *Replanting Machine Crewman: * Kaye Sanderson [facility] RN *Referring Physician: * Deangelo QuiñonezReading Physician: * John Godoy MD Indications: SOB. History: Chronic obstructive pulmonary disease. Anemia. 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 Chemotherapy. Recent pneumonia. Risk factors: Former tobacco use. Conclusions Summary: 1. Left ventricle: Systolic function is normal. The estimated ejection fraction is 55-60%. Wall motion is normal; there are no regional wall motion abnormalities. 2. Right ventricle: Systolic function is normal. 3. Mitral valve: There is trace regurgitation. 4. Aortic valve: There is no evidence of stenosis. There is no regurgitation. 5. Tricuspid valve: There is trace regurgitation. 6. Pulmonary arteries: Systolic pressure can not be accurately estimated. 7. Study data: No prior study is available for comparison. Study data: Transthoracic echocardiogram. Procedure: Transthoracic echocardiography was performed. Image quality was fair. The study was technically limited due to COPD and Smoking history. A total of 3 ml of Definity was given IV. Image enhancement administered by Silas Cox RN. Complete 2D, spectral Doppler, and color flow Doppler. Patient status: Inpatient. Patient room number: ICU 1. No prior study is available for comparison. Rhythm: Normal sinus rhythm. Findings Left ventricle: The cavity size is normal. Wall thickness is normal. Systolic function is normal. The estimated ejection fraction is 55-60%. Wall motion is normal; there are no regional wall motion abnormalities. There is no consistent Doppler evidence of clinically significant diastolic dysfunction. Right ventricle: The cavity size is normal. Systolic function is normal. Left atrium: The atrium is normal in size. Right atrium: The atrium is normal in size. Mitral valve: The leaflets are mildly thickened. There is no evidence of stenosis. There is trace regurgitation. Aortic valve: Not well visualized. The leaflets are mildly thickened. There is no evidence of stenosis. There is no regurgitation. Tricuspid valve: The valve is structurally normal. There is no evidence of stenosis. There is trace regurgitation. Pulmonic valve: Not well visualized. There is no evidence of stenosis. There is no significant regurgitation. Aorta: Aortic root: The aortic root is not dilated. Ascending aorta: The ascending aorta is not visualized. Aortic arch: The aortic arch is not dilated. Pericardium: There is no pericardial effusion. Pulmonary arteries: Not visualized. Systolic pressure can not be accurately estimated. Systemic veins: Inferior vena cava: The vessel is dilated. The respirophasic diameter changes are blunted (< 50%). Measurements Left ventricle Value Ref Aortic valve Value Ref JENNY, LAX 4.9 cm 4.2 - 5.8 Lilibeth diam, ED 2.0 cm ---- ESD, LAX 3.3 cm 2.5 - 4.0 Peak v, S 1.2 m/sec ---- FS, LAX 32 % 25 - 43 VTI, S 21.3 cm ---- PW, ED, LAX 0.9 cm 0.6 - 1.0 Mean grad, S 3.0 mm Hg ---- IVS/PW, ED 0.98 Peak grad, S 5.0 mm Hg ---- E', lat lilibeth, TDI 14.3 cm/sec >=10.0 LVOT/AV, VTI ratio 0.75 -- -- E/e', lat lilibeth, 7 TDI Mitral valve Value Ref E', med lilibeth, TDI 9.6 cm/sec >=7.0 Peak E 1.04 m/sec -- -- E/e', med lilibeth, 11 Peak A 0.8 m/sec ---- TDI Decel time 264 ms ---- E', avg, TDI 12.0 cm/sec Peak grad, D 4.3 mm Hg ---- E/e', avg, TDI 9 <=14 Peak E/A ratio 1.3 -- -- LVOT Value Ref Pulmonic valve Value Ref Peak ed, S 0.78 m/sec Peak v, S 0.51 m/sec ---- VTI, S 16.0 cm Peak grad, S 1.0 mm Hg ---- Mean grad, S 1 mm Hg Aortic root Value Ref Ventricular septum Value Ref Root diam 2.8 cm <4.1 IVS, ED 0.9 cm 0.6 - 1.0 Aortic arch Value Ref Right ventricle Value Ref Arch diam 2.5 cm ---- JENNY minor ax, A4C 3.4 cm 1.9 - 3.5 mid Decending aorta Value Ref Jean-Paul peak ed 0.75 m/sec ---- Left atrium Value Ref AP dim, ES 3.20 cm 3.00 - Inferior vena cava Value Ref 4.00 Diam 2.2 cm ---- ML dim, A4C 3.6 cm SI dim, A4C 5.3 cm Vol/bsa, ES, 1-p 19 ml/m^2 12 - 37 A4C Vol/bsa, ES, A/L 27 ml/m^2 16 - 34 Right atrium Value Ref ML dim, ES, A4C 3.3 cm 2.6 - 4.4 SI dim, ES, A4C 4.7 cm 3.4 - 5.3 Estimated RAP 15 mm Hg Legend: (L) and (H) ceci values outside specified reference range. Prepared and electronically signed by John Godoy MD 01/06/2019 09:48
[2019-01-06 10:16] LABS: ABS Lymphocytes 0.9 10^3/ul (1.0-4.8); ABS Monocytes 0.2 10^3/ul (0-0.8); ABS Neutrophils 6.4 10^3/ul (1.5-7.7); Eosinophil % 0.3 %; Hematocrit 25 % (42-52); Hemoglobin 8.5 g/dL (14.0-18.0); Lymphocyte % 11.6 %; Mean Corpuscular HGB Conc 34 g/dL (31-36); Mean Corpuscular Hemoglobin 29 pg (27-31); Mean Corpuscular Volume 85 fL (80-94); Mean Platelet Volume 8.3 fL (7.4-10.4); Nucleated Red Blood Cells % 0.1; Platelet Count 286 10^3/uL (150-450); Red Blood Count 2.96 10^6 /uL (4.18-5.48); Red Cell Distribution Width 18 % (10-15); White Blood Count 7.6 10^3/uL (3.5-10.8)
--- NOTE | 2019-01-06 10:18 | PN ---
Progress Note - Progress Note Date of Service: 01/06/19 SOAP: Subjective: []Went home last week and fever to 103.8, progressive SOB, chest pain. Presented to ER. BP stable, Sat 82% on RA, on 10L O2. CTA with patchy bilateral infiltrates, has modest elevation in LFTs. BNP on admission and at time of CT was 125. This am a little better but shaking on exam, question recurrent fever. Acetaminophen (Tylenol Tab*) 650 mg PO Q4H PRN PRN Reason: FEVER/PAIN Hydrocodone Bitart/Acetaminophen ([place] 5-325 Tab*) 1 tab PO Q6H PRN PRN Reason: PAIN Last Admin: 01/06/19 01:44 Dose: 1 tab Hydrocodone Bitart/Acetaminophen ([place] 5-325 Tab*) 2 tab PO Q6H PRN PRN Reason: PAIN Last Admin: 01/06/19 04:18 Dose: 2 tab Albuterol (Ventolin 2.5 Mg/3 Ml Neb.Lottie*) 2.5 mg INH [id number] AWAKE PRN PRN Reason: sob/wheezing Albuterol/Ipratropium (Duoneb (Albuterol 2.5 Mg/Ipratropium 0.5 Mg)) 1 neb INH [id number] AWAKE PRN PRN Reason: sob/wheexing Benzonatate (Tessalon Cap*) 100 mg PO BID TIANNA Last Admin: 01/05/19 21:26 Dose: 100 mg Famotidine (Pepcid Tab*) 20 mg PO BID TIANNA; Protocol Last Admin: 01/05/19 21:25 Dose: 20 mg Heparin Sodium (Porcine) (Heparin Vial(*)) 5,000 units SUBCUT Q8HR TIANNA Last Admin: 01/06/19 05:40 Dose: 5,000 units Hydrocortisone (Cortef Tab*) 10 mg PO BID TIANNA Last Admin: 01/05/19 21:41 Dose: 10 mg Vancomycin HCl 1,000 mg/ (Sodium Chloride) 250 mls @ 166.667 mls/hr IVPB Q8H [facility]; Protocol Last Admin: 01/06/19 09:32 Dose: 166.667 mls/hr Piperacillin Sod/Tazobactam (Sod 3.375 gm/ Sodium Chloride) 100 mls @ 25 mls/ hr IVPB Q8H TIANNA Last Admin: 01/06/19 01:26 Dose: 25 mls/hr Magnesium Oxide (Magox 400 Tab*) 400 mg PO BID [facility] Last Admin: 01/05/19 21:26 Dose: 400 mg Metoprolol Tartrate (Lopressor Tab*) 12.5 mg PO BID [facility] Last Admin: 01/05/19 21:23 Dose: 12.5 mg Metoprolol Tartrate (Lopressor Iv*) 5 mg IV Q4H PRN PRN Reason: TACHYCARDIA Ondansetron HCl (Zofran Inj*) 4 mg IV Q4H PRN PRN Reason: NAUSEA/VOMITING Pantoprazole Sodium (Protonix Tab*) 40 mg PO DAILY [facility] Last Admin: 01/05/19 19:57 Dose: 40 mg Pharmacy Consult (Zosyn Per Pharmacy*) 1 note FOLLOW UP .ZOSYN PER PHARMACY [facility] Pharmacy Consult (Vancomycin Per Pharmacy*) 1 note FOLLOW UP . PRN PRN Reason: PER PROTOCOL Pharmacy Profile Note (Vancomycin Trough Check) 1 note FOLLOW UP 0730 ONE Stop: 01/07/19 07:31 Potassium Chloride (Klor Con Er Tab*) 20 meq PO BID [facility] Last Admin: 01/05/19 21:24 Dose: 20 meq Prochlorperazine (Compazine Tab*) 10 mg PO BID [facility] Last Admin: 01/05/19 21:26 Dose: 10 mg Sucralfate (Sucralfate Susp) 1 gm PO AC [facility] Tiotropium [place] (Spiriva Cap.Inh*) 1 cap INH DAILY [facility] Objective: [] Vital Signs Temp Pulse Resp BP Pulse Ox 98.4 F 75 12 128/73 99 01/06/19 08:00 01/06/19 06:00 01/06/19 06:00 01/06/19 06:00 01/06/19 06:00 HEENT: reji effect, OM moist, no thrush, no JVD crackles BL but has good air movement and no wheezing Tachy, RRR +BS Obese, NT No RUQ tenderness on exam Ext +2 edema Abnormal Lab Results 01/05/19 01/05/19 01/05/19 16:08 16:08 16:08 WBC 7.9 RBC 2.70 L Hgb 7.7 L Hct 23 L MCV 84 MCH 28 MCHC 34 RDW 18 H Plt Count 250 MPV 8.0 Neut % (Auto) 84.9 Lymph % (Auto) 11.6 [place] % (Auto) 2.9 Eos % (Auto) 0.2 Baso % (Auto) 0.4 Absolute Neuts (auto) 6.7 Absolute Lymphs (auto) 0.9 L Absolute Monos (auto) 0.2 Absolute Eos (auto) 0.0 Absolute Basos (auto) 0.0 Absolute Nucleated RBC 0.0 Immature Gran % 18.0 H Neutrophils % 67.0 Band Neutrophils % 18.0 H Lymphocytes % 11.0 Monocytes % 4.0 Nucleated RBC % 0.1 Normal RBC Morphology Not Reportable Microcytosis 1+ Macrocytosis 1+ INR (Anticoag Therapy) 1.49 H APTT 39.3 H Patient Temperature ABG pH ABG pH (Temp Correct) ABG pCO2 ABG pCO2 (Temp Corrct ABG pO2 ABG pO2 (Temp Correct ABG HCO3 ABG O2 Saturation ABG Base Excess Respiration Rate O2 Delivery Device Ventilator Type Vent Mode FiO2 Inspiratory Time PEEP Pressure Support Pressure Control EPAP IPAP BiPAP Sodium 134 L Potassium 3.8 Chloride 101 Carbon Dioxide 23 Anion Gap 10 BUN 12 Creatinine 0.56 L Est GFR ( Amer) 177.7 Est GFR (Non-Af Amer) 146.9 BUN/Creatinine Ratio 21.4 H Glucose 115 H Lactic Acid Calcium 8.4 L Total Bilirubin 0.60 AST 60 H ALT 84 H Alkaline Phosphatase 237 H Troponin I 0.01 B-Natriuretic Peptide Total Protein 5.9 L Albumin 2.5 L Globulin 3.4 Albumin/Globulin Ratio 0.7 L Blood Type Antibody Screen Crossmatch 01/05/19 01/05/19 01/05/19 16:08 16:08 16:09 WBC RBC Hgb Hct MCV MCH MCHC RDW Plt Count MPV Neut % (Auto) Lymph % (Auto) [place] % (Auto) Eos % (Auto) Baso % (Auto) Absolute Neuts (auto) Absolute Lymphs (auto) Absolute Monos (auto) Absolute Eos (auto) Absolute Basos (auto) Absolute Nucleated RBC Immature Gran % Neutrophils % Band Neutrophils % Lymphocytes % Monocytes % Nucleated RBC % Normal RBC Morphology Microcytosis Macrocytosis INR (Anticoag Therapy) APTT Patient Temperature ABG pH ABG pH (Temp Correct) ABG pCO2 ABG pCO2 (Temp Corrct ABG pO2 ABG pO2 (Temp Correct ABG HCO3 ABG O2 Saturation ABG Base Excess Respiration Rate O2 Delivery Device Ventilator Type Vent Mode FiO2 Inspiratory Time PEEP Pressure Support Pressure Control EPAP IPAP BiPAP Sodium Potassium Chloride Carbon Dioxide Anion Gap BUN Creatinine Est GFR ( Amer) Est GFR (Non-Af Amer) BUN/Creatinine Ratio Glucose Lactic Acid 0.9 Calcium Total Bilirubin AST ALT Alkaline Phosphatase Troponin I B-Natriuretic Peptide 125 H Total Protein Albumin Globulin Albumin/Globulin Ratio Blood Type O Positive Antibody Screen Negative Crossmatch See Detail 01/05/19 01/06/19 01/06/19 20:05 01:27 01:34 WBC RBC Hgb Hct MCV MCH MCHC RDW Plt Count MPV Neut % (Auto) Lymph % (Auto) [place] % (Auto) Eos % (Auto) Baso % (Auto) Absolute Neuts (auto) Absolute Lymphs (auto) Absolute Monos (auto) Absolute Eos (auto) Absolute Basos (auto) Absolute Nucleated RBC Immature Gran % Neutrophils % Band Neutrophils % Lymphocytes % Monocytes % Nucleated RBC % Normal RBC Morphology Microcytosis Macrocytosis INR (Anticoag Therapy) 1.48 H APTT 36.3 Patient Temperature Not Reportable ABG pH 7.52 H ABG pH (Temp Correct) Not Reportable ABG pCO2 29 L ABG pCO2 (Temp Corrct Not Reportable ABG pO2 69 L ABG pO2 (Temp Correct Not Reportable ABG HCO3 26.2 ABG O2 Saturation 97.0 ABG Base Excess 1.7 Respiration Rate Not Reportable O2 Delivery Device salter Ventilator Type Not Reportable Vent Mode Not Reportable FiO2 Not Reportable Inspiratory Time Not Reportable PEEP Not Reportable Pressure Support Not Reportable Pressure Control Not Reportable EPAP Not Reportable IPAP Not Reportable BiPAP Not Reportable Sodium Potassium Chloride Carbon Dioxide Anion Gap BUN 11 Creatinine 0.67 Est GFR ( Amer) 144.5 Est GFR (Non-Af Amer) 119.4 BUN/Creatinine Ratio Glucose Lactic Acid Calcium Total Bilirubin AST ALT Alkaline Phosphatase Troponin I 0.03 B-Natriuretic Peptide Total Protein Albumin Globulin Albumin/Globulin Ratio Blood Type Antibody Screen Crossmatch 01/06/19 01:34 WBC 7.4 RBC 2.71 L Hgb 7.8 L Hct 23 L MCV 84 MCH 29 MCHC 34 RDW 17 H Plt Count 249 MPV 7.9 Neut % (Auto) 85.9 Lymph % (Auto) 9.4 [place] % (Auto) 3.5 Eos % (Auto) 0.1 Baso % (Auto) 1.1 Absolute Neuts (auto) 6.3 Absolute Lymphs (auto) 0.7 L Absolute Monos (auto) 0.3 Absolute Eos (auto) 0.0 Absolute Basos (auto) 0.1 Absolute Nucleated RBC 0.0 Immature Gran % Neutrophils % Band Neutrophils % Lymphocytes % Monocytes % Nucleated RBC % 0.0 Normal RBC Morphology Microcytosis Macrocytosis INR (Anticoag Therapy) APTT Patient Temperature ABG pH ABG pH (Temp Correct) ABG pCO2 ABG pCO2 (Temp Corrct ABG pO2 ABG pO2 (Temp Correct ABG HCO3 ABG O2 Saturation ABG Base Excess Respiration Rate O2 Delivery Device Ventilator Type Vent Mode FiO2 Inspiratory Time PEEP Pressure Support Pressure Control EPAP IPAP BiPAP Sodium Potassium Chloride Carbon Dioxide Anion Gap BUN Creatinine Est GFR ( Amer) Est GFR (Non-Af Amer) BUN/Creatinine Ratio Glucose Lactic Acid Calcium Total Bilirubin AST ALT Alkaline Phosphatase Troponin I B-Natriuretic Peptide Total Protein Albumin Globulin Albumin/Globulin Ratio Blood Type Antibody Screen Crossmatch Assessment: []63 year old with IV NSCLC. Presentation with T3N2 disease and solitary CHIROPRACTIC NEUROLOGIST lesion. Treated with gamma knife and chemotherapy and XRT to lung mass with modest responds but development of new liver lesions. Course has been c/b recurrent fevers, tachycardia and episodes HTN. Dx adrenal insufficiency and Rx steroids without clear change in symptoms, multiple courses of Abx. Presentation with progressive fever and SOB. Plan: []1. Fevers. Concerned for PCP pneumonia. Differential includes other infection , could be tumor fever but would be atypical. - Consultation to Dr. Galan for bornch and PCP PCR - Consultation ID, case d/w Dr. Soler. - NPO until Bronch. - Keep Zosyn for new, stop Vanco in case contributing to fevers. - Check LDH 2. Increased LFTs. DDx: medication effect, fluid, metastatic disease. - US GB and follow. 3. Adrenal insufficiency. BP stable on current steroids. Will hold on stress dose today. 4. Lung cancer. Discussed liver biopsy but held discussion on keno terminal operator course of action until we address immediate issues. If recovers from febrile illness could consider chemoimmunotherapy given good PS and minimal disease burden. Did discuss this means cancer will not be cured. 5. Given LFTs hold Percoset and use oxycodone for pain. 6. Hold additional diuretics.
[2019-01-06 10:20] LABS: ALT 75 U/L (7-52); Albumin 2.5 g/dL (3.2-5.2); Albumin/Globulin Ratio 0.7 (1-3); Alkaline Phosphatase 248 U/L (34-104); BUN/Creatinine Ratio 16.1 (8-20); Blood Urea Nitrogen 10 mg/dL (6-24); CO2 Carbon Dioxide 26 mmol/L (22-32); Calcium 8.7 mg/dL (8.6-10.3); Chloride 98 mmol/L (101-111); EGFR Non-African American 130.6 (>60); Globulin 3.7 g/dL (2-4); Glucose 88 mg/dL (70-100); Sodium 134 mmol/L (135-145); Total Protein 6.2 g/dL (6.4-8.9)
[2019-01-06 10:26] LABS: Anion Gap 10 mmol/L (2-11); Troponin I 0.05 ng/mL (<0.04)
[2019-01-06] MEDS: Prochlorperazine TAB* 10 MG PO SCH ×2 (10:28→21:09)
[2019-01-06] MEDS: Magnesium Oxide TAB* 400 MG PO SCH ×2 (10:29→21:09)
[2019-01-06] MEDS: Metoprolol Tartrate TAB* 25 MG PO SCH ×2 (10:29→21:09)
[2019-01-06] MEDS: Benzonatate CAP* 100 MG PO SCH ×2 (10:29→21:09)
[2019-01-06] MEDS: Potassium Chlor TAB* 20 MEQ TAB.ER PO SCH ×2 (10:29→21:09)
[2019-01-06] MEDS: Famotidine TAB* 20 MG PO SCH ×2 (10:29→21:09)
[2019-01-06] MEDS: Pantoprazole TAB * 40 MG TAB PO SCH (10:30)
[2019-01-06] MEDS: Hydrocortisone TAB* 10 MG PO SCH ×2 (10:39→21:09)
[2019-01-06] MEDS: Tiotropium CAP.INH* CAP.INH/18 MCG (USE ORDER SET !) INH SCH (11:02)
[2019-01-06 11:35] LABS: Potassium Redraw 3.6 mmol/L (3.5-5.0)
[2019-01-06] MEDS: Acetaminophen TAB* 325 MG PO PRN ×2 (12:54→23:04)
[2019-01-06] MEDS: Sucralfate SUSP 1 GM/10 ml 10 ML UDC PO SCH ×2 (12:56→18:30)
[2019-01-06] MEDS: oxyCODONE TAB* 5 MG TAB PO PRN (12:58)
[2019-01-06] MEDS ORDERED: Lidocaine 2% VISCOUS* 15 ML UDC SWISH SPIT ONE ×3 (14:52→16:15)
[2019-01-06] MEDS ORDERED: fentaNYL* 50 MCG/ML 2 ML VIAL (100 MCG VIAL) ONE (14:57)
[2019-01-06] MEDS ORDERED: Midazolam* 1 MG/ML 10 ML VIAL (10 MG) ONE (14:58)
[2019-01-06] MEDS ORDERED: Lidocaine 4% TOPICAL* 50 ML TOP.SOLN ONE (15:07)
[2019-01-06] MEDS: Albuterol 2.5 MG/3 ML NEB.SOL* (0.083%) INH PRN (15:42)
[2019-01-06] MEDS ORDERED: Lidocaine 2% PF * 5 ML VIAL INH ONE ×2 (15:55)
--- NOTE | 2019-01-06 17:12 | CONS ---
PULMONARY CONSULTATION REPORT: DATE OF CONSULT: 01/06/19 CONSULTATION REQUESTED BY: Dr. Barger. REASON FOR CONSULT: Evaluation of abnormal CT chest. HISTORY OF PRESENT ILLNESS: The patient is a 63-year-old male with history of stage IV lung cancer with mets to liver and brain, status post gamma knife surgery and chemotherapy diagnosed after bronchoscopy in the past, history of adrenal insufficiency on chronic hydrocortisone, anemia, transaminitis with recent liver lesion suspicious for malignancy, biopsy reveals adenocarcinoma, COPD, and recent pneumonia. The patient was discharged to home after recent treatment for pneumonia. He presents to the emergency room 3 days after the discharge for having high-grade fevers with T-max of 103 to 102. The patient also reports worsening lower extremity edema. The patient also reported worsening shortness of breath, checked his oxygen noted that to be around 82%. He presented back to the emergency room. Further evaluation in the emergency room revealed hemoglobin of 7.7 with a white count of 7.9, platelets of 250,000 and normal lactic acid. Chest x-ray done in the emergency room was personally reviewed by me, evidence of air space opacities bilaterally, which was followed up with CT scan. I personally reviewed CT scan images. The patient with evidence of air space opacities bilaterally. He has diffuse emphysematous changes with paraseptal emphysema. He has ground glass opacities bilaterally, which have significantly worsened since the prior scan. The patient with right hilar mass involving the right lower lobe bronchus and with consolidation in that area. The patient also with prominent lymph nodes with pretracheal and right paratracheal lymphadenopathy that has unchanged from the most recent scan. The patient also with soft tissue density along the body of gallbladder, unable to exclude polyp or mass. The patient also with multiple low attenuation lesions in the liver. The patient has been on chronic steroids for adrenal insufficiency. He was on hydrocortisone 10 mg b.i.d. Given chronic steroid usage, concern for PCP in the differential, therefore pulmonary consultation requested. The patient currently on 6 L of oxygen supplementation with sats around 96% to 98%. The patient is in no apparent distress at this time. Reports shortness of breath with minimal exertion, appeared to be comfortable at rest. Denied chest pain and palpitations. PAST MEDICAL HISTORY: 1. Stage IV lung cancer. 2. Adrenal insufficiency. 3. Anemia. 4. Transaminitis with liver lesions. 5. COPD. 6. Recent pneumonia. MEDICATIONS: 1. Cefdinir. 2. DuoNeb. 3. Albuterol. 4. Hydrocodone. 5. Ibuprofen. 6. Tessalon. 7. Hydrocortisone. 8. Magnesium. 9. Metoprolol. 10. Omeprazole. 11. Potassium. 12. Compazine. 13. Ranitidine. 14. Carafate. 15. Spiriva. ALLERGIES: No known drug allergies. FAMILY HISTORY: Reviewed and noncontributory. SOCIAL HISTORY: History of alcohol use in the past. Former smoker with 2 pack smoking history for 45 years, quit 6 years ago. REVIEW OF SYSTEMS: All systems reviewed and as per HPI. PHYSICAL EXAM: The patient is in bed in no apparent distress. Vital signs: Temperature 100.3, pulse 83 beats per minute, respiratory rate 12, blood pressure 109/61. HEENT: Pupils equal and reactive to light. Mucous membranes moist. Lungs: Diminished air entry bilaterally. Rhonchi on the right side. Cardiovascular: S1 and S2 present. Regular. Abdomen: Soft, nontender, nondistended. Bowel sounds present. Extremities: Normal range of motion. Neuro: Alert, awake, oriented x3. DIAGNOSTIC STUDIES/LAB DATA: WBC count 7.6, hemoglobin 8.5, hematocrit 25, platelet count of 286,000. ABG showed hypoxemic respiratory failure with PO2 of 69, PCO2 of 29 and pH of 7.52 with O2 sat 97% on 8 L. Sodium 134, potassium 3.6, chloride 96, bicarb 26, BUN 10, creatinine 0.62. LFTs elevated, slightly trending down. Troponin slightly elevated on the last value. BNP 125. Chest x-ray and CT as described above in HPI. Lower extremity Dopplers show no DVT. Echo showed normal EF, no regional wall motion abnormalities. Normal systolic function. Pulmonary artery could not be visualized. Chest x-ray: CT of the chest as described above in HPI. IMPRESSION AND RECOMMENDATIONS: 63-year-old male, former smoker, with significant emphysema with history of metastatic lung cancer with progression, admitted for worsening shortness of breath and chest pain after recent hospitalization for pneumonia. The patient with progression of air space opacities bilaterally and significant hypoxemic respiratory failure. The patient has been on chronic steroids with concern for pneumocystis pneumonia. He also has been having high-grade fevers recently. CT chest abnormalities - infectious versus inflammatory versus neoplastic. Cannot rule out lymphangitic spread of malignancy. Will schedule the patient for bronchoscopy for BAL and airway inspection. We will sent the fluid for pneumocystis pneumonia, viral and bacterial cultures. Procedure was discussed in detail with the patient. Associated risks including risk of worsening respiratory failure, requiring intubation, worsening cardiac status, cardiac arrest, etc., were discussed in detail with the patient, then his at bedside. The patient is agreeable to the procedure. Further recommendations pending bronchoscopy results. Above recommendations were discussed in detail with Dr. Barger. I also discussed the CT findings with the patient and his at bedside. Thank you for allowing me to participate in the care of your patient. Will follow up with you. [id number]/[facility] #: [id number] MARINA
--- NOTE | 2019-01-06 21:37 | PRO ---
BRONCHOSCOPY REPORT: DATE OF PROCEDURE: 01/06/19 - ROOM #ICU-01 PREPROCEDURAL DIAGNOSIS: Bilateral lung infiltrates, rule out PCP. ANESTHESIA: Conscious sedation with viscous lidocaine 2 cc, lidocaine nebulizer 2% 4 cc. DESCRIPTION OF PROCEDURE: Informed consent was obtained from the patient prior to the procedure after all the risks and benefits were discussed with the patient and his at bedside. The patient was recently treated for pneumonia , readmitted with worsening shortness of breath and hypoxic respiratory failure. CT chest showed worsening of ground-glass opacities bilaterally concerning for possible pneumocystis carinii pneumonia as the patient is on steroids. The patient was sitting up reclined slightly posteriorly during the procedure. Appropriate time-out was agreed on by the attending staff prior to the procedure. The patient's upper airway including the nares was anesthetized with lidocaine. The patient has received 4 cc of Versed and 100 of fentanyl prior to the procedure. Disposable Ambu Scope was used for the procedure. Bronchoscope was inserted through the left naris and was able to be passed without resistance. Vocal cords appeared to be moving normally without any lesions identified. Bronchoscope was then advanced into the trachea which was inspected. Thick secretions were noted and were suctioned out. Bronchoscope was then advanced into the left bronchial tree which was inspected and thin frothy secretions were noted and were suctioned and BAL was also obtained. No endobronchial lesions were noted on the left side. Thin secretions were noted. Bronchoscope was then advanced into the right bronchial tree. The patient with endobronchial lesion known from prior biopsy and bronchoscopy in the right intermediate bronchus. There is thick mucus on top of the endobronchial lesion which was suctioned out. Airways appeared to be more open than what it was seen in the past prior to treatment. The patient with mucosal bleeding with suctioning on the right side from underlying tumor, probably with mucosal spread of the tumor. Bronchoscope was then withdrawn. The patient tolerated the procedure well. He was not noted to be hypoxemic during the procedure. His O2 sats remain around 96% to 97% throughout the procedure. The patient had mild coughing post-procedure. Samples were sent to the lab for further testing. [id number]/[facility] #: [id number] MTDD
[2019-01-07] MEDS: ZOSYN 3.375 GM Q8H per EXTENDED INFUSION IVPB SCH ×4 (01:14→08:03)
[2019-01-07] MEDS: oxyCODONE TAB* 5 MG TAB PO PRN ×4 (02:34→22:24)
[2019-01-07] MEDS: Heparin VIAL(*) 5000 UNITS/ML VIAL (FIVE THOUSAND) SUBCUT SCH ×3 (05:11→22:23)
[2019-01-07 06:04] LABS: ABS Lymphocytes 0.7 10^3/ul (1.0-4.8); ABS Monocytes 0.3 10^3/ul (0-0.8); ABS Neutrophils 6.2 10^3/ul (1.5-7.7); Eosinophil % 0.1 %; Hematocrit 23 % (42-52); Hemoglobin 7.5 g/dL (14.0-18.0); Lymphocyte % 9.9 %; Mean Corpuscular HGB Conc 33 g/dL (31-36); Mean Corpuscular Hemoglobin 28 pg (27-31); Mean Corpuscular Volume 85 fL (80-94); Mean Platelet Volume 7.9 fL (7.4-10.4); Nucleated Red Blood Cells % 0.1; Platelet Count 282 10^3/uL (150-450); Red Blood Count 2.66 10^6 /uL (4.18-5.48); Red Cell Distribution Width 18 % (10-15); White Blood Count 7.3 10^3/uL (3.5-10.8)
[2019-01-07 06:26] LABS: Albumin 2.2 g/dL (3.2-5.2); Albumin/Globulin Ratio 0.7 (1-3); BUN/Creatinine Ratio 20.4 (8-20); Calcium 7.8 mg/dL (8.6-10.3); EGFR African American 185.3 (>60); EGFR Non-African American 153.2 (>60); Globulin 3.1 g/dL (2-4); Magnesium 1.6 mg/dL (1.9-2.7); Potassium 3.9 mmol/L (3.5-5.0); Total Bilirubin 0.5 mg/dL (0.2-1.0); Total Protein 5.3 g/dL (6.4-8.9)
[2019-01-07] MEDS: Acetaminophen TAB* 325 MG PO PRN ×2 (07:11→17:21)
[2019-01-07] MEDS ORDERED: Vancomycin Trough Check NOTE FOLLOW UP ONE (07:30)
[2019-01-07] MEDS: Sucralfate SUSP 1 GM/10 ml 10 ML UDC PO SCH ×3 (07:49→22:23)
[2019-01-07] MEDS: Tiotropium CAP.INH* CAP.INH/18 MCG (USE ORDER SET !) INH SCH (08:20)
[2019-01-07] MEDS: Pantoprazole TAB * 40 MG TAB PO SCH (09:44)
[2019-01-07] MEDS: Famotidine TAB* 20 MG PO SCH ×2 (09:44→20:13)
[2019-01-07] MEDS: Magnesium Oxide TAB* 400 MG PO SCH ×2 (09:44→20:13)
[2019-01-07] MEDS: Potassium Chlor TAB* 20 MEQ TAB.ER PO SCH ×2 (09:44→20:13)
[2019-01-07] MEDS: Hydrocortisone TAB* 10 MG PO SCH (09:44)
[2019-01-07] MEDS: Prochlorperazine TAB* 10 MG PO SCH ×2 (09:44→20:13)
[2019-01-07] MEDS: Benzonatate CAP* 100 MG PO SCH ×2 (09:45→20:13)
[2019-01-07] MEDS: Metoprolol Tartrate TAB* 25 MG PO SCH ×2 (09:45→20:13)
[2019-01-07] MEDS: D5W IVPB SCH ×3 (12:35→20:59)
[2019-01-07] MEDS: SULFAMETHOXAZOLE IVPB SCH ×3 (12:35→20:59)
[2019-01-07] MEDS: TRIMETH IVPB SCH ×3 (12:35→20:59)
[2019-01-07] MEDS ORDERED: Cefepime ADVAN(*) 1 GM in NS 0.9% 50 ML* 50 ML IVPB SCH (17:00)
[2019-01-07] MEDS ORDERED: Cefepime 1 GM in Dextrose(*) 1 GM/50 ML BAG IV SCH (17:00)
--- NOTE | 2019-01-07 17:13 | PN ---
Progress Note - Progress Note Date of Service: 01/07/19 - Pulm f/u note Note: Pt seen and examined at bedside. Pt was transferred back to ICU for worsening hypoxia. Pt also had fever and facial flushing Active Medications Generic Name Dose Route Start Last Admin Trade Name Freq PRN Reason Stop Dose Admin Acetaminophen 650 mg 01/05/19 19:10 01/07/19 07:11 Tylenol Tab* PO 650 mg Q4H PRN Administration FEVER/PAIN Albuterol 2.5 mg 01/05/19 19:10 01/06/19 15:42 Ventolin 2.5 Mg/3 Ml Neb.Lottie* INH 2.5 mg [id number] AWAKE PRN Administration sob/wheezing Albuterol/Ipratropium 1 neb 01/05/19 19:10 Duoneb (Albuterol 2.5 Mg/Ipratropium 0.5 Mg) INH [id number] AWAKE PRN sob/wheexing Benzonatate 100 mg 01/05/19 21:00 01/07/19 09:45 Tessalon Cap* PO 100 mg BID TIANNA Administration Famotidine 20 mg 01/05/19 21:00 01/07/19 09:44 Pepcid Tab* PO 20 mg BID TIANNA Administration Protocol Heparin Sodium (Porcine) 5,000 units 01/05/19 22:00 01/07/19 14:46 Heparin Vial(*) SUBCUT 5,000 units Q8HR TIANNA Administration Hydrocortisone Sodium Succinate 50 mg 01/07/19 17:00 Solu-Cortef* IV Q8H TIANNA Trimethoprim/Sulfamethoxazole 525 mls @ 260 mls/hr 01/07/19 20:30 400 mg/ Dextrose IVPB Q8H TIANNA Azithromycin 500 mg in 250 mls @ 250 mls/hr 01/07/19 17:30 Zithromax 500 Mg/250 Ml IVPB Q24H TIANNA Cefepime HCl 1 gm in 50 mls @ 100 mls/hr 01/07/19 17:00 Maxipime 1 Gm In Dextrose Duplex (*) IV Q12H TIANNA Magnesium Oxide 400 mg 01/05/19 21:00 01/07/19 09:44 Magox 400 Tab* PO 400 mg BID TIANNA Administration Metoprolol Tartrate 12.5 mg 01/05/19 21:00 01/07/19 09:45 Lopressor Tab* PO 12.5 mg BID TIANNA Administration Metoprolol Tartrate 5 mg 01/05/19 20:30 Lopressor Iv* IV Q4H PRN TACHYCARDIA Ondansetron HCl 4 mg 01/05/19 19:10 Zofran Inj* IV Q4H PRN NAUSEA/VOMITING Oxycodone HCl 10 mg 01/06/19 10:20 01/07/19 07:11 Roxycodone Tab* PO 10 mg Q4H PRN Administration PAIN Pantoprazole Sodium 40 mg 01/05/19 19:45 01/07/19 09:44 Protonix Tab* PO 40 mg DAILY TIANNA Administration Potassium Chloride 20 meq 01/05/19 21:00 01/07/19 09:44 Klor Con Er Tab* PO 20 meq BID TIANNA Administration Prochlorperazine 10 mg 01/05/19 21:00 01/07/19 09:44 Compazine Tab* PO 10 mg BID TIANNA Administration Sucralfate 1 gm 01/06/19 11:10 01/07/19 12:31 Sucralfate Susp PO 1 gm 0630,1100,1600 TIANNA Administration Tiotropium [place] 1 cap 01/06/19 09:00 01/07/19 08:20 Spiriva Cap.Inh* INH 1 cap DAILY TIANNA Administration Vital Signs Temp Pulse Resp BP Pulse Ox 103.2 F 108 22 165/80 95 01/07/19 16:22 01/07/19 16:22 01/07/19 16:22 01/07/19 16:22 01/07/19 16:22 O/E: Pt in NAD HEENT: PERRLA Lungs: Rhonchi on rt CVS: S1, S2+, tachycardia Abd: Obese, BS+ Ext: Normal ROM Skin: Facial flushing Neuro: Drowsy, responds appropriately Laboratory Results - last 24 hr 01/07/19 01/07/19 05:55 05:55 WBC 7.3 RBC 2.66 L Hgb 7.5 L Hct 23 L MCV 85 MCH 28 MCHC 33 RDW 18 H Plt Count 282 MPV 7.9 Neut % (Auto) 85.6 Lymph % (Auto) 9.9 Cocke % (Auto) 3.9 Eos % (Auto) 0.1 Baso % (Auto) 0.5 Absolute Neuts (auto) 6.2 Absolute Lymphs (auto) 0.7 L Absolute Monos (auto) 0.3 Absolute Eos (auto) 0.0 Absolute Basos (auto) 0.0 Absolute Nucleated RBC 0.0 Nucleated RBC % 0.1 Sodium 134 L Potassium 3.9 Chloride 102 Carbon Dioxide 24 Anion Gap 8 BUN 11 Creatinine 0.54 L Est GFR ( Amer) 185.3 Est GFR (Non-Af Amer) 153.2 BUN/Creatinine Ratio 20.4 H Glucose 128 H Calcium 7.8 L Magnesium 1.6 L Total Bilirubin 0.50 AST 68 H ALT 58 H Alkaline Phosphatase 267 H Total Protein 5.3 L Albumin 2.2 L Globulin 3.1 Albumin/Globulin Ratio 0.7 L I/R: 63 year old with IV NSCLC with T3N2 disease and solitary [employer] lesion s/p gamma knife and chemotherapy and XRT to lung mass with modest response and with new liver lesions. Course has been c/b recurrent fevers, tachycardia and episodes HTN. Pt with progressive fever, SOB, hypoxic resp failure. Pt with fever, SOB, GGO on CT chest with no PE- Infectious versus inflammatory versus sec to fluid overload versus lymphatic spread of cancer PCP pneumonia is possibility Pt underwent bronchoscopy yesterday, results pending Pt with endobronchial narrowing and thick secretions on rt side noted on bronchoscopy Fluid was also sent for bacterial, viral cx Pt on broad spectrum abx ID consulted Hypoxia improved and worsened again Is currently on Rx for PCP Anemia- might benefit from pRBC transfusion Metanebs might be helpful Incentive spirometry Monitor I/O Will increase steroid dose if no improvement D/w Dr Jacobs and Dr Germain Pts updated at bedside pt remains full code
[2019-01-07] MEDS: Hydrocortisone INJ* 100 MG VIAL IV SCH (17:21)
[2019-01-07] MEDS: Cefepime 1 GM in Dextrose(*) 1 GM/50 ML BAG IV SCH (17:24)
[2019-01-07] MEDS: Azithromycin 500 mg/250 ml NS 500 MG/250 ML BAG IVPB SCH (17:24)
[2019-01-07 17:42] LABS: Troponin I 0.05 ng/mL (<0.04)
[2019-01-07] MEDS ORDERED: Acetaminophen IV 1GM/100ML * 100 ML IVPB ONE (17:50)
[2019-01-07] MEDS: Lactated Ringers 1000 ML Bag* 1,000 ML IV SCH (18:00)
[2019-01-07] MEDS: Albuterol/Ipratropium NEB.SOL* Albuterol 2.5 MG/Ipratropium 0.5 MG 3 ML INH PRN (19:31)
--- NOTE | 2019-01-07 20:27 | CONS ---
CONSULTATION REPORT: DATE OF CONSULT: 01/07/19 REQUESTING PHYSICIAN: Dr. Barger. CONSULTING SERVICE: Infectious Disease. REASON FOR CONSULTATION: Fever, pneumonia. IMPRESSION: 1. Persistent fever most days for the last 2 or 3 months along with transaminitis. Progression of bilateral ground-glass opacity in the setting of chemotherapy for metastatic lung cancer. Ongoing fever, flushing, and rigors and acute hypoxemic respiratory failure. He had a bronchoscopy with BAL yesterday. The specimens are pending. Started on empiric pneumocystis coverage this morning given past corticosteroid use. Differential diagnosis for his fever and infiltrates include some infections, pneumocystis is possible , but the fever, flushing and rigors would not be expected with pneumocystis alone. Viral infections like human metapneumovirus are a consideration. Cryptococcal pneumonia is possible. Atypical organism is possible, though seemed less likely as he has had coverage for those over past admissions. He does not have PE by his recent CT. 2. Metastatic lung cancer involving the liver and brain. 3. Possible adrenal insufficiency, on hydrocortisone. 4. Transaminitis with a focal liver lesion I think does not likely explain his liver test changes. RECOMMENDATIONS: We will stop the Zosyn. Start cefepime and azithromycin. He is started on Bactrim this morning. I am going to increase his hydrocortisone dosing to increase the corticosteroid dose and provide some coverage in the setting of his current instability hemodynamically and respiratory benitez. We will follow up his microbiology studies. I will add human metapneumovirus nasopharyngeal swab and a cryptococcal antigen from the blood. HISTORY OF PRESENT ILLNESS: This is a 63-year-old man with metastatic lung cancer, has been here 2 or 3 times in the last 2 months with fever, shaking chills, shortness of breath, progressive infiltrates bilateral lungs. His workup to this point has been negative other than detection of cancer in his liver. He had been treated with gamma knife and corticosteroids for brain lesions. Here, he was readmitted with shortness of breath and ongoing fever. CT of the chest did not PE. It showed bilateral ground-glass opacity. T-max was 39.4 last night. He has been satting in the high 90s on 2 or 3 L, now is mid 80s on 10 L, is back to 99% on 15 L. He complains of chest pain and flushing with some shaking chills that he cannot stop. He had a bronchoscopy yesterday. He cannot provide much history of what has been happening and that is provided by his and discussion with Dr. Barger and review of the medical records and then a discussion with Dr. Dodson this afternoon. PAST MEDICAL HISTORY: 1. Adenocarcinoma of the lung with metastatic disease involving the brain and liver. He has had chemotherapy, corticosteroids, and gamma knife treatment. 2. Possible adrenal insufficiency. 3. Anemia. 4. Transaminitis. 5. COPD. MEDICATIONS: 1. Tylenol. 2. Zosyn. 3. Famotidine. 4. Heparin subcutaneous injection. 5. Hydrocortisone 10 mg by mouth twice daily. 6. Spiriva. 7. Bactrim 400 mg IV every 8 hours. ALLERGIES: No known drug allergies. SOCIAL HISTORY: Lives with his . Past drinker. REVIEW OF SYSTEMS: All negative except as noted above to 12-point review of systems. PHYSICAL EXAM: Vital Signs: Temperature 37, heart rate 100, respiratory rate 25, blood pressure 140/70, oxygen saturation 99% on 15 L by nasal cannula. In general, he is awake, appears uncomfortable, not in distress and not diaphoretic. He does have rigors and flushing. HEENT: There is no conjunctival hemorrhage. Oropharynx: Without lesions. Neck is supple without mass. Heart is regular and tachycardic without murmurs. Lungs: Coarse breath sounds bilaterally without wheeze or rale. Abdomen: Soft, nontender. Mildly distended. There are bowel sounds present. Skin: There are no rashes or splinter hemorrhages. Musculoskeletal: There is no spine tenderness to palpation or joint synovitis. LAB DATA: Creatinine 0.5. ALT 58. White blood cell count 7, hemoglobin 7, platelets 282. Please see impressions and recommendations outlined above which I discussed with Dr Dodson. Thank you for asking me to see Mr. Randolph in consultation. [id number]/[facility] #: [id number] [facility]
--- NOTE | 2019-01-07 21:10 | CONS ---
CONSULTATION NOTE: DATE OF CONSULT: 01/07/19 REASON FOR CONSULT: Pneumonia with respiratory failure. HISTORY OF PRESENT ILLNESS: The patient is a 63-year-old white male with the diagnosis of stage IV lung CA since October of this year, who was admitted on with a community-acquired pneumonia, placed on multiple antibiotics and underwent a bronchoscopy yesterday without a pathogen isolated at this time. The patient was sent out of the intensive care unit earlier this morning, but returns this afternoon with apparent increasing respiratory distress on the floor. By the time the patient reached the intensive care unit, he appeared to be breathing comfortably and was in no respiratory distress. O2 sats were in the 90s, on nasal O2 at 7 L per minute. After admission to the ICU, temp was recorded at 105 degrees. CURRENT MEDICATIONS: Include: 1. Bactrim. 2. Cefepime 1 g q.12 hours. 3. Hydrocortisone 50 mg q.8 hours. 4. Azithromycin 500 mg q.24 hours. PHYSICAL EXAM: The patient appeared comfortable and could complete sentences without difficulty. Vital Signs: Temp 105, pulse 103 and regular, respirations 16 per minute, O2 sats as mentioned, and blood pressure was 127/60 with a mean blood pressure of 84. HEENT: Facial flushing. Neck supple. Lungs clear to auscultation. Cardiac exam revealed irregular rhythm. Abdomen was not distended. Extremities show 1 to 2+ edema, but were warm and not cyanotic. DIAGNOSTIC STUDIES/LABORATORY DATA: Laboratory tests were significant for a normal white count, a normal platelet count, low albumin, low magnesium, and elevated alkaline phosphatase. Chest x-ray showed patchy infiltrates in both lungs right greater than the left. IMPRESSION: Progressive pneumonia (bilateral) -so far, no organism has been identified. Despite temperature of 105, the patient does not appear uncomfortable. There is no evidence of respiratory distress and oxygenation is adequate on relatively small amounts of nasal oxygen. PLAN: Will closely monitor the patient's respiratory status, and treat the hyperpyrexia with IV acetaminophen and ice packs to the axilla. There are no indications for intubation at this time. ID service will manage antimicrobial Rx. CRITICAL CARE TIME: 60 minutes. [id number]/[facility] #: [id number] MARINA
[2019-01-08] MEDS: Hydrocortisone INJ* 100 MG VIAL IV SCH ×3 (01:03→16:46)
[2019-01-08] MEDS: Albuterol/Ipratropium NEB.SOL* Albuterol 2.5 MG/Ipratropium 0.5 MG 3 ML INH PRN ×2 (01:05→06:08)
[2019-01-08] MEDS: Lactated Ringers 1000 ML Bag* 1,000 ML IV SCH ×2 (03:03→12:58)
[2019-01-08] MEDS: D5W IVPB SCH ×2 (04:33→13:23)
[2019-01-08] MEDS: TRIMETH IVPB SCH ×2 (04:33→13:23)
[2019-01-08] MEDS: Cefepime 1 GM in Dextrose(*) 1 GM/50 ML BAG IV SCH ×2 (04:33→16:48)
[2019-01-08] MEDS: SULFAMETHOXAZOLE IVPB SCH ×2 (04:33→13:23)
[2019-01-08 05:23] LABS: ABS Lymphocytes 0.9 10^3/ul (1.0-4.8); ABS Monocytes 0.2 10^3/ul (0-0.8); ABS Neutrophils 6.6 10^3/ul (1.5-7.7); Eosinophil % 0.1 %; Hematocrit 24 % (42-52); Hemoglobin 7.9 g/dL (14.0-18.0); Lymphocyte % 11.1 %; Mean Corpuscular HGB Conc 34 g/dL (31-36); Mean Corpuscular Hemoglobin 29 pg (27-31); Mean Corpuscular Volume 85 fL (80-94); Mean Platelet Volume 8.1 fL (7.4-10.4); Nucleated Red Blood Cells % 0.1; Platelet Count 288 10^3/uL (150-450); Red Blood Count 2.77 10^6 /uL (4.18-5.48); Red Cell Distribution Width 18 % (10-15); White Blood Count 7.7 10^3/uL (3.5-10.8)
[2019-01-08] MEDS: Sucralfate SUSP 1 GM/10 ml 10 ML UDC PO SCH ×3 (05:40→16:45)
[2019-01-08] MEDS: Heparin VIAL(*) 5000 UNITS/ML VIAL (FIVE THOUSAND) SUBCUT SCH ×3 (05:40→21:15)
[2019-01-08] MEDS: oxyCODONE TAB* 5 MG TAB PO PRN ×3 (07:18→19:53)
[2019-01-08] MEDS: Tiotropium CAP.INH* CAP.INH/18 MCG (USE ORDER SET !) INH SCH (07:55)
[2019-01-08] MEDS ORDERED: Lorazepam PYXIS KEY ONE (08:23)
[2019-01-08] MEDS: Magnesium Oxide TAB* 400 MG PO SCH ×2 (08:38→19:54)
[2019-01-08] MEDS: Benzonatate CAP* 100 MG PO SCH ×2 (08:38→19:53)
[2019-01-08] MEDS: Famotidine TAB* 20 MG PO SCH ×2 (08:38→19:53)
[2019-01-08] MEDS: Metoprolol Tartrate TAB* 25 MG PO SCH ×2 (08:39→19:54)
[2019-01-08] MEDS: Pantoprazole TAB * 40 MG TAB PO SCH (08:39)
[2019-01-08] MEDS: Potassium Chlor TAB* 20 MEQ TAB.ER PO SCH ×2 (08:39→19:53)
[2019-01-08] MEDS: Prochlorperazine TAB* 10 MG PO SCH ×2 (08:39→19:54)
--- NOTE | 2019-01-08 12:35 | CONSULT ---
Palliative / Hospice Consult Ordering Provider: Jhonny Germain - Matt Referal Reason: Goals of care. - Subjective Code Status: Full Code Advance Directives Location: No Advance Directives - History or Present Illness History or Present Illness: 63 yo male with stage 4 NSCLC presents to ER wit SOB and lower leg edema. He had been recently hospitalized for pneumonia and was discharged 3 days ago. 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 He is an ex smoker, social etoh and , Jessenia is his HCP [phone]. Studies CXR-interstitial edema , ekg-nsr, CTA no PE, GGO of RUL, RML, RLL & MONI 6.7 mass in RLL & gallbladder lesion; GB/US-mass or polyp of gallbladder, ECHO EF 55-60%, doppler -no DVT, H/H 7.5/23, BUN/Cr 11/ .54 egfr 153, Ca 7.8, Mg 1.6, tprot 5.3, alb 2.2, INR 1.48, Ast 68 & Alt 58. All hstory is from the pt and medical records. Pt was admitted to the ICU transferred to the floor on 01/07 and transferred back to ICU same day and diagnosed with respiratory failure, fevers, transaminitis and adrenal insufficiency. Lab Values: Abnormal Lab Results 01/07/19 01/08/19 17:04 04:36 WBC 7.7 RBC 2.77 L Hgb 7.9 L Hct 24 L MCV 85 MCH 29 MCHC 34 RDW 18 H Plt Count 288 MPV 8.1 Neut % (Auto) 85.3 Lymph % (Auto) 11.1 [place] % (Auto) 3.1 Eos % (Auto) 0.1 Baso % (Auto) 0.4 Absolute Neuts (auto) 6.6 Absolute Lymphs (auto) 0.9 L Absolute Monos (auto) 0.2 Absolute Eos (auto) 0.0 Absolute Basos (auto) 0.0 Absolute Nucleated RBC 0.0 Nucleated RBC % 0.1 Troponin I 0.05 H* Laboratory Last Values WBC 7.7 10^3/uL (3.5-10.8) 01/08/19 04:36 RBC 2.77 10^6 /uL (4.18-5.48) L 01/08/19 04:36 Hgb 7.9 g/dL (14.0-18.0) L 01/08/19 04:36 Hct 24 % (42-52) L 01/08/19 04:36 MCV 85 fL (80-94) 01/08/19 04:36 MCH 29 pg (27-31) 01/08/19 04:36 MCHC 34 g/dL (31-36) 01/08/19 04:36 RDW 18 % (10-15) H 01/08/19 04:36 Plt Count 288 10^3/uL (150-450) 01/08/19 04:36 MPV 8.1 fL (7.4-10.4) 01/08/19 04:36 Neut % (Auto) 85.3 % 01/08/19 04:36 Lymph % (Auto) 11.1 % 01/08/19 04:36 [place] % (Auto) 3.1 % 01/08/19 04:36 Eos % (Auto) 0.1 % 01/08/19 04:36 Baso % (Auto) 0.4 % 01/08/19 04:36 Absolute Neuts (auto) 6.6 10^3/ul (1.5-7.7) 01/08/19 04:36 Absolute Lymphs (auto) 0.9 10^3/ul (1.0-4.8) L 01/08/19 04:36 Absolute Monos (auto) 0.2 10^3/ul (0-0.8) 01/08/19 04:36 Absolute Eos (auto) 0.0 10^3/ul (0-0.6) 01/08/19 04:36 Absolute Basos (auto) 0.0 10^3/ul (0-0.2) 01/08/19 04:36 Absolute Nucleated RBC 0.0 10^3/ul 01/08/19 04:36 Immature Gran % 18.0 % (0-9) H 01/05/19 16:08 Neutrophils % 67.0 % 01/05/19 16:08 Band Neutrophils % 18.0 % (0-8) H 01/05/19 16:08 Lymphocytes % 11.0 % 01/05/19 16:08 Monocytes % 4.0 % 01/05/19 16:08 Nucleated RBC % 0.1 01/08/19 04:36 Normal RBC Morphology Not Reportable 01/05/19 16:08 Microcytosis 1+ 01/05/19 16:08 Macrocytosis 1+ 01/05/19 16:08 INR (Anticoag Therapy) 1.48 (0.82-1.09) H 01/06/19 01:27 APTT 36.3 seconds (26.0-38.0) 01/06/19 01:27 Patient Temperature Not Reportable 01/05/19 20:05 ABG pH 7.52 (7.35-7.45) H 01/05/19 20:05 ABG pH (Temp Correct) Not Reportable 01/05/19 20:05 ABG pCO2 29 mmHg (35-45) L 01/05/19 20:05 ABG pCO2 (Temp Corrct Not Reportable 01/05/19 20:05 ABG pO2 69 mmHg (80-100) L 01/05/19 20:05 ABG pO2 (Temp Correct Not Reportable 01/05/19 20:05 ABG HCO3 26.2 mmol/L (19-31) 01/05/19 20:05 ABG O2 Saturation 97.0 % (94.0-98.0) 01/05/19 20:05 ABG Base Excess 1.7 mmol/L (-2.0-2.0) 01/05/19 20:05 Respiration Rate Not Reportable 01/05/19 20:05 O2 Delivery Device salter 01/05/19 20:05 Ventilator Type Not Reportable 01/05/19 20:05 Vent Mode Not Reportable 01/05/19 20:05 FiO2 Not Reportable 01/05/19 20:05 Inspiratory Time Not Reportable 01/05/19 20:05 PEEP Not Reportable 01/05/19 20:05 Pressure Support Not Reportable 01/05/19 20:05 Pressure Control Not Reportable 01/05/19 20:05 EPAP Not Reportable 01/05/19 20:05 IPAP Not Reportable 01/05/19 20:05 BiPAP Not Reportable 01/05/19 20:05 Sodium 134 mmol/L (135-145) L 01/07/19 05:55 Potassium 3.9 mmol/L (3.5-5.0) 01/07/19 05:55 Chloride 102 mmol/L (101-111) 01/07/19 05:55 Carbon Dioxide 24 mmol/L (22-32) 01/07/19 05:55 Anion Gap 8 mmol/L (2-11) 01/07/19 05:55 BUN 11 mg/dL (6-24) 01/07/19 05:55 Creatinine 0.54 mg/dL (0.67-1.17) L 01/07/19 05:55 Est GFR ( Amer) 185.3 (>60) 01/07/19 05:55 Est GFR (Non-Af Amer) 153.2 (>60) 01/07/19 05:55 BUN/Creatinine Ratio 20.4 (8-20) H 01/07/19 05:55 Glucose 128 mg/dL (70-100) H 01/07/19 05:55 Lactic Acid 0.9 mmol/L (0.5-2.0) 01/05/19 16:08 Calcium 7.8 mg/dL (8.6-10.3) L 01/07/19 05:55 Magnesium 1.6 mg/dL (1.9-2.7) L 01/07/19 05:55 Total Bilirubin 0.50 mg/dL (0.2-1.0) 01/07/19 05:55 Direct Bilirubin 0.20 mg/dL (0.03-0.18) H 01/06/19 11:02 Indirect Bilirubin TNP 01/06/19 09:25 AST 68 U/L (13-39) H 01/07/19 05:55 ALT 58 U/L (7-52) H 01/07/19 05:55 Alkaline Phosphatase 267 U/L (34-104) H 01/07/19 05:55 Lactate Dehydrogenase Cancelled 01/06/19 11:02 Troponin I 0.05 ng/mL (<0.04) H* 01/07/19 17:04 B-Natriuretic Peptide 125 pg/mL (<=100) H 01/05/19 16:08 Total Protein 5.3 g/dL (6.4-8.9) L 01/07/19 05:55 Albumin 2.2 g/dL (3.2-5.2) L 01/07/19 05:55 Globulin 3.1 g/dL (2-4) 01/07/19 05:55 Albumin/Globulin Ratio 0.7 (1-3) L 01/07/19 05:55 Blood Type O Positive 01/05/19 16:09 Antibody Screen Negative 01/05/19 16:09 Crossmatch See Detail 01/05/19 16:09 - Objective Active Medications: Acetaminophen (Tylenol Tab*) 650 mg PO Q4H PRN PRN Reason: FEVER/PAIN Last Admin: 01/07/19 17:21 Dose: 650 mg Albuterol (Ventolin 2.5 Mg/3 Ml Neb.Lottie*) 2.5 mg INH [id number] AWAKE PRN PRN Reason: sob/wheezing Last Admin: 01/06/19 15:42 Dose: 2.5 mg Albuterol/Ipratropium (Duoneb (Albuterol 2.5 Mg/Ipratropium 0.5 Mg)) 1 neb INH [id number] AWAKE PRN PRN Reason: sob/wheexing Last Admin: 01/08/19 06:08 Dose: 1 neb Benzonatate (Tessalon Cap*) 100 mg PO BID [facility] Last Admin: 01/08/19 08:38 Dose: 100 mg Famotidine (Pepcid Tab*) 20 mg PO BID [facility]; Protocol Last Admin: 01/08/19 08:38 Dose: 20 mg Heparin Sodium (Porcine) (Heparin Vial(*)) 5,000 units SUBCUT Q8HR TIANNA Last Admin: 01/08/19 05:40 Dose: 5,000 units Hydrocortisone Sodium Succinate (Solu-Cortef*) 50 mg IV Q8H TIANNA Last Admin: 01/08/19 08:40 Dose: 50 mg Trimethoprim/Sulfamethoxazole (400 mg/ Dextrose) 525 mls @ 260 mls/hr IVPB Q8H TIANNA Last Admin: 01/08/19 04:33 Dose: 260 mls/hr Azithromycin (Zithromax 500 Mg/250 Ml) 500 mg in 250 mls @ 250 mls/hr IVPB Q24H TIANNA Last Admin: 01/07/19 17:24 Dose: 250 mls/hr Cefepime HCl (Maxipime 1 Gm In Dextrose Duplex (*)) 1 gm in 50 mls @ 100 mls/ hr IV Q12H [facility] Last Admin: 01/08/19 04:33 Dose: 100 mls/hr Lactated Ringer's (Lactated Ringers 1000 Ml Bag*) 1,000 mls @ 100 mls/hr IV PER RATE [facility] Last Admin: 01/08/19 03:03 Dose: 100 mls/hr Magnesium Oxide (Magox 400 Tab*) 400 mg PO BID [facility] Last Admin: 01/08/19 08:38 Dose: 400 mg Metoprolol Tartrate (Lopressor Tab*) 12.5 mg PO BID [facility] Last Admin: 01/08/19 08:39 Dose: 12.5 mg Metoprolol Tartrate (Lopressor Iv*) 5 mg IV Q4H PRN PRN Reason: TACHYCARDIA Ondansetron HCl (Zofran Inj*) 4 mg IV Q4H PRN PRN Reason: NAUSEA/VOMITING Oxycodone HCl (Roxycodone Tab*) 10 mg PO Q4H PRN PRN Reason: PAIN Last Admin: 01/08/19 07:18 Dose: 10 mg Pantoprazole Sodium (Protonix Tab*) 40 mg PO DAILY [facility] Last Admin: 01/08/19 08:39 Dose: 40 mg Potassium Chloride (Klor Con Er Tab*) 20 meq PO BID [facility] Last Admin: 01/08/19 08:39 Dose: 20 meq Prochlorperazine (Compazine Tab*) 10 mg PO BID [facility] Last Admin: 01/08/19 08:39 Dose: 10 mg Sucralfate (Sucralfate Susp) 1 gm PO 0630,1100,1600 [facility] Last Admin: 01/08/19 05:40 Dose: 1 gm Tiotropium [place] (Spiriva Cap.Inh*) 1 cap INH DAILY [facility] Last Admin: 01/08/19 07:55 Dose: 1 cap Vital Signs: Vital Signs: Temp Pulse Resp BP Pulse Ox 98 F 77 12 115/70 100 01/08/19 11:10 01/08/19 12:00 01/08/19 12:00 01/08/19 11:23 01/08/19 12:00 Patient Weight: Weight 79 kg Intake and Output: Intake & Output 01/06/19 01/07/19 01/08/19 01/09/19 06:59 06:59 06:59 06:59 Intake Total 915 2065 3322 120 Output Total 6193 569 8331 320 Balance -985 1335 1547 -200 Weight 76.6 kg 76.1 kg 79 kg Intake: IV Fluids 147 774 4433 ABX - AZITHROMYCIN 22 ABX - VANCOMYCIN 35 ABX - ZOSYN 100 170 LR 1148 NS (0.9%) 74 IVPB 75 540 1308 ABX - AZITHROMYCIN 275 ABX - CEFEPIME 115 ABX - VANCOMYCIN 278 ABX - ZOSYN 75 262 Acetaminophen 100 Bactrim 818 Oral 445 1320 770 120 Packed Cells 295 Output: Urine 7428 716 6221 320 Other: Estimated Void Medium Medium Medium # Bowel Movements 1 1 Estimated Stool Amount Medium Medium # Voids 1 1 1 1 ADLs: Meal Record Start: 01/05/19 19: 51 Freq: 09,13,18 Status: Active Protocol: Created 01/05/19 19:51 System (Rec: 01/05/19 19:51 System ICU-C25) Document 01/06/19 09:00 [id number] (Rec: 01/06/19 09:42 [id number] ICU-C10) Document 01/06/19 13:00 [id number] (Rec: 01/06/19 14:08 [id number] ICU-C16) Document 01/06/19 18:00 [id number] (Rec: 01/06/19 18:39 [id number] ICU-C10) Document 01/07/19 09:00 [id number] (Rec: 01/07/19 09:43 [id number] ICU-C10) Document 01/07/19 18:00 FZU3732 (Rec: 01/07/19 21:35 [id number] ICU-C10) Document 01/08/19 09:00 HHM1709 (Rec: 01/08/19 09:47 [id number] ICU-C23) ADLs: Meal Record Start: 01/07/19 11: 17 Freq: DAILY@0900,1400,1800 Status: Inactive Protocol: Created 01/07/19 11:17 [id number] (Rec: 01/07/19 11:17 [id number] ICU-C25) Intake and Output Start: 01/05/19 15: 25 Freq: Status: Active Protocol: Created 01/05/19 15:25 System (Rec: 01/05/19 15:25 System ED-C24) Document 01/05/19 20:15 [id number] (Rec: 01/05/19 20:15 [id number] ED-C19) Intake and Output Start: 01/05/19 19: 51 Freq: Q1HR Status: Active Protocol: Created 01/05/19 19:51 System (Rec: 01/05/19 19:51 System ICU-C25) Document 01/05/19 20:00 [id number] (Rec: 01/05/19 22:26 [id number] ICU-M35) Document 01/05/19 21:00 [id number] (Rec: 01/05/19 22:28 [id number] ICU-M35) Document 01/05/19 22:00 KZR3917 (Rec: 01/05/19 22:29 AVI5206 ICU-M35) Document 01/05/19 22:36 VZC5227 (Rec: 01/05/19 22:36 [id number] ICU-C25) Document 01/06/19 00:00 CBA0051 (Rec: 01/06/19 00:20 EHG2049 ICU-C25) Document 01/06/19 00:05 DFH6051 (Rec: 01/06/19 06:08 [id number] ICU-C25) Document 01/06/19 01:00 LBS0950 (Rec: 01/06/19 01:22 [id number] ICU-C25) Document 01/06/19 01:49 [id number] (Rec: 01/06/19 01:49 [id number] ICU-C25) Document 01/06/19 03:00 MVM5667 (Rec: 01/06/19 03:30 PNQ3279 ICU-C25) Document 01/06/19 03:39 EBH1629 (Rec: 01/06/19 03:39 DGH5399 ICU-C25) Document 01/06/19 05:00 SCM1997 (Rec: 01/06/19 05:34 TSU4592 ICU-C25) Document 01/06/19 05:35 LOS2269 (Rec: 01/06/19 05:35 PEN3915 ICU-C25) Document 01/06/19 09:00 OLH9590 (Rec: 01/06/19 09:59 OIQ0725 ICU-C16) Document 01/06/19 11:00 YDA3928 (Rec: 01/06/19 12:21 GCH1326 ICU-C16) Document 01/06/19 12:00 IVY0139 (Rec: 01/06/19 14:05 YNE0655 ICU-C16) Document 01/06/19 13:00 PWE1573 (Rec: 01/06/19 14:41 EIP6066 ICU-M35) Document 01/06/19 18:00 STO3622 (Rec: 01/06/19 18:40 LEA1087 ICU-C10) Document 01/06/19 19:45 EJN7254 (Rec: 01/06/19 19:53 [id number] ICU-C16) Document 01/06/19 21:00 WGI0292 (Rec: 01/06/19 21:20 BHA0101 ICU-C16) Document 01/06/19 23:00 NML9454 (Rec: 01/06/19 23:12 NDE5519 ICU-C16) Document 01/06/19 23:24 GWO4082 (Rec: 01/06/19 23:28 ECX6246 ICU-C16) Document 01/07/19 01:00 PKB2782 (Rec: 01/07/19 02:16 [id number] ICU-C10) Document 01/07/19 02:00 JSP0774 (Rec: 01/07/19 02:29 RWP3443 ICU-C12) Document 01/07/19 02:30 HCX0113 (Rec: 01/07/19 02:30 EYZ1677 ICU-C12) Document 01/07/19 03:58 HOY8153 (Rec: 01/07/19 03:59 GHS9436 ICU-C12) Document 01/07/19 05:00 BSG7642 (Rec: 01/07/19 05:10 MBA0515 ICU-C12) Document 01/07/19 05:45 BLW1889 (Rec: 01/07/19 05:45 [id number] ICU-C12) Document 01/07/19 10:00 PIJ7988 (Rec: 01/07/19 10:01 [id number] ICU-C25) Document 01/07/19 19:00 LPK5695 (Rec: 01/07/19 19:32 JRX5501 ICU-C10) Document 01/07/19 20:00 NRS1844 (Rec: 01/07/19 20:17 LDZ0498 ICU-C10) Document 01/07/19 20:47 QNN6248 (Rec: 01/07/19 20:48 GIL9676 ICU-C12) Document 01/07/19 21:00 EEP5900 (Rec: 01/07/19 21:03 [id number] ICU-C10) Document 01/07/19 21:20 JJG5078 (Rec: 01/07/19 21:20 EYC8314 ICU-C11) Document 01/07/19 22:00 VPW4205 (Rec: 01/07/19 22:07 [id number] ICU-C10) Document 01/07/19 23:00 LEL8603 (Rec: 01/07/19 23:22 [id number] ICU-C10) Document 01/08/19 00:00 XSI8569 (Rec: 01/08/19 00:14 [id number] ICU-C10) Document 01/08/19 01:00 WXH7532 (Rec: 01/08/19 01:20 BPD2124 ICU-C10) Document 01/08/19 02:00 FVZ7058 (Rec: 01/08/19 02:06 [id number] ICU-C10) Document 01/08/19 03:00 EGA7984 (Rec: 01/08/19 03:12 GSX5536 ICU-C10) Document 01/08/19 04:00 WPF7808 (Rec: 01/08/19 04:10 [id number] ICU-C10) Document 01/08/19 05:00 SOW8857 (Rec: 01/08/19 05:10 AEP9122 ICU-C10) Document 01/08/19 05:43 [id number] (Rec: 01/08/19 05:43 [id number] ICU-C10) Document 01/08/19 07:00 AVW9583 (Rec: 01/08/19 07:35 [id number] ICU-M35) Document 01/08/19 12:00 JKP2229 (Rec: 01/08/19 12:10 [id number] ICU-C10) Intake and Output Start: 01/07/19 11: 17 Freq: DAILY@0600,1400,2200 Status: Inactive Protocol: Created 01/07/19 11:17 [id number] (Rec: 01/07/19 11:17 [id number] ICU-C25) Eyes: No Scleral Icterus Neck: NL Appearance and Movements; NL JVP Cardiovascular: RRR - Assessment Assessment: 63 yo male with stage 4 NSCLC admitted with respiratory failure, fever, transaminitis and adrenal insufficiency - Plan Consult Plan (MU): Palliative Plan: Long discussion with in pt's room but he was mostly sleeping. is aware he has lung cancer with mets to brain and liver and it will limit his life expectancy. As of now they want CPR. He was just diagnosed in October and has finished his first round of chemo/radiation and gamma knife. They were to meet with Dr. Barger and discuss where treatment stood but pt got sick with pneumonia and fever and was hospitalized in ICU. I gave pt a copy of the MOLST form and we started to review it but wanted to stop. We talked about early and late goals and we talked about balancing suffering/symptoms with treatments. She has questions about alternative medication fenbendazole which I directed to oncology. They are religion [employer] [facility] in [facility] and she did talk briefly about God and miracles. I gave her information about outpatient palliative care stressing the AIM program since she will be getting VNS at discharge. Also encouraged her to use nurse navigators at [facility] to get as much support as possible. She is experiencing some caregiver stress. I did mention that her is on 15 liters and he may need to start vapotherm or BiPAP just so she is aware. KPS 30% PPS 30% - Time On Unit Date of Evaluation: 01/08/19 Hospice Consult Time in: 12:00 Hospice Consult Time Out: 13:30 Hospice Consult Time Total: 90 > 50% of Time Spend In Counseling or Coordinating Care: Yes
[2019-01-08] MEDS: Albuterol 2.5 MG/3 ML NEB.SOL* (0.083%) INH PRN ×2 (13:54→19:16)
--- NOTE | 2019-01-08 15:27 | PN ---
Progress Note - Progress Note Date of Service: 01/08/19 - Pulm f/u note Note: Pt seen and examined at bedside. Pt more alert than yesterday however hypoxia is worse Active Medications Generic Name Dose Route Start Last Admin Trade Name Freq PRN Reason Stop Dose Admin Acetaminophen 650 mg 01/05/19 19:10 01/07/19 17:21 Tylenol Tab* PO 650 mg Q4H PRN Administration FEVER/PAIN Albuterol 2.5 mg 01/05/19 19:10 01/08/19 13:54 Ventolin 2.5 Mg/3 Ml Neb.Lottie* INH 2.5 mg [id number] AWAKE PRN Administration sob/wheezing Albuterol/Ipratropium 1 neb 01/05/19 19:10 01/08/19 06:08 Duoneb (Albuterol 2.5 Mg/Ipratropium 0.5 Mg) INH 1 neb [id number] AWAKE PRN Administration sob/wheexing Benzonatate 100 mg 01/05/19 21:00 01/08/19 08:38 Tessalon Cap* PO 100 mg BID TIANNA Administration Famotidine 20 mg 01/05/19 21:00 01/08/19 08:38 Pepcid Tab* PO 20 mg BID TIANNA Administration Protocol Heparin Sodium (Porcine) 5,000 units 01/05/19 22:00 01/08/19 14:02 Heparin Vial(*) SUBCUT 5,000 units Q8HR TIANNA Administration Hydrocortisone Sodium Succinate 50 mg 01/07/19 17:00 01/08/19 08:40 Solu-Cortef* IV 50 mg Q8H TIANNA Administration Azithromycin 500 mg in 250 mls @ 250 mls/hr 01/07/19 17:30 01/07/19 17:24 Zithromax 500 Mg/250 Ml IVPB 250 mls/hr Q24H TIANNA Administration Cefepime HCl 1 gm in 50 mls @ 100 mls/hr 01/07/19 17:00 01/08/19 04:33 Maxipime 1 Gm In Dextrose Duplex (*) IV 100 mls/hr Q12H TIANNA Administration Lactated Ringer's 1,000 mls @ 100 mls/hr 01/07/19 20:00 01/08/19 12:58 Lactated Ringers 1000 Ml Bag* IV 100 mls/hr PER RATE TIANNA Administration Magnesium Oxide 400 mg 01/05/19 21:00 01/08/19 08:38 Magox 400 Tab* PO 400 mg BID TIANNA Administration Metoprolol Tartrate 12.5 mg 01/05/19 21:00 01/08/19 08:39 Lopressor Tab* PO 12.5 mg BID TIANNA Administration Metoprolol Tartrate 5 mg 01/05/19 20:30 Lopressor Iv* IV Q4H PRN TACHYCARDIA Ondansetron HCl 4 mg 01/05/19 19:10 Zofran Inj* IV Q4H PRN NAUSEA/VOMITING Oxycodone HCl 10 mg 01/06/19 10:20 01/08/19 13:20 Roxycodone Tab* PO 10 mg Q4H PRN Administration PAIN Pantoprazole Sodium 40 mg 01/05/19 19:45 01/08/19 08:39 Protonix Tab* PO 40 mg DAILY TIANNA Administration Potassium Chloride 20 meq 01/05/19 21:00 01/08/19 08:39 Klor Con Er Tab* PO 20 meq BID TIANNA Administration Prochlorperazine 10 mg 01/05/19 21:00 01/08/19 08:39 Compazine Tab* PO 10 mg BID TIANNA Administration Sucralfate 1 gm 01/06/19 11:10 01/08/19 12:54 Sucralfate Susp PO Not Given 0630,1100,1600 [facility] Tiotropium [place] 1 cap 01/06/19 09:00 01/08/19 07:55 Spiriva Cap.Inh* INH 1 cap DAILY TIANNA Administration Vital Signs Temp Pulse Resp BP Pulse Ox 98 F 84 12 110/61 94 01/08/19 11:10 01/08/19 15:00 01/08/19 15:00 01/08/19 15:00 01/08/19 15:00 O/E: Pt in NAD HEENT: PERRLA Lungs: Clear to auscultation b/l CVS: S1, S2+, tachycardia Abd: Obese, BS+ Ext: Normal ROM Skin: Facial flushing Neuro: No focal deficits Laboratory Results - last 24 hr 01/07/19 01/08/19 17:04 04:36 WBC 7.7 RBC 2.77 L Hgb 7.9 L Hct 24 L MCV 85 MCH 29 MCHC 34 RDW 18 H Plt Count 288 MPV 8.1 Neut % (Auto) 85.3 Lymph % (Auto) 11.1 [place] % (Auto) 3.1 Eos % (Auto) 0.1 Baso % (Auto) 0.4 Absolute Neuts (auto) 6.6 Absolute Lymphs (auto) 0.9 L Absolute Monos (auto) 0.2 Absolute Eos (auto) 0.0 Absolute Basos (auto) 0.0 Absolute Nucleated RBC 0.0 Nucleated RBC % 0.1 Troponin I 0.05 H* I/R: 63 year old with IV NSCLC with T3N2 disease and solitary [employer] lesion s/p gamma knife and chemotherapy and XRT to lung mass with modest response and with new liver lesions. Course has been c/b recurrent fevers, tachycardia and episodes HTN. Pt with progressive fever, SOB, hypoxic resp failure. Pt with fever, SOB, GGO on CT chest with no PE- Infectious versus inflammatory versus sec to fluid overload versus lymphatic spread of cancer PCP pneumonia r/o Is on Cefepime Is also on Solumedrol Pt with GGO opacities with signficant v/q mismatch and hypoxia requiring high FiO2 pt also with brain mets No PE noted on CTA Anemia- stable c/w Metanebs Incentive spirometry Monitor I/O Pts updated at bedside Palliative care eval noted. pt remains full code
--- NOTE | 2019-01-08 15:59 | PN ---
Progress Note - Progress Note Date of Service: 01/08/19 SOAP: Subjective: []No changes today. He is SOB with any movement. No pain. He has limited capacity to understand circumstances. Not in pain. His fear is feeling SOB. Acetaminophen (Tylenol Tab*) 650 mg PO Q4H PRN PRN Reason: FEVER/PAIN Last Admin: 01/07/19 17:21 Dose: 650 mg Albuterol (Ventolin 2.5 Mg/3 Ml Neb.Lottie*) 2.5 mg INH [id number] AWAKE PRN PRN Reason: sob/wheezing Last Admin: 01/08/19 13:54 Dose: 2.5 mg Albuterol/Ipratropium (Duoneb (Albuterol 2.5 Mg/Ipratropium 0.5 Mg)) 1 neb INH [id number] AWAKE PRN PRN Reason: sob/wheexing Last Admin: 01/08/19 06:08 Dose: 1 neb Benzonatate (Tessalon Cap*) 100 mg PO BID [facility] Last Admin: 01/08/19 08:38 Dose: 100 mg Famotidine (Pepcid Tab*) 20 mg PO BID [facility]; Protocol Last Admin: 01/08/19 08:38 Dose: 20 mg Heparin Sodium (Porcine) (Heparin Vial(*)) 5,000 units SUBCUT Q8HR [facility] Last Admin: 01/08/19 14:02 Dose: 5,000 units Hydrocortisone Sodium Succinate (Solu-Cortef*) 50 mg IV Q8H [facility] Last Admin: 01/08/19 08:40 Dose: 50 mg Azithromycin (Zithromax 500 Mg/250 Ml) 500 mg in 250 mls @ 250 mls/hr IVPB Q24H [facility] Last Admin: 01/07/19 17:24 Dose: 250 mls/hr Cefepime HCl (Maxipime 1 Gm In Dextrose Duplex (*)) 1 gm in 50 mls @ 100 mls/ hr IV Q12H [facility] Last Admin: 01/08/19 04:33 Dose: 100 mls/hr Lactated Ringer's (Lactated Ringers 1000 Ml Bag*) 1,000 mls @ 100 mls/hr IV PER RATE [facility] Last Admin: 01/08/19 12:58 Dose: 100 mls/hr Magnesium Oxide (Magox 400 Tab*) 400 mg PO BID [facility] Last Admin: 01/08/19 08:38 Dose: 400 mg Metoprolol Tartrate (Lopressor Tab*) 12.5 mg PO BID [facility] Last Admin: 01/08/19 08:39 Dose: 12.5 mg Metoprolol Tartrate (Lopressor Iv*) 5 mg IV Q4H PRN PRN Reason: TACHYCARDIA Ondansetron HCl (Zofran Inj*) 4 mg IV Q4H PRN PRN Reason: NAUSEA/VOMITING Oxycodone HCl (Roxycodone Tab*) 10 mg PO Q4H PRN PRN Reason: PAIN Last Admin: 01/08/19 13:20 Dose: 10 mg Pantoprazole Sodium (Protonix Tab*) 40 mg PO DAILY [facility] Last Admin: 01/08/19 08:39 Dose: 40 mg Potassium Chloride (Klor Con Er Tab*) 20 meq PO BID [facility] Last Admin: 01/08/19 08:39 Dose: 20 meq Prochlorperazine (Compazine Tab*) 10 mg PO BID [facility] Last Admin: 01/08/19 08:39 Dose: 10 mg Sucralfate (Sucralfate Susp) 1 gm PO 0630,1100,1600 [facility] Last Admin: 01/08/19 12:54 Dose: Not Given Tiotropium [place] (Spiriva Cap.Inh*) 1 cap INH DAILY [facility] Last Admin: 01/08/19 07:55 Dose: 1 cap Objective: [] Vital Signs Temp Pulse Resp BP Pulse Ox 97.5 F 84 12 110/61 94 01/08/19 15:37 01/08/19 15:00 01/08/19 15:00 01/08/19 15:00 01/08/19 15:00 HEENT: No oral lesions, no LAD dec BS, some crackles RRR S1 S2 Obese, + BS Assessment: []63 year old with IV NSCLC. 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 Treated with gamma knife and chemotherapy and XRT to lung mass with modest responds but development of new liver lesions. Course has been c/b recurrent fevers, tachycardia and episodes HTN, increased LFTs. Ddx: systemic response to progressive disease, lymphocytic tumor infiltrate possible but this would be very atypical progression, infection, viral or atypical organism. Plan: []1. Fevers. Neg for PCP, additional studies pending. - No fever today, continue current antibiotics. - Follow for cultures. 2. Increased LFTs. DDx: medication effect, fluid, metastatic disease. Stable at this megan. 3. Adrenal insufficiency. Hydrocortisone increased to 50 q 8 for stress dose. 4. Lung cancer. Unclear that he will be able to have treatment. 5. Discussed code status. I am concerned about progressive SOB over past several weeks despite aggressive therapy. Discussed that if despite current treatment his breathing worsened and he needed to be on a ventilator I do not think he would ever come off machine. Many people would decide not to be intubated. understands that prognosis is poor and will discuss DNI/DNR further with patient.
--- NOTE | 2019-01-08 16:24 | PN ---
Date of Service: 01/08/19 Critical Care Services: Looks comfortable, but O2 requirement is slowly rising. No PCP by BAL. Vital Signs: Temp Pulse Resp BP SpO2 FiO2 97.5 F 84 12 110/61 94 Physical Exam: Gen:alert, oriented HEENT: OP clear Lungs:crackles both sides Extremities:Warm. Trace edema. No cyanosis Fluid Balance (Past 24 Hours): 01/06/19 01/07/19 01/08/19 06:59 06:59 06:59 Intake Total 915 2065 3322 Output Total 0813 526 6123 Balance -985 1335 1547 Weight 168 lb 13.985 oz 167 lb 12.348 oz 174 lb 2.643 oz Intake: IV Fluids 589 787 8430 ABX - AZITHROMYCIN 22 ABX - VANCOMYCIN 35 ABX - ZOSYN 100 170 Bactrim LR 1148 NS (0.9%) 74 IVPB 75 540 1308 ABX - AZITHROMYCIN 275 ABX - CEFEPIME 115 ABX - VANCOMYCIN 278 ABX - ZOSYN 75 262 Acetaminophen 100 Bactrim 818 Oral 445 1320 770 Packed Cells 295 Output: Urine 5598 744 2141 Other: Estimated Void Medium Medium Medium # Bowel Movements 1 1 Estimated Stool Amount Medium Medium # Voids 1 1 1 NOTE: 3 liters positive last 48 hours Labs: 01/07/19 01/08/19 17:04 04:36 WBC 7.7 Hgb 7.9 L Hct 24 L MCV 85 MCH 29 MCHC 34 RDW 18 H Plt Count 288 MPV 8.1 Neut % (Auto) 85.3 Lymph % (Auto) 11.1 [place] % (Auto) 3.1 Eos % (Auto) 0.1 Baso % (Auto) 0.4 Absolute Neuts (auto) 6.6 Absolute Lymphs (auto) 0.9 L Absolute Monos (auto) 0.2 Absolute Eos (auto) 0.0 Absolute Basos (auto) 0.0 Absolute Nucleated RBC 0.0 Nucleated RBC % 0.1 Troponin I 0.05 H* Nutrition: Oral diet - intake is good. Impression: 1. Progressive hypoxemia 2. Positive fluid balance - ?are #1 and #2 related?? 3. Presumed pneumonia - no pathogen isolated at this time Prognosis poor - patient is not a good candidate for mechanical ventilation ( because of the poor prognosis), and Dr. Barger has presented this to the patient' s . Plan: 1. Cut back on IV fluids 2. Diurese PRN 3. D/C Bactrim Critical Care Time: 40 minutes
[2019-01-08] MEDS ORDERED: Lactated Ringers 1000 ML Bag* 1,000 ML IV SCH (16:26)
[2019-01-08] MEDS: Azithromycin 500 mg/250 ml NS 500 MG/250 ML BAG IVPB SCH (17:45)
[2019-01-09] MEDS: oxyCODONE TAB* 5 MG TAB PO PRN ×4 (00:38→16:36)
[2019-01-09] MEDS: Hydrocortisone INJ* 100 MG VIAL IV SCH ×3 (00:39→16:36)
[2019-01-09] MEDS: Cefepime 1 GM in Dextrose(*) 1 GM/50 ML BAG IV SCH ×2 (05:35→16:36)
[2019-01-09] MEDS: Sucralfate SUSP 1 GM/10 ml 10 ML UDC PO SCH ×3 (05:37→16:36)
[2019-01-09] MEDS: Heparin VIAL(*) 5000 UNITS/ML VIAL (FIVE THOUSAND) SUBCUT SCH ×3 (05:38→21:02)
[2019-01-09 07:02] LABS: Hematocrit 26 % (42-52); Hemoglobin 8.9 g/dL (14.0-18.0); Mean Corpuscular HGB Conc 34 g/dL (31-36); Mean Corpuscular Hemoglobin 29 pg (27-31); Mean Corpuscular Volume 86 fL (80-94); Platelet Count 392 10^3/uL (150-450); Red Blood Count 3.03 10^6 /uL (4.18-5.48); Red Cell Distribution Width 18 % (10-15); White Blood Count 12.4 10^3/uL (3.5-10.8)
[2019-01-09 07:12] LABS: Albumin 2.2 g/dL (3.2-5.2); Albumin/Globulin Ratio 0.8 (1-3); BUN/Creatinine Ratio 12.8 (8-20); Calcium 8.1 mg/dL (8.6-10.3); EGFR African American 269.8 (>60); Globulin 2.8 g/dL (2-4); Potassium 3.9 mmol/L (3.5-5.0); Total Bilirubin 0.3 mg/dL (0.2-1.0)
[2019-01-09] MEDS: Tiotropium CAP.INH* CAP.INH/18 MCG (USE ORDER SET !) INH SCH (07:38)
--- NOTE | 2019-01-09 09:06 | PN ---
Progress Note - Progress Note Date of Service: 01/09/19 SOAP: Subjective: []Increased resp. distress this AM with hypoxia and tachycardia despite high flow O2. Agreed to Vapotherm and now improved with O2 SATs in the 90s and HR 90 -110s. at bedside, takes notes during exam today. 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 Darci is able to state understanding that his current situation is "risky" and he may not get better, "It's in god's hands." states they want him to be full code, "We told Dr. Campos that already." Right Upper quad pain intermittently. Medications: Acetaminophen (Tylenol Tab*) 650 mg PO Q4H PRN PRN Reason: FEVER/PAIN Last Admin: 01/07/19 17:21 Dose: 650 mg Albuterol (Ventolin 2.5 Mg/3 Ml Neb.Lottie*) 2.5 mg INH [id number] AWAKE PRN PRN Reason: sob/wheezing Last Admin: 01/08/19 19:16 Dose: 2.5 mg Albuterol/Ipratropium (Duoneb (Albuterol 2.5 Mg/Ipratropium 0.5 Mg)) 1 neb INH [id number] AWAKE PRN PRN Reason: sob/wheexing Last Admin: 01/08/19 06:08 Dose: 1 neb Benzonatate (Tessalon Cap*) 100 mg PO BID [facility] Last Admin: 01/08/19 19:53 Dose: 100 mg Famotidine (Pepcid Tab*) 20 mg PO BID [facility]; Protocol Last Admin: 01/08/19 19:53 Dose: 20 mg Heparin Sodium (Porcine) (Heparin Vial(*)) 5,000 units SUBCUT Q8HR [facility] Last Admin: 01/09/19 05:38 Dose: 5,000 units Hydrocortisone Sodium Succinate (Solu-Cortef*) 50 mg IV Q8H [facility] Last Admin: 01/09/19 00:39 Dose: 50 mg Azithromycin (Zithromax 500 Mg/250 Ml) 500 mg in 250 mls @ 250 mls/hr IVPB Q24H [facility] Last Admin: 01/08/19 17:45 Dose: 250 mls/hr Cefepime HCl (Maxipime 1 Gm In Dextrose Duplex (*)) 1 gm in 50 mls @ 100 mls/ hr IV Q12H [facility] Last Admin: 01/09/19 05:35 Dose: 100 mls/hr Lactated Ringer's (Lactated Ringers 1000 Ml Bag*) 1,000 mls @ 25 mls/hr IV PER RATE [facility] Magnesium Oxide (Magox 400 Tab*) 400 mg PO BID [facility] Last Admin: 01/08/19 19:54 Dose: 400 mg Metoprolol Tartrate (Lopressor Tab*) 12.5 mg PO BID [facility] Last Admin: 01/08/19 19:54 Dose: 12.5 mg Metoprolol Tartrate (Lopressor Iv*) 5 mg IV Q4H PRN PRN Reason: TACHYCARDIA Ondansetron HCl (Zofran Inj*) 4 mg IV Q4H PRN PRN Reason: NAUSEA/VOMITING Oxycodone HCl (Roxycodone Tab*) 10 mg PO Q4H PRN PRN Reason: PAIN Last Admin: 01/09/19 06:40 Dose: 10 mg Pantoprazole Sodium (Protonix Tab*) 40 mg PO DAILY [facility] Last Admin: 01/08/19 08:39 Dose: 40 mg Potassium Chloride (Klor Con Er Tab*) 20 meq PO BID [facility] Last Admin: 01/08/19 19:53 Dose: 20 meq Prochlorperazine (Compazine Tab*) 10 mg PO BID [facility] Last Admin: 01/08/19 19:54 Dose: 10 mg Sucralfate (Sucralfate Susp) 1 gm PO 0630,1100,1600 [facility] Last Admin: 01/09/19 05:37 Dose: 1 gm Tiotropium [place] (Spiriva Cap.Inh*) 1 cap INH DAILY [facility] Last Admin: 01/09/19 07:38 Dose: 1 cap Objective: [] Vital Signs Temp Pulse Resp BP Pulse Ox 98.5 F 96 19 144/83 95 01/09/19 08:00 01/09/19 07:00 01/09/19 07:39 01/09/19 07:00 01/09/19 07:00 A&O, neuro grossly non-focal HRR, S1S2, ST on tele LS dim. bilat., accessory muscle use No peripheral edema Laboratory Results - last 24 hr 01/09/19 01/09/19 06:30 06:30 WBC 12.4 H RBC 3.03 L Hgb 8.9 L Hct 26 L MCV 86 MCH 29 MCHC 34 RDW 18 H Plt Count 392 MPV 8.0 Sodium 136 Potassium 3.9 Chloride 100 L Carbon Dioxide 25 Anion Gap 11 BUN 5 L Creatinine 0.39 L Est GFR ( Amer) 269.8 Est GFR (Non-Af Amer) 223.0 BUN/Creatinine Ratio 12.8 Glucose 223 H Calcium 8.1 L Total Bilirubin 0.30 AST 46 H ALT 46 Alkaline Phosphatase 264 H Total Protein 5.0 L Albumin 2.2 L Globulin 2.8 Albumin/Globulin Ratio 0.8 L Assessment: []63 year old with stage IV NSCLC. Presentation with T3N2 disease and solitary [employer]AL lesion now s/p gamma knife and combined chemo/XRT however complicated course and unfortunately modest response and now new liver lesions. He was admitted 4 days ago with SOB and hypoxia, unclear process, however I suspect a large portion of this is secondary to severe underlying COPD/Emphysema. Plan: []1. Respiratory distress: progressive today, ddx: FVO, progressive cancer, severe COPD, or infectious - no further fevers in >24 hrs (last temp approx. 1700 01/07) - bronchoscopy neg. PCP, additional studies pending. - cultures negative - Continue current antibiotics - try to keep neg. fluid balance - echo with bubble test per clinical rehabilitation coordinator 2. Elevated liver enzymes: stable, follow 3. Adrenal insufficiency: Hydrocortisone increased to 50 q 8 for stress dose 4. Metastatic NSCLC: unclear if he will recover to point that he can start palliative chemotherapy Full Code Dispo: ICU level d/t hypoxia with vapotherm required, potential for need to escalate care Appreciate clinical rehabilitation coordinator management, case discussed with Dr. Germain
[2019-01-09] MEDS ORDERED: Furosemide IV* 10 MG/ML VIAL (40 MG) IV ONE (09:14)
[2019-01-09] MEDS ORDERED: Furosemide IV* 10 MG/ML VIAL (40 MG) ONE (09:18)
[2019-01-09 09:19] LABS: ABS Basophils 0.1 10^3/ul (0-0.2); ABS Lymphocytes 1.3 10^3/ul (1.0-4.8); ABS Monocytes 0.3 10^3/ul (0-0.8); ABS Neutrophils 10.8 10^3/ul (1.5-7.7); Lymphocyte % 10.3 %; Nucleated Red Blood Cells % 0.1
[2019-01-09] MEDS: Prochlorperazine TAB* 10 MG PO SCH ×2 (09:27→20:58)
[2019-01-09] MEDS: Potassium Chlor TAB* 20 MEQ TAB.ER PO SCH ×2 (09:27→20:58)
[2019-01-09] MEDS: Metoprolol Tartrate TAB* 25 MG PO SCH ×2 (09:27→20:58)
[2019-01-09] MEDS: Benzonatate CAP* 100 MG PO SCH ×2 (09:27→20:58)
[2019-01-09 09:28] LABS: Magnesium 1.6 mg/dL (1.9-2.7)
[2019-01-09] MEDS: Magnesium Oxide TAB* 400 MG PO SCH ×2 (09:28→20:58)
[2019-01-09] MEDS: Pantoprazole TAB * 40 MG TAB PO SCH (09:28)
[2019-01-09] MEDS: Famotidine TAB* 20 MG PO SCH ×2 (09:28→20:58)
--- NOTE | 2019-01-09 11:08 | PN ---
Progress Note - Progress Note Date of Service: 01/09/19 SOAP: Subjective: CC: Pneumonia HPI: Mr. Randolph is a 63 yo male with PMH significant for metastatic lung cancer involving the brain and liver treated with chemo, steroids, and gamma knife treatment, anemia, transaminitis, and COPD; who presented to the hospital with complaints of shortness of breath and fever. Denies fever, chills, nausea, vomiting, or diarrhea. Reports continued shortness of breath, but improved since starting vapotherm. Objective: Vital Signs - 8 hr 01/09/19 01/09/19 01/09/19 07:39 08:00 09:00 Temperature 98.5 F Pulse Rate 106 103 Respiratory 19 15 14 Rate Blood Pressure 130/87 158/86 (mmHg) O2 Sat by Pulse 95 92 Oximetry 01/09/19 01/09/19 10:00 10:42 Temperature Pulse Rate 125 Respiratory 13 13 Rate Blood Pressure (mmHg) O2 Sat by Pulse 90 Oximetry Physical Exam: General: NAD, sitting up in bed Neurological: Alert and Oriented HEENT: Moist MM, no thrush Cardiovascular: Heart rate regular, no murmur Respiratory: Lung sounds with rhonchi in the left upper lobe Abdominal: Bowel sounds present; ABD soft, non tender and non distended Skin: No rash, cheeks are flushed Laboratory Results - last 24 hr 01/09/19 01/09/19 06:30 06:30 WBC 12.4 H RBC 3.03 L Hgb 8.9 L Hct 26 L MCV 86 MCH 29 MCHC 34 RDW 18 H Plt Count 392 MPV 8.0 Neut % (Auto) 87.1 Lymph % (Auto) 10.3 [place] % (Auto) 2.2 Eos % (Auto) 0.0 Baso % (Auto) 0.4 Absolute Neuts (auto) 10.8 H Absolute Lymphs (auto) 1.3 Absolute Monos (auto) 0.3 Absolute Eos (auto) 0.0 Absolute Basos (auto) 0.1 Absolute Nucleated RBC 0.0 Nucleated RBC % 0.1 Sodium 136 Potassium 3.9 Chloride 100 L Carbon Dioxide 25 Anion Gap 11 BUN 5 L Creatinine 0.39 L Est GFR ( Amer) 269.8 Est GFR (Non-Af Amer) 223.0 BUN/Creatinine Ratio 12.8 Glucose 223 H Calcium 8.1 L Magnesium 1.6 L Total Bilirubin 0.30 AST 46 H ALT 46 Alkaline Phosphatase 264 H Total Protein 5.0 L Albumin 2.2 L Globulin 2.8 Albumin/Globulin Ratio 0.8 L Microbiology 01/06/19 01:34 Aerobic Blood Culture - Preliminary Blood Venous No Growth Day 3 Anaerobic Blood Culture - Preliminary No Growth Day 3 01/07/19 17:54 Aerobic Blood Culture - Preliminary Blood Venous No Growth Day 1 Anaerobic Blood Culture - Preliminary No Growth Day 1 01/07/19 17:54 Aerobic Blood Culture - Preliminary Blood Venous No Growth Day 1 Anaerobic Blood Culture - Preliminary No Growth Day 1 01/06/19 15:30 Gram Stain - Final Body Fluid - Bronchial Washing 01/05/19 21:39 Nasal Screen MRSA (PCR) - Final Nasal Mrsa Not Detected Assessment: 1. Pneumonia. With acute respiratory failure, now on vapotherm. Blood cultures with no growth on day 1 and 3. Afebrile and leukocytosis with WBC 12.4. 2. Metastatic lung cancer. With brain and liver mets. 3. Possible adrenal insufficiency. On hydrocortisone. 4. Transaminitis. Has a focal liver lesion. Plan: Continue cefepime and azithromycin.
--- NOTE | 2019-01-09 13:11 | ECHO ---
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 History: Chronic obstructive pulmonary disease. 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 Chemotherapy. Risk factors: Former tobacco use. Conclusions Summary: 1. Study data: Transthoracic echocardiogram, limited study. 2. Procedure narrative: Transthoracic echocardiography was performed. Image quality was suboptimal. The study was technically limited due to poor acoustic window availability and poor patient compliance. A bubble study was performed. 3. Atrial septum: Poorly visualized. A shunt cannot be excluded. No obvious shunting. 4. Very limited study. Only 2 images obtained for review. Study data: Transthoracic echocardiogram, limited study. Procedure: Transthoracic echocardiography was performed. Image quality was suboptimal. The study was technically limited due to poor acoustic window availability and poor patient compliance. Study performed with patient sitting upright. A bubble study was performed. Images 2 and 3. Complete 2D, spectral Doppler, and color flow Doppler. Location: ICU Patient status: Inpatient. Patient room number: ICU-1. Rhythm: Tachycardia. Findings Atrial septum: Poorly visualized. A shunt cannot be excluded. No obvious shunting. Prepared and electronically signed by Yanique Donovan MD 01/09/2019 13:11
[2019-01-09] MEDS: Albuterol 2.5 MG/3 ML NEB.SOL* (0.083%) INH PRN (13:32)
[2019-01-09] MEDS: Azithromycin 500 mg/250 ml NS 500 MG/250 ML BAG IVPB SCH (17:29)
[2019-01-09] MEDS: Albuterol/Ipratropium NEB.SOL* Albuterol 2.5 MG/Ipratropium 0.5 MG 3 ML INH PRN (19:38)
--- NOTE | 2019-01-09 20:45 | PN ---
Date of Service: 01/09/19 Critical Care Services: O2 requirement climbing. Still no pathogen identified. Vital Signs: Temp Pulse Resp BP SpO2 FiO2 97.6 F 112 17 147/77 96 100 Physical Exam: Gen:Alert, oriented Lungs: Occasional crackles. No wheezing Cardiac: Reg rhythm Extremities:No cyanosis Fluid Balance (Past 24 Hours): 01/07/19 01/08/19 01/09/19 06:59 06:59 06:59 Intake Total 2065 3322 2942 Output Total 730 1775 1115 Balance 1335 1547 1827 Weight 167 lb 12.348 oz 174 lb 2.643 oz 176 lb 9.444 oz Intake: IV Fluids 205 1244 1339 ABX - AZITHROMYCIN 22 ABX - VANCOMYCIN 35 ABX - ZOSYN 170 Bactrim 38 LR 1148 1199 NS (0.9%) 74 102 IVPB 540 1308 663 ABX - AZITHROMYCIN 275 290 ABX - CEFEPIME 115 58 ABX - VANCOMYCIN 278 ABX - ZOSYN 262 Acetaminophen 100 Bactrim 818 315 Oral 1320 770 940 Output: Urine 730 1775 1115 Other: Estimated Void Medium Medium Small Date of Last Bowel Movement # Bowel Movements 1 1 Estimated Stool Amount Medium Large # Voids 1 1 1 Labs: Laboratory Results - last 24 hr 01/06/19 01/09/19 01/09/19 01:34 06:30 06:30 WBC 12.4 H RBC 3.03 L Hgb 8.9 L Hct 26 L MCV 86 MCH 29 MCHC 34 RDW 18 H Plt Count 392 Sodium 136 Potassium 3.9 Chloride 100 L Carbon Dioxide 25 Anion Gap 11 BUN 5 L Creatinine 0.39 L Glucose 223 H Calcium 8.1 L Magnesium 1.6 L Total Bilirubin 0.30 AST 46 H ALT 46 Alkaline Phosphatase 264 H Total Protein 5.0 L Albumin 2.2 L Globulin 2.8 Albumin/Globulin Ratio 0.8 L Cryptococcus Ag Negative Studies: CXR: No change from prior film Nutrition: Oral diet Impression: Community acquired pneumonia with progressive hypoxemia and no apparent pathogen. Pulmonary O2 toxicity could also be playing a role. Prognosis is poor , but the patient and his have unrealistic expectations. Plan: Patient is to be intubated if necessary. We can probable start removing antimicrobial Rx if all cultures are negative. Critical Care Time: 35 minutes
[2019-01-10] MEDS: Hydrocortisone INJ* 100 MG VIAL IV SCH ×3 (00:21→18:23)
[2019-01-10] MEDS: oxyCODONE TAB* 5 MG TAB PO PRN ×3 (02:51→14:13)
[2019-01-10] MEDS: Cefepime 1 GM in Dextrose(*) 1 GM/50 ML BAG IV SCH ×2 (05:04→18:50)
[2019-01-10] MEDS: Sucralfate SUSP 1 GM/10 ml 10 ML UDC PO SCH ×3 (06:11→18:01)
[2019-01-10] MEDS: Heparin VIAL(*) 5000 UNITS/ML VIAL (FIVE THOUSAND) SUBCUT SCH ×3 (06:11→21:44)
[2019-01-10] MEDS: Tiotropium CAP.INH* CAP.INH/18 MCG (USE ORDER SET !) INH SCH (07:54)
[2019-01-10] MEDS: Famotidine TAB* 20 MG PO SCH ×2 (08:31→21:39)
[2019-01-10] MEDS: Prochlorperazine TAB* 10 MG PO SCH ×2 (08:31→21:39)
[2019-01-10] MEDS: Benzonatate CAP* 100 MG PO SCH ×2 (08:31→21:39)
[2019-01-10] MEDS: Magnesium Oxide TAB* 400 MG PO SCH ×2 (08:31→21:38)
[2019-01-10] MEDS: Potassium Chlor TAB* 20 MEQ TAB.ER PO SCH ×2 (08:31→21:39)
[2019-01-10] MEDS: Pantoprazole TAB * 40 MG TAB PO SCH (08:31)
[2019-01-10] MEDS: Metoprolol Tartrate TAB* 25 MG PO SCH ×2 (08:31→21:39)
[2019-01-10 09:01] LABS: Hematocrit 25 % (42-52); Hemoglobin 8.3 g/dL (14.0-18.0); Mean Corpuscular HGB Conc 33 g/dL (31-36); Mean Corpuscular Hemoglobin 28 pg (27-31); Mean Corpuscular Volume 86 fL (80-94); Mean Platelet Volume 7.9 fL (7.4-10.4); Platelet Count 411 10^3/uL (150-450); Red Blood Count 2.96 10^6 /uL (4.18-5.48); Red Cell Distribution Width 18 % (10-15); White Blood Count 14.7 10^3/uL (3.5-10.8)
[2019-01-10 09:21] LABS: BUN/Creatinine Ratio 11.4 (8-20); Calcium 8.4 mg/dL (8.6-10.3); EGFR African American 234.8 (>60); Potassium 3.2 mmol/L (3.5-5.0)
[2019-01-10] MEDS ORDERED: Furosemide IV* 10 MG/ML VIAL (40 MG) IV SLOW PU ONE (14:29)
[2019-01-10] MEDS ORDERED: Anidulafungin* 200 MG in NS 0.9% 250 ML* 200 ML IVPB ONE (15:00)
--- NOTE | 2019-01-10 16:18 | PN ---
Date of Service: 01/10/19 Critical Care Services: Continues on Vapotherm and O2 requirement is gradualy increasing. BAL growng Teresa norvagenesis Vital Signs: Temp Pulse Resp BP SpO2 FiO2 99.7 F 97 20 136/79 100 100 Physical Exam: Gen:Alert, oriented Lungs: Decreased BS right base. Occasional crackles. No wheezes. Extremities: Cool. Cyanosis some fingertips. Fluid Balance (Past 24 Hours): 01/08/19 01/09/19 01/10/19 06:59 06:59 06:59 Intake Total 3322 2942 548 Output Total 1775 1115 2450 Balance 1547 1827 -1902 Weight 174 lb 2.643 oz 176 lb 9.444 oz 173 lb 15.115 oz Intake: IV Fluids 1244 1339 443 ABX - AZITHROMYCIN 22 260 ABX - CEFEPIME 50 Bactrim 38 LR 1148 1199 73 NS (0.9%) 74 102 60 IVPB 1308 663 55 ABX - AZITHROMYCIN 275 290 ABX - CEFEPIME 115 58 55 Acetaminophen 100 Bactrim 818 315 Oral 770 940 50 Output: Urine 1775 1115 2450 Other: Estimated Void Medium Small Date of Last Bowel 01/09/2019 Movement # Bowel Movements 1 1 Estimated Stool Amount Medium Large Large # Voids 1 1 Labs: 01/06/19 01/10/19 01/10/19 01:34 08:55 08:55 WBC 14.7 H RBC 2.96 L Hgb 8.3 L Hct 25 L MCV 86 MCH 28 MCHC 33 RDW 18 H Plt Count 411 MPV 7.9 Sodium 137 Potassium 3.2 L Chloride 98 L Carbon Dioxide 31 Anion Gap 8 BUN 5 L Creatinine 0.44 L Glucose 170 H Calcium 8.4 L Cryptococcus Ag Negative Studies: CXR: No change Nutrition: Oral diet Impression: 1. Progressive hypoxemia 2. ?significance of Teresa culture in BAL - sinceit is a deep speciment, we will treat with an echinocandin. Plan: 1. Will try antifungal Rx with anidulafungin 200 mg IV load, then [address] Barger met with patient and today to further explain the poor prognosis and to encourage the patient to avoid intubation and mechanical ventilation, which will be futile. Critical Care Time: 35 minutes
[2019-01-10] MEDS: Albuterol/Ipratropium NEB.SOL* Albuterol 2.5 MG/Ipratropium 0.5 MG 3 ML INH PRN (17:11)
[2019-01-10] MEDS ORDERED: traZODone TAB* 50 MG TAB PO PRN (18:45)
[2019-01-10] MEDS: Azithromycin 500 mg/250 ml NS 500 MG/250 ML BAG IVPB SCH (18:54)
[2019-01-10] MEDS: KCL 20 MEQ/100 ML IVPREMIX* 20 MEQ/100 ML BAG IV SCH ×4 (19:31→23:23)
[2019-01-11] MEDS: Hydrocortisone INJ* 100 MG VIAL IV SCH ×3 (00:09→17:03)
[2019-01-11] MEDS: oxyCODONE TAB* 5 MG TAB PO PRN ×5 (00:14→22:33)
[2019-01-11] MEDS: Cefepime 1 GM in Dextrose(*) 1 GM/50 ML BAG IV SCH ×2 (05:34→16:58)
[2019-01-11] MEDS: Heparin VIAL(*) 5000 UNITS/ML VIAL (FIVE THOUSAND) SUBCUT SCH ×3 (05:38→20:54)
[2019-01-11] MEDS: Sucralfate SUSP 1 GM/10 ml 10 ML UDC PO SCH ×3 (05:43→16:07)
--- NOTE | 2019-01-11 05:54 | PN ---
Progress Note - Progress Note Date of Service: 01/10/19 SOAP: Subjective: []Breathing subjectively similar but now on Vapotherm. He can sit in chair but cannot walk, saturations are low 90s. Fevers have stopped. He is not in pain. Acetaminophen (Tylenol Tab*) 650 mg PO Q4H PRN PRN Reason: FEVER/PAIN Last Admin: 01/07/19 17:21 Dose: 650 mg Albuterol (Ventolin 2.5 Mg/3 Ml Neb.Lottie*) 2.5 mg INH [id number] AWAKE PRN PRN Reason: sob/wheezing Last Admin: 01/09/19 13:32 Dose: 2.5 mg Albuterol/Ipratropium (Duoneb (Albuterol 2.5 Mg/Ipratropium 0.5 Mg)) 1 neb INH [id number] AWAKE PRN PRN Reason: sob/wheexing Last Admin: 01/10/19 17:11 Dose: 1 neb Benzonatate (Tessalon Cap*) 100 mg PO BID [facility] Last Admin: 01/10/19 21:39 Dose: 100 mg Famotidine (Pepcid Tab*) 20 mg PO BID [facility]; Protocol Last Admin: 01/10/19 21:39 Dose: 20 mg Heparin Sodium (Porcine) (Heparin Vial(*)) 5,000 units SUBCUT Q8HR [facility] Last Admin: 01/11/19 05:38 Dose: 5,000 units Hydrocortisone Sodium Succinate (Solu-Cortef*) 50 mg IV Q8H [facility] Last Admin: 01/11/19 00:09 Dose: 50 mg Azithromycin (Zithromax 500 Mg/250 Ml) 500 mg in 250 mls @ 250 mls/hr IVPB Q24H [facility] Last Admin: 01/10/19 18:54 Dose: 250 mls/hr Cefepime HCl (Maxipime 1 Gm In Dextrose Duplex (*)) 1 gm in 50 mls @ 100 mls/ hr IV Q12H [facility] Last Admin: 01/11/19 05:34 Dose: 100 mls/hr Anidulafungin 100 mg/ Sodium (Chloride) 130 mls @ 65 mls/hr IVPB Q24H [facility] Magnesium Oxide (Magox 400 Tab*) 400 mg PO BID [facility] Last Admin: 01/10/19 21:38 Dose: 400 mg Metoprolol Tartrate (Lopressor Tab*) 12.5 mg PO BID [facility] Last Admin: 01/10/19 21:39 Dose: 12.5 mg Metoprolol Tartrate (Lopressor Iv*) 5 mg IV Q4H PRN PRN Reason: TACHYCARDIA Ondansetron HCl (Zofran Inj*) 4 mg IV Q4H PRN PRN Reason: NAUSEA/VOMITING Oxycodone HCl (Roxycodone Tab*) 10 mg PO Q4H PRN PRN Reason: PAIN Last Admin: 01/11/19 00:14 Dose: 10 mg Pantoprazole Sodium (Protonix Tab*) 40 mg PO DAILY [facility] Last Admin: 01/10/19 08:31 Dose: 40 mg Potassium Chloride (Klor Con Er Tab*) 20 meq PO BID [facility] Last Admin: 01/10/19 21:39 Dose: 20 meq Prochlorperazine (Compazine Tab*) 10 mg PO BID [facility] Last Admin: 01/10/19 21:39 Dose: 10 mg Sucralfate (Sucralfate Susp) 1 gm PO 0630,1100,1600 [facility] Last Admin: 01/11/19 05:43 Dose: 1 gm Tiotropium [place] (Spiriva Cap.Inh*) 1 cap INH DAILY [facility] Last Admin: 01/10/19 07:54 Dose: 1 cap Trazodone HCl (Desyrel Tab*) 50 mg PO BEDTIME PRN PRN Reason: SLEEP Last Admin: 01/11/19 00:06 Dose: 50 mg Objective: [] Vital Signs Temp Pulse Resp BP Pulse Ox 97.0 F 94 18 125/81 100 01/11/19 03:34 01/11/19 05:00 01/11/19 05:00 01/11/19 05:00 01/11/19 05:00 HEENT: No oral lesions, no LAD dec BS, some crackles RRR S1 S2 Obese, + BS Assessment: []63 year old with IV NSCLC. 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 Treated with gamma knife and chemotherapy and XRT to lung mass with modest responds but development of new liver lesions. Course has been c/b recurrent fevers, tachycardia and episodes HTN, increased LFTs. He has has multiple admissions through treatment with oscillating but continued deterioration in lung funtion over 6 weeks. This is despite therapy with multiple courses of antibiotics, steroids. Evaluation including repeat bronchoscope without explanation for deterioration. Now on Vapotherm with only modest air exchange. Long discussion with patient and . I expect this course to to continue and he dose not have much time to live, days to a week. Family should come to see him now, take emergency flights. I suspect he will need intubation as course continues. If intubated he will not be extubated. I will stay alive for a short time but quality of that time will be very poor. Again discussed DNR/DNI. Plan: []1. ID. Continue current antibiotics, possible fungal coverage. 2. FEN. Renal function stable, replete K 3. Adrenal insufficiency. Hydrocortisone increased to 50 q 8 for stress dose. 4. Code status. Full code at this time, will discuss with his children when they arrive and consider DNR face time 50 min with patient and
[2019-01-11 06:29] LABS: BUN/Creatinine Ratio 21.1 (8-20); Calcium 8.6 mg/dL (8.6-10.3); EGFR Non-African American 229.8 (>60); Potassium 3.4 mmol/L (3.5-5.0)
[2019-01-11] MEDS: Tiotropium CAP.INH* CAP.INH/18 MCG (USE ORDER SET !) INH SCH (08:22)
[2019-01-11] MEDS: Metoprolol Tartrate TAB* 25 MG PO SCH ×2 (09:24→20:54)
[2019-01-11] MEDS: Magnesium Oxide TAB* 400 MG PO SCH ×2 (09:25→20:53)
[2019-01-11] MEDS: Famotidine TAB* 20 MG PO SCH ×2 (09:25→20:53)
[2019-01-11] MEDS: Benzonatate CAP* 100 MG PO SCH ×2 (09:25→20:53)
[2019-01-11] MEDS: Prochlorperazine TAB* 10 MG PO SCH ×2 (09:25→20:53)
[2019-01-11] MEDS: Pantoprazole TAB * 40 MG TAB PO SCH (09:25)
[2019-01-11] MEDS: Potassium Chlor TAB* 20 MEQ TAB.ER PO SCH ×2 (09:25→20:53)
--- NOTE | 2019-01-11 13:38 | PN ---
Progress Note - Progress Note Date of Service: 01/11/19 SOAP: Subjective: [No change in symptoms. Cough may be slightly improved. Little to no dyspnea at rest. Reports that he continues to have diffuse abd pain. Taking oxycodone regularly.] Objective: [ Vital Signs: Temp Pulse Resp BP Pulse Ox 98.2 F 88 18 125/67 98 01/11/19 12:27 01/11/19 12:00 01/11/19 12:06 01/11/19 12:00 01/11/19 12:00 Acetaminophen (Tylenol Tab*) 650 mg PO Q4H PRN PRN Reason: FEVER/PAIN Last Admin: 01/07/19 17:21 Dose: 650 mg Albuterol (Ventolin 2.5 Mg/3 Ml Neb.Lottie*) 2.5 mg INH [id number] AWAKE PRN PRN Reason: sob/wheezing Last Admin: 01/09/19 13:32 Dose: 2.5 mg Albuterol/Ipratropium (Duoneb (Albuterol 2.5 Mg/Ipratropium 0.5 Mg)) 1 neb INH [id number] AWAKE PRN PRN Reason: sob/wheexing Last Admin: 01/10/19 17:11 Dose: 1 neb Benzonatate (Tessalon Cap*) 100 mg PO BID [facility] Last Admin: 01/11/19 09:25 Dose: 100 mg Famotidine (Pepcid Tab*) 20 mg PO BID [facility]; Protocol Last Admin: 01/11/19 09:25 Dose: 20 mg Fentanyl (Duragesic Patch 12 Mcg/Hr *) 12 mcg TRANSDERM Q72H [facility] Heparin Sodium (Porcine) (Heparin Vial(*)) 5,000 units SUBCUT Q8HR [facility] Last Admin: 01/11/19 05:38 Dose: 5,000 units Hydrocortisone Sodium Succinate (Solu-Cortef*) 50 mg IV Q8H [facility] Last Admin: 01/11/19 09:25 Dose: 50 mg Azithromycin (Zithromax 500 Mg/250 Ml) 500 mg in 250 mls @ 250 mls/hr IVPB Q24H [facility] Last Admin: 01/10/19 18:54 Dose: 250 mls/hr Cefepime HCl (Maxipime 1 Gm In Dextrose Duplex (*)) 1 gm in 50 mls @ 100 mls/ hr IV Q12H [facility] Last Admin: 01/11/19 05:34 Dose: 100 mls/hr Anidulafungin 100 mg/ Sodium (Chloride) 130 mls @ 65 mls/hr IVPB Q24H [facility] Magnesium Oxide (Magox 400 Tab*) 400 mg PO BID [facility] Last Admin: 01/11/19 09:25 Dose: 400 mg Metoprolol Tartrate (Lopressor Tab*) 12.5 mg PO BID [facility] Last Admin: 01/11/19 09:24 Dose: 12.5 mg Metoprolol Tartrate (Lopressor Iv*) 5 mg IV Q4H PRN PRN Reason: TACHYCARDIA Ondansetron HCl (Zofran Inj*) 4 mg IV Q4H PRN PRN Reason: NAUSEA/VOMITING Oxycodone HCl (Roxycodone Tab*) 10 mg PO Q3H PRN PRN Reason: PAIN Pantoprazole Sodium (Protonix Tab*) 40 mg PO DAILY [facility] Last Admin: 01/11/19 09:25 Dose: 40 mg Potassium Chloride (Klor Con Er Tab*) 20 meq PO BID [facility] Last Admin: 01/11/19 09:25 Dose: 20 meq Prochlorperazine (Compazine Tab*) 10 mg PO BID [facility] Last Admin: 01/11/19 09:25 Dose: 10 mg Sucralfate (Sucralfate Susp) 1 gm PO 0630,1100,1600 [facility] Last Admin: 01/11/19 10:59 Dose: 1 gm Tiotropium [place] (Spiriva Cap.Inh*) 1 cap INH DAILY [facility] Last Admin: 01/11/19 08:22 Dose: 1 cap Trazodone HCl (Desyrel Tab*) 50 mg PO BEDTIME PRN PRN Reason: SLEEP Last Admin: 01/11/19 00:06 Dose: 50 mg Laboratory Results - last 24 hr 01/08/19 01/11/19 04:36 05:29 Sodium 138 Potassium 3.4 L Chloride 97 L Carbon Dioxide 30 Anion Gap 11 BUN 8 Creatinine 0.38 L Est GFR ( Amer) 278.0 Est GFR (Non-Af Amer) 229.8 BUN/Creatinine Ratio 21.1 H Glucose 220 H Calcium 8.6 Q Fever Phase I IgG Ab <1:16 Q Fever Phase I IgM Ab <1:16 Q Fever Phase II IgG Ab <1:16 Q Fever Phase II IgM Ab <1:16 Q Fever Ab Interpret See comment Exam: Gen: chronically ill appearing 63 yo male on Vapotherm but in NAD HEENT: MMM CV: RRR, no m/r/g Resp: occasional wheeze Abd: soft, diffuse TTP Ext: trace edema] Assessment: [63 yo male with metastatic NSCLC with a complicated course of treatment including multiple hospitalizations now admitted with recurrent respiratory infection now with acute respiratory failure requiring Vapotherm. BAL done with a high suspicion for PCP PNA, which was negative. BAL growing iron norvagenesis and antifungal coverage added 01/10). ] Plan: [1. Acute respiratory failure secondary to PNA, possible fungal in nature - cont Vapotherm - cont Cefepime and antifungal 2. Adrenal insufficiency - cont stress dose hydrocortisone at 50 mg q 8h 3. Metastatic NSCLC - s/p gammaknife to brain lesions and concurrent chemo/RT to lung lesion now with evidence of progressive disease in the liver - he is not a candidate for further therapy at this time 4. Heparin 5000U SQ q 8h 5. Code status: FULL CODE - extensive code discussion with Dr Barger, remains FULL CODE at this time and will readdress when his children arrive over the next 2 days Dispo: requires cont ICU level care]
[2019-01-11] MEDS ORDERED: fentaNYL PATCH 12 MCG/HR TRANSDERM SCH (14:00)
[2019-01-11] MEDS: Anidulafungin* 100 MG in NS 0.9% 100 ML* 100 ML IVPB SCH (14:35)
--- NOTE | 2019-01-11 15:01 | PN ---
Date of Service: 01/11/19 Critical Care Services: Clinical status unchanged since yesterday. Continues on high-flow nasal O2 with borderline oxygenation. Is on antifungal Rx for Teresa norvegenesis in BAL. Vital Signs: Temp Pulse Resp BP SpO2 FiO2 98.2 F 88 22 125/67 98 100 Physical Exam: Gen: Alert, oriented HEENT: OP clear Lungs: decreased BS right base Cardiac: Reg rhythm Abdomen: Not distended Extremities: Warm. Trace edema LEs Neuro: Fluid Balance (Past 24 Hours): 01/09/19 01/10/19 01/11/19 06:59 06:59 06:59 Intake Total 2942 548 2065 Output Total 1115 2450 2420 Balance 1827 -1902 -355 Weight 176 lb 9.444 oz 173 lb 15.115 oz Intake: IV Fluids 1339 443 40 ABX - AZITHROMYCIN 260 ABX - CEFEPIME 50 Bactrim 38 LR 1199 73 NS (0.9%) 102 60 40 IVPB 663 55 660 ABX - AZITHROMYCIN 290 250 ABX - CEFEPIME 58 55 50 ANIDULAFUNGIN 260 Bactrim 315 KCL in Sterile Water 100 Oral 942 84 2455 Output: Urine 1115 2450 2420 Other: Estimated Void Small Medium Date of Last Bowel 01/09/2019 01/10/19 Movement # Bowel Movements 1 Estimated Stool Amount Large Large Medium # Voids 1 1 Labs: 01/08/19 01/11/19 04:36 05:29 Sodium 138 Potassium 3.4 L Chloride 97 L Carbon Dioxide 30 Anion Gap 11 BUN 8 Creatinine 0.38 L Est GFR ( Amer) 278.0 Est GFR (Non-Af Amer) 229.8 BUN/Creatinine Ratio 21.1 H Glucose 220 H Calcium 8.6 Q Fever Phase I IgG Ab <1:16 Q Fever Phase I IgM Ab <1:16 Q Fever Phase II IgG Ab <1:16 Q Fever Phase II IgM Ab <1:16 Q Fever Ab Interpret See comment Studies: None Nutrition: Oral diet Impression: Progressive respiratory failure in a patient with stage IV lung cancer. Prognosis is very poor. Plan: For now, patient is to be intubated if necessary, although I think this will represent futile care.
[2019-01-11] MEDS: Azithromycin 500 mg/250 ml NS 500 MG/250 ML BAG IVPB SCH (17:43)
[2019-01-11] MEDS: traZODone TAB* 50 MG TAB PO PRN (20:54)
[2019-01-12] MEDS: Hydrocortisone INJ* 100 MG VIAL IV SCH ×3 (01:04→17:15)
[2019-01-12] MEDS: Cefepime 1 GM in Dextrose(*) 1 GM/50 ML BAG IV SCH (05:35)
[2019-01-12] MEDS: Sucralfate SUSP 1 GM/10 ml 10 ML UDC PO SCH ×3 (05:35→17:05)
[2019-01-12] MEDS: Heparin VIAL(*) 5000 UNITS/ML VIAL (FIVE THOUSAND) SUBCUT SCH ×3 (05:35→22:26)
[2019-01-12] MEDS: oxyCODONE TAB* 5 MG TAB PO PRN ×3 (05:47→20:22)
[2019-01-12 05:52] LABS: Hematocrit 24 % (42-52); Mean Corpuscular HGB Conc 34 g/dL (31-36); Mean Corpuscular Hemoglobin 29 pg (27-31); Mean Corpuscular Volume 85 fL (80-94); Mean Platelet Volume 7.5 fL (7.4-10.4); Platelet Count 345 10^3/uL (150-450); Red Blood Count 2.78 10^6 /uL (4.18-5.48); Red Cell Distribution Width 18 % (10-15); White Blood Count 17.6 10^3/uL (3.5-10.8)
[2019-01-12 06:10] LABS: Albumin 2.2 g/dL (3.2-5.2); Albumin/Globulin Ratio 0.7 (1-3); BUN/Creatinine Ratio 24.2 (8-20); Calcium 8.5 mg/dL (8.6-10.3); EGFR African American 327.2 (>60); EGFR Non-African American 270.4 (>60); Globulin 3.3 g/dL (2-4); Potassium 3.5 mmol/L (3.5-5.0); Total Bilirubin 0.6 mg/dL (0.2-1.0); Total Protein 5.5 g/dL (6.4-8.9)
[2019-01-12] MEDS: Potassium Chlor TAB* 20 MEQ TAB.ER PO SCH ×2 (08:28→20:22)
[2019-01-12] MEDS: Metoprolol Tartrate TAB* 25 MG PO SCH ×2 (08:28→20:23)
[2019-01-12] MEDS: Pantoprazole TAB * 40 MG TAB PO SCH (08:29)
[2019-01-12] MEDS: Magnesium Oxide TAB* 400 MG PO SCH ×2 (08:29→20:22)
[2019-01-12] MEDS: Famotidine TAB* 20 MG PO SCH ×2 (08:29→20:24)
[2019-01-12] MEDS: Prochlorperazine TAB* 10 MG PO SCH ×2 (08:29→20:23)
[2019-01-12] MEDS: Benzonatate CAP* 100 MG PO SCH ×2 (08:29→20:23)
[2019-01-12] MEDS: Tiotropium CAP.INH* CAP.INH/18 MCG (USE ORDER SET !) INH SCH (09:57)
[2019-01-12] MEDS: Albuterol/Ipratropium NEB.SOL* Albuterol 2.5 MG/Ipratropium 0.5 MG 3 ML INH SCH ×2 (09:57→19:35)
[2019-01-12] MEDS ORDERED: Lorazepam PYXIS KEY PRN (09:59)
--- NOTE | 2019-01-12 09:59 | PN ---
Progress Note - Progress Note Date of Service: 01/12/19 SOAP: Subjective: [Reports no change in symptoms. Very anxious this morning and overnight. Desaturated when he became agitated and vapotherm settings increased to 40L at 100%. No fevers.] Objective: [ Vital Signs: Temp Pulse Resp BP Pulse Ox 97.1 F 82 14 128/67 100 01/12/19 07:23 01/12/19 07:00 01/12/19 07:00 01/12/19 07:00 01/12/19 07:00 Acetaminophen (Tylenol Tab*) 650 mg PO Q4H PRN PRN Reason: FEVER/PAIN Last Admin: 01/07/19 17:21 Dose: 650 mg Albuterol (Ventolin 2.5 Mg/3 Ml Neb.Lottie*) 2.5 mg INH [id number] AWAKE PRN PRN Reason: sob/wheezing Last Admin: 01/09/19 13:32 Dose: 2.5 mg Albuterol/Ipratropium (Duoneb (Albuterol 2.5 Mg/Ipratropium 0.5 Mg)) 1 neb INH [id number] AWAKE PRN PRN Reason: sob/wheexing Last Admin: 01/10/19 17:11 Dose: 1 neb Albuterol/Ipratropium (Duoneb (Albuterol 2.5 Mg/Ipratropium 0.5 Mg)) 1 neb INH RT.BID TIANNA Benzonatate (Tessalon Cap*) 100 mg PO BID [facility] Last Admin: 01/12/19 08:29 Dose: 100 mg Famotidine (Pepcid Tab*) 20 mg PO BID [facility]; Protocol Last Admin: 01/12/19 08:29 Dose: 20 mg Fentanyl (Duragesic Patch 12 Mcg/Hr *) 12 mcg TRANSDERM Q72H [facility] Last Admin: 01/11/19 13:44 Dose: 12 mcg Furosemide (Lasix Iv*) 20 mg IV DAILY [facility] Heparin Sodium (Porcine) (Heparin Vial(*)) 5,000 units SUBCUT Q8HR [facility] Last Admin: 01/12/19 05:35 Dose: 5,000 units Hydrocortisone Sodium Succinate (Solu-Cortef*) 50 mg IV Q8H [facility] Last Admin: 01/12/19 08:27 Dose: 50 mg Azithromycin (Zithromax 500 Mg/250 Ml) 500 mg in 250 mls @ 250 mls/hr IVPB Q24H [facility] Last Admin: 01/11/19 17:43 Dose: 250 mls/hr Cefepime HCl (Maxipime 1 Gm In Dextrose Duplex (*)) 1 gm in 50 mls @ 100 mls/ hr IV Q12H [facility] Last Admin: 01/12/19 05:35 Dose: 100 mls/hr Anidulafungin 100 mg/ Sodium (Chloride) 130 mls @ 65 mls/hr IVPB Q24H [facility] Last Admin: 01/11/19 14:35 Dose: 65 mls/hr Magnesium Oxide (Magox 400 Tab*) 400 mg PO BID [facility] Last Admin: 01/12/19 08:29 Dose: 400 mg Metoprolol Tartrate (Lopressor Tab*) 12.5 mg PO BID [facility] Last Admin: 01/12/19 08:28 Dose: 12.5 mg Metoprolol Tartrate (Lopressor Iv*) 5 mg IV Q4H PRN PRN Reason: TACHYCARDIA Ondansetron HCl (Zofran Inj*) 4 mg IV Q4H PRN PRN Reason: NAUSEA/VOMITING Oxycodone HCl (Roxycodone Tab*) 10 mg PO Q3H PRN PRN Reason: PAIN Last Admin: 01/12/19 05:47 Dose: 10 mg Pantoprazole Sodium (Protonix Tab*) 40 mg PO DAILY [facility] Last Admin: 01/12/19 08:29 Dose: 40 mg Potassium Chloride (Klor Con Er Tab*) 20 meq PO BID [facility] Last Admin: 01/12/19 08:28 Dose: 20 meq Prochlorperazine (Compazine Tab*) 10 mg PO BID [facility] Last Admin: 01/12/19 08:29 Dose: 10 mg Sucralfate (Sucralfate Susp) 1 gm PO 0630,1100,1600 [facility] Last Admin: 01/12/19 05:35 Dose: 1 gm Tiotropium [place] (Spiriva Cap.Inh*) 1 cap INH DAILY [facility] Last Admin: 01/11/19 08:22 Dose: 1 cap Trazodone HCl (Desyrel Tab*) 100 mg PO BEDTIME PRN PRN Reason: SLEEP Last Admin: 01/11/19 20:54 Dose: 100 mg Laboratory Results - last 24 hr 01/12/19 01/12/19 05:46 05:46 WBC 17.6 H RBC 2.78 L Hgb 8.0 L Hct 24 L MCV 85 MCH 29 MCHC 34 RDW 18 H Plt Count 345 MPV 7.5 Sodium 137 Potassium 3.5 Chloride 98 L Carbon Dioxide 30 Anion Gap 9 BUN 8 Creatinine 0.33 L Est GFR ( Amer) 327.2 Est GFR (Non-Af Amer) 270.4 BUN/Creatinine Ratio 24.2 H Glucose 258 H Calcium 8.5 L Total Bilirubin 0.60 AST 184 H ALT 135 H Alkaline Phosphatase 340 H Total Protein 5.5 L Albumin 2.2 L Globulin 3.3 Albumin/Globulin Ratio 0.7 L Exam: Gen: chronically ill appearing 63 yo male on Vapotherm but in NAD HEENT: MMM CV: RRR, no m/r/g Resp: diffuse rhonchi, occasional wheeze Abd: soft, diffuse TTP Ext: trace edema Psych: anxious, mildly agitated] Assessment: [63 yo male with metastatic NSCLC with a complicated course of treatment including multiple hospitalizations now admitted with recurrent respiratory infection now with acute respiratory failure requiring Vapotherm. BAL done with a high suspicion for PCP PNA, which was negative. BAL growing iron norvagenesis and antifungal coverage added 01/10. ] Plan: [1. Acute respiratory failure secondary to PNA, possible fungal in nature - cont Vapotherm, current max setting - desaturates with minimal activity - cont Cefepime, azithromycin and antifungal coverage - start standing DuoNebs twice daily, and diuress with 20mg IV lasix daily 2. Adrenal insufficiency - cont stress dose hydrocortisone at 50 mg q 8h 3. Metastatic NSCLC - s/p gammaknife to brain lesions and concurrent chemo/RT to lung lesion now with evidence of progressive disease in the liver - he is not a candidate for further therapy at this time 4. Anxiety - start standing lorazepam at bedtime and prn during day for anxiety/agitation 5. Heparin 5000U SQ q 8h 6. Code status: FULL CODE - extensive code discussion with Dr Barger, remains FULL CODE at this time and will readdress when his children arrive over the next 1-2 days Dispo: requires cont ICU level care]
[2019-01-12] MEDS: Furosemide IV* 10 MG/ML 2 ML VIAL (20 MG) IV SCH (10:11)
[2019-01-12] MEDS: LORazepam INJ* 2 MG/ML 1 ML VIAL IV PUSH PRN (14:50)
--- NOTE | 2019-01-12 14:54 | PN ---
Date of Service: 01/12/19 Critical Care Services: Clinical condition basically unchanged - continues to require high flow and high O2 concentrations. No signs of clinical improvement. Vital Signs: Temp Pulse Resp BP SpO2 FiO2 96.9 F 107 20 142/81 98 100 Physical Exam: Gen: Alert and oriented. Lungs: Occasional crackles. No wheezes or course rhonchi. Extremities:No cyanosis or edema Fluid Balance (Past 24 Hours): 01/10/19 01/11/19 01/12/19 06:59 06:59 06:59 Intake Total 548 2065 1747 Output Total 2450 2420 1020 Balance -1902 -355 727 Weight 173 lb 175 lb Intake: IV Fluids 443 40 291 ABX - AZITHROMYCIN 260 ABX - CEFEPIME 50 LR 73 NS (0.9%) 60 40 291 IVPB 55 660 316 ABX - AZITHROMYCIN 250 ABX - CEFEPIME 55 50 113 ANIDULAFUNGIN 260 135 KCL in Sterile Water 100 NS (0.9%) 68 Oral 50 1365 1140 Output: Urine 2450 2420 770 Pierce 250 Other: Estimated Void Medium Medium Date of Last Bowel 01/09/2019 01/10/19 Movement Estimated Stool Amount Large Medium # Voids 1 1 Labs: Laboratory Results - last 24 hr 01/12/19 01/12/19 05:46 05:46 WBC 17.6 H Hgb 8.0 L Hct 24 L MCV 85 MCH 29 MCHC 34 RDW 18 H Plt Count 345 Sodium 137 Potassium 3.5 Chloride 98 L Carbon Dioxide 30 Anion Gap 9 BUN 8 Creatinine 0.33 L Glucose 258 H Calcium 8.5 L Total Bilirubin 0.60 AST 184 ALT 135 Alkaline Phosphatase 340 Total Protein 5.5 L Albumin 2.2 Globulin 3.3 Albumin/Globulin Ratio 0.7 L Studies: None today Nutrition: Oral diet Impression: Progressive hypoxic respiratory failure presumably due to a community acquired pneumonia, although only organism isolated (from BAL) is an atypical Teresa species. Pulmonary O2 toxicity is likely to be playing a role also. Plan: Continue antifunfgal Rx with anidulafungin. Will d/c other antibiotics ( azithromycin and cefepime) in light of multiple negative cultures. The prognosis here is very poor, but the patient and his insist on intubation and mechanical ventilation if needed, and on CPR. Patient's sons are coming in from [place], and the hope is that they can help the parents to make more reasoned decisions. Critical Care Time: 30 minutes
[2019-01-12] MEDS: Anidulafungin* 100 MG in NS 0.9% 100 ML* 100 ML IVPB SCH ×2 (15:33→15:57)
[2019-01-12] MEDS: LORazepam INJ* 2 MG/ML 1 ML VIAL IV PUSH SCH (20:22)
[2019-01-12] MEDS: traZODone TAB* 50 MG TAB PO PRN (20:23)
[2019-01-13] MEDS: Hydrocortisone INJ* 100 MG VIAL IV SCH ×2 (01:07→10:11)
[2019-01-13 05:28] LABS: Hematocrit 23 % (42-52); Hemoglobin 7.6 g/dL (14.0-18.0); Mean Corpuscular HGB Conc 33 g/dL (31-36); Mean Corpuscular Hemoglobin 28 pg (27-31); Mean Corpuscular Volume 85 fL (80-94); Mean Platelet Volume 7.8 fL (7.4-10.4); Platelet Count 340 10^3/uL (150-450); Red Blood Count 2.74 10^6 /uL (4.18-5.48); Red Cell Distribution Width 18 % (10-15); White Blood Count 19.5 10^3/uL (3.5-10.8)
[2019-01-13 05:50] LABS: Albumin 2.2 g/dL (3.2-5.2); Albumin/Globulin Ratio 0.7 (1-3); BUN/Creatinine Ratio 29.3 (8-20); Calcium 8.5 mg/dL (8.6-10.3); EGFR African American 254.7 (>60); EGFR Non-African American 210.5 (>60); Globulin 3.2 g/dL (2-4); Potassium 3.9 mmol/L (3.5-5.0); Total Bilirubin 0.5 mg/dL (0.2-1.0); Total Protein 5.4 g/dL (6.4-8.9)
[2019-01-13] MEDS: Heparin VIAL(*) 5000 UNITS/ML VIAL (FIVE THOUSAND) SUBCUT SCH (06:18)
[2019-01-13] MEDS: Sucralfate SUSP 1 GM/10 ml 10 ML UDC PO SCH ×2 (06:18→10:12)
[2019-01-13] MEDS: Albuterol/Ipratropium NEB.SOL* Albuterol 2.5 MG/Ipratropium 0.5 MG 3 ML INH SCH ×2 (07:34→19:56)
[2019-01-13] MEDS: Tiotropium CAP.INH* CAP.INH/18 MCG (USE ORDER SET !) INH SCH (07:34)
[2019-01-13 08:53] LABS: Urine Appearance Cloudy; Urine Bacteria Absent (Absent); Urine Bilirubin Negative (Negative); Urine Blood Negative (Negative); Urine Color Amber; Urine Glucose 2+(150 mg/dL) (Negative); Urine Ketones Negative (Negative); Urine Nitrite Negative (Negative); Urine Protein 1+(30 mg/dL) (Negative); Urine Red Blood Cell Trace(0-2/hpf) (Absent); Urine Specific Gravity 1.019 (1.010-1.030); Urine Urobilinogen Negative (Negative); Urine White Blood Cell Trace(0-5/hpf) (Absent)
[2019-01-13] MEDS: LORazepam INJ* 2 MG/ML 1 ML VIAL IV PUSH PRN ×2 (09:29→16:30)
--- NOTE | 2019-01-13 09:35 | PN ---
Date of Service: 01/13/19 Critical Care Services: ICU team including myself had long conversation with family including the or the health care proxy. Informed them of his worsening respiratory status, tachycardia, and hypoxemia. Patients 02 sats in the 80's despite high flow oxygen being maxed out. After a long discussion, the family and proxy agreed to comfort care measures. Vital Signs: Temp Pulse Resp BP SpO2 FiO2 97.8 F 104 28 141/79 97 100 01/13/19 07:21 01/13/19 08:00 01/13/19 09:29 01/13/19 08:00 01/13/19 08:00 01/13 07:34 Physical Exam: Gen: confused. AO time person and place. increased respiratory rate: Fluid Balance (Past 24 Hours): I= O= Net Intake & Output 01/11/19 01/12/19 01/13/19 01/14/19 06:59 06:59 06:59 06:59 Intake Total 2065 1747 2267 Output Total 2420 1020 1645 500 Balance -355 727 622 -500 Weight 175 lb 7.807 oz Intake: IV Fluids 40 291 109 NS (0.9%) 40 291 109 IVPB 660 316 150 ABX - AZITHROMYCIN 250 ABX - CEFEPIME 50 113 ANIDULAFUNGIN 260 135 150 KCL in Sterile Water 100 NS (0.9%) 68 Oral 1365 1140 2007 Output: Urine 2420 770 1590 Pierce 250 55 500 Other: Estimated Void Medium Medium Date of Last Bowel 01/10/19 Movement Estimated Stool Amount Medium # Voids 1 1 Labs: Laboratory Results - last 24 hr 01/13/19 01/13/19 01/13/19 05:14 05:14 08:10 WBC 19.5 H RBC 2.74 L Hgb 7.6 L Hct 23 L MCV 85 MCH 28 MCHC 33 RDW 18 H Plt Count 340 MPV 7.8 Sodium 139 Potassium 3.9 Chloride 99 L Carbon Dioxide 34 H Anion Gap 6 BUN 12 Creatinine 0.41 L Est GFR ( Amer) 254.7 Est GFR (Non-Af Amer) 210.5 BUN/Creatinine Ratio 29.3 H Glucose 239 H Calcium 8.5 L Total Bilirubin 0.50 AST 42 H ALT 93 H Alkaline Phosphatase 322 H Total Protein 5.4 L Albumin 2.2 L Globulin 3.2 Albumin/Globulin Ratio 0.7 L Urine Color Ella Urine Appearance Cloudy Urine pH 6.0 Ur Specific [place] 1.019 Urine Protein 1+(30 mg/dl) A Urine Ketones Negative Urine Blood Negative Urine Nitrate Negative Urine Bilirubin Negative Urine Urobilinogen Negative Ur Leukocyte Esterase Negative Urine WBC (Auto) Trace(0-5/hpf) Urine RBC (Auto) Trace(0-2/hpf) Urine Bacteria Absent Urine Glucose 2+(150 mg/dl) A Plan: Patient to be placed on comfort care measures. Morphine PRN. No intubation. MOLST signed by . Critical Care Time: 45 minutes.
[2019-01-13] MEDS: Morphine INJ* 2 MG/ML 1 ML SYRINGE (TWO MG - NEW SYRINGE VERSION) IV PRN ×2 (09:38→12:26)
[2019-01-13] MEDS: Magnesium Oxide TAB* 400 MG PO SCH (10:11)
[2019-01-13] MEDS: Furosemide IV* 10 MG/ML 2 ML VIAL (20 MG) IV SCH (10:11)
[2019-01-13] MEDS: Famotidine TAB* 20 MG PO SCH (10:11)
[2019-01-13] MEDS: Pantoprazole TAB * 40 MG TAB PO SCH (10:11)
[2019-01-13] MEDS: Metoprolol Tartrate TAB* 25 MG PO SCH (10:11)
[2019-01-13] MEDS: Benzonatate CAP* 100 MG PO SCH (10:11)
[2019-01-13] MEDS: Prochlorperazine TAB* 10 MG PO SCH ×2 (10:12→21:15)
[2019-01-13] MEDS: Potassium Chlor TAB* 20 MEQ TAB.ER PO SCH (10:12)
[2019-01-13] MEDS ORDERED: Morphine 4 MG/ML VIAL (1 ml) 4 MG/ML VIAL ONE (12:44)
[2019-01-13] MEDS: Morphine 4 MG/ML VIAL (1 ml) 4 MG/ML VIAL IV PRN ×4 (15:04→23:27)
[2019-01-13] MEDS: Anidulafungin* 100 MG in NS 0.9% 100 ML* 100 ML IVPB SCH ×2 (17:30→18:05)
--- NOTE | 2019-01-13 18:43 | PN ---
Progress Note - Progress Note Date of Service: 01/13/19 SOAP: Subjective: []Non responsive but comfortable Family at bedside Acetaminophen (Tylenol Tab*) 650 mg PO Q4H PRN PRN Reason: FEVER/PAIN Last Admin: 01/07/19 17:21 Dose: 650 mg Albuterol (Ventolin 2.5 Mg/3 Ml Neb.Lottie*) 2.5 mg INH [id number] AWAKE PRN PRN Reason: sob/wheezing Last Admin: 01/09/19 13:32 Dose: 2.5 mg Albuterol/Ipratropium (Duoneb (Albuterol 2.5 Mg/Ipratropium 0.5 Mg)) 1 neb INH [id number] AWAKE PRN PRN Reason: sob/wheexing Last Admin: 01/10/19 17:11 Dose: 1 neb Albuterol/Ipratropium (Duoneb (Albuterol 2.5 Mg/Ipratropium 0.5 Mg)) 1 neb INH RT.BID TIANNA Last Admin: 01/13/19 07:34 Dose: 1 neb Fentanyl (Duragesic Patch 12 Mcg/Hr *) 12 mcg TRANSDERM Q72H [facility] Last Admin: 01/11/19 13:44 Dose: 12 mcg Anidulafungin 100 mg/ Sodium (Chloride) 130 mls @ 65 mls/hr IVPB 1600 TIANNA Last Admin: 01/13/19 18:05 Dose: 65 mls/hr Lorazepam (Ativan Inj*) 1 mg IV PUSH BEDTIME TIANNA Last Admin: 01/12/19 20:22 Dose: 1 mg Lorazepam (Ativan Inj*) 0.5 mg IV PUSH Q4H PRN PRN Reason: ANXIETY Last Admin: 01/13/19 16:30 Dose: 0.5 mg Miscellaneous (Ativan Pyxis [place]) 1 ea N/A .ATIVAN IV CAMPBELL PRN PRN Reason: PYXIS CAMPBELL Morphine Sulfate (Morphine Inj (Syringe))*) 1 mg IV Q1HR PRN PRN Reason: PAIN Last Admin: 01/13/19 12:26 Dose: 1 mg Morphine Sulfate (Morphine 4 Mg/Ml Vial (1 Ml)) 3 mg IV Q30M PRN PRN Reason: .DYSPNEA Last Admin: 01/13/19 16:26 Dose: 3 mg Ondansetron HCl (Zofran Inj*) 4 mg IV Q4H PRN PRN Reason: NAUSEA/VOMITING Oxycodone HCl (Roxycodone Tab*) 10 mg PO Q3H PRN PRN Reason: PAIN Last Admin: 01/12/19 20:22 Dose: 10 mg Prochlorperazine (Compazine Tab*) 10 mg PO BID [facility] Last Admin: 01/13/19 10:12 Dose: Not Given Tiotropium [place] (Spiriva Cap.Inh*) 1 cap INH DAILY [facility] Last Admin: 01/13/19 07:34 Dose: 1 cap Objective: [] Vital Signs Temp Pulse Resp BP Pulse Ox 97.8 F 149 35 133/73 77 01/13/19 07:21 01/13/19 18:30 01/13/19 18:30 01/13/19 18:00 01/13/19 18:30 HEENT: OM dry wheezing, course RRR S1S2 tachy +BS Assessment: []Family is at bedside and has agreed to comfort measures. Plan: []1. DNR/DNI 2. Morphine drip at 1 mg/hr and PRN IV
[2019-01-13] MEDS ORDERED: Morphine PCA 5 MG/ML * Titrate per Protocol PCA SCH (19:00)
[2019-01-13] MEDS ORDERED: fentaNYL Patch Check Q Shift 1 NOTE FOLLOW UP SCH (20:00)
[2019-01-13] MEDS: LORazepam INJ* 2 MG/ML 1 ML VIAL IV PUSH SCH (21:15)
[2019-01-13 22:28] VITALS: BP 155/76
[2019-01-14] MEDS: Morphine 4 MG/ML VIAL (1 ml) 4 MG/ML VIAL IV PRN (00:38)
--- NOTE | 2019-01-22 08:46 | DS ---
DISCHARGE/ SUMMARY: DATE OF ADMISSION: 01/05/19 DATE OF : 01/14/19 DIAGNOSES AT : 1. Metastatic non-small cell lung cancer. 2. Chronic obstructive pulmonary disease. 3. Recurrent fevers. HOSPITAL COURSE: The patient came in to the hospital with progressive shortness of breath and fevers. He was initially on nasal cannula and had to go to the intensive care unit requiring Vapotherm. He had trials on antibiotics and steroids for progressive symptoms. Chest x-ray showed diffuse infiltrate and question of lymphangitic spread of cancer. Multiple discussions with the patient and the family that there was no clear reversible source of his distress, and decision was made after his children arrived from out of state to transition to comfort care only. He with his family by his side. CONDITION ON DISCHARGE: . No followup or studies pending. [id number]/CPS #: [id number] MTDD
== END 2019-01-14 04:20 | disposition expired | DRG 189 ==
LOC: ED 15:09 → ICU 19:10 → MED 01-07 09:58 → ICU 01-07 16:15
PROVIDERS: ADMIT Internal Medicine; ATTEND Internal Medicine Hematology & Oncology
PROC: 0B978ZZ Drainage of Left Main Bronchus, Via Natural or Artificial Opening Endoscopic (ICD-10-PCS; principal; 2019-01-06)
PROC: 0B938ZZ Drainage of Right Main Bronchus, Via Natural or Artificial Opening Endoscopic (ICD-10-PCS; 2019-01-06)
PROC: 30233N1 Transfusion of Nonautologous Red Blood Cells into Peripheral Vein, Percutaneous Approach (ICD-10-PCS; 2019-01-06)
DX: J96.01 Acute respiratory failure with hypoxia (principal); C34.90 Malignant neoplasm of unspecified part of unspecified bronchus or lung; C78.7 Secondary malignant neoplasm of liver and intrahepatic bile duct; C79.31 Secondary malignant neoplasm of brain; E27.40 Unspecified adrenocortical insufficiency; I10 Essential (primary) hypertension; D64.9 Anemia, unspecified; Z51.5 Encounter for palliative care; F41.9 Anxiety disorder, unspecified; R74.0 Nonspecific elevation of levels of transaminase and lactic acid dehydrogenase [LDH]; J43.9 Emphysema, unspecified; K21.9 Gastro-esophageal reflux disease without esophagitis; Z87.891 Personal history of nicotine dependence
CPT/HCPCS: 36415; 36600; 71045; 71046; 71275; 76705; 80048; 80053; 80076; 81003; 81015; 82565; 82803; 83605; 83615; 83735; 83880; 84484; 84520; 85025; 85027; 85610; 85730; 86638; 86850; 86900; 86901; 86922; 87040; 87070; 87086; 87102; 87205; 87252; 87641; 87798; 87899; 88112; 88161; 93005; 93306; 93308; 93970; 94640; 94667; 94668; 99232; 99233; 99285; A9270-GY; C8929; J0348; J0456; J0692; J1644; J1720; J1940; J2060; J2250; J2270; J2543; J3010; J3370; J3480; J3490; P9040; Q0164; Q9967